=== PATIENT | female | born 1955 | race Caucasian/White ===

== ENCOUNTER 2018-04-10 06:48 | Emergency (ER) | payer BC ==
--- OUTSIDE RECORDS SUMMARY | 2018-04-10 06:52 | XMS REPORT | Summary of Care ---
:1955 Author Organization [facility] Address [address] [place] [id number]- Encounter HQ Encntr_alden(FIN) [id number] Date(s): 06/11/16 - 06/11/[address] [address]- Discharge Disposition: Home or Self Care Attending Physician: Tesha Casanova MD Vital Signs Most recent to oldest [Reference Range]: 1 Height 152.4 cm (06/11/16 2:40 PM) Weight 69 kg (06/11/16 2:40 PM) Body Mass Index 29.71 m2 (06/11/16 2:40 PM) Problem List Condition Effective Dates Status Health Status Informant Adrenal insufficiency(Confirmed) Resolved Back pain(Confirmed) Resolved CVA (cerebral vascular Resolved accident)(Confirmed) DM (diabetes mellitus)(Confirmed) Resolved HTN (hypertension)(Confirmed) Resolved Kidney stone(Confirmed) Resolved Cervical fusion syndrome(Confirmed) Resolved Pancreatic cyst(Confirmed) Resolved TIA (transient ischemic Resolved attack)(Confirmed) UTI (urinary tract Resolved infection)(Confirmed) Allergies, Adverse Reactions, Alerts Substance Reaction Severity Status NKDA Active sulfa drugs Active Medications No data available for this section Results No data available for this section Immunizations No data available for this section Procedures Procedure Date Related Diagnosis Body Site Cervical spinal fusion1 Gastric bypass 1C3-6 Social History Social History Type Response Smoking Status Never smoker; Ready to change: No; Concerns about tobacco use in household: No; Exposure to Tobacco Smoke None; Cigarette Smoking Last 365 Days No; Reg Smoking Cessation Counseling No Assessment and Plan No data available for this section
--- OUTSIDE RECORDS SUMMARY | 2018-04-10 06:52 | XMS REPORT | Summary of Care ---
:1955 Author Organization [facility] Address [address] [place] [address]- Encounter HQ Rosannar_alden(FIN) [id number] Date(s): 02/06/16 - 02/06/[address] Professional Services provided by [facility] [place] [address]- Discharge Diagnosis: Dysuria Discharge Disposition: Home or Self Care Attending Physician: Royal Dumont MD Vital Signs Most recent to oldest 1 2 3 [Reference Range]: Temperature Oral [96.4-99.1 98 DegF 97.6 DegF 98.9 DegF DegF] (02/06/16 8:49 PM) (02/06/16 5:30 PM) (02/06/16 2:46 PM) Blood Pressure [90-140/60-90 160/99 mmHg 140/76 mmHg 176/115 mmHg mmHg] *HI* (02/06/16 5:30 PM) *HI* (02/06/16 8:49 PM) (02/06/16 2:46 PM) Respiratory Rate [14-20 BRMIN] 18 BRMIN 18 BRMIN 18 BRMIN (02/06/16 8:49 PM) (02/06/16 5:30 PM) (02/06/16 2:46 PM) Peripheral Pulse Rate [60-100 67 bpm 77 bpm 67 bpm bpm] (02/06/16 8:49 PM) (02/06/16 5:30 PM) (02/06/16 2:46 PM) Problem List Condition Effective Dates Status Health Status Informant Adrenal insufficiency(Confirmed) Resolved Back pain(Confirmed) Resolved CVA (cerebral vascular Resolved accident)(Confirmed) DM (diabetes mellitus)(Confirmed) Resolved HTN (hypertension)(Confirmed) Resolved Kidney stone(Confirmed) Resolved Cervical fusion syndrome(Confirmed) Resolved Pancreatic cyst(Confirmed) Resolved TIA (transient ischemic Resolved attack)(Confirmed) UTI (urinary tract Resolved infection)(Confirmed) Allergies, Adverse Reactions, Alerts Substance Reaction Severity Status NKDA Active Medications Azo-Standard 95 mg oral tablet 95 mg=1 tab, PO, TID, X 7 day, # 21 tab, 1 Refill(s) Start Date: 02/06/16 Stop Date: 02/20/16 Status: Orderedcefdinir 300 mg oral capsule 300 mg=1 cap, PO, BID, X 10 day, # 20 cap, 0 Refill(s) Start Date: 02/06/16 Stop Date: 02/16/16 Status: Ordered Results ELECTROLYTES Most recent to oldest [Reference Range]: 1 Sodium Lvl [135-145 mEq/L] 141 mEq/L (02/06/16 5:55 PM) Potassium Lvl [3.5-5.1 mEq/L] 4.3 mEq/L (02/06/16 5:55 PM) Chloride Lvl [95-109 mEq/L] 101 mEq/L (02/06/16 5:55 PM) CO2 [24-32 mEq/L] 28 mEq/L (02/06/16 5:55 PM) AGAP [10.0-20.0 mEq/L] 16.3 mEq/L (02/06/16 5:55 PM) CHEM PANEL Most recent to oldest [Reference Range]: 1 Creatinine Lvl [0.50-1.40 mg/dL] 1.27 mg/dL (02/06/16 5:55 PM) eGFR 45 mL/min/1.73m2 1 *NA* (02/06/16 5:55 PM) BUN [7-22 mg/dL] 20 mg/dL (02/06/16 5:55 PM) Glucose Lvl [70-99 mg/dL] 101 mg/dL *HI* (02/06/16 5:55 PM) Calcium Lvl [8.5-10.5 mg/dL] 9.1 mg/dL (02/06/16 5:55 PM) 1Result Comment: The eGFR is calculated using the CKD-EPI formula. In most young , healthy individualsthe eGFR will be >90 mL/min/1.73m2. The eGFR declines with age. An eGFR of 60-89 may be normal in some populations, particularly the elderly, for whom the CKD-EPI formula has not been extensively validated. Use of the eGFR is not recommended in the following populations: Individuals with unstable creatinine concentrations, including patients and those with serious co-morbid conditions. Patients with extremes in muscle mass or diet. The data above are obtained from the National Kidney Disease Education Program ( NKDEP) which additionally recommends that when the eGFR is used in patients with extremes of body mass index for purposesof drug dosing, the eGFR should be multiplied by the estimated BMI.URINE AND STOOL Most recent to oldest [Reference Range]: 1 UA Turbidity [Clear] Slight Cloudy (02/06/16 3:40 PM) UA Color [Yellow] Yellow *NA* (02/06/16 3:40 PM) UA pH [5.0-8.0] 5.5 (02/06/16 3:40 PM) UA Spec Grav [<=1.030] 1.030 (02/06/16 3:40 PM) UA Glucose [Negative] Negative (02/06/16 3:40 PM) UA Blood [Negative] Small *ABN* (02/06/16 3:40 PM) UA Ketones [Negative] Trace *ABN* (02/06/16 3:40 PM) UA Protein [Negative] Trace *ABN* (02/06/16 3:40 PM) UA Urobilinogen [0.1-1.0 EU/dL] 0.2 EU/dL (02/06/16 3:40 PM) UA Bili [Negative] Negative *NA* (02/06/16 3:40 PM) UA Leuk Est [Negative] Trace *ABN* (02/06/16 3:40 PM) UA Nitrite [Negative] Negative (02/06/16 3:40 PM) UA WBC [None Seen /HPF] 6-10 /HPF *ABN* (02/06/16 3:40 PM) UA RBC [0-2 /HPF] 0-2 /HPF (02/06/16 3:40 PM) UA Bacteria [None Seen /HPF] Occasional /HPF (02/06/16 3:40 PM) UA Sq Epi [Few /LPF] Rare /LPF (02/06/16 3:40 PM) UA CaOx Malu [None Seen /HPF] Few /HPF (02/06/16 3:40 PM) Micro? Performed (02/06/16 3:40 PM) HEMATOLOGY Most recent to oldest [Reference Range]: 1 WBC [3.7-10.4 K/CMM] 7.3 K/CMM (02/06/16 5:55 PM) RBC [4.20-5.40 M/CMM] 4.65 M/CMM (02/06/16 5:55 PM) Hgb [12.0-16.0 g/dL] 13.6 g/dL (02/06/16 5:55 PM) Hct [36.0-48.0 %] 41.3 % (02/06/16 5:55 PM) MCV [80.0-98.0 fL] 88.9 fL (02/06/16 5:55 PM) MCH [27.0-31.0 pg] 29.3 pg (02/06/16 5:55 PM) MCHC [32.0-36.0 g/dL] 33.0 g/dL (02/06/16 5:55 PM) RDW [11.5-14.5 %] 14.8 % *HI* (02/06/16 5:55 PM) Platelet [133-450 K/CMM] 261 K/CMM (02/06/16 5:55 PM) MPV [7.4-10.4 fL] 7.5 fL (02/06/16 5:55 PM) Segs [45.0-75.0 %] 45.2 % (02/06/16 5:55 PM) Lymphocytes [20.0-40.0 %] 42.5 % *HI* (02/06/16 5:55 PM) Monocytes [2.0-12.0 %] 8.7 % (02/06/16 5:55 PM) Eosinophils [0.0-4.0 %] 3.0 % (02/06/16 5:55 PM) Basophils [0.0-1.0 %] 0.6 % (02/06/16 5:55 PM) Segs-Bands # [1.5-8.1 K/CMM] 3.3 K/CMM (02/06/16 5:55 PM) Lymphocytes # [1.0-5.5 K/CMM] 3.1 K/CMM (02/06/16 5:55 PM) Monocytes # [0.0-0.8 K/CMM] 0.6 K/CMM (02/06/16 5:55 PM) Eosinophils # [0.0-0.5 K/CMM] 0.2 K/CMM (02/06/16 5:55 PM) Immunizations No data available for this section [...]
--- OUTSIDE RECORDS SUMMARY | 2018-04-10 06:52 | XMS REPORT | Continuity of Care Document ---
:1955 Author Organization Interface Problems Problem Status Onset Classification Date Comments Source Date Reported B96.1, Z16.12, Active 06/11/19 N10 17 [facility] Discharge 02/06/20 02/09/2016 [facility] Diagnosis: [facility] UTI Active 02/06/[address] Adrenal Resolved Problem 06/14/2016 insufficiency [facility] Back pain Resolved Problem 06/14/2016 [facility] CVA (<span Resolved Problem 06/14/2016 MH ID="[id number] [facility], ">Confirmed</spa H [place] n>) [facility] DM (<span Resolved Problem 06/14/2016 MH ID="[id number] [facility] ">Confirmed</spa H [place] n>) [facility] HTN (<span Resolved Problem 06/14/2016 ID="[id number] [facility], ">Confirmed</spa H [place] n>) [facility] Kidney stone Resolved Problem 06/14/2016 [facility] 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 [facility] Pancreatic cyst Resolved Problem 06/14/2016 [facility] TIA (<span Resolved Problem 06/14/2016 MH ID="[id number] [facility], ">Confirmed</spa H [place] n>) [facility] UTI (<span Resolved Problem 06/14/2016 MH ID="[id number] [facility], ">Confirmed</spa H [place] n>) [facility] Medications Medication Details Route Status Patient Ordering Order Source Instructions Provider Date cefdinir 300 MG 300 mg=1 Active [facility] Oral Capsule cap, PO, 016 Medical BID, X 10 Center day, # 20 cap, 0 Refill(s) Phenazopyridine 95 mg=1 Active [facility] hydrochloride 95 tab, PO, 016 Medical MG Oral Tablet TID, X 7 Center [Azo-Standard] day, # 21 tab, 1 Refill(s) Allergies, Adverse Reactions, Alerts Substance Category Reaction Severity Reaction Status Date Comments Source type Reported sulfa drugs Assertion Drug Active allergy [facility] Immunizations Immunization Date Given Site Status Last Updated Comments Source Results Order Name Results Value Reference Date Interpretation Comments Source Range Chest 1 v Chest 1 v Patient Name: RADHA PALOMARES 06/11 - for - [facility] Placement Placement DX : 1955; Age: 60 years y/o Female DX MR: [id number] Read by: Jose Morales MD Dictated Date/time: 06/11/16 15:19 Electronically Signed by: Jose Morales MD 06/11/16 15:21 FINAL REPORT * CHEST, portable, 1 view HISTORY: Status post PICC placement COMPARISON: None TECHNIQUE: A portable frontal radiograph of the chest was obtained following PICC placement IMPRESSION: 1. The tip of the right upper extremity PICC is in the mid right atrium. It is suggested the catheter be retracted approximately 3 -- 4 cm for more optimal placement. 2. No evidence of an active or acute process. The lungs are clear. There are no pleural effusions. 3. Borderline cardiomegaly without overt failure. 4. Small metallic plates overlie the lower cervical region. They may be in the facial region such as in the mandible. Evaluation is limited on this study. The regional skeleton is unremarkable. SL: [id number] CHEM PANEL eGFR 45 02/05 Result Comment: The eGFR is calculated using the CKD-EPI formula. In most young, healthy individuals the eGFR will be >90 mL/ min/1.73m2. The eGFR declines with age. An eGFR of 60-89 may be normal in [place] mL/min/1.7 /2016 some populations, particularly the elderly, for whom the CKD-EPI formula has not been extensively validated. Use of the eGFR is not recommended in the following populations: Medical [facility] Center Individuals with unstable creatinine concentrations, including patients and those with serious co-morbid conditions. Patients with extremes in muscle mass or diet. The data above are obtained from the National Kidney Disease Education Program (NKDEP) which additionally recommends that when the eGFR is used in patients with extremes of body mass index for purposes of drug dosing, the eGFR should be multiplied by the estimated BMI. CHEM PANEL Potassium 4.3 meq/L 3.5 - 5.1 02/05 [facility] Lvl /2015 [facility] CHEM PANEL Chloride Lvl 101 meq/L 95 - 109 02/05 [facility] CHEM PANEL Glucose Lvl 101 mg/dL 70 - 99 02/05 [facility] CHEM PANEL CO2 28 meq/L 24 - 32 02/05 [facility] CHEM PANEL Calcium Lvl 9.1 mg/dL 8.5 - 10.5 02/05 [facility] CHEM PANEL Creatinine 1.27 mg/dL 0.50 - 02/05 [place] Lvl 1.40 /2015 [facility] CHEM PANEL Sodium Lvl 141 meq/L 135 - 145 02/05 [facility] CHEM PANEL BUN 20 mg/dL 7 - 22 02/05 [facility] CHEM PANEL AGAP 16.3 meq/L 10.0 - 02/05 20.0 [facility] HEMATOLOGY MCV 88.9 fL 80.0 - 02/05 98.0 [facility] HEMATOLOGY Hct 41.3 % 36.0 - 02/05 48.0 [facility] HEMATOLOGY MCHC 33.0 g/dL 32.0 - 02/05 36.0 [facility] HEMATOLOGY MCH 29.3 pg 27.0 - 02/05 [place] 31.0 [facility] HEMATOLOGY MPV 7.5 fL 7.4 - 10.4 02/05 [facility] HEMATOLOGY RDW 14.8 % 11.5 - 02/05 14.5 [facility] HEMATOLOGY Platelet 261 K/CMM 133 - 450 02/05 [facility] HEMATOLOGY WBC 7.3 K/CMM 3.7 - 10.4 02/05 [facility] HEMATOLOGY RBC 4.65 M/CMM 4.20 - 11 [place] 5.40 [facility] HEMATOLOGY Hgb 13.6 g/dL 12.0 - 02/05 [place] 16.0 [facility] HEMATOLOGY Monocytes # 0.6 K/CMM 0.0 - 0.8 02/05 [facility] HEMATOLOGY Lymphocytes 3.1 K/CMM 1.0 - 5.5 02/05 [place] # /2016 [facility] HEMATOLOGY Eosinophils 0.2 K/CMM 0.0 - 0.5 02/05 [facility] # /2015 [facility] HEMATOLOGY Segs-Bands # 3.3 K/CMM 1.5 - 8.1 02/05 [facility] HEMATOLOGY Monocytes 8.7 % 2.0 - 12.0 02/05 [facility] HEMATOLOGY Lymphocytes 42.5 % 20.0 - 02/05 [place] 40.0 [facility] HEMATOLOGY Segs 45.2 % 45.0 - 02/05 [place] 75.0 [facility] HEMATOLOGY Basophils 0.6 % 0.0 - 1.0 02/05 [facility] HEMATOLOGY Eosinophils 3.0 % 0.0 - 4.0 02/05 [facility] URINE AND UA Leuk Est Trace Negative 02/05 [facility] *ABN* [place] (02/06/16 3:40 PM) URINE AND UA Nitrite Negative Negative 02/05 [facility] (02/06/16 3:40 PM) [place] URINE AND UA Bili Negative Negative 02/05 [facility] *NA* Center (02/06/16 3:40 PM) URINE AND UA Blood Small Negative 02/05 [facility] *ABN* [place] (02/06/16 3:40 PM) URINE AND UA 0.2 EU/dL 0.1 - 1.0 02/05 [facility] Urobilinogen [facility] URINE AND UA Glucose Negative Negative 02/05 [facility] (02/06/16 3:40 PM) [place] URINE AND UA Ketones Trace Negative 02/05 [facility] *ABN* [place] (02/06/16 3:40 PM) URINE AND UA Protein Trace Negative 02/05 [facility] *ABN* [place] (02/06/16 3:40 PM) URINE AND UA pH 5.5 5.0 - 8.0 02/05 [facility] URINE AND UA Spec Grav 1.030 <=1.030 02/05 [facility] URINE AND UA Turbidity Slight Cloudy Clear 02/05 [facility] (02/06/16 3:40 PM) [place] URINE AND UA Color Yellow Yellow 02/05 [facility] Medical *NA* Center (02/06/16 3:40 PM) URINE AND UA Bacteria Occasional None Seen 02/05 [facility] [place] STOOL /HPF /HPF /2016 [facility] URINE AND UA CaOx Malu Few /HPF None Seen 02/05 [facility] STOOL /HPF /2016 [facility] URINE AND UA RBC 0-2 /HPF 0 - 2 02/05 [facility] /2016 [facility] URINE AND UA WBC 6-10 /HPF None Seen 02/05 [facility] STOOL /HPF /2016 [facility] URINE AND UA Sq Epi Rare /LPF Few /LPF 02/05 [facility] [address] [place] [address] URINE AND Micro? Performed 02/05 [facility] /[address] [place] [address] (02/06/16 3:40 PM) [place] Vital Signs Vital Sign Value Date Comments Source BMI Calculated 29.71 06/11/2016 [facility] Weight 69 06/11/2016 [facility] Height 152.4 cm 06/11/2016 [facility] Respitory Rate 18 02/07/2016 [facility] Temperature Oral (F) 98 F 02/07/2016 [facility] Systolic (mm Hg) 160 02/07/2016 [facility] Diastolic (mm Hg) 99 02/07/2016 [facility] Heart Rate 67 02/07/2016 [facility] Temperature Oral (F) 97.6 F 02/06/2016 [facility] Respitory Rate 18 02/06/2016 [facility] Heart Rate 77 02/06/2016 [facility] Systolic (mm Hg) 140 02/06/2016 [facility] Diastolic (mm Hg) 76 02/06/2016 [facility] Heart Rate 67 02/06/2016 [facility] Respitory Rate 18 02/06/2016 [facility] Systolic (mm Hg) 176 02/06/2016 [facility] Diastolic (mm Hg) 115 02/06/2016 [facility] Temperature Oral (F) 98.9 F 02/06/2016 [facility] Encounters Location Location Encounter Encounter Reason Attending ADM DC Status Source Details Type Number For Provider Date Date [facility] [id number] [place] [facility] [place] [facility] [id number] Tesha 06/11 06/12 [facility] Edilberto /2016 [facility] Procedures Procedure Code Date Perfomer Comments Source Cervical spinal [id number] C3-6 [facility] fusion<sup>1</rdz p> Gastric bypass [id number] [facility] Cervical spinal [id number] C3-6 [facility]<sup>1</[facility] p> Gastric bypass [id number] [facility]
--- OUTSIDE RECORDS SUMMARY | 2018-04-10 06:52 | XMS REPORT | Clinical Summary ---
:1955 Author Organization [facility] Address [address] [place] [address] Care Team Providers Name Role Phone Cayetano King MD Primary Care Provider Allergies Active Allergy Reactions Severity Noted Date Comments No Known Drug Allergies 04/02/2016 Medications Medication Sig Dispensed Refills Start Date End Date Status metoprolol TK 1 T PO QD 0 Active succinate XL (TOPROL-XL) 100 mg 24 hr tablet DULoxetine Take 1 capsule 0 Active (CYMBALTA) 60 MG every day by capsule oral route. HYDROcodone-acetam TK 1 T PO Q 6 H 0 Active inophen (NORCO) PRF PAIN 10-325 mg per tablet gabapentin TK 1 T PO TID. 5 03/14/2016 Active (NEURONTIN) 600 mg tablet pantoprazole TK 1 T PO QD. 5 03/21/2016 Active (PROTONIX) 40 MG EC tablet ELIQUIS 5 mg TK 1 T PO BID 5 03/16/2017 Active tabletIndications: Transient cerebral ischemia, unspecified type buPROPion SR Take 100 mg by 0 Active (WELLBUTRIN SR) mouth 2 (two) 100 MG 12 hr times a day. tablet amLODIPine DAILY 0 03/20/2017 Active (NORVASC) 5 mg tablet ALPRAZolam (XANAX) Take 0.5 mg by 0 Active 0.5 MG tablet mouth nightly as needed for anxiety. ALPRAZOLAM 0.5MG BID PRN metoprolol Take 1 tablet 0 Discontinued tartrate twice a day by 8 (LOPRESSOR) 100 mg oral route. tablet Active Problems Problem Noted Date Slurred speech 01/12/2018 Cardioembolic stroke 04/02/2016 TIA (transient ischemic attack) 05/29/2015 Memory loss Encounters Date Type Specialty Care Team Description 02/17/2018 Telephone Neurology VirginiaMarii welch Sin Emilia, DO 02/04/2018 Telephone Neurology Marii Coleman Sin Emilia, DO 01/12/2018 - Emergency General Internal Guharoy, Slurred speech (Primary Dx ); 01/14/2018 Medicine Reji Gasca MD Occasional tremors; George Woodall Hypertensive urgency; MD Derrek Confusion 01/12/2018 Office Visit Cardiology Ashley Strickland, SOB (shortness of MD breath) (Primary Dx) 01/11/2018 Office Visit Neurology Virginia Marii Transient cerebral ischemia , unspecified type (Primary Dx); Sin Emilia, DO Atrial fibrillation, unspecified type (HCC); Slurred speech; Gait instability; Essential hypertension; Loss of consciousness (HCC) 01/11/2018 Transcribe Orders Procedural Ashley Strickland, Hypertension, unspecified type (Primary Dx); Cardiology SOB (shortness of breath); Chest pain, unspecified type 09/01/2017 Documentation Neurology Virginia, Marii No Show Sin Emilia, DO 07/22/2017 Hospital Encounter Radiology Virginia, Marii Transient cerebral ischemia, unspecified type; Sin Emilia, DO Slurred speech 07/22/2017 Hospital Encounter Radiology [place], Marii Transient cerebral ischemia, unspecified type; Sin Emilia, DO Slurred speech 07/22/2017 Hospital Encounter Radiology Virginia, Marii Transient cerebral ischemia, unspecified type; Sin Emilia, DO Slurred speech 07/22/2017 Office Visit Neurology [place], Marii Transient cerebral ischemia , unspecified type (Primary Dx); Sin Emilia, DO Atrial fibrillation, unspecified type; Gait instability; Anemia, unspecified type; Asterixis; Slurred speech; Hallucinations 07/13/2017 Documentation Neurology Janes Aguilar MD 05/05/2017 Documentation Neurology Janes Aguilar MD 04/28/2017 Hospital Encounter Radiology [place], Marii Transient cerebral Sin Emilia, DO ischemia, unspecified type 04/28/2017 Hospital Encounter Neurology [place], Marii Transient cerebral Sin Emilia, DO ischemia, unspecified type 04/24/2017 Telephone Neurology Marii Coleman DO after 04/09/2017 Family History Medical History Relation Name Comments Diabetes Father Hypertension Father Stroke Father Diabetes Mother Migraines Mother Relation Name Status Comments Father Mother Social History Tobacco Use Types Packs/Day Years Used Date Current Every Day Smoker Cigarettes 1 Smokeless Tobacco: Never Used Tobacco Cessation: Ready to Quit: No Alcohol Use Drinks/Week oz/Week Comments No Sex Assigned at Date Recorded Not on file Job Start Date Occupation Industry Not on file Not on file Not on file Travel History Travel Start Travel End No recent travel history available. Last Filed Vital Signs Vital Sign Reading Time Taken Blood Pressure 144/77 01/14/2018 11:57 AM CDT Pulse 63 01/14/2018 11:57 AM CDT Temperature 36.3 C (97.4 F) 01/14/2018 11:57 AM CDT Respiratory Rate 18 01/14/2018 11:57 AM CDT Oxygen Saturation 100% 01/14/2018 11:57 AM CDT Inhaled Oxygen Concentration - - Weight 54 kg (119 lb) 01/12/2018 4:16 PM CDT Height 154.9 cm (5' 1") 01/12/2018 11:37 PM CDT Body Mass Index 23.24 01/12/2018 4:16 PM CDT Plan of Treatment Health Maintenance Due Date Last Done Comments CERVICAL CANCER SCREENING 1974 BREAST CANCER SCREENING 11/09/2003 COLON CANCER SCREENING 11/09/2003 SHINGLES VACCINES (1 of 2) 11/09/2003 INFLUENZA VACCINE 10/28/2017 01/28/2017, 12/27/2012 Procedures Procedure Name Priority Date/Time Associated Comments Diagnosis POC GLUCOSE Routine 01/14/2018 11:58 Results for this AM CDT procedure are in the results section. POC GLUCOSE Routine 01/14/2018 7:30 Results for this AM CDT procedure are in the results section. ESTIMATED GFR Routine 01/14/2018 5:05 Results for this AM CDT procedure are in the results section. BASIC METABOLIC PANEL Routine 01/14/2018 5:05 Results for this AM CDT procedure are in the results section. HC COMPLETE BLD COUNT Routine 01/14/2018 5:05 Results for this W/AUTO DIFF AM CDT procedure are in the results section. POC GLUCOSE Routine 01/13/2018 9:17 Results for this PM CDT procedure are in the results section. POC GLUCOSE Routine 01/13/2018 6:51 Results for this PM CDT procedure are in the results section. POC GLUCOSE Routine 01/13/2018 4:34 Results for this PM CDT procedure are in the results section. POC GLUCOSE Routine 01/13/2018 11:10 Results for this AM CDT procedure are in the results section. MRA NECK WO CONTRAST Routine 01/13/2018 10:49 Results for this AM CDT procedure are in the results section. MRA [place] Routine 01/13/2018 10:26 Results for this AM CDT procedure are in the results section. MRI STROKE BRAIN WO Routine 01/13/2018 10:26 Results for this CONTRAST AM CDT procedure are in the results section. LIPID PANEL Routine 01/13/2018 4:43 Results for this AM CDT procedure are in the results section. TROPONIN Timed 01/13/2018 4:43 Results for this AM CDT procedure are in the results section. TROPONIN Timed 01/12/2018 11:17 Results for this PM CDT procedure are in the results section. ESTIMATED GFR STAT 01/12/2018 7:17 Results for this PM CDT procedure are in the results section. TROPONIN STAT 01/12/2018 7:17 Results for this PM CDT procedure are in the results section. COMPREHENSIVE METABOLIC STAT 01/12/2018 7:17 Results for this PANEL PM CDT procedure are in the results section. CT STROKE BRAIN WO STAT 01/12/2018 6:58 Results for this CONTRAST PM CDT procedure are in the results section. URINALYSIS SCREEN AND STAT 01/12/2018 6:01 Results for this MICROSCOPY, WITH REFLEX PM CDT procedure are in TO CULTURE the results section. URINE CULTURE STAT 01/12/2018 6:00 Results for this PM CDT procedure are in the results section. ECG ED PRELIMINARY Routine 01/12/2018 5:55 Results for this INTERPRETATION PM CDT procedure are in the results section. ECG 12-LEAD STAT 01/12/2018 5:32 Results for this PM CDT procedure are in the results section. PROTHROMBIN TIME WITH STAT 01/12/2018 5:30 Results for this INR PM CDT procedure are in the results section. PARTIAL THROMBOPLASTIN STAT 01/12/2018 5:30 Results for this TIME (PTT) PM CDT procedure are in the results section. HC COMPLETE BLD COUNT STAT 01/12/2018 5:30 Results for this W/AUTO DIFF PM CDT procedure are in the results section. ECG 12-LEAD Routine 01/12/2018 4:29 SOB (shortness of Results for this PM CDT breath) procedure are in the results section. ECHOCARDIOGRAM 2D Routine 01/12/2018 4:11 Hypertension, Results for this COMPLETE W MMODE PM CDT unspecified type procedure are in SPECTRAL COLOR DOPPLER SOB (shortness of the results (68584) breath) section. Chest pain, unspecified type THYROID STIMULATING Routine 01/11/2018 9:23 Transient cerebral Results for this HORMONE AM CDT ischemia, procedure are in unspecified type the results Slurred speech section. Gait instability COMPREHENSIVE METABOLIC Routine 01/11/2018 9:23 Transient cerebral Results for this PANEL AM CDT ischemia, procedure are in unspecified type the results Slurred speech section. Gait instability CBC WITH PLATELET AND Routine 01/11/2018 9:23 Transient cerebral Results for this DIFFERENTIAL AM CDT ischemia, procedure are in unspecified type the results Slurred speech section. Gait instability MRA NECK WO CONTRAST STAT 07/22/2017 2:37 Transient cerebral Results for this PM CDT ischemia, procedure are in unspecified type the results Slurred speech section. MRA HEAD WO CONTRAST STAT 07/22/2017 2:30 Transient cerebral Results for this PM CDT ischemia, procedure are in unspecified type the results Slurred speech section. MRI BRAIN WO CONTRAST STAT 07/22/2017 2:03 Transient cerebral Results for this PM CDT ischemia, procedure are in unspecified type the results Slurred speech section. TRANSFERRIN LEVEL Routine 07/22/2017 10:45 Transient cerebral Results for this AM CDT ischemia, procedure are in unspecified type the results Anemia, unspecified section. type TOTAL IRON BINDING Routine 07/22/2017 10:45 Transient cerebral Results for this CAPACITY AM CDT ischemia, procedure are in unspecified type the results Anemia, unspecified section. type FERRITIN LEVEL Routine 07/22/2017 10:45 Transient cerebral Results for this AM CDT ischemia, procedure are in unspecified type the results Anemia, unspecified section. type AMMONIA LEVEL Routine 07/22/2017 10:45 Asterixis Results for this AM CDT procedure are in the results section. VITAMIN B12 LEVEL Routine 07/22/2017 10:45 Transient cerebral Results for this AM CDT ischemia, procedure are in unspecified type the results section. THYROID STIMULATING Routine 07/22/2017 10:45 Transient cerebral Results for this HORMONE AM CDT ischemia, procedure are in unspecified type the results section. COMPREHENSIVE METABOLIC Routine 07/22/2017 10:45 Transient cerebral Results for this PANEL AM CDT ischemia, procedure are in unspecified type the results section. CBC WITH PLATELET AND Routine 07/22/2017 10:45 Transient cerebral Results for this DIFFERENTIAL AM CDT ischemia, procedure are in unspecified type the results section. LIPID PANEL Routine 07/22/2017 10:45 Transient cerebral Results for this AM CDT ischemia, procedure are in unspecified type the results section. EEG AWAKE/ASLEEP LESS Routine 04/28/2017 1:31 Transient cerebral Results for this THAN 41 MIN PM ACCOUNTS RECEIVABLE ADMINISTRATOR ischemia, procedure are in unspecified type the results section. MRI BRAIN WO CONTRAST Routine 04/28/2017 12:41 Transient cerebral Results for this PM ACCOUNTS RECEIVABLE ADMINISTRATOR ischemia, procedure are in unspecified type the results section. after 04/09/2017 Results POC glucose (01/14/2018 11:58 AM CDT)Only the most recent of6 resultswithin the time period is included. POC glucose 88 65 - 99 mg/dL [facility] DEPARTMENT OF PATHOLOGY AND Comment: GENOMIC MEDICINE RN Notified Meter ID: [id number] Technical Operations Manager: Ahmet Medley Performing Organization Address City/[facility] Phone Number [facility] DEPARTMENT OF PATHOLOGY [address] [place] [address]. [place] [address] AND [employer] Estimated GFR (01/14/2018 5:05 AM CDT)Only the most recent of2 resultswithin the time period is included. Estimated GFR 27 (A) mL/min/1.73 m2 [facility] DEPARTMENT OF Comment: PATHOLOGY AND GENOMIC CatergoryUnitsInterpretation MEDICINE G1 >=90 Normal or high G2 60-89Mildly decreased Q7w28-15Mkpcul to moderately decreased A0c20-26Vxozykkxlr to severely decreased G4 15-29Severely decreased G5 <15Kidney failure The eGFR was calculated using the Chronic Kidney Disease Epidemiology Collaboration (CKD-EPI) equation. Interpretation is based on recommendations of the National Kidney Foundation-Kidney Disease Outcomes Quality Initiative (NKF-KDOQI) published in 2014. Specimen Plasma specimen Performing Organization Address City/[facility] Phone Number [facility] DEPARTMENT OF PATHOLOGY [id number] [place] [id number] AND [employer] CBC with platelet and differential (01/14/2018 5:05 AM CDT)Only the most recent of4 resultswithin the time period is included. WBC 6.9 4.5 - 11.0 k/uL [facility] DEPARTMENT OF PATHOLOGY AND GENOMIC MEDICINE RBC 4.06 (L) 4.20 - 5.50 m/uL [facility] DEPARTMENT OF PATHOLOGY AND GENOMIC MEDICINE HGB 11.9 (L) 12.0 - 16.0 g/dL [facility] DEPARTMENT OF PATHOLOGY AND GENOMIC MEDICINE HCT 37.6 37.0 - 47.0 % [facility] DEPARTMENT OF PATHOLOGY AND GENOMIC MEDICINE MCV 92.6 82.0 - 100.0 fL [facility] DEPARTMENT OF PATHOLOGY AND GENOMIC MEDICINE MCH 29.3 27.0 - 34.0 pg [facility] DEPARTMENT OF PATHOLOGY AND GENOMIC MEDICINE MCHC 31.6 31.0 - 37.0 g/dL [facility] DEPARTMENT OF PATHOLOGY AND GENOMIC MEDICINE RDW - SD 49.6 37.0 - 55.0 fL [facility] DEPARTMENT OF PATHOLOGY AND GENOMIC MEDICINE MPV 9.1 6.9 - 11.0 fL [facility] DEPARTMENT OF PATHOLOGY AND GENOMIC MEDICINE Platelet count 247 150 - 400 K/uL [facility] DEPARTMENT OF PATHOLOGY AND GENOMIC MEDICINE Nucleated RBC 0.00 /100 WBC [facility] DEPARTMENT OF PATHOLOGY AND GENOMIC MEDICINE Neutrophils 51.8 39.0 - 69.0 % [facility] DEPARTMENT OF PATHOLOGY AND GENOMIC MEDICINE Lymphocytes 35.0 25.0 - 45.0 % [facility] DEPARTMENT OF PATHOLOGY AND GENOMIC MEDICINE Monocytes 9.3 0.0 - 10.0 % [facility] DEPARTMENT OF PATHOLOGY AND GENOMIC MEDICINE Eosinophils 3.2 0.0 - 5.0 % [facility] DEPARTMENT OF PATHOLOGY AND GENOMIC MEDICINE Basophils 0.6 0.0 - 1.0 % [facility] DEPARTMENT OF PATHOLOGY AND GENOMIC MEDICINE Immature granulocytes 0.1 0.0 - 1.0 % [facility] DEPARTMENT OF PATHOLOGY AND GENOMIC MEDICINE Specimen Blood Performing Organization Address City/State/Zipcode Phone Number [facility] DEPARTMENT OF PATHOLOGY [address] [place] [address] AND [facility] [employer] metabolic panel (01/14/2018 5:05 AM CDT) Sodium 141 135 - 148 mEq/L [facility] DEPARTMENT OF PATHOLOGY AND GENOMIC MEDICINE Potassium 5.0 3.5 - 5.0 mEq/L [facility] DEPARTMENT OF PATHOLOGY AND GENOMIC MEDICINE Chloride 106 98 - 112 mEq/L [facility] DEPARTMENT OF PATHOLOGY AND GENOMIC MEDICINE CO2 24 24 - 31 mEq/L [facility] DEPARTMENT OF PATHOLOGY AND GENOMIC MEDICINE Anion gap 11@ANIO 7 - 15 mEq/L [facility] DEPARTMENT OF PATHOLOGY AND GENOMIC MEDICINE BUN 29 (H) 8 - 23 mg/dL [facility] DEPARTMENT OF PATHOLOGY AND GENOMIC MEDICINE Creatinine 1.94 (H) 0.50 - 0.90 mg/dL [facility] DEPARTMENT OF PATHOLOGY AND GENOMIC MEDICINE Glucose 95 65 - 99 mg/dL [facility] DEPARTMENT OF PATHOLOGY AND GENOMIC MEDICINE Calcium 9.6 8.8 - 10.2 mg/dL [facility] DEPARTMENT OF PATHOLOGY AND GENOMIC MEDICINE Specimen Plasma specimen Performing Organization Address City/State/Zipcode Phone Number [facility] DEPARTMENT OF PATHOLOGY [address] [place] [address] AND [employer] MRA Neck Wo Contrast (01/13/2018 10:49 AM CDT)Only the most recent of2 resultswithin the time period is included. Narrative Performed At EXAMINATION:MRA NECK WO CONTRAST [facility] CLINICAL HISTORY:CVA COMPARISON:MRI of the neck dated July 22, 2017 TECHNIQUE: Neck MRA using 2D and 3D [id number]-rb-uwzkvc technique with multi-planar MIP and 3D reconstruction. High-resolution sagittal T1 Cube with fat saturation sequence for dissection was performed. FINDINGS: There is normal flow-related signal with no occlusion along bilateral common, internal, and external carotid arteries. There is no significant stenosis according to the NASCET criteria (0%). There is normal flow-related signal with no significant stenosis or occlusion along bilateral vertebral arteries. The right vertebral artery is dominant. IMPRESSION: Unremarkable neck MRA with no significant carotid or vertebral artery stenosis. [facility]-[id number] Procedure Note Interface, Radiology Results Incoming - 01/13/2018 11:23 AM CDT EXAMINATION: MRA NECK WO CONTRAST CLINICAL HISTORY: CVA COMPARISON: MRI of the neck dated July 22, 2017 TECHNIQUE: Neck MRA using 2D and 3D [id number]-ly-madrrq technique with multi-planar MIP and 3D reconstruction. High-resolution sagittal T1 Cube with fat saturation sequence for dissection was performed. FINDINGS: There is normal flow-related signal with no occlusion along bilateral common, internal, and external carotid arteries. There is no significant stenosis according to the NASCET criteria (0%). There is normal flow-related signal with no significant stenosis or occlusion along bilateral vertebral arteries. The right vertebral artery is dominant. IMPRESSION: Unremarkable neck MRA with no significant carotid or vertebral artery stenosis. [facility]-[id number] Performing Organization Address City/[facility]/Zipcode Phone Number [facility] [address] [place] [address] MRA [place] (01/13/2018 10:26 AM CDT) Narrative Performed At EXAMINATION: MRA [place] [facility] CLINICAL HISTORY: CVA COMPARISON:None TECHNIQUE: [id number] MRA images of the [place] vessels were obtained with multiplanar and 3-D reconstructive algorithms. FINDINGS: Robust flow-related signal is noted within the cervical, petrous, cavernous, clinoid and supraclinoid segments of the internal carotid arteries bilaterally. No aneurysms or measurable stenosis identified. The major branches of the anterior circulation are patent without luminal irregularity.No variant anatomy identified. The major branches of the posterior circulation are patent without luminal irregularity. No basilar tip aneurysms identified. The V4 segments have normal flow-related signal bilaterally. Right V4 segment is dominant. IMPRESSION: Patent [place] vasculature, without evidence of aneurysm or significant stenosis. [facility]-[id number] Procedure Note [facility], Radiology Results [facility] - 01/13/2018 10:34 AM CDT EXAMINATION: MRA [place] CLINICAL HISTORY: CVA COMPARISON: None TECHNIQUE: [id number] MRA images of the [place] vessels were obtained with multiplanar and 3-D reconstructive algorithms. FINDINGS: Robust flow-related signal is noted within the cervical, petrous, cavernous, clinoid and supraclinoid segments of the internal carotid arteries bilaterally. No aneurysms or measurable stenosis identified. The major branches of the anterior circulation are patent without luminal irregularity. No variant anatomy identified. The major branches of the posterior circulation are patent without luminal irregularity. No basilar tip aneurysms identified. The V4 segments have normal flow-related signal bilaterally. Right V4 segment is dominant. IMPRESSION: Patent [place] vasculature, without evidence of aneurysm or significant stenosis. [facility]-[id number] Performing Organization Address City/[facility]/Zipcode Phone Number [facility] [address] [place] [address] MRI Stroke Brain Wo Contrast (01/13/2018 10:26 AM CDT) Narrative Performed At EXAMINATION:MRI STROKE BRAIN WO CONTRAST [facility]ISON:July 22, 2017. CLINICAL HISTORY:CVA COMMENTS:Multiplanar MR imaging of the brain was obtained without contrast material. FINDINGS:The chronic insult at the right occipital lobe is again noted. The brain shows no acute ischemic change, hemorrhage or mass effect. The moderate signal change in the periventricular and to lesser degree subcortical white matter is again noted. The moderate signal change in the madalyn is again greater on the left side. The expected flow voids are present in the internal carotid and basilar arteries. IMPRESSION:No definite acute change in the brain. [id number] Procedure Note Interface, Radiology Results Incoming - 01/13/2018 10:34 AM CDT EXAMINATION: MRI STROKE BRAIN WO CONTRAST COMPARISON: July 22, 2017. CLINICAL HISTORY: CVA COMMENTS: Multiplanar MR imaging of the brain was obtained without contrast material. FINDINGS: The chronic insult at the right occipital lobe is again noted. The brain shows no acute ischemic change, hemorrhage or mass effect. The moderate signal change in the periventricular and to lesser degree subcortical white matter is again noted. The moderate signal change in the madalyn is again greater on the left side. The expected flow voids are present in the internal carotid and basilar arteries. IMPRESSION: No definite acute change in the brain. [id number] Performing Organization Address City/State/Zipcode Phone Number [facility] [address] [place] [address] Troponin (01/13/2018 4:43 AM CDT)Only the most recent of3 resultswithin the time period is included. Troponin <0.30 0.00 - 0.30 ng/mL [facility] DEPARTMENT OF PATHOLOGY Comment: AND GENOMIC MEDICINE 0.11 - 1.49 ng/mlMay indicate increased risk of acute coronary syndrome. >=1.5 ng/mlConsistent with acute myocardial infarction. The diagnostic value of a single normal or non-diagnostic result is questionable.Serial samples at 2-6 hour intervals are required to rule out acute myocardial injury. Specimen Plasma specimen Performing Organization Address City/State/Zipcode Phone Number [facility] DEPARTMENT OF PATHOLOGY [address] [place] [address] AND [employer] Lipid panel (01/13/2018 4:43 AM CDT)Only the most recent of2 resultswithin the time period is included. Cholesterol 173 0 - 199 mg/dL [facility] DEPARTMENT OF PATHOLOGY AND GENOMIC MEDICINE Triglycerides 115 0 - 149 mg/dL [facility] DEPARTMENT OF PATHOLOGY AND GENOMIC MEDICINE HDL cholesterol 59 40 - 99,999 [facility] DEPARTMENT OF mg/dL PATHOLOGY AND GENOMIC MEDICINE LDL cholesterol 101 (H) 0 - 99 mg/dL [facility] DEPARTMENT OF PATHOLOGY AND GENOMIC MEDICINE Lipid panel See below [facility] DEPARTMENT OF interpretation Comment: PATHOLOGY AND Total Cholesterol (mg/dL) GENOMIC MEDICINE <200 Desirable [id number]-pnep >=240High Triglycerides (mg/dL) <150 Normal [id number]-zsiu 200-499High >=500Very high HDL Cholesterol (mg/dL) <40Low (male) <50Low (female) LDL Cholesterol (mg/dL) <100 Optimal 100-129Near or above optimal [id number]-qyvl 160-189High >=190Very high Risk Catergories that modify LDL goals. Risk CatergoriesLDL goal (mg/dL) CHD and CHD risk equivalent<100 (10-year risk >20%) Multiple (2+) risk factors <130 (10-year risk=<20%) 0-1 risk factors <160 (<10-year risk) Defining levels of lipids in metabolic syndrome Triglycerides>=150 mg/dL HDL Cholesterol Men<40 mg/dL Women<50 mg/dL Non-HDL cholesterol is a second target for therapy in persons with high triglycerides (>=200 mg/dL) Specimen Plasma specimen Performing Organization Address City/State/Zipcode Phone Number [facility] DEPARTMENT OF PATHOLOGY [address] [place] [address] AND [employer] MEDICINE Comprehensive metabolic panel (01/12/2018 7:17 PM CDT)Only the most recent of3 resultswithin the time period is included. Sodium 140 135 - 148 mEq/L [facility] DEPARTMENT OF PATHOLOGY AND GENOMIC MEDICINE Potassium 4.3 3.5 - 5.0 mEq/L [facility] DEPARTMENT OF PATHOLOGY AND GENOMIC MEDICINE Chloride 103 98 - 112 mEq/L [facility] DEPARTMENT OF PATHOLOGY AND GENOMIC MEDICINE CO2 28 24 - 31 mEq/L [facility] DEPARTMENT OF PATHOLOGY AND GENOMIC MEDICINE Anion gap 9@ANIO 7 - 15 mEq/L [facility] DEPARTMENT OF PATHOLOGY AND GENOMIC MEDICINE BUN 28 (H) 8 - 23 mg/dL [facility] DEPARTMENT OF PATHOLOGY AND GENOMIC MEDICINE Creatinine 1.95 (H) 0.50 - 0.90 mg/dL [facility] DEPARTMENT OF PATHOLOGY AND [facility] MEDICINE Glucose 80 65 - 99 mg/dL [facility] DEPARTMENT OF PATHOLOGY AND [facility] MEDICINE Calcium 9.7 8.8 - 10.2 mg/dL [facility] DEPARTMENT OF PATHOLOGY AND [facility] MEDICINE Protein 6.6 6.3 - 8.3 g/dL [facility] DEPARTMENT OF PATHOLOGY AND [facility]INE Albumin 3.9 3.5 - 5.0 g/dL [facility] DEPARTMENT OF PATHOLOGY AND [facility]INE A/G ratio 1.4 0.7 - 3.8 [facility] DEPARTMENT OF PATHOLOGY AND [facility]INE Alkaline phosphatase 93 35 - 104 U/L [facility] DEPARTMENT OF PATHOLOGY AND [facility]ICINE AST 18 10 - 35 U/L [facility] DEPARTMENT OF PATHOLOGY AND [facility]INE ALT 13 5 - 50 U/L [facility] DEPARTMENT OF PATHOLOGY AND [facility]ICINE Total bilirubin <0.2 0.2 - 1.2 mg/dL [facility] OF PATHOLOGY AND [facility] MEDICINE Specimen Plasma specimen Performing Organization Address City/State/Zipcode Phone Number [facility] DEPARTMENT OF PATHOLOGY [address] [place] [address] AND [facility] CT Stroke Brain Wo Contrast (01/12/2018 6:58 PM CDT) Narrative Performed At EXAM: CT STROKE BRAIN WO CONTRAST [facility] CLINICAL HISTORY: STROKE TECHNIQUE: Noncontrast enhanced images of the brain were obtained from the skull base to the vertex. Both soft tissue and bone reconstruction algorithms were performed. CT scans are performed using radiation dose reduction techniques (iterative reconstruction and/or automated exposure control). Technical factors are evaluated and adjusted to ensure appropriate moderation of exposure. Automated dose management technology is applied to adjust radiation exposure while achieving a diagnostic quality image. COMPARISON:None. FINDINGS: Redemonstration of a few scattered remote infarcts, particularly within the bilateral frontoparietal lobes and posterior right parietal lobe, some of which have evolved and become more encephalomalacic in the interval. The myers-white matter differentiation is otherwise preserved and without evidence of acute territorial infarction. There is no evidence for acute intracranial hemorrhage, mass, mass effect, hydrocephalus, or extra-axial fluid collection. Orbits are unremarkable.Paranasal sinuses are clear.Mastoid air cells are normally pneumatized.Osseous structures are intact. IMPRESSION: Redemonstration of a few scattered small remote infarcts. No CT evidence for acute intracranial abnormality. Findings discussed with REJI CHUNG at 01/12/2018 6:59 PM, with acknowledgement of understanding. [facility]-[id number] Procedure Note Interface, Radiology Results Incoming - 01/12/2018 7:07 PM CDT EXAM: CT STROKE BRAIN WO CONTRAST CLINICAL HISTORY: STROKE TECHNIQUE: Noncontrast enhanced images of the brain were obtained from the skull base to the vertex. Both soft tissue and bone reconstruction algorithms were performed. CT scans are performed using radiation dose reduction techniques (iterative reconstruction and/or automated exposure control). Technical factors are evaluated and adjusted to ensure appropriate moderation of exposure. Automated dose management technology is applied to adjust radiation exposure while achieving a diagnostic quality image. COMPARISON: None. FINDINGS: Redemonstration of a few scattered remote infarcts, particularly within the bilateral frontoparietal lobes and posterior right parietal lobe, some of which have evolved and become more encephalomalacic in the interval. The myers-white matter differentiation is otherwise preserved and without evidence of acute territorial infarction. There is no evidence for acute intracranial hemorrhage, mass, mass effect, hydrocephalus, or extra-axial fluid collection. Orbits are unremarkable. Paranasal sinuses are clear. Mastoid air cells are normally pneumatized. Osseous structures are intact. IMPRESSION: Redemonstration of a few scattered small remote infarcts. No CT evidence for acute intracranial abnormality. Findings discussed with REJI CHUNG at 01/12/2018 6:59 PM, with acknowledgement of understanding. [facility]-[id number] Performing Organization Address City/State/Zipcode Phone Number [facility] [address] [place] [address] Urinalysis screen and microscopy, with reflex to culture (01/12/2018 6:01 PM CDT) Specimen site Clean catch [facility] DEPARTMENT OF PATHOLOGY AND GENOMIC MEDICINE Color, UA Susu [facility] DEPARTMENT OF PATHOLOGY AND GENOMIC MEDICINE Appearance, UA Clear [facility] DEPARTMENT OF PATHOLOGY AND GENOMIC MEDICINE Specific gravity, UA 1.006 1.001 - 1.030 [facility] DEPARTMENT OF PATHOLOGY AND GENOMIC MEDICINE pH, UA 6.0 5.0 - 9.0 [facility] DEPARTMENT OF PATHOLOGY AND GENOMIC MEDICINE Protein, UA Negative Negative [facility] DEPARTMENT OF PATHOLOGY AND GENOMIC MEDICINE Glucose, UA Negative Negative [facility] DEPARTMENT OF PATHOLOGY AND GENOMIC MEDICINE Ketones, UA Negative Negative [facility] DEPARTMENT OF PATHOLOGY AND GENOMIC MEDICINE Bilirubin, UA Negative Negative [facility] DEPARTMENT OF PATHOLOGY AND GENOMIC MEDICINE Blood, UA Negative Negative [facility] DEPARTMENT OF PATHOLOGY AND GENOMIC MEDICINE Nitrite, UA Negative Negative [facility] DEPARTMENT OF PATHOLOGY AND GENOMIC MEDICINE Urobilinogen, UA <2.0 <2.0 E.U./dL [facility] DEPARTMENT OF PATHOLOGY AND GENOMIC MEDICINE Leukocyte esterase, UA Negative Negative [facility] DEPARTMENT OF PATHOLOGY AND GENOMIC MEDICINE Epithelial cells, UA <1 /HPF [facility] DEPARTMENT OF PATHOLOGY AND GENOMIC MEDICINE Round epithelial cells, UA <1 0 - 5 /HPF [facility] DEPARTMENT OF PATHOLOGY AND GENOMIC MEDICINE WBC, UA 1 0 - 4 /HPF [facility] DEPARTMENT OF PATHOLOGY AND GENOMIC MEDICINE RBC, UA 1 0 - 5 /HPF [facility] DEPARTMENT OF PATHOLOGY AND GENOMIC MEDICINE Bacteria, UA None seen None seen [facility] DEPARTMENT OF PATHOLOGY AND GENOMIC MEDICINE Yeast, UA None seen [facility] DEPARTMENT OF PATHOLOGY AND GENOMIC MEDICINE Yeast with pseudohyphae, UA None seen [facility] DEPARTMENT OF PATHOLOGY AND GENOMIC MEDICINE Specimen Urine Performing Organization Address City/[facility] Phone Number [facility] DEPARTMENT OF PATHOLOGY [id number] [place] [address] AND [employer] [facility] Urine culture (01/12/2018 6:00 PM CDT) Urine culture SEE COMMENTComment: Bacteriuria [facility] DEPARTMENT OF PATHOLOGY screen negative. AND GENOMIC MEDICINE Performing Organization Address City/[facility] Phone Number [facility] DEPARTMENT OF PATHOLOGY [id number] [place] [address], [place] [address] AND GENOMIC MEDICINE ECG ED Preliminary Interpretation - NOT AN ORDER (01/12/2018 5:55 PM CDT) Narrative Performed At Reji Chung MD 01/12/20185:55 PM ECG ED Preliminary Interpretation - Not an Order Performed by: REJI CHUNG Authorized by: REJI CHUNG ECG reviewed by ED Physician in the absence of a waitangi tribunal member: yes Interpretation: Interpretation: non-specific Rate: ECG rate:58 ECG rate assessment: bradycardic Rhythm: Rhythm: sinus bradycardia Ectopy: Ectopy: none QRS: QRS axis:Normal QRS intervals:Normal Conduction: Conduction: normal ST segments: ST segments:Normal T waves: T waves: normal ECG 12 lead (01/12/2018 5:32 PM CDT)Only the most recent of2 resultswithin the time period is included. Ventricular rate 58 [facility] Atrial rate 58 [facility] IN interval 80 [facility] QRSD interval 76 [facility] QT interval 414 [facility] QTC interval 406 [facility] P axis 1 101 [facility] QRS axis 1 34 [facility] T wave axis 51 [facility] EKG impression Sinus bradycardia with short IN-Septal [facility] infarct (cited on or before 21-JUN-2015)-Abnormal ECG-In automated comparison with ECG of 12-JAN-2018 16:29,-IN interval has decreased- Performing Organization Address City/[facility] Phone Number [facility] [address] [place] [address] Partial thromboplastin time, activated (01/12/2018 5:30 PM CDT) PTT 31.1 23.0 - 36.0 sec [facility] DEPARTMENT OF Comment: PATHOLOGY AND GENOMIC PTT therapeutic range for unfractionated heparin is MEDICINE 61.0-112.0 seconds which corresponds to Anti-Xa 0.3-0.7 U/ml. Specimen Blood Performing Organization Address [facility] Phone Number [facility] DEPARTMENT OF PATHOLOGY [id number] [place] [address] AND [employer] [facility] Prothrombin time with INR (01/12/2018 5:30 PM CDT) Prothrombin time 15.4 (H) 12.0 - 15.0 sec [facility] DEPARTMENT OF PATHOLOGY AND GENOMIC MEDICINE INR 1.2 [facility] DEPARTMENT OF Comment: PATHOLOGY AND GENOMIC The International Normalized Ratio (INR) is a therapeutic MEDICINE monitoring tool for patients who are stable on oral anticoagulant therapy. An INR of 2.0-3.0 is suggested for deep vein thrombosis/pulmonary embolism. Specimen Blood Performing Organization Address [facility] Phone Number [facility] DEPARTMENT OF PATHOLOGY [address] [place] [address] AND [facility] Echocardiogram complete w contrast and 3D if needed (01/12/2018 4:11 PM CDT) Ao Root Diameter 2.79 cm [facility] AoV Area, Vmax 2.48 cm2 [facility] AoV Area, VTI 2.41 cm2 [facility] AoV Mean PG 3.71 mmHg [facility] AoV Peak PG 6.73 mmHg [facility] AoV Vmax 1.30 m/s [facility] AoV VTI 0.30 m [facility] BSA Li 1.52 m2 [facility] BSA 1.49 m2 [facility] IVS,d 1.20 cm [facility] IVS/LVPW,2D 1.06 [facility] Left Atrium Dimension Anterior 3.75 cm [facility] LV,d 4.58 cm [facility] LV EF,2D 65.73 % [facility] LV,s 3.21 cm [facility] LVOT area 3.02 cm2 [facility] LVOT Diam,S 1.96 cm [facility] LVOT Vmax 1.07 m/s [facility] LVOT VTI 0.24 m [facility] LVPWD,d 1.12 cm [facility] PV Mean Grad 1.36 mmHg [facility] PV Pk Grad 2.27 mmHg [facility] PV VMAX 0.75 m/s [facility] PV VTI 0.20 m [facility] RVSP (TR) 44.79 mmHg [facility] TR Vpeak 3.18 mm/s [facility] MV E A ratio 1.99 [facility] RA pressure 10.00 mmHg [facility] TR pk grad 34.79 mmHg [facility] AoV area i VTI BSA Mart 1.61 cm2/m2 [facility] PV Vmn 0.56 [facility] BMI 21.73 kg/m2 [facility] E wave decelartion time 176.06 msec [facility] MV Peak A Waqar 0.54 m/s [facility] MV valve area p 1/2 method 4.31 cm2 [facility] MV Peak E Waqar 1.07 m/s [facility] MV stenosis pressure 1/2 time 51.06 ms [facility] AV LVOT peak gradient 4.56 mmHg [facility] RVSP 44.79 mmHg [facility] Ao Root Diameter 2.79 cm [facility] LV SYS VOL 41.15 ml [facility] LV JOHNSON VOL 96.44 ml [facility] LA area s A4C 14.84 cm2 [facility] LV SI Teich 2D 37.03 ml/m2 [facility] LV SV Teich 2D 55.28 ml [facility] LV Vol s Teich PSAX 41.15 ml [facility] LVOT SI 48.13 ml/m2 [facility] BSA Haycock 1.50 m2 [facility] AoV Vmn 0.90 [facility] LV FS Teich 2D 30.02 [facility] MV AE ratio 0.50 [facility] LV FS Cube 2D 30.02 [facility] LVOT Vmn 0.68 [facility] Pt Size 154.94 [facility] Pt Wt 52.16 [facility] Aov area Vmn 2.29 cm2 [facility] LA A_P score P 3.04 [facility] LVOT mean grad 2.17 mmHg [facility] AoV area I VMN bsa 1.53 cm2/m2 [facility] LV SI Cube 2D 42.35 ml/m2 [facility] LV SV Cube 2D 63.23 ml [facility] LV vol d cube 2D 96.19 ml [facility] LV vol s cube 2D 32.96 ml [facility] MV Decel slope 6.07 m/s2 [facility] LA Vol MOD A4C 35.09 ml [facility] Velocity Ratio (V1/V2) 0.82 m/s [facility] EF 57.33 % [facility] E/A ratio 1.98 [facility] LV Mass 194.00 (g) [facility] TDI 0.2 [facility] LA Area d A4C 39 cm2 [facility] Mitral Valve E/E' 0.8 [facility] LV PR Mmode BSA 130.00 [facility] E/E' ratio 5.35 [facility] Narrative Performed At The left ventricular chamber size is normal. Left ventricular systolic [facility] function is normal. Left Ventricular ejection fraction is 55 - 60%. Normal left ventricular wall thickness and regional wall motion Normal right ventricular size, wall thickness and global function. The tricuspid valve appears normal. Mild-moderate tricuspid valve regurgitation. No evidence of tricuspid valve stenosis. Mildly elevated pulmonary artery systolic pressure. RA pressure is normal. Mild pulmonary hypertension present. Aortic Valve: The aortic valve appears trileaflet and to open well. No evidence of significant aortic regurgitation. No evidence of aortic valve stenosis. Pulmonic Valve: The pulmonic valve appears normal. Trace pulmonary valve regurgitation. No evidence of pulmonary valve stenosis Aorta: Aortic root is normal. Pericardium: No pericardial effusion seen Performing Organization Address City/State/Zipcode Phone Number [facility] [address] [place] [address] Thyroid stimulating hormone (01/11/2018 9:23 AM CDT)Only the most recent of2 resultswithin the time period is included. TSH 0.51 0.40 - 4.50 mIU/L [facility] [place] Specimen Blood Resulting Agency Comment Performing Organization Information: Site ID: [id number] Name: [facility] Address: [address] [place] [address] Director: Evelyne Cowan Performing Organization Address [facility] Phone Number [facility] [place] [address] [place] [address] MRA Head Wo Contrast (07/22/2017 2:30 PM CDT) Narrative Performed At EXAMINATION:MRA HEAD WO CONTRAST [facility] COMPARISON:None CLINICAL HISTORY:G45.9 Transient cerebral ischemic attackunspecified, R47.81 Slurred speech, recurrent loss of consciousness TECHNIQUE: MIP and MPR images are submitted. FINDINGS: There are no stenoses and no aneurysms. There is no obvious vasospasm or dissection. There are no anatomic variants. IMPRESSION: Normal study. [id number] Procedure Note Hm Interface, Radiology Results Incoming - 07/22/2017 2:35 PM CDT EXAMINATION: MRA HEAD WO CONTRAST COMPARISON: None CLINICAL HISTORY: G45.9 Transient cerebral ischemic attack unspecified, R47.81 Slurred speech, recurrent loss of consciousness TECHNIQUE: MIP and MPR images are submitted. FINDINGS: There are no stenoses and no aneurysms. There is no obvious vasospasm or dissection. There are no anatomic variants. IMPRESSION: Normal study. [facility]-[id number] Performing Organization Address [facility] Phone Number [facility] [address] [place] [address] MRI Brain Wo Contrast (07/22/2017 2:03 PM CDT)Only the most recent of2 resultswithin the time period is included. Narrative Performed At EXAMINATION: MRI BRAIN WO CONTRAST [facility] CLINICAL HISTORY: G45.9 Transient cerebral ischemic attackunspecified, R47.81 Slurred speech, slurred speech & gait instability on 4 20history of multiple strokes COMPARISON:MRI brain from April 28, 2017. TECHNIQUE: Multiplanar and multisequence MRI imaging of the brain was obtained without contrast. FINDINGS: There is no evidence of acute infarct, intracranial hemorrhage or mass, hydrocephalus or midline shift. There are chronic changes in the bilateral frontal and parietal lobes, right occipital lobe and right upper cerebellum which could be from old infarcts among other etiologies. There are chronic changes in the madalyn. There is mild nonspecific enlargement of the ventricles and extra axial space and there are nonspecific white matter changes. The sella is slightly enlarged and partially empty. The orbits, sinuses and mastoid air cells do not show significant abnormality. IMPRESSION: Chronic changes in the brain which are relatively stable. No acute findings in the brain or extra axial region. [facility]-[id number] Procedure Note Hm Interface, Radiology Results Incoming - 07/22/2017 2:11 PM CDT EXAMINATION: MRI BRAIN WO CONTRAST CLINICAL HISTORY: G45.9 Transient cerebral ischemic attack unspecified, R47.81 Slurred speech, slurred speech & gait instability on 4 20 history of multiple strokes COMPARISON: MRI brain from April 28, 2017. TECHNIQUE: Multiplanar and multisequence MRI imaging of the brain was obtained without contrast. FINDINGS: There is no evidence of acute infarct, intracranial hemorrhage or mass, hydrocephalus or midline shift. There are chronic changes in the bilateral frontal and parietal lobes, right occipital lobe and right upper cerebellum which could be from old infarcts among other etiologies. There are chronic changes in the madalyn. There is mild nonspecific enlargement of the ventricles and extra axial space and there are nonspecific white matter changes. The sella is slightly enlarged and partially empty. The orbits, sinuses and mastoid air cells do not show significant abnormality. IMPRESSION: Chronic changes in the brain which are relatively stable. No acute findings in the brain or extra axial region. [facility]-[id number] Performing Organization Address City/[facility]/Zipcode Phone Number [facility] [address] [place] [address] Total iron binding capacity (07/22/2017 10:45 AM CDT) Iron level 20 (L) 45 - 160 mcg/dL [facility] [place] Iron binding capacity 406 250 - 450 mcg/dL (calc) [facility] [place] Iron saturation 5 (L) 11 - 50 % (calc) [facility] [place] Specimen Blood Narrative Performed At FASTING:YES QUEST FASTING: YES Resulting Agency Comment Performing Organization Information: Site ID: [id number] Name: [facility] Address: [address] [place] [id number] Director: Evelyne Cowan Performing Organization Address [facility] Phone Number [facility] [place] [address] [place] [address] Transferrin level (07/22/2017 10:45 AM CDT) Transferrin 312 188 - 341 mg/dL [facility] Specimen Blood Narrative Performed At FASTING:YES QUEST FASTING: YES Resulting Agency Comment Performing Organization Information: Site ID: [id number] Name: [facility] Address: [address] [place] [id number] Director: Dr. Valerio Delarosa Performing Organization Address City/[facility] Hospitalcode Phone Number [id number] [address] Ferritin level (07/22/2017 10:45 AM CDT) Ferritin level 26 20 - 288 ng/mL [email or web address] [place] Specimen Blood Narrative Performed At FASTING:YES QUEST FASTING: YES Resulting Agency Comment Performing Organization Information: Site ID: [id number] Name: [facility] Address: [address] [place], [place] [id number] Director: Evelyne Cowan Performing Organization Address [facility] [place] [address] Vitamin B12 level (07/22/2017 10:45 AM CDT) Vitamin B12 >2000 (H) 200 - 1100 pg/mL [facility] [place] Specimen Blood Narrative Performed At FASTING:YES QUEST FASTING: YES Resulting Agency Comment Performing Organization Information: Site ID: RGA Name: [facility] Address: [address] [place] [phone] Director: Evelyne Cowan Performing Organization Address [facility] [place] [address] Ammonia level (07/22/2017 10:45 AM CDT) Ammonia 47 < OR=47 umol/L [facility] [place] Specimen Blood Narrative Performed At FASTING:YES QUEST FASTING: YES Resulting Agency Comment Performing Organization Information: Site ID: RGA Name: [facility] Address: [address] [place] [phone] Director: Evelyne Cowan Performing Organization Address [facility] [place] [address] Outpatient lab EEG (04/28/2017 1:31 PM ACCOUNTS RECEIVABLE ADMINISTRATOR) Narrative Performed At Date of Service: April 28, 2017. [facility] DEPARTMENT OF PATHOLOGY AND Date of EEG interpretation: April 28, 2017. [facility] MEDICINE Routine Outpatient Electroencephalogram Report History: 61 y.o. female with a history of tremors evaluated for spell characterization and epileptic seizures. Technical Description: The record consists of a greater than 20 minute digitally recorded multi-montage EEG with 21 electrodes placed according to the International 10/20 system.An EKG strip was recorded continuously.True eye leads were not employed.True temporal leads were not employed. EEG Description: When maximally aroused, the awake background was characterized by a well-developed 9-10 Hz, 20 to 40 microvolts symmetric posterior rhythm that attenuated appropriately to eye opening.The patient becomes drowsy over the course of the recording as evidenced by the dropout of the posterior rhythm and the emergence of a diffuse 2 to 7 Hz, 40 to 60 microvolts irregular slow activity. Sleep Recording: Stage II sleep was sustained for at least 3 minutes and was characterized by symmetric sleep spindles, vertex waves, and K-complexes.Symmetric positive occipital sharp transients of sleep were also observed. Slow-wave sleep and REM were not documented. Activation Procedures: Hyperventilation was not performed. Photic stimulation utilizing flash frequencies ranging from 5 to 30 Hz did not elicit any paroxysmal discharges. EEG Interpretation:This was a normal awake and asleep EEG. 1. No paroxysmal discharges were observed. Clinical Correlation: Findings are consistent with: 1. The absence of interictal epileptiform discharges does not rule out an underlying tendency for unprovoked seizures (epilepsy).Note, however, that an EEG recording preceded by sleep deprivation or a prolonged recording during sleep would increase the statistical likelihood of detecting interictal discharges, and should be considered if pursuing a diagnosis of epilepsy. This note was completed using voice recognition software and aoc airspace control officer errors may occur. Performing Organization Address City/State/Zipcode Phone Number [facility] DEPARTMENT OF PATHOLOGY [address] [facility] [place] [address] AND [employer] [facility] after 04/09/2017 Insurance Payer Benefit Plan / Group Subscriber ID Type Phone Address NORMA SMITH xxxxxxxxxxxx PPO Advance Directives Patient has advance care planning documents on file. For more information, please contact:Adalid Albert[address] [place] [address]
[2018-04-10 07:09] LABS: Absolute Lymphocytes (CBC) 1.4 K/uL (0.7-4.9); Absolute Monocytes 0.7 K/uL (0.1-1.3); Absolute Neutrophil 4.6 K/uL (1.8-8.0); Eosinophils % 4.3 % (0-4.4); Lymphocytes % 19.2 % (15.3-44.8); MPV 7.1 fL (7.6-11.3); Monocytes % 9.7 % (3.3-12.3); RBC Red Blood Cell Count 3.77 M/uL (3.86-4.86)
[2018-04-10 07:14] LABS: Protime INR 1.4
--- NOTE | 2018-04-10 07:16 | RAD REPORT ---
EXAM DESCRIPTION: CT - Ct Stroke Brain Wo Cont - 04/10/2018 6:58 am CLINICAL HISTORY: CVA CLINICAL HISTORY: February 2017 TECHNIQUE: Axial 5 millimeter thick images of the head were obtained without IV contrast. All CT scans are performed using dose optimization technique as appropriate and may include automated exposure control or mA/KV adjustment according to patient size. FINDINGS: No intracranial hemorrhage, mass, or cerebral edema. No acute cortical based infarction id entified. A 2.5 centimeter area of encephalomalacia in the right parietal lobe is present from old CV A. This is similar to comparison. There are old periventricular lacunar infarctions and old ischemic changes in the right external capsule region. No atrophy changes are present. There is some underlyin g chronic ischemic change. Arterial tree calcifications are present. Ventricles are normal size. No e xtra-axial fluid collections. Ly matter-white matter differentiation is preserved. Visualized portions of the mastoid air cells, paranasal sinuses, and orbits are unremarkable. Findings telephoned to doctor Chamberlain 7:11 a.m.. IMPRESSION: No intracranial hemorrhage is identified. No acute cortical based infarction identifiabl e. Multiple old infarctions are present and patient has some underlying chronic ischemic change. Nonhemorrhagic acute CVA can easily be masked by the chronic findings. MR imaging could be utilized f or further evaluation as warranted.
[2018-04-10 07:25] LABS: ALT/SGPT 58 U/L (12-78); AST/SGOT 117 U/L (15-37); Albumin 3.1 g/dL (3.4-5.0); Alkaline Phosphatase 124 U/L (45-117); BUN Blood Urea Nitrogen 62 mg/dL (7-18); Bicarbonate 26 mmol/L (21-32); Bilirubin Direct < 0.1 mg/dL (0-0.2); Bilirubin Total 0.3 mg/dL (0.2-1.0); Glucose Level 97 mg/dL (74-106); Potassium 5.2 mmol/L (3.5-5.1); Protein, Total 6.9 g/dL (6.4-8.2); Sodium Level 138 mmol/L (136-145)
[2018-04-10 07:26] LABS: Magnesium 3.3 mg/dL (1.8-2.4); NT PRO-BNP 1159 pg/mL (<125); Troponin (Emerg Dept Use Only) < 0.02 ng/mL (0.0-0.045)
[2018-04-10] MEDS ORDERED: NA CHLORIDE 0.9% 1,000 ML ONE ×2 (07:26→09:27)
--- NOTE | 2018-04-10 07:32 | ER ---
Nurse's Notes [facility] Name: Shonda Greenwood Age: 62 yrs Sex: Female : 1955 Arrival Date: 04/10/2018 Time: 06:50 Bed 3 Private MD: Diagnosis: Altered mental status, unspecified;Weakness-overmedicated;Unspecified kidney failure;Hyperkalemia;Atrial fibrillation and flutter-history of;Type 2 diabetes mellitus Presentation: 04/10 06:46 Presenting complaint: EMS states: they were toned out for report of pt with altered bb mental status, unresponsive, pt was last seen normal at 0520 this morning. Transition of care: patient was not received from another setting of care. Onset of symptoms was April 10, 2018. Risk Assessment: Do you want to hurt yourself or someone else? Patient reports no desire to harm self or others. Initial Sepsis Screen: Does the patient meet any 2 criteria? No. Patient's initial sepsis screen is negative. Does the patient have a suspected source of infection? No. Patient's initial sepsis screen is negative. Care prior to arrival: IV initiated. 20 GA, in the right antecubital area, Glucose check: 157. 06:46 Method Of Arrival: EMS: [facility] bb 06:46 Acuity: RIANNA 2 bb Triage Assessment: 06:46 General: Dr Chamberlain met EMS in ambulance bay pt sent to CT at 0649. bb Historical: - Allergies: 07:13 Sulfa; bb - Home Meds: 07:13 Ambien 5 mg Oral tab 1 tab once daily [Active]; Uribel 118-10-40.8-36 mg Oral cap three bb times a day [Active]; Eliquis 5 mg Oral tab 1 tab 2 times per day [Active]; duloxetine 60 mg Oral cpDR 1 cap once daily [Active]; metoprolol succinate 100 mg oral Tb24 1 tab once daily [Active]; gabapentin 600 mg oral tab 1 tab 3 times per day [Active]; amlodipine besylate (bulk) 5/20 mg miscellaneous daily [Active]; cyanocobalamin (vitamin B-12) 1,000 mcg/mL injection soln [Active]; 07:21 grapefruit extract [Active]; oil of oregano [Active]; Chlorophyll oral oral [Active]; bb garlic oral oral [Active]; probiotic [Active]; colodial silver [Active]; - PMHx: 07:13 Anxiety; Atrial Fib; CVA; Diabetes - NIDDM; GERD; Hypertension; Hypothyroidism; short bb term memory loss; TIA; UTI; - PSHx: 07:13 Lithotripsy; Gastric Bypass; bb - Immunization history:: Adult Immunizations up to date. - Social history:: Smoking status: unknown. - Family history:: not pertinent. - Ebola Screening: : No symptoms or risks identified at this time. Screenin:19 The patient has not been NPO before screening. The patient is not alert, or is unable bb to follow commands. The patient failed the bedside swallow screening. The patient will be kept NPO until cleared by Speech Therapy or Physician. Provider notified of bedside swallow screening results: Dhruv Chamberlain MD. 07:29 Fall Risk Total Alford Fall Scale indicates High Risk Score (45 or more points). Fall lp1 prevention measures have been instituted. Side Rails Up X 2 Placed Close to Nursing Station Frequent Obs/Assessments Occuring. 08:23 Abuse screen: Denies threats or abuse. Denies injuries from another. Nutritional ph screening: No deficits noted. Tuberculosis screening: No symptoms or risk factors identified. Assessment: 07:15 General: Appears in no apparent distress. Behavior is drowsy. Neuro: Level of lp1 Consciousness is lethargic, Oriented to person. Respiratory: Respiratory effort is even, Respiratory pattern is regular. Derm: Skin is pink, warm \\T\\ dry. 07:30 General: Appears in no apparent distress. slender, Behavior is drowsy, listless, quiet. ph Pain: Unable to use pain scale. Does not appear to understand pain scale. Neuro: Level of Consciousness is lethargic, Oriented to person. Cardiovascular: Capillary refill is sluggish in bilateral fingers Rhythm is sinus bradycardia. Respiratory: Airway is patent Respiratory effort is even, unlabored, shallow, Respiratory pattern is regular, Breath sounds are clear bilaterally. Derm: Skin is intact, Skin is normal, Skin temperature is cold. 08:00 Reassessment: Rectal temp 96.2, ERP notified and Criticore Kelechi and Lulu marti ph blanket placed, family at bedside, awaiting transfer. 09:00 Reassessment: Patient appears in no apparent distress at this time. Patient and/or ph family updated on plan of care and expected duration. Pain level reassessed. Pt remains lethargic w/ eyes closed, opens eyes to tactile stimuli, remains oriented to person only, family at bedside. 10:09 Reassessment: Patient appears in no apparent distress at this time. Patient and/or ph family updated on plan of care and expected duration. Pain level reassessed. Pt remains drowsy but is more responsive, oriented to person, place, and situation, respirations even and unlabored, BP improved to 104/63 after NS bolus administered through fluid warmer, corer temp also improved to 97.0 per Lorenz catheter, pt reports pain in low back area, states, " I think it's from when I fell last night." Denies chest pain , SOB, or nausea at this time, awaiting US exam before transfer, family at bedside. 11:35 Reassessment: Patient appears in no apparent distress at this time. No changes from ph previously documented assessment. Patient and/or family updated on plan of care and expected duration. Pain level reassessed. Report called to [facility], awaiting EMS for transport. Reassessment: Patient appears in no apparent distress at this time. Patient and/or family updated on plan of care and expected duration. Pain level reassessed. Pt awake but drowsy, denies pain or nausea at this time, EMS at bedside, report given to JOSUE Dow-P, preparing pt for transport. Vital Signs: 06:46 BP 114 / 48; Pulse 54; Resp 14 S; Temp 97.6(O); Pulse Ox 98% ; Weight 57.15 kg (R); bb Height 5 ft. 1 in. (154.94 cm) (R); Pain 0/10; 07:15 BP 102 / 65; Pulse 52; Resp 12; Pulse Ox 98% on R/A; ph 07:50 Temp 96.2(R); ph 08:16 BP 97 / 57; Pulse 54; Resp 10; Temp 96.5(C); Pulse Ox 100% on R/A; ph 08:30 BP 85 / 53; Pulse 55; Resp 12; Temp 96.2(C); Pulse Ox 100% on R/A; ph 08:45 BP 98 / 55; Pulse 56; Resp 14; Temp 96.3(C); Pulse Ox 99% on R/A; ph 09:00 BP 89 / 53; Pulse 56; Resp 12; Temp 96.3; Pulse Ox 99% on R/A; ph 09:30 BP 88 / 52; Pulse 56; Resp 14; Temp 96.6(C); Pulse Ox 100% on R/A; ph 10:00 BP 89 / 50; Pulse 69; Resp 14; Temp 96.8(C); Pulse Ox 100% on R/A; ph 10:30 BP 90 / 52; Pulse 69; Resp 14; Temp 97.2(C); Pulse Ox 100% ; ph 11:00 BP 90 / 48; Pulse 71; Resp 16; Temp 97.6(C); Pulse Ox 100% ; ph 11:30 BP 91 / 50; Pulse 72; Resp 16; Temp 98.0; Pulse Ox 100% on R/A; ph 12:00 BP 97 / 55; Pulse 72; Resp 16; Temp 98.3(C); Pulse Ox 100% on R/A; ph 12:20 BP 96 / 50; Pulse 72; Resp 14; Temp 98.5(C); Pulse Ox 100% ; ph 06:46 Body Mass Index 23.81 (57.15 kg, 154.94 cm) bb NIH Stroke Scale Scores: 07:10 NIHSS Score: 14 lp1 ED Course: 06:46 Arm band placed on Patient placed on CT table at 0649. bb 06:50 Patient arrived in ED. al2 06:50 Dhruv Chamberlain MD is Attending Physician. singh 06:58 CT Stroke Brain w/o Contrast In Process Unspecified. EDMS 06:59 Labs ordered per protocol. Drawn by lab. bb 07:01 EKG completed in triage. Results shown to . bb 07:08 Triage completed. bb 07:10 X-ray completed. Portable x-ray completed in exam room. Patient tolerated procedure sg4 well. 07:13 XRAY Chest (1 view) In Process Unspecified. EDMS 07:15 Patient has correct armband on for positive identification. Placed in gown. Bed in low lp1 position. Side rails up X2. environmental monitoring technician on. Pulse ox on. NIBP on. 07:15 Maintain EMS IV. Dressing intact. Site clean \\T\\ dry. Gauge \\T\\ site: 20g to R AC. lp 1 07:22 Jessica Avalos, RN is Primary Nurse. ph 08:00 Lorenz cath inserted, using sterile technique, 16 Fr., by wv, balloon inflated, to ph gravity drainage, urine specimen collected. returned annie urine. Patient tolerated well. Thermoregulation: Lulu blanket applied. 10:00 Thermoregulation: warm intravenous fluids. ph 10:50 Ultrasound completed. Patient tolerated well. sg3 10:51 US Rp Exam Complete In Process Unspecified. EDMS 12:28 No provider procedures requiring assistance completed. Patient transferred, IV remains ph in place. Administered Medications: 07:30 Drug: NS 0.9% 1000 ml Route: IV; Rate: 1 bolus; Site: right antecubital; rb1 08:30 Follow up: Response: No adverse reaction; IV Status: Completed infusion ph 07:30 Drug: foLIC Acid 1 mg Route: IVPB; Site: right antecubital; rb1 12:34 Follow up: Response: No adverse reaction; IV Status: Completed infusion ph 08:30 Drug: Albuterol - atroVENT (3:1) (2.5 mg - 0.5 mg) 3 ml Route: Nebulizer; ph 12:33 Follow up: Response: No adverse reaction ph 09:30 Drug: Thiamine 100 mg Route: IV; Rate: bolus; Site: right forearm; ph 12:31 Follow up: Response: No adverse reaction; IV Status: Completed infusion ph 09:30 Drug: NS 0.9% 1000 ml Route: IV; Rate: 1 bolus; Site: right forearm; ph 10:35 Follow up: Response: No adverse reaction; IV Status: Completed infusion ph 10:10 Drug: Kayexalate 30 grams Route: PO; ph 12:32 Follow up: Response: No adverse reaction ph 11:17 Drug: Rocephin - (cefTRIAXone) 1 grams Route: IVPB; Infused Over: 30 mins; Site: right ph forearm; 12:30 Follow up: Response: No adverse reaction; IV Status: Completed infusion ph 11:18 Drug: NS 0.9% 1000 ml Route: IV; Rate: 1 bolus; Site: right forearm; ph 12:32 Follow up: Response: No adverse reaction; IV Status: Completed infusion ph Point of Care Testing: Blood Glucose: 07:00 Blood Glucose: 109 mg/dL; bb Ranges: Outcome: 07:30 ER care complete, transfer ordered by MD. winters 12:29 Transferred by ground EMS [facility] to [facility], [facility] [place], Transfer form ph completed. X-rays sent w/ patient. 12:29 Condition: stable 12:29 Instructed on the need for transfer. 12:41 Patient left the ED. ph NIH Stroke Scale - NIH Stroke Score Date: 04/10/2018 Time: 07:10 Total Score = 14 1a. Level of Consciousness (LOC) - 1(Not Alert) 1b. Level of Consciousness (LOC) (Year \\T\\ Age) - 1(One) 1c. LOC Commands (Open \\T\\ Closes Eyes/Lifter) - 1(One) 2. Best Gaze (Lateral Gaze Paresis) - 0(Normal) 3. Visual Field Loss - 0(No visual loss) 4. Facial Palsy - 0(Normal) 5a. Left Arm: Motor (10-second hold) - 2(Drift, some effort against gravity) 5b. Right Arm: Motor (10-second hold) - 2(Drift, some effort against gravity) 6a. Left Leg: Motor (5-second hold - always test supine) - 2(Drift, some effort against gravity) 6b. Right Leg: Motor (5-second hold - always test supine) - 2(Drift, some effort against gravity) 7. Limb Ataxia (finger/nose \\T\\ heel/padilla - test with eyes open) - 0(Absent) 8. Sensory Loss (pinprick arms/legs/face) - 0(Normal) 9. Best Language: Aphasia (description/naming/reading) - 2(Severe aphasia) 10. Dysarthria (speech clarity - read or repeat words) - 1(Mild to Moderate) 11. Extinction and Inattention (visual/tactile/auditory/spatial/personal) - 0(No abnormality) Initials: lp1 Signatures: Dispatcher [employer] EDDhruv Jain MD MD cha Ballard, Brenda, RN RN Kalee Oliver RN RN lp1 Jessica Avalos RN RN ph Barber, Rebecca, RN RN jose Farmer, Cherrie sg3 Asuncion, Debbi diallo2 Talia Hernandez sg4
--- NOTE | 2018-04-10 07:32 | EDPHYS ---
Physician Documentation [facility] Name: Shonda Greenwood Age: 62 yrs Sex: Female : 1955 Arrival Date: 04/10/2018 Time: 06:50 Bed 3 Private MD: ED Physician Dhruv Chamberlain HPI: 04/10 06:54 This 62 yrs old Female presents to ER via Unassigned with complaints of singh weakness and ams. 06:54 The patient presents with confusion, decreased mental status. Onset: The singh symptoms/episode began/occurred just prior to arrival, this morning. Possible causes: CVA or TIA, drug use, low blood sugar. Associated signs and symptoms: The patient has no apparent associated signs or symptoms. Current symptoms: In the emergency department the patient's symptoms are unchanged from the initial presentation. Patient's baseline: Neuro: alert and fully oriented. The patient has not experienced similar symptoms in the past. Historical: - Allergies: 07:13 Sulfa; bb - Home Meds: 07:13 Ambien 5 mg Oral tab 1 tab once daily [Active]; Uribel 118-10-40.8-36 mg Oral cap three bb times a day [Active]; Eliquis 5 mg Oral tab 1 tab 2 times per day [Active]; duloxetine 60 mg Oral cpDR 1 cap once daily [Active]; metoprolol succinate 100 mg oral Tb24 1 tab once daily [Active]; gabapentin 600 mg oral tab 1 tab 3 times per day [Active]; amlodipine besylate (bulk) 5/20 mg miscellaneous daily [Active]; cyanocobalamin (vitamin B-12) 1,000 mcg/mL injection soln [Active]; 07:21 grapefruit extract [Active]; oil of oregano [Active]; Chlorophyll oral oral [Active]; bb garlic oral oral [Active]; probiotic [Active]; colodial silver [Active]; - PMHx: 07:13 Anxiety; Atrial Fib; CVA; Diabetes - NIDDM; GERD; Hypertension; Hypothyroidism; short bb term memory loss; TIA; UTI; - PSHx: 07:13 Lithotripsy; Gastric Bypass; bb - Immunization history:: Adult Immunizations up to date. - Social history:: Smoking status: unknown. - Family history:: not pertinent. - Ebola Screening: : No symptoms or risks identified at this time. ROS: 06:58 Constitutional: Negative for fever, chills, and weight loss, Eyes: Negative for injury, singh pain, redness, and discharge, ENT: Negative for injury, pain, and discharge, Neck: Negative for injury, pain, and swelling, Cardiovascular: Negative for chest pain, palpitations, and edema, Respiratory: Negative for shortness of breath, cough, wheezing, and pleuritic chest pain, Abdomen/GI: Negative for abdominal pain, nausea, vomiting, diarrhea, and constipation, Back: Negative for injury and pain, : Negative for injury, bleeding, discharge, and swelling, MS/Extremity: Negative for injury and deformity, Skin: Negative for injury, rash, and discoloration, Psych: Negative for depression, anxiety, suicide ideation, homicidal ideation, and hallucinations, Allergy/Immunology: Negative for hives, rash, and allergies, Endocrine: Negative for neck swelling, polydipsia, polyuria, polyphagia, and marked weight changes, Hematologic/Lymphatic: Negative for swollen nodes, abnormal bleeding, and unusual bruising. 06:58 Neuro: Positive for altered mental status, weakness. 06:58 Psych: Negative for anxiety, depression. Exam: 06:58 Head/Face: Normocephalic, atraumatic. Eyes: Pupils equal round and reactive to light, singh extra-ocular motions intact. Lids and lashes normal. Conjunctiva and sclera are non-icteric and not injected. Cornea within normal limits. Periorbital areas with no swelling, redness, or edema. ENT: Nares patent. No nasal discharge, no septal abnormalities noted. Tympanic membranes are normal and external auditory canals are clear. Oropharynx with no redness, swelling, or masses, exudates, or evidence of obstruction, uvula midline. Mucous membranes moist. Neck: Trachea midline, no thyromegaly or masses palpated, and no cervical lymphadenopathy. Supple, full range of motion without nuchal rigidity, or vertebral point tenderness. No Meningismus. Chest/axilla: Normal chest wall appearance and motion. Nontender with no deformity. No lesions are appreciated. Cardiovascular: Regular rate and rhythm with a normal S1 and S2. No gallops, murmurs, or rubs. Normal PMI, no JVD. No pulse deficits. Respiratory: Lungs have equal breath sounds bilaterally, clear to auscultation and percussion. No rales, rhonchi or wheezes noted. No increased work of breathing, no retractions or nasal flaring. Abdomen/GI: Soft, non-tender, with normal bowel sounds. No distension or tympany. No guarding or rebound. No evidence of tenderness throughout. Back: No spinal tenderness. No costovertebral tenderness. Full range of motion. Skin: Warm, dry with normal turgor. Normal color with no rashes, no lesions, and no evidence of cellulitis. MS/ Extremity: Pulses equal, no cyanosis. Neurovascular intact. Full, normal range of motion. Psych: Awake, alert, with orientation to person, place and time. Behavior, mood, and affect are within normal limits. 06:58 Neuro: Orientation: to person, Not oriented to place, time, situation, Mentation: inappropriate for stated age, slow to respond, Memory: unable to test, Cranial nerves: Motor: moves all fours, weakness, non focal. Vital Signs: 06:46 BP 114 / 48; Pulse 54; Resp 14 S; Temp 97.6(O); Pulse Ox 98% ; Weight 57.15 kg (R); bb Height 5 ft. 1 in. (154.94 cm) (R); Pain 0/10; 07:15 BP 102 / 65; Pulse 52; Resp 12; Pulse Ox 98% on R/A; ph 07:50 Temp 96.2(R); ph 08:16 BP 97 / 57; Pulse 54; Resp 10; Temp 96.5(C); Pulse Ox 100% on R/A; ph 08:30 BP 85 / 53; Pulse 55; Resp 12; Temp 96.2(C); Pulse Ox 100% on R/A; ph 08:45 BP 98 / 55; Pulse 56; Resp 14; Temp 96.3(C); Pulse Ox 99% on R/A; ph 09:00 BP 89 / 53; Pulse 56; Resp 12; Temp 96.3; Pulse Ox 99% on R/A; ph 09:30 BP 88 / 52; Pulse 56; Resp 14; Temp 96.6(C); Pulse Ox 100% on R/A; ph 10:00 BP 89 / 50; Pulse 69; Resp 14; Temp 96.8(C); Pulse Ox 100% on R/A; ph 10:30 BP 90 / 52; Pulse 69; Resp 14; Temp 97.2(C); Pulse Ox 100% ; ph 11:00 BP 90 / 48; Pulse 71; Resp 16; Temp 97.6(C); Pulse Ox 100% ; ph 11:30 BP 91 / 50; Pulse 72; Resp 16; Temp 98.0; Pulse Ox 100% on R/A; ph 12:00 BP 97 / 55; Pulse 72; Resp 16; Temp 98.3(C); Pulse Ox 100% on R/A; ph 12:20 BP 96 / 50; Pulse 72; Resp 14; Temp 98.5(C); Pulse Ox 100% ; ph 06:46 Body Mass Index 23.81 (57.15 kg, 154.94 cm) bb NIH Stroke Scale Scores: 07:10 NIHSS Score: 14 lp1 MDM: 06:50 Patient medically screened. [facility] 06:58 Data reviewed: vital signs, nurses notes, EMS record, lab test result(s), EKG, singh radiologic studies, CT scan, plain films. 04/10 06:52 Order name: Basic Metabolic Panel; Complete Time: 07:45 [facility] 04/10 06:52 Order name: CBC with Diff; Complete Time: 07:49 [facility] 04/10 06:52 Order name: LFT's; Complete Time: 07:45 [facility] 04/10 06:52 Order name: Magnesium; Complete Time: 07:45 [facility] 04/10 06:52 Order name: NT PRO-BNP; Complete Time: 07:45 [facility] 04/10 06:52 Order name: PT-INR; Complete Time: 07:18 [facility] 04/10 06:52 Order name: Troponin (emerg Dept Use Only); Complete Time: 07:45 [facility] 04/10 06:52 Order name: Sed Rate; Complete Time: 07:49 [facility] 04/10 06:52 Order name: CRP; Complete Time: 07:45 [facility] 04/10 06:52 Order name: Acetaminophen; Complete Time: 07:45 [facility] 04/10 06:52 Order name: ETOH Level; Complete Time: 07:45 [facility] 04/10 06:52 Order name: Ptt, Activated; Complete Time: 07:18 [facility] 04/10 06:52 Order name: Salicylate; Complete Time: 07:45 [facility] 04/10 06:52 Order name: Urine Drug Screen; Complete Time: 08:51 [facility] 04/10 06:52 Order name: XRAY Chest (1 view) [facility] 04/10 06:52 Order name: EKG; Complete Time: 06:53 [facility] 04/10 06:52 Order name: CT Stroke Brain w/o Contrast; Complete Time: 07:18 [facility] 04/10 07:51 Order name: Blood Culture Adult (2) [facility] 04/10 08:53 Order name: US Rp Exam Complete [facility] 04/10 08:56 Order name: Urine Dipstick--Ancillary (enter results) 04/10 08:56 Order name: Urine --Ancillary (enter results) 04/10 09:13 Order name: Glucose, Ancillary Testing EDMS 04/10 06:52 Order name: Cardiac monitoring; Complete Time: 07:37 [facility] 04/10 06:52 Order name: EKG - Nurse/Tech; Complete Time: 08:15 [facility] 04/10 06:52 Order name: IV Saline Lock; Complete Time: 07:37 [facility] 04/10 06:52 Order name: Labs collected and sent; Complete Time: 07:37 [facility] 04/10 06:52 Order name: O2 Per Protocol; Complete Time: 07:37 [facility] 04/10 06:52 Order name: O2 Sat Monitoring; Complete Time: 07:38 [facility] 04/10 06:52 Order name: Urine Dipstick-Ancillary (obtain specimen); Complete Time: 08:14 [facility] 04/10 07:49 Order name: Lorenz; Complete Time: 08:11 [facility] Administered Medications: 07:30 Drug: NS 0.9% 1000 ml Route: IV; Rate: 1 bolus; Site: right antecubital; rb1 08:30 Follow up: Response: No adverse reaction; IV Status: Completed infusion ph 07:30 Drug: foLIC Acid 1 mg Route: IVPB; Site: right antecubital; rb1 12:34 Follow up: Response: No adverse reaction; IV Status: Completed infusion ph 08:30 Drug: Albuterol - atroVENT (3:1) (2.5 mg - 0.5 mg) 3 ml Route: Nebulizer; ph 12:33 Follow up: Response: No adverse reaction ph 09:30 Drug: Thiamine 100 mg Route: IV; Rate: bolus; Site: right forearm; ph 12:31 Follow up: Response: No adverse reaction; IV Status: Completed infusion ph 09:30 Drug: NS 0.9% 1000 ml Route: IV; Rate: 1 bolus; Site: right forearm; ph 10:35 Follow up: Response: No adverse reaction; IV Status: Completed infusion ph 10:10 Drug: Kayexalate 30 grams Route: PO; ph 12:32 Follow up: Response: No adverse reaction ph 11:17 Drug: Rocephin - (cefTRIAXone) 1 grams Route: IVPB; Infused Over: 30 mins; Site: right ph forearm; 12:30 Follow up: Response: No adverse reaction; IV Status: Completed infusion ph 11:18 Drug: NS 0.9% 1000 ml Route: IV; Rate: 1 bolus; Site: right forearm; ph 12:32 Follow up: Response: No adverse reaction; IV Status: Completed infusion ph Point of Care Testing: Blood Glucose: 07:00 Blood Glucose: 109 mg/dL; bb Ranges: Critical Glucose Levels:Adult <50 mg/dl or >400 mg/dl <40 mg/dl or >180 mg/dl Disposition: 04/10/18 07:30 Transfer ordered to [facility]. Diagnosis are Altered mental status, unspecified, Weakness - overmedicated, Unspecified kidney failure, Hyperkalemia, Atrial fibrillation and flutter - history of, Type 2 diabetes mellitus. - Reason for transfer: Higher level of care. - Accepting physician is to [facility] , neuro. - Condition is Fair. - Problem is new. - Symptoms have improved. NIH Stroke Scale - NIH Stroke Score Date: 04/10/2018 Time: 07:10 Total Score = 14 1a. Level of Consciousness (LOC) - 1(Not Alert) 1b. Level of Consciousness (LOC) (Year \T\ Age) - 1(One) 1c. LOC Commands (Open \T\ Closes Eyes/Intelligence Manager) - 1(One) 2. Best Gaze (Lateral Gaze Paresis) - 0(Normal) 3. Visual Field Loss - 0(No visual loss) 4. Facial Palsy - 0(Normal) 5a. Left Arm: Motor (10-second hold) - 2(Drift, some effort against gravity) 5b. Right Arm: Motor (10-second hold) - 2(Drift, some effort against gravity) 6a. Left Leg: Motor (5-second hold - always test supine) - 2(Drift, some effort against gravity) 6b. Right Leg: Motor (5-second hold - always test supine) - 2(Drift, some effort against gravity) 7. Limb Ataxia (finger/nose \T\ heel/padilla - test with eyes open) - 0(Absent) 8. Sensory Loss (pinprick arms/legs/face) - 0(Normal) 9. Best Language: Aphasia (description/naming/reading) - 2(Severe aphasia) 10. Dysarthria (speech clarity - read or repeat words) - 1(Mild to Moderate) 11. Extinction and Inattention (visual/tactile/auditory/spatial/personal) - 0(No abnormality) Initials: lp1 Signatures: Dispatcher [employer] EDMS Dhruv Chamberlain MD MD cha Ballard, Brenda, RN RN Jessica Sanders RN RN Nayeli Sheth RN RN rb1 Corrections: (The following items were deleted from the chart) 07:47 07:30 04/10/2018 07:30 Transfer ordered to [facility]. singh Diagnosis is Altered mental status, unspecified; Weakness. Reason for transfer: Higher level of care. Accepting physician is to [facility]. Condition is Fair. Problem is new. Symptoms have improved. [facility] 07:52 07:47 04/10/2018 07:30 Transfer ordered to [facility]. singh Diagnosis is Altered mental status, unspecified; Weakness; Unspecified kidney failure. Reason for transfer: Higher level of care. Accepting physician is to [facility]. Condition is Fair. Problem is new. Symptoms have improved. [facility] 08:16 07:52 04/10/2018 07:30 Transfer ordered to [facility]. singh Diagnosis is Altered mental status, unspecified; Weakness; Unspecified kidney failure; Hyperkalemia. Reason for transfer: Higher level of care. Accepting physician is to [facility]. Condition is Fair. Problem is new. Symptoms have improved. singh 08:19 08:16 04/10/2018 07:30 Transfer ordered to [facility]. singh Diagnosis is Altered mental status, unspecified; Weakness; Unspecified kidney failure; Hyperkalemia; Atrial fibrillation and flutter - history of. Reason for transfer: Higher level of care. Accepting physician is to [facility] , neuro. Condition is Fair. Problem is new. Symptoms have improved. singh 08:41 08:19 04/10/2018 07:30 Transfer ordered to [facility]. singh Diagnosis is Altered mental status, unspecified; Weakness; Unspecified kidney failure; Hyperkalemia; Atrial fibrillation and flutter - history of; Type 2 diabetes mellitus. Reason for transfer: Higher level of care. Accepting physician is to [facility]. Condition is Fair. Problem is new. Symptoms have improved. singh 12:41 08:41 04/10/2018 07:30 Transfer ordered to [facility]. Diagnosis is Altered mental status, unspecified; Weakness - overmedicated; Unspecified kidney failure; Hyperkalemia; Atrial fibrillation and flutter - history of; Type 2 diabetes mellitus. Reason for transfer: Higher level of care. Accepting physician is to [facility]. Condition is Fair. Problem is new. Symptoms have improved. singh
[2018-04-10] MEDS ORDERED: FOLIC ACID 5 MG/ML VIAL ONE (07:33)
[2018-04-10 08:41] LABS: Barbiturates NEGATIVE (NEGATIVE); Benzodiazepines POSITIVE (NEGATIVE); Cocaine NEGATIVE (NEGATIVE); METHAMPHETAM NEGATIVE (NEGATIVE); Methadone NEGATIVE (NEGATIVE); Opiates POSITIVE (NEGATIVE); Phencyclidine NEGATIVE (NEGATIVE); THC Cannibis NEGATIVE (NEGATIVE)
[2018-04-10] MEDS ORDERED: ALBUTEROL 2.5 MG/3 ML NEB SOL ONE (09:26)
[2018-04-10] MEDS ORDERED: CEFTRIAXONE/SWI 1gm 1 GM/10 ML SYR ONE (09:27)
[2018-04-10] MEDS ORDERED: THIAMINE 200 MG/2 ML INJ ONE (09:27)
[2018-04-10] MEDS ORDERED: IPRATROPIUM BROM 0.5MG/2.5ML ONE (09:27)
--- NOTE | 2018-04-10 09:41 | RAD REPORT ---
EXAM DESCRIPTION: RAD - Chest Single View - 04/10/2018 7:14 am CLINICAL HISTORY: Unresponsive, altered mental status COMPARISON: February 2017 TECHNIQUE: AP portable chest image was obtained 0712 hour . FINDINGS: Lung volumes are low. No peripheral consolidation or mass. Heart size is within normal batista its. Vasculature is not outside of normal range for shallow inspiration portable exam. Perihilar dontae ings are mildly prominent. Patient has baseline fibrosis. No measurable pleural effusion and no pneum othorax. No acute bony abnormality seen. No acute aortic findings suspected. IMPRESSION: Baseline fibrotic lung pattern accentuated by shallow inspiration. Mild interstitial edema or infiltrate could be masked in this setting.
--- NOTE | 2018-04-10 11:24 | RAD REPORT ---
EXAM DESCRIPTION: US - Renal Ultrasound-Complete - 04/10/2018 10:50 am CLINICAL HISTORY: Weakness, abnormal renal function COMPARISON: CT February 2017 FINDINGS: The right kidney measures 8.3 x 4.1 x 3.7 cm. The left kidney measures 8.6 x 3.5 x 3.6 cm . Slight cortical thinning is present. There is substantial increase in renal cortical echogenicity s upporting significant underlying medical renal disease. No hydronephrosis or suspicious renal mass. A small 10 mm cyst is present upper pole left kidney. Bladder was contracted and could not be further assessed. IMPRESSION: Significant medical renal disease is evident. No hydronephrosis or suspicious mass. No other significant findings.
[2018-04-10 13:04] VITALS: O2SAT 100
[2018-04-10 13:14] VITALS: BP 96/50; TEMP 98.5
--- NOTE | 2018-04-10 14:13 | EKG ---
Test Date: 2018-04-10 Test Time: 07:01:18 Inspector Poising: PAWEL MEASUREMENT RESULTS: Intervals: Rate: 54 NC: 174 QRSD: 82 QT: 440 QTc: 417 [place]: P: 49 NC: 174 QRS: 4 T: 22 INTERPRETIVE STATEMENTS: Sinus bradycardia with sinus arrhythmia Otherwise normal ECG Compared to ECG 03/19/2017 18:41:44 Sinus rhythm no longer present Electronically Signed On 04-10-18 14:12:44 TOBACCO DIPPER by Tom Keyes
[2018-04-10 14:48] LABS: Urine Blood TRACE (NEG); Urine Glucose NEGATIVE (NEG); Urine Protein 1+ (NEG); Urine pH 5.5 (5.0-7.0)
== END 2018-04-10 12:41 | disposition short-term general hospital (02) ==
LOC: ER 06:48
DX: N19 Unspecified kidney failure (principal); R53.1 Weakness; E87.5 Hyperkalemia; I48.91 Unspecified atrial fibrillation; I48.92 Unspecified atrial flutter; E11.9 Type 2 diabetes mellitus without complications; I10 Essential (primary) hypertension; E03.9 Hypothyroidism, unspecified; Z79.01 Long term (current) use of anticoagulants; Z86.73 Personal history of transient ischemic attack (TIA), and cerebral infarction without residual deficits; Z88.2 Allergy status to sulfonamides
CPT/HCPCS: 36415; 51702; 70450; 71045; 76770; 80048; 80076; 80307; 80320; 80329; 81003; 81025; 82962; 83735; 83880; 84484; 85025; 85610; 85652; 85730; 86140; 87040; 93005; 94640; 99285; J0696; J3411; J7030

== ENCOUNTER 2018-06-25 23:59 | Inpatient (IN) | payer BC ==
--- OUTSIDE RECORDS SUMMARY | 2018-06-26 00:05 | XMS REPORT | Clinical Summary ---
:1955 Author Organization [facility] Address [address] [place] [address] Care Team Providers Name Role Phone Cayetano [...] breath) (Primary Dx) 01/11/2018 Office Visit Neurology Marii Coleman Transient cerebral ischemia , unspecified type (Primary Dx); Sin Emilia, DO Atrial fibrillation, unspecified type (HCC); Slurred speech; Gait instability; Essential hypertension; Loss of consciousness (HCC) 01/11/2018 Transcribe Orders Procedural Ashley Strickland, Hypertension, unspecified type (Primary Dx); Cardiology SOB (shortness of breath); Chest pain, unspecified type 09/01/2017 Documentation Neurology VirginiaMarii No Show Sin Emilia, DO 07/22/2017 Hospital [...] Hallucinations 07/13/2017 Documentation Neurology Janes Aguilar MD after 06/25/2017 Family History Medical History Relation Name Comments [...] 11/09/2003 COLON CANCER SCREENING 11/09/2003 SHINGLES VACCINES (#1) 11/09/2003 INFLUENZA VACCINE 10/28/2017 01/28/2017, 12/27/2012 Procedures [...] procedure are in the results section. MRA [place] Routine 01/13/2018 10:26 Results for [...] COLOR DOPPLER SOB (shortness of the results (58536) breath) section. Chest pain, unspecified type THYROID [...] in unspecified type the results section. after 06/25/2017 Results POC glucose (01/14/2018 11:58 AM CDT)Only the most recent of6 resultswithin the time period is included. POC glucose 88 65 - 99 mg/dL [facility] DEPARTMENT OF PATHOLOGY AND Comment: GENOMIC MEDICINE RN Notified Meter ID: [id number] Mangle Feeder: Tommyailin Medley Performing Organization Address City/[facility] Phone Number [facility] DEPARTMENT OF PATHOLOGY [address] [place] [address]. [place] [address] AND [employer] [facility] Estimated GFR (01/14/2018 5:05 AM CDT)Only the most recent of2 resultswithin the time period is included. Estimated GFR 27 (A) mL/min/1.73 m2 [facility] DEPARTMENT OF Comment: PATHOLOGY AND GENOMIC CatergoryUnitsInterpretation MEDICINE G1 >=90 Normal or high G2 60-89Mildly decreased C8i51-26Uqvfey to moderately decreased Q8t56-75Nisnquymbf to severely decreased G4 15-29Severely decreased G5 <15Kidney failure The eGFR was calculated using the Chronic Kidney Disease Epidemiology Collaboration (CKD-EPI) equation. Interpretation is based on recommendations of the National Kidney Foundation-Kidney Disease Outcomes Quality Initiative (NKF-KDOQI) published in 2014. Specimen Plasma specimen Performing Organization Address [facility] Phone Number [facility] DEPARTMENT OF PATHOLOGY [address] [place] [address]. [place] [address] AND [employer] [facility] CBC with platelet and differential (01/14/2018 5:05 AM CDT)Only the most recent of4 resultswithin the time period is included. WBC 6.9 4.5 - 11.0 k/uL [facility] DEPARTMENT OF PATHOLOGY AND GENOMIC MEDICINE RBC 4.06 (L) 4.20 - 5.50 m/uL [facility] DEPARTMENT OF PATHOLOGY AND GENOMIC MEDICINE HGB 11.9 (L) 12.0 - 16.0 g/dL [facility] DEPARTMENT OF PATHOLOGY AND GENOMIC MEDICINE HCT 37.6 37.0 - 47.0 % [facility] DEPARTMENT OF PATHOLOGY AND GENOMIC MEDICINE MCV 92.6 82.0 - 100.0 fL [facility] DEPARTMENT OF PATHOLOGY AND GENOMIC MEDICINE MCH 29.3 27.0 - 34.0 pg [facility] DEPARTMENT OF PATHOLOGY AND GENOMIC MEDICINE MCHC 31.6 31.0 - 37.0 g/dL [facility] DEPARTMENT OF PATHOLOGY AND GENOMIC MEDICINE RDW - SD 49.6 37.0 - 55.0 fL [facility] DEPARTMENT OF PATHOLOGY AND GENOMIC MEDICINE MPV 9.1 6.9 - 11.0 fL [facility] DEPARTMENT OF PATHOLOGY AND GENOMIC MEDICINE Platelet count 247 150 - 400 K/uL [facility] DEPARTMENT OF PATHOLOGY AND GENOMIC MEDICINE Nucleated RBC 0.00 /100 WBC [facility] DEPARTMENT OF PATHOLOGY AND GENOMIC MEDICINE Neutrophils 51.8 39.0 - 69.0 % [facility] DEPARTMENT OF PATHOLOGY AND GENOMIC MEDICINE Lymphocytes 35.0 25.0 - 45.0 % [facility] DEPARTMENT OF PATHOLOGY AND GENOMIC MEDICINE Monocytes 9.3 0.0 - 10.0 % [facility] DEPARTMENT OF PATHOLOGY AND GENOMIC MEDICINE Eosinophils 3.2 0.0 - 5.0 % [facility] DEPARTMENT OF PATHOLOGY AND GENOMIC MEDICINE Basophils 0.6 0.0 - 1.0 % [facility] DEPARTMENT OF PATHOLOGY AND GENOMIC MEDICINE Immature granulocytes 0.1 0.0 - 1.0 % [facility] DEPARTMENT OF PATHOLOGY AND GENOMIC MEDICINE Specimen Blood Performing Organization Address City/[facility] Phone Number [facility] DEPARTMENT OF PATHOLOGY [address] [place] [address] AND [employer] [facility] Basic metabolic panel (01/14/2018 5:05 AM CDT) Sodium 141 135 - 148 mEq/L [facility] DEPARTMENT OF PATHOLOGY AND GENOMIC MEDICINE Potassium 5.0 3.5 - 5.0 mEq/L [facility] DEPARTMENT OF PATHOLOGY AND GENOMIC MEDICINE Chloride 106 98 - 112 mEq/L [facility] DEPARTMENT OF PATHOLOGY AND GENOMIC MEDICINE CO2 24 24 - 31 mEq/L [facility] DEPARTMENT OF PATHOLOGY AND GENOMIC MEDICINE Anion gap 11@ANIO 7 - 15 mEq/L [facility] DEPARTMENT OF PATHOLOGY AND GENOMIC MEDICINE BUN 29 (H) 8 - 23 mg/dL [facility] DEPARTMENT OF PATHOLOGY AND GENOMIC MEDICINE Creatinine 1.94 (H) 0.50 - 0.90 mg/dL [facility] DEPARTMENT OF PATHOLOGY AND GENOMIC MEDICINE Glucose 95 65 - 99 mg/dL [facility] DEPARTMENT OF PATHOLOGY AND GENOMIC MEDICINE Calcium 9.6 8.8 - 10.2 mg/dL [facility] DEPARTMENT OF PATHOLOGY AND GENOMIC MEDICINE Specimen Plasma specimen Performing Organization Address City/[facility] Phone Number [facility] DEPARTMENT OF PATHOLOGY [address] [place] [address] AND [employer] MEDICINE MRA Neck Wo Contrast (01/13/2018 10:49 AM CDT)Only the most recent of2 resultswithin the time period is included. Narrative Performed At EXAMINATION:MRA NECK WO CONTRAST RADIANT CLINICAL HISTORY:CVA COMPARISON:MRI of the neck dated July 22, 2017 TECHNIQUE: Neck MRA using 2D and 3D forw-vs-zcwagy technique with multi-planar MIP and 3D reconstruction. [...] no significant carotid or vertebral artery stenosis. [id number] Procedure Note [facility], Radiology Results Incoming - 01/13/2018 11:23 AM CDT EXAMINATION: MRA NECK WO CONTRAST CLINICAL HISTORY: CVA COMPARISON: MRI of the neck dated July 22, 2017 TECHNIQUE: Neck MRA using 2D and 3D fhvl-zr-sgcjxq technique with multi-planar MIP and 3D reconstruction. [...] no significant carotid or vertebral artery stenosis. [id number] Performing Organization Address City/State/Zipcode Phone Number [facility] [address] [place] [address] [place]RA [place] (01/13/2018 10:26 AM CDT) Narrative Performed At EXAMINATION: MRA [place] RADIANT CLINICAL HISTORY: CVA COMPARISON:None TECHNIQUE: Sfno-sj-[id number] MRA images of the [place] vessels were obtained with multiplanar [...] Right V4 segment is dominant. IMPRESSION: Patent [place] vasculature, without evidence of aneurysm or significant stenosis. [id number] Procedure Note Interface, Radiology Results Incoming - 01/13/2018 10:34 AM CDT EXAMINATION: MRA [place] CLINICAL HISTORY: CVA COMPARISON: None TECHNIQUE: Iqbe-[id number] MRA images of the [place] vessels were obtained with multiplanar [...] Right V4 segment is dominant. IMPRESSION: Patent [place] vasculature, without evidence of aneurysm or significant stenosis. [facility]-[id number] Performing Organization Address City/State/Zipcode Phone Number [facility] [address] [place] [address] MRI Stroke Brain Wo Contrast (01/13/2018 10:26 AM CDT) Narrative Performed At EXAMINATION:MRI STROKE BRAIN WO CONTRAST RADIANT COMPARISON:July 22, 2017. CLINICAL HISTORY:CVA COMMENTS:Multiplanar MR [...] IMPRESSION:No definite acute change in the brain. [id number] Procedure Note Interface, Radiology Results Incoming - [...] No definite acute change in the brain. [id number] Performing Organization Address City/State/Zipcode Phone Number [facility] [address] [place] [address] Troponin (01/13/2018 4:43 AM CDT)Only the most recent of3 resultswithin the time period is included. Troponin <0.30 0.00 - 0.30 ng/mL [facility] DEPARTMENT OF PATHOLOGY Comment: AND GENOMIC MEDICINE 0.11 - 1.49 ng/mlMay indicate increased risk of acute coronary syndrome. >=1.5 ng/mlConsistent with acute myocardial infarction. The diagnostic value of a single normal or non-diagnostic result is questionable.Serial samples at 2-6 hour intervals are required to rule out acute myocardial injury. Specimen Plasma specimen Performing Organization Address City/State/Zipcode Phone Number [facility] DEPARTMENT OF PATHOLOGY [address] [place] [address] AND [employer] Lipid panel (01/13/2018 4:43 AM CDT)Only the most recent of2 resultswithin the time period is included. Cholesterol 173 0 - 199 mg/dL [facility] DEPARTMENT OF PATHOLOGY AND GENOMIC MEDICINE Triglycerides 115 0 - 149 mg/dL [facility] DEPARTMENT OF PATHOLOGY AND GENOMIC MEDICINE HDL cholesterol 59 40 - 99,999 [facility] DEPARTMENT OF mg/dL PATHOLOGY AND GENOMIC MEDICINE LDL cholesterol 101 (H) 0 - 99 mg/dL [facility] DEPARTMENT OF PATHOLOGY AND GENOMIC MEDICINE Lipid panel See below [facility] DEPARTMENT OF interpretation Comment: PATHOLOGY AND Total Cholesterol (mg/dL) GENOMIC MEDICINE <200 Desirable 552-874Nscokunlnk-osse >=240High Triglycerides (mg/dL) <150 Normal 424-763Syuptdghly-kotk 200-499High >=500Very high HDL Cholesterol (mg/dL) <40Low (male) <50Low (female) LDL Cholesterol (mg/dL) <100 Optimal 100-129Near or above optimal 860-263Jgrplaaker-eazd 160-189High >=190Very high Risk Catergories that modify [...] specimen Performing Organization Address City/State/Zipcode Phone Number [facility] DEPARTMENT OF PATHOLOGY [address] [place] [address] AND [employer] Comprehensive metabolic panel (01/12/2018 7:17 PM CDT)Only the most recent of3 resultswithin the time period is included. Sodium 140 135 - 148 mEq/L [facility] DEPARTMENT OF PATHOLOGY AND GENOMIC MEDICINE Potassium 4.3 3.5 - 5.0 mEq/L [facility] DEPARTMENT OF PATHOLOGY AND GENOMIC MEDICINE Chloride 103 98 - 112 mEq/L [facility] DEPARTMENT OF PATHOLOGY AND GENOMIC MEDICINE CO2 28 24 - 31 mEq/L [facility] DEPARTMENT OF PATHOLOGY AND GENOMIC MEDICINE Anion gap 9@ANIO 7 - 15 mEq/L [facility] DEPARTMENT OF PATHOLOGY AND GENOMIC MEDICINE BUN 28 (H) 8 - 23 mg/dL [facility] DEPARTMENT OF PATHOLOGY AND GENOMIC MEDICINE Creatinine 1.95 (H) 0.50 - 0.90 mg/dL [facility] DEPARTMENT OF PATHOLOGY AND GENOMIC MEDICINE Glucose 80 65 - 99 mg/dL [facility] DEPARTMENT OF PATHOLOGY AND GENOMIC MEDICINE Calcium 9.7 8.8 - 10.2 mg/dL [facility] DEPARTMENT OF PATHOLOGY AND GENOMIC MEDICINE Protein 6.6 6.3 - 8.3 g/dL [facility] DEPARTMENT OF PATHOLOGY AND GENOMIC MEDICINE Albumin 3.9 3.5 - 5.0 g/dL [facility] DEPARTMENT OF PATHOLOGY AND GENOMIC MEDICINE A/G ratio 1.4 0.7 - 3.8 [facility] DEPARTMENT OF PATHOLOGY AND GENOMIC MEDICINE Alkaline phosphatase 93 35 - 104 U/L [facility] DEPARTMENT OF PATHOLOGY AND GENOMIC MEDICINE AST 18 10 - 35 U/L [facility] DEPARTMENT OF PATHOLOGY AND GENOMIC MEDICINE ALT 13 5 - 50 U/L [facility] DEPARTMENT OF PATHOLOGY AND GENOMIC MEDICINE Total bilirubin <0.2 0.2 - 1.2 mg/dL [facility] DEPARTMENT OF PATHOLOGY AND GENOMIC MEDICINE Specimen Plasma specimen Performing Organization Address City/State/Zipcode Phone Number [facility] DEPARTMENT OF PATHOLOGY [address] [facility] [place] [address] Stroke Brain Wo Contrast (01/12/2018 6:58 [...] 01/12/2018 6:59 PM, with acknowledgement of understanding. [id number] Procedure Note Interface, Radiology Results Incoming - [...] 01/12/2018 6:59 PM, with acknowledgement of understanding. [id number] Performing Organization Address City/State/Zipcode Phone Number [facility] [address] [place] [address] Urinalysis screen and microscopy, with reflex to culture (01/12/2018 6:01 PM CDT) Specimen site Clean catch [facility] DEPARTMENT OF PATHOLOGY AND GENOMIC MEDICINE Color, UA Susu [facility] DEPARTMENT OF PATHOLOGY AND GENOMIC MEDICINE Appearance, UA Clear [facility] DEPARTMENT OF PATHOLOGY AND GENOMIC MEDICINE Specific gravity, UA 1.006 1.001 - 1.030 [facility] DEPARTMENT OF PATHOLOGY AND GENOMIC MEDICINE pH, UA 6.0 5.0 - 9.0 [facility] DEPARTMENT OF PATHOLOGY AND GENOMIC MEDICINE Protein, UA Negative Negative [facility] DEPARTMENT OF PATHOLOGY AND GENOMIC MEDICINE Glucose, UA Negative Negative [facility] DEPARTMENT OF PATHOLOGY AND GENOMIC MEDICINE Ketones, UA Negative Negative [facility] DEPARTMENT OF PATHOLOGY AND GENOMIC MEDICINE Bilirubin, UA Negative Negative [facility] DEPARTMENT OF PATHOLOGY AND GENOMIC MEDICINE Blood, UA Negative Negative [facility] DEPARTMENT OF PATHOLOGY AND GENOMIC MEDICINE Nitrite, UA Negative Negative [facility] DEPARTMENT OF PATHOLOGY AND GENOMIC MEDICINE Urobilinogen, UA <2.0 <2.0 E.U./dL [facility] DEPARTMENT OF PATHOLOGY AND GENOMIC MEDICINE Leukocyte esterase, UA Negative Negative [facility] DEPARTMENT OF PATHOLOGY AND GENOMIC MEDICINE Epithelial cells, UA <1 /HPF [facility] DEPARTMENT OF PATHOLOGY AND GENOMIC MEDICINE Round epithelial cells, UA <1 0 - 5 /HPF [facility] DEPARTMENT OF PATHOLOGY AND GENOMIC MEDICINE WBC, UA 1 0 - 4 /HPF [facility] DEPARTMENT OF PATHOLOGY AND GENOMIC MEDICINE RBC, UA 1 0 - 5 /HPF [facility] DEPARTMENT OF PATHOLOGY AND GENOMIC MEDICINE Bacteria, UA None seen None seen [facility] DEPARTMENT OF PATHOLOGY AND GENOMIC MEDICINE Yeast, UA None seen [facility] DEPARTMENT OF PATHOLOGY AND GENOMIC MEDICINE Yeast with pseudohyphae, UA None seen [facility] DEPARTMENT OF PATHOLOGY AND GENOMIC MEDICINE Specimen Urine Performing Organization Address City/[facility] Phone Number [facility] DEPARTMENT OF PATHOLOGY [address] [place] [address] AND [facility] Urine culture (01/12/2018 6:00 PM CDT) Urine culture SEE COMMENTComment: Bacteriuria [facility] DEPARTMENT OF PATHOLOGY screen negative. AND GENOMIC MEDICINE Performing Organization Address [facility] Phone Number [facility] DEPARTMENT OF PATHOLOGY [address] [place] [address] AND GENOMIC MEDICINE ECG ED Preliminary Interpretation - NOT AN ORDER (01/12/2018 5:55 PM CDT) Narrative Performed At Reji Chung MD 01/12/20185:55 PM ECG ED Preliminary Interpretation - Not an Order Performed by: REJI CHUNG Authorized by: REJI CHUNG ECG reviewed by ED Physician in the absence of a manager business banking: yes Interpretation: Interpretation: non-specific Rate: ECG rate:58 ECG rate assessment: bradycardic Rhythm: Rhythm: sinus bradycardia Ectopy: Ectopy: none QRS: QRS axis:Normal QRS intervals:Normal Conduction: Conduction: normal ST segments: ST segments:Normal T waves: T waves: normal ECG 12 lead (01/12/2018 5:32 PM CDT)Only the most recent of2 resultswithin the time period is included. Ventricular rate 58 [facility] Atrial rate 58 [facility] OK interval 80 [facility] QRSD interval 76 [facility] QT interval 414 [facility] QTC interval 406 [facility] P axis 1 101 [facility] QRS axis 1 34 [facility] T wave axis 51 [facility] EKG impression Sinus bradycardia with short OK-Septal [facility]USE infarct (cited on or before 21-JUN-2015)-Abnormal ECG-In automated comparison with ECG of 12-JAN-2018 16:29,-OK interval has decreased- Performing Organization Address City/[facility] Phone Number [facility] MUSE [address] [place] [address] Partial thromboplastin time, activated (01/12/2018 5:30 PM CDT) PTT 31.1 23.0 - 36.0 sec [facility] DEPARTMENT OF Comment: PATHOLOGY AND GENOMIC PTT therapeutic range for unfractionated heparin is MEDICINE 61.0-112.0 seconds which corresponds to Anti-Xa 0.3-0.7 U/ml. Specimen Blood Performing Organization Address City/[facility]/Zipcode Phone Number [facility] DEPARTMENT OF PATHOLOGY [id number] [place] [address] AND [employer] [facility] Prothrombin time with INR (01/12/2018 5:30 PM CDT) Prothrombin time 15.4 (H) 12.0 - 15.0 sec [facility] DEPARTMENT OF PATHOLOGY AND GENOMIC MEDICINE INR 1.2 [facility] DEPARTMENT OF Comment: PATHOLOGY AND GENOMIC The International Normalized Ratio (INR) is a therapeutic MEDICINE monitoring tool for patients who are stable on oral anticoagulant therapy. An INR of 2.0-3.0 is suggested for deep vein thrombosis/pulmonary embolism. Specimen Blood Performing Organization Address [facility] Phone Number [facility] DEPARTMENT OF PATHOLOGY [id number] [place] [address]. [place] [address] AND [employer] Echocardiogram complete w contrast and 3D if [...] HM CUPID AoV area i VTI BSA [place] 1.61 cm2/m2 [facility] PV Vmn 0.56 [...] Mitral Valve E/E' 0.8 [facility] LV NM Mmode BSA 130.00 [facility] C[facility]ID E/E' ratio [...] No pericardial effusion seen Performing Organization Address [facility] Phone Number [facility] [address] [place] [address] Thyroid stimulating hormone (01/11/2018 9:23 AM CDT)Only the most recent of2 resultswithin the time period is included. TSH 0.51 0.40 - 4.50 mIU/L [facility] [place] Specimen Blood Resulting Agency Comment Performing Organization Information: Site ID: [id number] Name: [facility] Address: [address] [place] [phone] Director: Evelyne Cowan Performing Organization Address [facility] Phone Number [employer] [address] [address] MRA Head Wo Contrast (07/22/2017 2:30 PM CDT) Narrative Performed At EXAMINATION:MRA HEAD WO CONTRAST HM RADIANT COMPARISON:None CLINICAL HISTORY:G45.9 Transient cerebral ischemic attackunspecified, R47.81 Slurred speech, recurrent loss of consciousness TECHNIQUE: MIP and MPR images are submitted. FINDINGS: There are no stenoses and no aneurysms. There is no obvious vasospasm or dissection. There are no anatomic variants. IMPRESSION: Normal study. [id number] Procedure Note Interface, Radiology Results Incoming - 07/22/2017 2:35 PM CDT EXAMINATION: MRA HEAD WO CONTRAST COMPARISON: None CLINICAL HISTORY: G45.9 Transient cerebral ischemic attack unspecified, R47.81 Slurred speech, recurrent loss of consciousness TECHNIQUE: MIP and MPR images are submitted. FINDINGS: There are no stenoses and no aneurysms. There is no obvious vasospasm or dissection. There are no anatomic variants. IMPRESSION: Normal study. [id number] Performing Organization Address City/State/Zipcode Phone Number [facility] [address] [place] [address] MRI Brain Wo Contrast (07/22/2017 2:03 PM CDT) Narrative Performed At EXAMINATION: MRI BRAIN WO CONTR[facility] CLINICAL HISTORY: G45.9 Transient cerebral ischemic attackunspecified, [...] in the brain or extra axial region. [facility]-[id number] Procedure Note Interface, Radiology Results Incoming - 07/22/2017 2:11 [...] in the brain or extra axial region. [facility]-[id number] Performing Organization Address City/[facility]/Zipcode Phone Number [facility] [address] [place] [address] Total iron binding capacity (07/22/2017 10:45 AM CDT) Iron level 20 (L) 45 - 160 mcg/dL [facility] [place] Iron binding capacity 406 250 - 450 mcg/dL (calc) [facility] [place] Iron saturation 5 (L) 11 - 50 % (calc) [facility] [place] Specimen Blood Narrative Performed At FASTING:YES QUEST FASTING: YES Resulting Agency Comment Performing Organization Information: Site ID: [id number] Name: [facility] Address: [address] [place] [phone] Director: Eevlyne Cowan Performing Organization Address [facility] Phone Number [employer] [address] [address] Transferrin level (07/22/2017 10:45 AM CDT) Transferrin 312 188 - 341 mg/dL [facility] Specimen Blood Narrative Performed At FASTING:YES QUEST FASTING: YES Resulting Agency Comment Performing Organization Information: Site ID: [id number] Name: [facility] Address: [address] [place] [address] Director: Dr. Valerio Delarosa Performing Organization Address [facility] Phone Number [facility] [address] [place] [address] Ferritin level (07/22/2017 10:45 AM CDT) Ferritin level 26 20 - 288 ng/mL [facility] [place] Specimen Blood Narrative Performed At FASTING:YES QUEST FASTING: YES Resulting Agency Comment Performing Organization Information: Site ID: [id number] Name: [facility] Address: [address] [place] [phone] Director: Evelyne Cowan Performing Organization Address [facility] Phone Number [employer] [place] [address] [place], [place] [id number] Vitamin B12 level (07/22/2017 10:45 AM CDT) Vitamin B12 >2000 (H) 200 - 1100 pg/mL [facility] [place] Specimen Blood Narrative Performed At FASTING:YES QUEST FASTING: YES Resulting Agency Comment Performing Organization Information: Site ID: [id number] Name: [facility] Address: [address] [place] [phone] Director: Evelyne Cowan Performing Organization Address [facility] Phone Number [facility] [address] [place] [id number] Ammonia level (07/22/2017 10:45 AM CDT) Ammonia 47 < OR=47 umol/L [facility] Specimen Blood Narrative Performed At FASTING:YES [facility] FASTING: YES Resulting Agency Comment Performing Organization Information: Site ID: [id number] Name: [facility] Address: [address] [place] [id number] Director: Evelyne Cowan Performing Organization Address [facility] [place] Phone Number [facility] [address] [place] [phone] after 06/25/2017 Insurance Payer Benefit Plan / Group Subscriber ID Type Phone Address [facility] SERAFIN KAMARA CROSS xxxxxxxxxxxx PPO Advance Directives Patient has advance care planning documents on file. For more information, please contact:[place] [address]
--- OUTSIDE RECORDS SUMMARY | 2018-06-26 00:06 | XMS REPORT | Clinical Summary ---
:1955 Author Organization [facility] Address [address] [place] [address] Care Team Providers Name Role Phone Unavailable Primary Care Provider Unavailable Allergies Active Allergy Reactions Severity Noted Date Comments Sulfa (Sulfonamide Antibiotics) Sulfamethoxazole Vancomycin Analogues Shortness Of Breath High 04/14/2018 Pt pt report Medications Medication Sig Dispensed Refills Start Date End Date Status HYDROcodone-acetami Take 1 tablet by 0 Active nophen (NORCO mouth every 8 10-325) 10-325 mg (eight) hours as per tablet needed for Pain. metoprolol Take 100 mg by 0 Active (TOPROL-XL) 100 MG mouth daily. 24 hr tablet apixaban (ELIQUIS) Take 5 mg by mouth 0 Active 5 mg Tab tablet 2 (two) times daily. AMLODIPINE by Miscellaneous 0 Active BESYLATE, BULK, route. MISC diazePAM (VALIUM) 5 Take 5 mg by mouth 0 Active MG tablet every 6 (six) hours as needed for Anxiety. zolpidem (AMBIEN) 5 Take 5 mg by mouth 0 Active MG tablet every night as needed for Insomnia. gabapentin Take 600 mg by 0 Active (NEURONTIN) 600 MG mouth 3 (three) tablet times daily. DULoxetine Take 60 mg by mouth 0 Active (CYMBALTA) 60 MG daily. capsule methen-m.blue-s.shlomo Take by mouth. 0 Active s-phsal-hyo (URIBEL) 118-10-40.8-36 mg Cap amitriptyline Take 1 tablet (25 30 tablet 04/15/2018 Active (ELAVIL) 25 MG mg total) by mouth 0 tablet nightly. NIFEdipine (ADALAT Take 1 tablet (60 30 tablet 04/16/2018 Active CC) 60 MG 24 hr mg total) by mouth 0 tablet daily. atorvastatin Take 1 tablet (40 30 tablet 11 04/15/2018 Active (LIPITOR) 40 MG mg total) by mouth 0 tablet nightly. nicotine (NICODERM Place 1 patch onto 28 patch 0 04/16/2018 CQ) 21 mg/24 hr the skin daily for 9 patch 30 days. levoFLOXacin Take 1 tablet (500 7 tablet 0 04/15/2018 (LEVAQUIN) 500 MG mg total) by mouth 9 tablet every other day for 13 days. amoxicillin Take 2 capsules 52 capsule 0 04/15/2018 (AMOXIL) 500 MG (1,000 mg total) by 9 capsule mouth 2 (two) times daily for 13 days. Active Problems Problem Noted Date Right sided weakness 04/13/2018 AREN (acute kidney injury) 04/11/2018 Encounters Date Type Specialty Care Team Description 04/10/2018 - Hospital General Internal Jori, AREN (acute kidney injury) ([facility]); 04/15/2018 Encounter Medicine Ulises Mckay, Seizure-like activity ([facility]); Volume depletion; Loern Brown, Metabolic acidosis; Type 2 diabetes mellitus with other neurologic complication, unspecified whether prison insulin use ([facility]); Lucius Sparks, History of right MCA stroke; Abnormal brain MRI; CKD (chronic kidney disease), stage III ([facility]); Dysuria; Anxiety; Stress at home; Pyelonephritis; Complicated UTI (urinary tract infection); Polymicrobial bacterial infection; Altered mental status, unspecified altered mental status type; Dilated cbd, acquired; Gastric bypass status for obesity 04/10/2018 Orders Only Internal Medicine Ulises Hsieh MD after 06/25/2017 Immunizations Name Dates Previously Given Next Due Influenza Four-QIV Non-PF 5+ YR 04/13/2018 (Deferred: ) Social History Tobacco Use Types Packs/Day Years Used Date Current Every Day Smoker 1 Smokeless Tobacco: Never Used Sex Assigned at Date Recorded Not on file Job Start Date Occupation Industry Not on file Not on file Not on file Travel History Travel Start Travel End No recent travel history available. Last Filed Vital Signs Vital Sign Reading Time Taken Blood Pressure 145/80 04/15/2018 12:24 PM [employer] Pulse 83 04/15/2018 12:24 PM [employer] Temperature 36.7 C (98.1 F) 04/15/2018 12:24 PM [employer]PER[employer] Respiratory Rate 18 04/15/2018 12:24 PM [employer] Oxygen Saturation 100% 04/15/2018 12:24 PM [employer] OPER[employer] Inhaled Oxygen Concentration - - Weight 57.2 kg (126 lb) 04/10/2018 6:00 PM [employer] OPER[employer] Height 152.4 cm (5') 04/10/2018 6:00 PM [employer] OPER[employer] Body Mass Index 24.61 04/10/2018 6:00 PM [employer] OPERATOR Plan of Treatment Not on file Procedures Procedure Name Priority Date/Time Associated Comments Diagnosis REPORT OF PROCEDURE - 05/05/2018 2:41 ENDOSCOPY SCAN PM [employer] OPERATOR RHYTHM STRIP - SCAN 05/05/2018 2:40 PM [employer]UER OPERATOR POCT-GLUCOSE METER Routine 04/15/2018 12:16 Results for this PM [employer] OPERATOR procedure are in the results section. POCT-GLUCOSE METER Routine 04/15/2018 8:01 Results for this AM [employer] OPERATOR procedure are in the results section. CBC W/PLT COUNT & Routine 04/15/2018 5:28 Results for this AUTO DIFFERENTIAL AM [employer] OPERATOR procedure are in the results section. CBC W/PLT COUNT & Routine 04/15/2018 5:28 Results for this AUTO DIFFERENTIAL AM [employer] OPERATOR procedure are in the results section. VANCOMYCIN LEVEL, Timed 04/15/2018 5:28 Results for this TROUGH AM [employer] OPERATOR procedure are in the results section. BASIC METABOLIC PANEL Routine 04/15/2018 5:28 Results for this (7) AM [employer] OPERATOR procedure are in the results section. POCT-GLUCOSE METER Routine 04/14/2018 8:44 Results for this PM [employer] OPERATOR procedure are in the results section. POCT-GLUCOSE METER Routine 04/14/2018 4:11 Results for this PM [employer] OPERATOR procedure are in the results section. POCT-GLUCOSE METER Routine 04/14/2018 1:06 Results for this PM [employer] OPERATOR procedure are in the results section. POCT-GLUCOSE METER Routine 04/14/2018 7:56 Results for this AM [employer] OPERATOR procedure are in the results section. ECG 12-LEAD Routine 04/14/2018 5:57 AM LAP C[employer]TER TRUER OPERATOR Procedure Note - Interface, External Ris In - 04/14/2018 6:13 AM [employer] C[employer]TER TRUER OPERATOR Ventricular Rate 68 BPM Atrial Rate 68 BPM P-R Interval 152 ms QRS Duration 80 ms Q-T Interval 408 ms QTC Calculation(Bazett) 433 ms P [place] 81 degrees R [place] 61 degrees T [place] 57 degrees Normal sinus rhythm Normal ECG No previous ECGs available ECG 12-LEAD Routine 04/14/2018 5:57 AM LAP [employer] TRUER OPERATOR BASIC METABOLIC PANEL (7) Routine 04/14/2018 4:07 AM [employer] TRUER OPERATOR POCT-GLUCOSE METER Routine 04/13/2018 9:19 PM [employer] TRU[employer] OPERATOR MR ABDOMEN WITH/WITHOUT IV Routine 04/13/2018 8:02 PM [employer] OPERATOR Results for this CONTRAST procedure are in the results section. POCT-GLUCOSE METER Routine 04/13/2018 12:42 PM [employer] TRUER OPERATOR EEG AWAKE AND DROWSY Routine 04/13/2018 10:02 AM LAP C[employer] TRUER OPERATOR POCT-GLUCOSE METER Routine 04/13/2018 8:11 AM LAP [employer]TER TRUER OPERATOR HEPATIC FUNCTION PANEL STAT 04/13/2018 5:50 AM LAP CUTTER TRUER OPERATOR BASIC METABOLIC PANEL (7) Routine 04/13/2018 5:50 AM [employer] TRUER OPERATOR POCT-GLUCOSE METER Routine 04/12/2018 8:24 PM [employer] TRUER OPERATOR POCT-GLUCOSE METER Routine 04/12/2018 5:39 PM [employer] TRUER OPERATOR ECHOCARDIOGRAM REPORT - 04/12/2018 5:21 PM LAP C[employer]TER TRUER OPERATOR SCAN CT ABDOMEN/PELVIS WITHOUT STAT 04/12/2018 5:01 PM [employer] TRUER OPERATOR Results for this IV CONTRAST procedure are in the results section. 2D ECHO W/ DOPPLER Routine 04/12/2018 1:48 PM [employer] TRUER OPERATOR Results for this (CW/PW/COLOR) procedure are in the results section. POCT-GLUCOSE METER Routine 04/12/2018 12:23 PM LAP [employer]TER TRUER OPERATOR URINALYSIS W/ REFLEX URINE Routine 04/12/2018 12:20 PM [employer] TRUER OPERATOR Results for this CULTURE procedure are in the results section. URINE CULTURE Routine 04/12/2018 12:20 PM LAP [employer] TRUER OPERATOR POCT-GLUCOSE METER Routine 04/12/2018 7:54 AM LAP C[employer]TER TRUER OPERATOR VITAMIN B12 AND FOLATE Routine 04/12/2018 5:16 AM LAP C[employer]TER TRUER OPERATOR VITAMIN D, 25-HYDROXY Routine 04/12/2018 5:16 AM LAP C[employer]TER TRUER OPERATOR BASIC METABOLIC PANEL (7) Routine 04/12/2018 5:16 AM LAP CUTTER TRUER OPERATOR CBC (HEMOGRAM ONLY) Routine 04/12/2018 5:16 AM LAP C[employer]TER TRUER OPERATOR MR BRAIN WITHOUT IV Routine 04/11/2018 9:13 PM LAP C[employer]TER TRUER OPERATOR Results for this CONTRAST procedure are in the results section. POCT-GLUCOSE METER Routine 04/11/2018 8:00 AM LAP C[employer]TER TRUER OPERATOR CBC W/PLT COUNT & AUTO Routine 04/11/2018 5:06 AM [employer] TRUER OPERATOR Results for this DIFFERENTIAL procedure are in the results section. AMMONIA Routine 04/11/2018 5:06 AM [employer] TRUER OPERATOR HEMOGLOBIN A1C Routine 04/11/2018 5:06 AM [employer] TRUER OPERATOR CBC W/PLT COUNT & AUTO Routine 04/11/2018 5:06 AM [employer] TRUER OPERATOR Results for this DIFFERENTIAL procedure are in the results section. BASIC METABOLIC PANEL (7) Routine 04/11/2018 5:06 AM [employer] TRUER OPERATOR POCT-GLUCOSE METER Routine 04/10/2018 9:12 PM [employer]UER OPERATOR POCT-GLUCOSE METER Routine 04/10/2018 5:46 PM [employer] TRUER OPERATOR BLOOD CULTURE Routine 04/10/2018 5:29 PM [employer]UER OPERATOR RAPID DRUG SCREEN, URINE Routine 04/10/2018 4:29 PM [employer] TRUER OPERATOR POTASSIUM, RANDOM URINE Routine 04/10/2018 4:29 PM [employer] TRUER OPERATOR SODIUM, RANDOM URINE Routine 04/10/2018 4:29 PM [employer] TRUER OPERATOR CREATININE, RANDOM URINE Routine 04/10/2018 4:29 PM [employer] TRUER OPERATOR PROTEIN, RANDOM URINE Routine 04/10/2018 4:29 PM LAP C[employer]TER TRUER OPERATOR LIPID PANEL Routine 04/10/2018 4:28 PM [employer] TRUER OPERATOR LACTATE DEHYDROGENASE (LDH) Routine 04/10/2018 4:28 PM [employer] TRUER OPERATOR COMPLEMENT COMPONENT C4 Routine 04/10/2018 4:28 PM [employer] TRUER OPERATOR COMPLEMENT COMPONENT C3 Routine 04/10/2018 4:28 PM LAP [employer]TER TRUER OPERATOR PHOSPHORUS Routine 04/10/2018 4:28 PM LAP C[employer]TER TRUER OPERATOR VITAMIN D, 25-HYDROXY Routine 04/10/2018 4:28 PM LAP C[employer]TER TRUER OPERATOR PTH, INTACT Routine 04/10/2018 4:28 PM LAP C[employer]TER TRUER OPERATOR FERRITIN AP Routine 04/10/2018 4:28 PM LAP C[employer]TER TRUER OPERATOR IRON, TIBC, % SAT. (WITHOUT Routine 04/10/2018 4:28 PM LAP C[employer]TER TRUER OPERATOR Results for this FERRITIN) procedure are in the results section. TROPONIN I Routine 04/10/2018 4:28 PM LAP C[employer] TRUER OPERATOR URINALYSIS MICROSCOPIC Routine 04/10/2018 4:15 PM [employer] TRUER OPERATOR URINALYSIS WITH MICROSCOPIC Routine 04/10/2018 4:15 PM [employer] TRUER OPERATOR Results for this IF INDICATED procedure are in the results section. TROPONIN I Routine 04/10/2018 4:15 PM [employer] TRUER OPERATOR after 06/25/2017 Results EKG-SCANNED (05/05/2018 2:41 PM LAP C[employer]TER TRUER OPERATOR) Narrative Performed At RHYTHM STRIP - SCAN (05/05/2018 2:40 PM LAP C[employer]TER TRUER OPERATOR) Narrative Performed At POC-Glucose meter (04/15/2018 12:16 PM LAP C[employer]TER TRUER OPERATOR)Only the most recent of16 resultswithin the time period is included. POC-Glucose Meter 97Comment: TESTED AT 70 - 110 mg/dL [facility] [address] [facility] [id number] Specimen Blood Performing Organization Address City/State/Zipcode Phone Number [address] [phone] CENTER CBC with platelet count + automated diff (04/15/2018 5:28 AM LAP CUTTER TRUER OPERATOR)Only the most recent of2 resultswithin the time period is included. WBC 6.5 3.5 - 10.5 K/L [facility] RBC 3.70 (L) 3.93 - 5.22 M/L [facility] Hemoglobin 11.1 (L) 11.2 - 15.7 GM/DL [facility] Hematocrit 35.9 34.1 - 44.9 % [facility] MCV 97.0 (H) 79.4 - 94.8 fL [facility] MCH 30.0 25.6 - 32.2 pg [facility] MCHC 30.9 (L) 32.2 - 35.5 GM/DL [facility] RDW 14.0 11.7 - 14.4 % [facility] Platelets 222 150 - 450 K/CU MM [facility] MPV 9.1 (L) 9.4 - 12.3 fL [facility] nRBC 0 0 - 0 /100 WBC [facility] % Neutros 50 % [facility] % Lymphs 30 % [facility] % Monos 13 % [facility] % Eos 5 % [facility] % Baso 1 % [facility] # Neutros 3.24 1.56 - 6.13 K/L [facility] # Lymphs 1.94 1.18 - 3.74 K/L [facility] # Monos 0.85 (H) 0.24 - 0.36 K/L [facility] # Eos 0.35 0.04 - 0.36 K/L [facility] # Baso 0.08 0.01 - 0.08 K/L [facility] Immature Granulocytes-Relative 0 0 - 1 % [facility] Specimen Blood Performing Organization Address City/[facility]/Zipcode Phone Number [address] [address] [phone] [place] Vancomycin level, trough (04/15/2018 5:28 AM LAP CUTTER TRUER OPERATOR) Vancomycin Tr <1.1 (L) 10.0 - 20.0 ug/mL [facility] Specimen Blood Performing Organization Address [facility] Phone Number [address] [address] [place] Basic Metabolic Panel (04/15/2018 5:28 AM LAP CUTTER TRUER OPERATOR)Only the most recent of5 resultswithin the time period is included. Sodium 140 136 - 145 meq/L [facility] Potassium 4.3 3.5 - 5.1 meq/L [facility] Chloride 110 (H) 98 - 107 meq/L [facility] CO2 23 22 - 29 meq/L [facility] BUN 28 (H) 7 - 21 mg/dL [facility] Creatinine 1.62 (H) 0.57 - 1.25 mg/dL [facility] Glucose 69 (L) 70 - 105 mg/dL [facility] Calcium 8.9 8.4 - 10.2 mg/dL [facility] EGFR 32Comment: ESTIMATED GFR IS mL/min/1.73 sq m [facility] NOT ACCURATE CREATININE [facility] CLEARANCE IN PREDICTING GLOMERULAR FILTRATION RATE. ESTIMATED GFR IS NOT APPLICABLE FOR DIALYSIS PATIENTS. Specimen Blood Performing Organization Address [facility] Phone Number [address] [phone] [place] ECG 12 lead (04/14/2018 5:57 AM LAP CUTTER TRUER OPERATOR) Narrative Performed At Ventricular Rate 68 BPM GE MUSE Atrial Rate 68 BPM P-R Interval 152 ms QRS Duration 80 ms Q-T Interval 408 ms QTC Calculation(Bazett) 433 ms P [place] 81 degrees R [place] 61 degrees T [place] 57 degrees Normal sinus rhythm Normal ECG No previous ECGs available Confirmed by MD BEJARANO JORGE ([id number]) on 04/14/2018 1:23:10 PM Procedure Note Interface, External Ris In - 04/14/2018 1:23 PM LAP C[employer]TER TRUER OPERATOR Ventricular Rate 68 BPM Atrial Rate 68 BPM P-R Interval 152 ms QRS Duration 80 ms Q-T Interval 408 ms QTC Calculation(Bazett) 433 ms P [place] 81 degrees [place] 61 degrees [place] 57 degrees Normal sinus rhythm Normal ECG No previous ECGs available Confirmed by MD BEJARANO JORGE ([id number]) on 04/14/2018 1:23:10 PM Performing Organization Address City/State/Zipcode Phone Number [employer] MR abdomen without & with IV contrast (04/13/2018 8:02 PM LAP CUTTER TRUER OPERATOR) Narrative Performed At FINAL REPORT [employer] MRI of the abdomen. MRCP. CLINICAL HISTORY: eval pancreas, dilated CBD. COMPARISON STUDY: CT scan of the abdomen and pelvis dated April 12, 2018. Technique: Multiplanar, multisequence imaging of the abdomen was acquired both pre and post administration of intravenous gadolinium in a dynamic fashion. No oral contrast was administered. Three-dimensional reconstructions were acquired in a less by the dictating radiologist the time of interpretation. FINDINGS: Bilateral trace pleural effusions are seen. The liver demonstrates a noncirrhotic morphology. Post administration of intravenous gadolinium in a dynamic fashion, a 7 mm arterially enhancing focus is seen in the dome with no washout or T2 weighted signal abnormality. It is favored to represent a shunt. The main portal vein is widely patent measuring 1.1 cm. The spleen and adrenal glands are unremarkable. Atrophic changes are seen in the left kidney and there are bilateral tiny cysts. Moderate intra and extrahepatic biliary dilatation is seen with the CBD measuring 1.8 cm. Cholelithiasis is identified. The gallbladder is distended. No choledocholithiasis is seen. No obvious pancreatic abnormality is identified with no mass identified. There is no pancreatic ductal dilatation. A mildly prominent side branch is seen in the uncinate process. No dilated loops of bowel are seen to suggest obstruction. There is no ascites. No suspicious adenopathy is seen. The aorta is normal in caliber. The visualized osseous structures demonstrate degenerative changes. IMPRESSION: 1. Area of hypervascularity in the hepatic dome, most likely a shunt. 2. Intra and extra hepatic biliary dilatation. No choledocholithiasis is seen. There is no obvious pancreatic mass. A distal ductal stricture or ampullary mass cannot be excluded. Correlation with ERCP is recommended. 3. Cholelithiasis. 4. Other findings as described above. Signed: Royal Parrish MD Report Verified Date/Time:04/14/2018 16:58:47 Reading Location: [facility] Diagnostic Imaging Reading Room - [place] [id number] Procedure Note Interface, External Ris In - 04/14/2018 5:00 PM LAP CUTTER TRUER OPERATOR FINAL REPORT MRI of the abdomen. MRCP. CLINICAL HISTORY: eval pancreas, dilated CBD. COMPARISON STUDY: CT scan of the abdomen and pelvis dated April 12, 2018. Technique: Multiplanar, multisequence imaging of the abdomen was acquired both pre and post administration of intravenous gadolinium in a dynamic fashion. No oral contrast was administered. Three-dimensional reconstructions were acquired in a less by the dictating radiologist the time of interpretation. FINDINGS: Bilateral trace pleural effusions are seen. The liver demonstrates a noncirrhotic morphology. Post administration of intravenous gadolinium in a dynamic fashion, a 7 mm arterially enhancing focus is seen in the dome with no washout or T2 weighted signal abnormality. It is favored to represent a shunt. The main portal vein is widely patent measuring 1.1 cm. The spleen and adrenal glands are unremarkable. Atrophic changes are seen in the left kidney and there are bilateral tiny cysts. Moderate intra and extrahepatic biliary dilatation is seen with the CBD measuring 1.8 cm. Cholelithiasis is identified. The gallbladder is distended. No choledocholithiasis is seen. No obvious pancreatic abnormality is identified with no mass identified. There is no pancreatic ductal dilatation. A mildly prominent side branch is seen in the uncinate process. No dilated loops of bowel are seen to suggest obstruction. There is no ascites. No suspicious adenopathy is seen. The aorta is normal in caliber. The visualized osseous structures demonstrate degenerative changes. IMPRESSION: 1. Area of hypervascularity in the hepatic dome, most likely a shunt. 2. Intra and extra hepatic biliary dilatation. No choledocholithiasis is seen. There is no obvious pancreatic mass. A distal ductal stricture or ampullary mass cannot be excluded. Correlation with ERCP is recommended. 3. Cholelithiasis. 4. Other findings as described above. Signed: Royal Parrish MD Report Verified Date/Time: 04/14/2018 16:58:47 Reading Location: [facility] Diagnostic Imaging Reading Room - [place] [address] Performing Organization Address City/State/Zipcode Phone Number [employer] EEG AWAKE AND DROWSY (04/13/2018 10:02 AM LAP CUTTER TRUER OPERATOR) Narrative Performed At [employer] [facility] EEG REPORT DATE OF TEST: 04/13/18 START TIME: 09:40 END TIME: 10:02 DATE OF REPORT: 04/13/2018 [id number] ACC: [id number] ICD-10: R41.82 CPT Code: 41020 HISTORY:62 yo female with a PMHx of AFib, DM, HTN, hypothyroidism, multiple CVAs admitted with LOC and AMS MEDICATIONS THAT COULD AFFECT EEG: Gabapentin TECHNICAL SUMMARY: This is a digital video EEG recorded with 32 input channels reviewed with bipolar and referential montages using the modified combinatorial system nomenclature. DESCRIPTION OF RECORD:During the maximally awake state, a well-regulated, moderate amplitude posterior dominant rhythm of 7 Hz alpha is present bilaterally. The background is symmetric, composed primarily of 5-7 Hz activity.More anteriorly, similar as well as faster frequencies of lower amplitudes are present, including low voltage 13-18 Hz beta in the anterior leads.There is occasional, moderate voltage 2-3 Hz slow activity independently in the left and right temporal regions.With drowsiness there is a drop out of myogenic artifact and an increase in rhythmical slowing.Stage II sleep is not recorded. Of note, much of the recording was obsecured by myogenic artifact. HV: Hyperventilation was not performed. PHOTIC STIMULATION: There are no abnormal waveforms with various frequencies of flickering light. ELECTROCARDIOGRAM EVENTS: Irregularly irregular IMPRESSION: This is an abnormal awake & drowsy EEG due to: 1. Occasional focal slow activity occurring independently in the left and right temporal regions CLINICAL CORRELATION: Bitemporal slow activity of this type, while considered to be abnormal, is a finding of uncertain diagnostic significance when present in individuals of this patient's age range. The absence of epileptiform abnormality does not necessarily preclude the clinical diagnosis of epilepsy; clinical correlation is recommended. Selina Lora MD Neurophysiology Fellow I have reviewed the electroencephalogram and this report and agree with its interpretation. Nicole Wilson MD Neurophysiology Attending Procedure Note Interface, External Ris In - 04/13/2018 5:18 PM LAP CUTTER TRUER OPERATOR [facility] EEG REPORT DATE OF TEST: 04/13/18 START TIME: 09:40 END TIME: 10:02 DATE OF REPORT: 04/13/2018 EE0 ACC: [id number] ICD-10: R41.82 CPT Code: 93887 HISTORY: 62 yo female with a PMHx of AFib, DM, HTN, hypothyroidism, multiple CVAs admitted with LOC and AMS MEDICATIONS THAT COULD AFFECT EEG: Gabapentin TECHNICAL SUMMARY: This is a digital video EEG recorded with 32 input channels reviewed with bipolar and referential montages using the modified combinatorial system nomenclature. DESCRIPTION OF RECORD: During the maximally awake state, a well-regulated, moderate amplitude posterior dominant rhythm of 7 Hz alpha is present bilaterally. The background is symmetric, composed primarily of 5-7 Hz activity. More anteriorly, similar as well as faster frequencies of lower amplitudes are present, including low voltage 13-18 Hz beta in the anterior leads. There is occasional, moderate voltage 2-3 Hz slow activity independently in the left and right temporal regions. With drowsiness there is a drop out of myogenic artifact and an increase in rhythmical slowing. Stage II sleep is not recorded. Of note, much of the recording was obsecured by myogenic artifact. HV: Hyperventilation was not performed. PHOTIC STIMULATION: There are no abnormal waveforms with various frequencies of flickering light. ELECTROCARDIOGRAM EVENTS: Irregularly irregular IMPRESSION: This is an abnormal awake & drowsy EEG due to: 1. Occasional focal slow activity occurring independently in the left and right temporal regions CLINICAL CORRELATION: Bitemporal slow activity of this type, while considered to be abnormal, is a finding of uncertain diagnostic significance when present in individuals of this patient's age range. The absence of epileptiform abnormality does not necessarily preclude the clinical diagnosis of epilepsy; clinical correlation is recommended. Selina Lora MD Neurophysiology Fellow I have reviewed the electroencephalogram and this report and agree with its interpretation. Nicole Wilson MD Neurophysiology Attending Performing Organization Address City/[facility] Phone Number [employer] Hepatic function panel (04/13/2018 5:50 AM LAP CUTTER TRUER OPERATOR) Protein, Total 5.8 (L) 6.0 - 8.3 gm/dL [facility] Albumin 3.0 (L) 3.5 - 5.0 g/dL [facility] Total Bilirubin 0.3 0.2 - 1.2 mg/dL [facility] Bilirubin, Direct 0.2 0.1 - 0.5 mg/dL [facility] Alkaline Phosphatase 109 40 - 150 U/L [facility] AST 23 5 - 34 U/L [facility] ALT 24 6 - 55 U/L [facility] Specimen Blood - Arm, Right Performing Organization Address [facility] Phone Number [facility] [address] [place] [address] CENTER ECHOCARDIOGRAM REPORT - SCAN (04/12/2018 5:21 PM LAP CUTTER TRUER OPERATOR) Narrative Performed At CT abdomen/pelvis without iv contrast (04/12/2018 5:01 PM LAP CUTTER TRUER OPERATOR) Narrative Performed At FINAL REPORT [employer] TECHNIQUE: CT of the abdomen and pelvis WITHOUT intravenous contrast and WITHOUT oral contrast. Dose modulation, iterative reconstruction, and/or weight-based adjustment of the mA/kV was utilized to reduce the radiation dose to as low as reasonably achievable. INDICATION: Flank pain, recurrent stone disease suspected. COMPARISON: None. FINDINGS: ABSENCE OF INTRAVENOUS CONTRAST DECREASES SENSITIVITY FOR DETECTION OF FOCAL LESIONS AND VASCULAR PATHOLOGY. LOWER THORAX: Unremarkable. HEPATOBILIARY: No focal hepatic lesions. Several stones layer in a distended gallbladder. The common bile duct is distended up to 13 mm in diameter with mild intrahepatic ductal dilation. SPLEEN: No splenomegaly. PANCREAS: No focal masses or ductal dilatation. ADRENALS: No adrenal nodules. KIDNEYS/URETERS: Extensive fat stranding around the right kidney. The left kidney is relatively atrophic. Three nonobstructing left renal stones measuring up to 3 mm. A right lower pole nonobstructing renal stone is punctate. The right ureter is difficult to trace due to some fat stranding in the right renal pelvis and several adjacent veins. PELVIC ORGANS/BLADDER: Small amount of gas in the bladder. PERITONEUM/RETROPERITONEUM: Trace free fluid in the pelvis. LYMPH NODES: No lymphadenopathy. VESSELS: Moderate abdominal aortic atherosclerotic calcifications. GI TRACT: Prior Miracle-en-Y gastric bypass. No distention or wall thickening. The appendix is normal. BONES AND SOFT TISSUES: The bones are diffusely demineralized. 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 IMPRESSION: 1.The prominent fat stranding around the right kidney is concerning for pyelonephritis. 2.The right ureter is difficult to trace due to some surrounding fat stranding. However, given the lack of collecting system dilation, a ureteral stone is considered unlikely. 3.A small amount of gas in the bladder is concerning for a urinary tract infection. This could also be due to recent instrumentation. 4.Cholelithiasis. The gallbladder distention could be due to a fasting state. No significant pericholecystic inflammation or fluid. 5.The common bile duct is dilated up to 13 mm with mild intrahepatic ductal dilation. Correlation with liver function tests is recommended. Consider an MRCP with and without contrast. 6.Nonobstructing renal stones measure up to 3 mm. Signed: Vignesh Erickson MD Report Verified Date/Time:04/12/2018 17:47:54 Reading Location: [address] Body Reading Room Procedure Note Interface, External Ris In - 04/12/2018 5:50 PM LAP CUTTER TRUER OPERATOR FINAL REPORT TECHNIQUE: CT of the abdomen and pelvis WITHOUT intravenous contrast and WITHOUT oral contrast. Dose modulation, iterative reconstruction, and/or weight-based adjustment of the mA/kV was utilized to reduce the radiation dose to as low as reasonably achievable. INDICATION: Flank pain, recurrent stone disease suspected. COMPARISON: None. FINDINGS: ABSENCE OF INTRAVENOUS CONTRAST DECREASES SENSITIVITY FOR DETECTION OF FOCAL LESIONS AND VASCULAR PATHOLOGY. LOWER THORAX: Unremarkable. HEPATOBILIARY: No focal hepatic lesions. Several stones layer in a distended gallbladder. The common bile duct is distended up to 13 mm in diameter with mild intrahepatic ductal dilation. SPLEEN: No splenomegaly. PANCREAS: No focal masses or ductal dilatation. ADRENALS: No adrenal nodules. KIDNEYS/URETERS: Extensive fat stranding around the right kidney. The left kidney is relatively atrophic. Three nonobstructing left renal stones measuring up to 3 mm. A right lower pole nonobstructing renal stone is punctate. The right ureter is difficult to trace due to some fat stranding in the right renal pelvis and several adjacent veins. PELVIC ORGANS/BLADDER: Small amount of gas in the bladder. PERITONEUM/RETROPERITONEUM: Trace free fluid in the pelvis. LYMPH NODES: No lymphadenopathy. VESSELS: Moderate abdominal aortic atherosclerotic calcifications. GI TRACT: Prior Miracle-en-Y gastric bypass. No distention or wall thickening. The appendix is normal. BONES AND SOFT TISSUES: The bones are diffusely demineralized. 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 IMPRESSION: 1.The prominent fat stranding around the right kidney is concerning for pyelonephritis. 2.The right ureter is difficult to trace due to some surrounding fat stranding. However, given the lack of collecting system dilation, a ureteral stone is considered unlikely. 3.A small amount of gas in the bladder is concerning for a urinary tract infection. This could also be due to recent instrumentation. 4.Cholelithiasis. The gallbladder distention could be due to a fasting state. No significant pericholecystic inflammation or fluid. 5.The common bile duct is dilated up to 13 mm with mild intrahepatic ductal dilation. Correlation with liver function tests is recommended. Consider an MRCP with and without contrast. 6.Nonobstructing renal stones measure up to 3 mm. Signed: Vignesh Erickson MD Report Verified Date/Time: 04/12/2018 17:47:54 Reading Location: [facility] B1 C013Y CT Body Reading Room Performing Organization Address City/State/Zipcode Phone Number [employer] 2D Echo W/Doppler(CW/PW/Color) (04/12/2018 1:48 PM LAP CUTTER TRUER OPERATOR) Ejection Fraction [facility] Narrative Performed At Transthoracic Echocardiography Report (TTE) [facility] [employer] [facility] Demographics Patient NameBROOKS,Date of Study04/12/2018 SHONDA Gender Female Visit [id number] Race [id number] Number Date of 1955 Referring PhysicianSsung Brown MD Age 62 year(s) SonographMaryanacleo Oracio [facility] Interpreting Endy Dillon MD Physician Procedure Type of Study TTE procedure:2DECHO W DOPPLER(CW/PW/COLOR) (Routine) Indications:Suspected cardiac source of emboli. Clinical History HGB 9.4 HCT 30.8 % SMOKER, A-FIB, CVA (2016), DM, GASTRIC BYPASS, HYPOTHYROID, HTN Contrast Medium: Bubble Study. Height: 60 inches Weight: 57.15 kg (126 lbs) BSA: 1.53 m^2 BMI: 24.61 kg/m^2 HR: 69 bpm BP: 183/81 mmHg Summary The left ventricle is chamber size (by PSLAX dimension) is normal (male - LVIDd 4.2-5.8cm) . Borderline concentric LV hypertrophy. All of the LV segments contract normally . Estimated LVEF by qualitative assessment is normal (>60%) . Grade 2 diastolic dysfunction (moderately increased LA pressure). IV saline contrast injection was negative for a PFO (patent foramen ovale) at rest and post Valsalva . Estimated peak systolic PA pressure is 40-45 mmHg . Jguz-md-vahdwlnd mitral regurgitation. Signature Findings Left Ventricle The left ventricle is chamber size (by PSLAX di mension) is normal (male - LVIDd 4.2-5.8cm) . Kennedy rderline concentric LV hypertrophy. Al l of the LV segments contract normally . Es timated LVEF by qualitative assessment is normal (> 60%) . Gr freya 2 diastolic dysfunction (moderately increased LA pressure). Left AtriumLA size is mildly enlarged (35-41 ml/m2) . Right VentricleThe right ventricular chamber size and systolic fu nction are within normal limits. Right Atrium RA size is mildly dilated. Atrial SeptumIV saline contrast injection was negative for a PFO (p atent foramen ovale) at rest and post Valsalva . Aortic Valve Mild AoV cusp thickening. Mitral Valve Mild MV leaflet thickening. Mi bx-ee-kwipzpch mitral regurgitation. Tricuspid ValveTV structure is normal. A trace of tricuspid regurgitation. Es timated peak systolic PA pressure is 40-45 mmHg . Pulmonic Valve Normal PV structure and function by limited views an d Doppler. AortaAortic root size (SInus of Valsalva diameter) is no rmal . PericardiumNo pericardial effusion is visualized. IVC/SVC/PA/PV/PleuralThe estimated RA pressure by IVC dynamics 5-10mmHg . Chambers/Structures Left Atrium LA Dimension: 4.16 cmLA Area: 21.33 cm^2 LA Volume: 62.07 ml LA Vol. Index: 41 ml/m^2 Left Ventricle LVIDd: 4.25 cm LVIDs: 1.99 cm LV Septum Diastolic: 1.17 cm LV PW Diastolic: 1.21 cm LV FS: 53.2 % LVOT Diameter: 1.76 cm Aorta Ao Root S of Laura.: 2.92 cm Doppler/Quantitative Measurements LVOT Peak Velocity: 1.09 m/s Peak Gradient: 4.78 mmHg Mean Velocity: 0.72 m/s Mean Gradient: 2.4 mmHg LVOT Diameter: 1.76 cmLVOT VTI: 23.07 cm LVOT Area: 2.43 cm^2LVOT SV:56.1 ml LVOT CO: 3.87 l/min LVOT CI: 2.53 l/min/m^2 Procedure Note Interface, External Ris In - 04/12/2018 4:40 PM LAP CUTTER TRUER OPERATOR Transthoracic Echocardiography Report (TTE) Demographics Patient Name JELANI, Date of Study 04/12/2018 SHONDA Gender Female Visit Number [id number] Race Room Number 962 Number Date of 1955 Referring Physician Loren Brown MD Age 62 year(s) 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 Clinical History HGB 9.4 HCT 30.8 % SMOKER, A-FIB, CVA (2016), DM, GASTRIC BYPASS, HYPOTHYROID, HTN Contrast Medium: Bubble Study. Height: 60 inches Weight: 57.15 kg (126 lbs) BSA: 1.53 m^2 BMI: 24.61 kg/m^2 HR: 69 bpm BP: 183/81 mmHg Summary The left ventricle is chamber size (by PSLAX dimension) is normal (male - LVIDd 4.2-5.8cm) . Borderline concentric LV hypertrophy. All of the LV segments contract normally . Estimated LVEF by qualitative assessment is normal (>60%) . Grade 2 diastolic dysfunction (moderately increased LA pressure). IV saline contrast injection was negative for a PFO (patent foramen ovale) at rest and post Valsalva . Estimated peak systolic PA pressure is 40-45 mmHg . Viky-wq-dirdmtkq mitral regurgitation. Signature Findings Left Ventricle The left ventricle is chamber size (by PSLAX dimension) is normal (male - LVIDd 4.2-5.8cm) . Borderline concentric LV hypertrophy. All of the LV segments contract normally . Estimated LVEF by qualitative assessment is normal (>60%) . Grade 2 diastolic dysfunction (moderately increased LA pressure). Left Atrium LA size is mildly enlarged (35-41 ml/m2) . Right Ventricle The right ventricular chamber size and systolic function are within normal limits. Right Atrium RA size is mildly dilated. Atrial Septum IV saline contrast injection was negative for a PFO (patent foramen ovale) at rest and post Valsalva . Aortic Valve Mild AoV cusp thickening. Mitral Valve Mild MV leaflet thickening. Scaf-ta-hgohchrj mitral regurgitation. Tricuspid Valve TV structure is normal. A trace of tricuspid regurgitation. Estimated peak systolic PA pressure is 40-45 mmHg . Pulmonic Valve Normal PV structure and function by limited views and Doppler. Aorta Aortic root size (SInus of Valsalva diameter) is normal . Pericardium No pericardial effusion is visualized. IVC/SVC/PA/PV/Pleural The estimated RA pressure by IVC dynamics 5-10mmHg . Chambers/Structures Left Atrium LA Dimension: 4.16 cm LA Area: 21.33 cm^2 LA Volume: 62.07 ml LA Vol. Index: 41 ml/m^2 Left Ventricle LVIDd: 4.25 cm LVIDs: 1.99 cm LV Septum Diastolic: 1.17 cm LV PW Diastolic: 1.21 cm LV FS: 53.2 % LVOT Diameter: 1.76 cm Aorta Ao Root S of Laura.: 2.92 cm Doppler/Quantitative Measurements LVOT Peak Velocity: 1.09 m/s Peak Gradient: 4.78 mmHg Mean Velocity: 0.72 m/s Mean Gradient: 2.4 mmHg LVOT Diameter: 1.76 cm LVOT VTI: 23.07 cm LVOT Area: 2.43 cm^2 LVOT SV:56.1 ml LVOT CO: 3.87 l/min LVOT CI: 2.53 l/min/m^2 Performing Organization Address City/State/[facility] Phone Number [facility] Urinalysis w/Microscopic + Reflex to Culture (04/12/2018 12:20 PM LAP CUTTER TRUER OPERATOR) Color, UA Light Yellow [facility] Clarity, UA Clear [facility] Specific [place], UA 1.013 1.001 - 1.035 [facility] pH, UA 6.0 5.0 - 8.0 [facility] Protein, UA 20 mg/dL (A) Negative [facility] Glucose, UA Negative Negative [facility] Ketones, UA Negative Negative [facility] Bilirubin, UA Negative Negative [facility] Blood, UA Trace (A) Negative [facility] Nitrite, UA Negative Negative [facility] Leukocytes, UA Large (A) Negative [facility] Urobilinogen, UA 0.2 0.2 - 1.0 mg/dL [facility] RBC, UA 2 /HPF [facility] WBC, UA 91 /HPF [facility] Bacteria, UA Occasional [facility] Squam Epithel, UA <1 /HPF [facility] Specimen Source [facility] Specimen Urine - Urine, Voided Performing Organization Address City/State/[facility] Phone Number [address] [address] [phone] CENTER Vitamin B12 and Folate (04/12/2018 5:16 AM LAP CUTTER TRUER OPERATOR) Vitamin B12 1,234 (H) 213 - 816 pg/mL [facility] Folate 7.6 >=7.0 ng/mL [facility] Specimen Blood Performing Organization Address City/[facility]/Zipcode Phone Number [facility] [address] [place] [phone] [place] Vitamin D, 25-Hydroxy (04/12/2018 5:16 AM LAP CUTTER TRUER OPERATOR)Only the most recent of2 resultswithin the time period is included. Vitamin D 25-Hydroxy 43.1 6.6 - 49.9 ng/mL [facility] Specimen Blood Narrative Performed At Effective 01/07/2017: Reference Range Change [facility] New: 6.6-49.9 ng/mL Previous: 13.0-47.8 ng/mL Recommended Vitamin D Target Range: 30.0-40.0 ng/mL Performing Organization Address [facility] Phone Number [facility] [address] [place], [place] [phone] [place] CBC (Hemogram only) (04/12/2018 5:16 AM LAP CUTTER TRUER OPERATOR) WBC 7.2 3.5 - 10.5 K/L [facility] RBC 3.15 (L) 3.93 - 5.22 M/L [facility] Hemoglobin 9.4 (L) 11.2 - 15.7 GM/DL [facility] Hematocrit 30.8 (L) 34.1 - 44.9 % [facility] MCV 97.8 (H) 79.4 - 94.8 fL [facility] MCH 29.8 25.6 - 32.2 pg [facility] MCHC 30.5 (L) 32.2 - 35.5 GM/DL [facility] RDW 14.2 11.7 - 14.4 % [facility] Platelets 219 150 - 450 K/CU MM [facility] MPV 9.2 (L) 9.4 - 12.3 fL [facility] nRBC 0 0 - 0 /100 WBC [facility] Specimen Blood Performing Organization Address City/[facility] Phone Number [facility] [address] [place] [address] [place] MR brain without IV contrast (04/11/2018 9:13 PM LAP CUTTER TRUER OPERATOR) Narrative Performed At FINAL REPORT [employer] MR, BRAIN, WITHOUT CONTRAST INDICATION: Encephalopathy Stroke TECHNIQUE: Multiplanar, multisequence MR imaging of the brain was obtained. COMPARISON: None FINDINGS: Volume loss with associated gliotic changes noted within the right GRAPHITE DISK ASSEMBLER distribution, compatible with prior ischemic insult. Additional prior ischemic insults are noted along the right insula and the centrum semiovale bilaterally. T2/FLAIR hyperintense signal within the midbrain and madalyn statistically represents chronic microvascular ischemic changes in this age group. Additional chronic microvascular changes are noted within the supratentorial periventricular and subcortical white matter. No restricted diffusion to suggest recent ischemic insult. Brain parenchyma is otherwise normal in morphology. Midline structures are normally developed.No abnormal susceptibility. No hydrocephalus. Orbits are within normal limits. No obstructive paranasal sinus disease. Calvarium and skull base demonstrate marrow signal within normal limits for age without focal lesion. Additional findings: None. IMPRESSION: No restricted diffusion to suggest recent ischemic insult. 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 Chronic microvascular ischemic changes involving the supratentorial white matter and madalyn. Signed: Dick Grier MD Report Verified Date/Time:04/12/2018 00:43:56 Reading Location: [address] Neuro Reading Room Procedure Note Interface, External Ris In - 04/12/2018 12:46 AM LAP CUTTER TRUER OPERATOR FINAL REPORT MR, BRAIN, WITHOUT CONTRAST INDICATION: Encephalopathy Stroke TECHNIQUE: Multiplanar, multisequence MR imaging of the brain was obtained. COMPARISON: None FINDINGS: Volume loss with associated gliotic changes noted within the right GRAPHITE DISK ASSEMBLER distribution, compatible with prior ischemic insult. Additional prior ischemic insults are noted along the right insula and the centrum semiovale bilaterally. T2/FLAIR hyperintense signal within the midbrain and madalyn statistically represents chronic microvascular ischemic changes in this age group. Additional chronic microvascular changes are noted within the supratentorial periventricular and subcortical white matter. No restricted diffusion to suggest recent ischemic insult. Brain parenchyma is otherwise normal in morphology. Midline structures are normally developed. No abnormal susceptibility. No hydrocephalus. Orbits are within normal limits. No obstructive paranasal sinus disease. Calvarium and skull base demonstrate marrow signal within normal limits for age without focal lesion. Additional findings: None. IMPRESSION: No restricted diffusion to suggest recent ischemic insult. 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 Chronic microvascular ischemic changes involving the supratentorial white matter and madalyn. Signed: Dick Grier MD Report Verified Date/Time: 04/12/2018 00:43:56 Reading Location: [address] Neuro Reading Room Performing Organization Address City/State/Zipcode Phone Number GE RIS Hemoglobin A1c (04/11/2018 5:06 AM LAP CUTTER TRUER OPERATOR) Hemoglobin A1C 6.2 (H) 4.3 - 6.1 % [facility] Specimen Blood Performing Organization Address [facility] Centercode Phone Number [address] [address] [place] Ammonia (04/11/2018 5:06 AM LAP CUTTER TRUER OPERATOR) Ammonia 37Comment: Specimen slightly 18 - 72 mol/L [facility] hemolyzed [facility] Specimen Blood Performing Organization Address [facility] Phone Number [address] [phone] [place] Blood culture (04/10/2018 5:29 PM LAP CUTTER TRUER OPERATOR) Result No growth in 5 days [facility] Specimen Blood - Arm, Left Performing Organization Address [facility] Phone Number [address] [phone] [place] Rapid drug screen, urine (04/10/2018 4:29 PM LAP CUTTER TRUER OPERATOR) Barbiturate Screen Negative Negative [facility] Benzodiazepine Screen Positive (A) Negative [facility] Cocaine (Metab.) Screen Negative Negative [facility] Methadone Screen Negative Negative [facility] Opiate Screen Positive (A) Negative [facility] Cannabinoid Screen Negative Negative [facility] Amph/Methamph Screen Negative Negative [facility] Phencyclidine Screen Negative Negative [facility] Oxycodone Screen Negative Negative [facility] Specimen Urine Narrative Performed At DRUGCUTOFF [facility] CONC. Cocaine 300 ng/mL Jjceoerummd66 ng/mL Jamzxrgswbwwkl702 ng/mL Barbiturate 200 ng/mL Ausjurgguaxvn49 ng/mL Cchugz308 ng/mL Methadone 300 ng/mL Amphetamine/ 1000 ng/mL Methamphetamine Oxycodone 300 ng/mL This assay provides an unconfirmed qualitative test result for the clinical management of patients in emergency situations. Chain of custody not maintained. Some qsbn-ygi-dkujvlq medications, as well as adulterants, may cause inaccurate results. Clinical correlation should be applied. A more comprehensive drug screen or confirmation of a detected drug may be performed upon request. Performing Organization Address [facility] Phone Number [address] [address] [place] Sodium, random urine (04/10/2018 4:29 PM LAP CUTTER TRUER OPERATOR) Sodium Urine 72 meq/L [facility] Specimen Urine - Urine, Sterile Collection Narrative Performed At Reference Range: No Normals [facility] Performing Organization Address [facility] Phone Number [address] [address] [phone] [place] Protein, random urine (04/10/2018 4:29 PM LAP CUTTER TRUER OPERATOR) Protein, Urine 17 (H) 0 - 14 mg/dL [facility] Specimen Urine - Urine, Sterile Collection Performing Organization Address [facility] Number [address] [address] [phone] [place] Potassium, random urine (04/10/2018 4:29 PM LAP CUTTER TRUER OPERATOR) Potassium Urine 22.6 meq/L [facility] Specimen Urine - Urine, Sterile Collection Narrative Performed At Reference Range: No Normals [facility] Performing Organization Address [facility] Phone Number [address] [phone] [place] Creatinine, random urine (04/10/2018 4:29 PM LAP CUTTER TRUER OPERATOR) Creatinine, Ur 51.6 mg/dL [facility] Specimen Urine - Urine, Sterile Collection Narrative Performed At Reference Range: No Normals [facility] Performing Organization Address City/[facility]/Zipcode Phone Number [address] [address] [phone] CENTER Iron, TIBC, % sat. (without ferritin) (04/10/2018 4:28 PM LAP CUTTER TRUER OPERATOR) Iron 52.0 40.0 - 160.0 ug/dL [facility] TIBC 324 250 - 450 ug/dL [facility] Iron % Saturation 16 (L) 20 - 55 % [facility] [place] Specimen Blood - Line, Venous Performing Organization Address [facility] [place] Phone Number [address] [address] CENTER Troponin I (04/10/2018 4:28 PM LAP CUTTER TRUER OPERATOR)Only the most recent of2 resultswithin the time period is included. Troponin I <0.01 0.00 - 0.03 ng/mL [facility] [place] Specimen Blood - Line, Venous Narrative Performed At Troponin I (TnI) levels must be interpreted [facility] [place] in the context of the presenting symptoms and the clinical findings. Elevated TnI levels indicate myocardial damage, but are not specific for ischemic heart disease. Elevated TnI levels are seen in patients with other cardiac conditions (including myocarditis and congestive heart failure), and slight TnI elevations occur in patients with other conditions, including sepsis, renal failure, acidosis, acute neurological disease, and persistent tachyarrhythmia. Performing Organization Address City/[facility]/Zipcode Phone Number [address] [address] [place] Complement Component C3 (04/10/2018 4:28 PM LAP CUTTER TRUER OPERATOR) C3 Complement 91 82 - 193 mg/dL [facility] [place] Specimen Blood - Line, Venous Performing Organization Address [facility]/Zipcode Phone Number [address] [phone] [place] Complement Component C4 (04/10/2018 4:28 PM LAP CUTTER TRUER OPERATOR) C4 Complement 22 15 - 57 mg/dL [facility] [place] Specimen Blood - Line, Venous Performing Organization Address [facility] Phone Number [address] [address] [place] Phosphorus (04/10/2018 4:28 PM LAP CUTTER TRUER OPERATOR) Phosphorus 4.4 2.3 - 4.7 mg/dL [facility] [place] Specimen Blood - Line, Venous Performing Organization Address [facility] Phone Number [address] [address] [place] PTH, intact (04/10/2018 4:28 PM LAP CUTTER TRUER OPERATOR) PTH 181.6 (H) 8.5 - 72.5 pg/mL [facility] [place] Specimen Blood - Line, Venous Performing Organization Address [facility] [place] Phone Number [address] [address] [phone] [place] Lactate dehydrogenase (LDH) (04/10/2018 4:28 PM LAP CUTTER TRUER OPERATOR) LDH 309 (H) 125 - 220 U/L [facility] [place] Specimen Blood - Line, Venous Performing Organization Address [facility] [place] Phone Number [address] [address] [phone] CENTER Ferritin (04/10/2018 4:28 PM LAP CUTTER TRUER OPERATOR) Ferritin 14 5 - 275 ng/mL [facility] [place] Specimen Blood - Line, Venous Performing Organization Address [facility] [place] Phone Number [address] [address] [phone] [place] Lipid panel (04/10/2018 4:28 PM LAP CUTTER TRUER OPERATOR) Triglycerides 100Comment: Specimen slightly mg/dL [facility] hemolyzed [facility]ENTER Cholesterol 142Comment: Specimen slightly mg/dL [facility] hemolyzed [facility] HDL 40 mg/dL [facility] [place] LDL Calculated 82 mg/dL [facility] [place] Specimen Blood - Line, Venous Narrative Performed At Triglyceride Reference Range: [facility] [place] Low Risk <150 [id number] High Risk 200-499 Very High Risk>=500 Cholesterol Reference Range: Low Risk <200 [id number] High Risk>240 HDL Cholesterol Reference Range: Low Risk >=60 High Risk <40 LDL Cholesterol Reference Range: Optimal<100 Near [id number] [id number] Very High >=190 Performing Organization Address [facility] Phone Number [address] [address] CENTER Urinalysis Microscopic Only (04/10/2018 4:15 PM LAP CUTTER TRUER OPERATOR) RBC, UA <1 /HPF [facility] [place] WBC, UA 45 /HPF [facility] [place] Bacteria, UA Occasional [facility] [place] Mucus Rare [facility] [place] Squam Epithel, UA <1 /HPF [facility] [place] Specimen Urine - Urine, Sterile Collection Performing Organization Address City/[facility] Phone Number [address] [address] CENTER Urinalysis with Microscopic If Indicated (04/10/2018 4:15 PM LAP CUTTER TRUER OPERATOR) Color, UA Yellow [facility] [place] Clarity, UA Clear [facility] [place] Specific [place], UA 1.013 1.001 - 1.035 [facility] [place] pH, UA 5.5 5.0 - 8.0 [facility] [place] Protein, UA 20 mg/dL (A) Negative [facility] [place] Glucose, UA Negative Negative [facility] [place] Ketones, UA Negative Negative [facility] [place] Bilirubin, UA Negative Negative [facility] [place] Blood, UA Negative Negative [facility] [place] Nitrite, UA Negative Negative [facility] [place] Leukocytes, UA Large (A) Negative [facility] [place] Urobilinogen, UA 0.2 0.2 - 1.0 mg/dL [facility] [place] Specimen Source Urine, Sterile Collection [facility] [place] Specimen Urine - Urine, Sterile Collection Performing Organization Address City/State/Zipcode Phone Number [facility] [address] [place] [address] CENTER after 06/25/2017 Insurance Payer Benefit Plan / Subscriber ID Type Phone Address Group [employer]UE [employer]OSS/[employer]UE [employer]BS OS xxxxxxxxxxxx PPO [phone] [address] [employer] [place] [address] Advance Directives For more information, please contact:[facility] [place], [place] [phone] Code Status Date Activated Date Inactivated Comments Full Code 04/10/2018 2:44 PM This code status was determined by: Patient
--- OUTSIDE RECORDS SUMMARY | 2018-06-26 00:07 | XMS REPORT | Continuity of Care Document ---
:1955 Author Organization Interface Problems Problem Status Onset Classification Date Comments Source Date Reported B96.1, Z16.12, Active 06/11/19 N10 17 [facility] Discharge 02/06/20 02/09/2016 [facility] Diagnosis: [facility] UTI Active 02/06/[address] Adrenal Resolved Problem 06/14/2016 insufficiency [facility] Back pain Resolved Problem 06/14/2016 [facility] CVA (<span Resolved Problem 06/14/2016 MH ID="[id number] [facility], ">Confirmed</spa H [place] n>) [facility] DM (<span Resolved Problem 06/14/2016 MH ID="[id number] [facility] ">Confirmed</spa H [place] n>) [facility] HTN (<span Resolved Problem 06/14/2016 ID="[id number] [facility], ">Confirmed</spa H [place] n>) [facility] Kidney stone Resolved Problem 06/14/2016 [facility] 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 [facility] Pancreatic cyst Resolved Problem 06/14/2016 [facility] TIA (<span Resolved Problem 06/14/2016 MH ID="[id number] [facility], ">Confirmed</spa H [place] n>) [facility] UTI (<span Resolved Problem 06/14/2016 MH ID="[id number] [facility], ">Confirmed</spa H [place] n>) [facility] Medications Medication Details Route Status Patient Ordering Order Source Instructions Provider Date cefdinir 300 MG 300 mg=1 Active [facility] Oral Capsule cap, PO, 016 Medical BID, X 10 Center day, # 20 cap, 0 Refill(s) Phenazopyridine 95 mg=1 Active [facility] hydrochloride 95 tab, PO, 016 Medical MG Oral Tablet TID, X 7 Center [Azo-Standard] day, # 21 tab, 1 Refill(s) Allergies, Adverse Reactions, Alerts Substance Category Reaction Severity Reaction Status Date Comments Source type Reported sulfa drugs Assertion Drug Active allergy [facility] Immunizations Immunization Date Given Site Status Last Updated Comments Source Results Order Name Results Value Reference Date Interpretation Comments Source Range Chest 1 v Chest 1 v Patient Name: RADHA PALOMARES 06/11 - for - [facility] Placement Placement DX : 1955; Age: 60 years y/o Female DX MR: [id number] Read by: Jose Morales MD Dictated Date/time: [...] study. The regional skeleton is unremarkable. SL: [id number] CHEM PANEL eGFR 45 02/05 Result Comment: [...] Potassium 4.3 meq/L 3.5 - 5.1 02/05 [facility] Lvl /2015 [facility] CHEM PANEL Chloride Lvl 101 meq/L 95 - 109 02/05 [facility] CHEM PANEL Glucose Lvl 101 mg/dL 70 - 99 02/05 [facility] CHEM PANEL CO2 28 meq/L 24 - 32 02/05 [facility] CHEM PANEL Calcium Lvl 9.1 mg/dL 8.5 - 10.5 02/05 [facility] CHEM PANEL Creatinine 1.27 mg/dL 0.50 - 02/05 [place] Lvl 1.40 /2015 [facility] CHEM PANEL Sodium Lvl 141 meq/L 135 - 145 02/05 [facility] CHEM PANEL BUN 20 mg/dL 7 - 22 02/05 [facility] CHEM PANEL AGAP 16.3 meq/L 10.0 - 02/05 20.0 [facility] HEMATOLOGY MCV 88.9 fL 80.0 - 02/05 98.0 [facility] HEMATOLOGY Hct 41.3 % 36.0 - 02/05 48.0 [facility] HEMATOLOGY MCHC 33.0 g/dL 32.0 - 02/05 36.0 [facility] HEMATOLOGY MCH 29.3 pg 27.0 - 02/05 [place] 31.0 [facility] HEMATOLOGY MPV 7.5 fL 7.4 - 10.4 02/05 [facility] HEMATOLOGY RDW 14.8 % 11.5 - 02/05 14.5 [facility] HEMATOLOGY Platelet 261 K/CMM 133 - 450 02/05 [facility] HEMATOLOGY WBC 7.3 K/CMM 3.7 - 10.4 02/05 [facility] HEMATOLOGY RBC 4.65 M/CMM 4.20 - 11 [place] 5.40 [facility] HEMATOLOGY Hgb 13.6 g/dL 12.0 - 02/05 [place] 16.0 [facility] HEMATOLOGY Monocytes # 0.6 K/CMM 0.0 - 0.8 02/05 [facility] HEMATOLOGY Lymphocytes 3.1 K/CMM 1.0 - 5.5 02/05 [place] # /2016 [facility] HEMATOLOGY Eosinophils 0.2 K/CMM 0.0 - 0.5 02/05 [facility] # /2015 [facility] HEMATOLOGY Segs-Bands # 3.3 K/CMM 1.5 - 8.1 02/05 [facility] HEMATOLOGY Monocytes 8.7 % 2.0 - 12.0 02/05 [facility] HEMATOLOGY Lymphocytes 42.5 % 20.0 - 02/05 [place] 40.0 [facility] HEMATOLOGY Segs 45.2 % 45.0 - 02/05 [place] 75.0 [facility] HEMATOLOGY Basophils 0.6 % 0.0 - 1.0 02/05 [facility] HEMATOLOGY Eosinophils 3.0 % 0.0 - 4.0 02/05 [facility] URINE AND UA Leuk Est Trace Negative 02/05 [facility] *ABN* [place] (02/06/16 3:40 PM) URINE AND UA Nitrite Negative Negative 02/05 [facility] (02/06/16 3:40 PM) [place] URINE AND UA Bili Negative Negative 02/05 [facility] *NA* Center (02/06/16 3:40 PM) URINE AND UA Blood Small Negative 02/05 [facility] *ABN* [place] (02/06/16 3:40 PM) URINE AND UA 0.2 EU/dL 0.1 - 1.0 02/05 [facility] Urobilinogen [facility] URINE AND UA Glucose Negative Negative 02/05 [facility] (02/06/16 3:40 PM) [place] URINE AND UA Ketones Trace Negative 02/05 [facility] *ABN* [place] (02/06/16 3:40 PM) URINE AND UA Protein Trace Negative 02/05 [facility] *ABN* [place] (02/06/16 3:40 PM) URINE AND UA pH 5.5 5.0 - 8.0 02/05 [facility] URINE AND UA Spec Grav 1.030 <=1.030 02/05 [facility] URINE AND UA Turbidity Slight Cloudy Clear 02/05 [facility] (02/06/16 3:40 PM) [place] URINE AND UA Color Yellow Yellow 02/05 [facility] Medical *NA* Center (02/06/16 3:40 PM) URINE AND UA Bacteria Occasional None Seen 02/05 [facility] [place] STOOL /HPF /HPF /2016 [facility] URINE AND UA CaOx Malu Few /HPF None Seen 02/05 [facility] STOOL /HPF /2016 [facility] URINE AND UA RBC 0-2 /HPF 0 - 2 02/05 [facility] /2016 [facility] URINE AND UA WBC 6-10 /HPF None Seen 02/05 [facility] STOOL /HPF /2016 [facility] URINE AND UA Sq Epi Rare /LPF Few /LPF 02/05 [facility] [address] [place] [address] URINE AND Micro? Performed 02/05 [facility] /[address] [place] [address] (02/06/16 3:40 PM) [place] Vital Signs Vital Sign Value Date Comments Source BMI Calculated 29.71 06/11/2016 [facility] Weight 69 06/11/2016 [facility] Height 152.4 cm 06/11/2016 [facility] Respitory Rate 18 02/07/2016 [facility] Temperature Oral (F) 98 F 02/07/2016 [facility] Systolic (mm Hg) 160 02/07/2016 [facility] Diastolic (mm Hg) 99 02/07/2016 [facility] Heart Rate 67 02/07/2016 [facility] Temperature Oral (F) 97.6 F 02/06/2016 [facility] Respitory Rate 18 02/06/2016 [facility] Heart Rate 77 02/06/2016 [facility] Systolic (mm Hg) 140 02/06/2016 [facility] Diastolic (mm Hg) 76 02/06/2016 [facility] Heart Rate 67 02/06/2016 [facility] Respitory Rate 18 02/06/2016 [facility] Systolic (mm Hg) 176 02/06/2016 [facility] Diastolic (mm Hg) 115 02/06/2016 [facility] Temperature Oral (F) 98.9 F 02/06/2016 [facility] Encounters Location Location Encounter Encounter Reason Attending ADM DC Status Source Details Type Number For Provider Date Date [id number] [facility] [id number] Tesha 06/11 06/12 [facility] Edilberto /2016 [facility] Procedures Procedure Code Date Perfomer Comments Source Cervical spinal 49812683 C3-6 [facility] fusion<sup>1</rdz p> Gastric bypass [id number] [facility] Cervical spinal [id number] C3-6 [facility]<sup>1</[facility] p> Gastric bypass [id number] [facility]
--- OUTSIDE RECORDS SUMMARY | 2018-06-26 00:08 | XMS REPORT ---
:1955 [facility] [address] [place] [address] Care Team Providers Name Role Phone MISTY HIGH Unavailable Unavailable Problems This patient has no known problems. Allergies, Adverse Reactions, Alerts This patient has no known allergies or adverse reactions. Medications This patient has no known medications. Results Test Description Test Time Test Comments Text Results Atomic Results Result Comments BLOOD CULTURE 2018-04-16 01:00:00 Test Item Value Reference Range Comments CULTURE (BEAKER) (test wnpr=0326) No growth in 5 days POCT-GLUCOSE [id number] 12:43:00 Test Item Value Reference Range Comments POC-GLUCOSE METER (BEAKER) 97 mg/dL 70-110 TESTED AT [address] (test okwg=1347) [place] [id number] POCT-GLUCOSE [id number] 08:33:00 Test Item Value Reference Range Comments POC-GLUCOSE METER (BEAKER) 87 mg/dL 70-110 TESTED AT [place] [id number] (test mxni=4099) [place] [id number] BASIC METABOLIC [id number] 06:52:00 Test Item Value Reference Range Comments SODIUM (BEAKER) (test 140 meq/L 136-145 cvrs=314) POTASSIUM (BEAKER) (test 4.3 meq/L 3.5-5.1 urdo=534) CHLORIDE (BEAKER) (test 110 meq/L 98-107 nfqc=497) CO2 (BEAKER) (test 23 meq/L 22-29 dlua=076) BLOOD UREA NITROGEN 28 mg/dL 7-21 (BEAKER) (test qajy=026) CREATININE (BEAKER) (test 1.62 mg/dL 0.57-1.25 gymj=398) GLUCOSE RANDOM (BEAKER) 69 mg/dL 70-105 (test wnmp=708) CALCIUM (BEAKER) (test 8.9 mg/dL 8.4-10.2 umwq=891) EGFR (BEAKER) (test 32 mL/min/1.73 sq m ESTIMATED GFR IS NOT nfyk=9143) ACCURATE CREATININE CLEARANCE IN PREDICTING GLOMERULAR FILTRATION RATE. ESTIMATED GFR IS NOT APPLICABLE FOR DIALYSIS PATIENTS. VANCOMYCIN LEVEL, [id number] 06:48:00 Test Item Value Reference Range Comments VANCOMYCIN TROUGH (BEAKER) (test eist=307) < ug/mL 10.0-20.0 CBC W/PLT COUNT & AUTO [id number] 06:03:00 Test Item Value Reference Range Comments WHITE BLOOD CELL COUNT (BEAKER) (test dqxr=527) 6.5 K/ L 3.5-10.5 RED BLOOD CELL COUNT (BEAKER) (test xoer=267) 3.70 M/ L 3.93-5.22 HEMOGLOBIN (BEAKER) (test wkme=587) 11.1 GM/DL 11.2-15.7 HEMATOCRIT (BEAKER) (test erne=916) 35.9 % 34.1-44.9 MEAN CORPUSCULAR VOLUME (BEAKER) (test faqk=296) 97.0 fL 79.4-94.8 MEAN CORPUSCULAR HEMOGLOBIN (BEAKER) (test 30.0 pg 25.6-32.2 hrhh=490) MEAN CORPUSCULAR HEMOGLOBIN CONC (BEAKER) (test 30.9 GM/DL 32.2-35.5 sbvk=281) RED CELL DISTRIBUTION WIDTH (BEAKER) (test 14.0 % 11.7-14.4 omik=283) PLATELET COUNT (BEAKER) (test ptan=934) 222 K/CU MM 150-450 MEAN PLATELET VOLUME (BEAKER) (test wpkd=220) 9.1 fL 9.4-12.3 NUCLEATED RED BLOOD CELLS (BEAKER) (test 0 /100 WBC 0-0 qskc=464) NEUTROPHILS RELATIVE PERCENT (BEAKER) (test 50 % glba=675) LYMPHOCYTES RELATIVE PERCENT (BEAKER) (test 30 % itbj=322) MONOCYTES RELATIVE PERCENT (BEAKER) (test 13 % vzuu=813) EOSINOPHILS RELATIVE PERCENT (BEAKER) (test 5 % igje=190) BASOPHILS RELATIVE PERCENT (BEAKER) (test 1 % zouv=586) NEUTROPHILS ABSOLUTE COUNT (BEAKER) (test 3.24 K/ L 1.56-6.13 aqlw=172) LYMPHOCYTES ABSOLUTE COUNT (BEAKER) (test 1.94 K/ L 1.18-3.74 pkcj=370) MONOCYTES ABSOLUTE COUNT (BEAKER) (test 0.85 K/ L 0.24-0.36 pmgg=661) EOSINOPHILS ABSOLUTE COUNT (BEAKER) (test 0.35 K/ L 0.04-0.36 bxfh=950) BASOPHILS ABSOLUTE COUNT (BEAKER) (test 0.08 K/ L 0.01-0.08 dwsk=251) IMMATURE GRANULOCYTES-RELATIVE PERCENT (BEAKER) 0 % 0-1 (test asge=8185) POCT-GLUCOSE [id number] 20:49:00 Test Item Value Reference Range Comments POC-GLUCOSE METER (BEAKER) 108 mg/dL 70-110 TESTED AT [facility] [address] [facility] (test bsfk=4464) [facility] [address] MR, ABDOMEN, [id number] 16:58:00FINAL REPORT MRI of the abdomen. MRCP. CLINICAL [...] CBD measuring 1.8 cm. Cholelithiasis is identified. Thegallbladder is distended. No choledocholithiasis is seen. No [...] The visualized osseous structures demonstrate degenerative changes. IMPRESSION:1. Area of hypervascularity in the hepaticdome, most likely a shunt.2. Intra and extra hepatic biliary dilatation. No choledocholithiasis is seen. There is no obvious pancreatic mass. A distal ductal stricture or ampullary mass cannot be excluded. Correlation with ERCP is recommended.3. Cholelithiasis.4. Other findings as described above. Signed: Royal Parrish MDReport Verified Date/Time: 04/14/2018 16:58:47 Reading Location: [facility] Diagnostic Imaging Reading Room - [place] [address] POCT-GLUCOSE [id number] 16:38:00 Test Item Value Reference Range Comments POC-GLUCOSE METER (BEAKER) 160 mg/dL 70-110 TESTED AT [address] (test ucqd=8990) [place] [id number] POCT-GLUCOSE [id number] 13:10:00 Test Item Value Reference Range Comments POC-GLUCOSE METER (BEAKER) 103 mg/dL 70-110 TESTED AT [address] (test apix=8023) [place] [id number] POCT-GLUCOSE [id number] 08:26:00 Test Item Value Reference Range Comments POC-GLUCOSE METER (BEAKER) 85 mg/dL 70-110 TESTED AT [address] (test jfor=2128) [place] [id number] BASIC METABOLIC [id number] 05:02:00 Test Item Value Reference Range Comments SODIUM (BEAKER) (test 140 meq/L 136-145 ifzb=758) POTASSIUM (BEAKER) (test 5.3 meq/L 3.5-5.1 laij=756) CHLORIDE (BEAKER) (test 108 meq/L 98-107 hzty=214) CO2 (BEAKER) (test 26 meq/L 22-29 nnql=433) BLOOD UREA NITROGEN 29 mg/dL 7-21 (BEAKER) (test uwjc=815) CREATININE (BEAKER) (test 1.62 mg/dL 0.57-1.25 tjcx=767) GLUCOSE RANDOM (BEAKER) 72 mg/dL 70-105 (test wune=524) CALCIUM (BEAKER) (test 9.5 mg/dL 8.4-10.2 tskm=069) EGFR (BEAKER) (test 32 mL/min/1.73 sq m ESTIMATED GFR IS NOT lfwa=0763) ACCURATE CREATININE CLEARANCE IN PREDICTING GLOMERULAR FILTRATION RATE. ESTIMATED GFR IS NOT APPLICABLE FOR DIALYSIS PATIENTS. POCT-GLUCOSE [id number] 21:30:00 Test Item Value Reference Range Comments POC-GLUCOSE METER (BEAKER) 252 mg/dL 70-110 TESTED AT [facility] [address] [place] (test tquu=4049) [facility] [address] EEG AWAKE AND [id number] 17:18:00Reason for exam:->shaking episodes [facility] EEG REPORT DATE OF TEST: 04/13/18 START TIME: 09:40 END TIME: 10:02 DATE OF REPORT: 04/13/2018 EE0 ACC: [id number] ICD-10: R41.82 CPT Code: 25410 HISTORY: 62yo female with a PMHx of AFib, DM, [...] note, much of the recording was obsecured bymyogenic artifact. HV: Hyperventilation was not performed. PHOTIC [...] its interpretation. Nicole Wilson MD Neurophysiology Attending POCT-GLUCOSE [id number] 12:55:00 Test Item Value Reference Range Comments POC-GLUCOSE METER (BEAKER) 106 mg/dL 70-110 TESTED AT [address] (test ufhc=4458) [place] [address] HEPATIC FUNCTION [id number] 11:01:00 Test Item Value Reference Range Comments TOTAL PROTEIN (BEAKER) (test cuoh=733) 5.8 gm/dL 6.0-8.3 ALBUMIN (BEAKER) (test ustd=9163) 3.0 g/dL 3.5-5.0 BILIRUBIN TOTAL (BEAKER) (test kthv=227) 0.3 mg/dL 0.2-1.2 BILIRUBIN DIRECT (BEAKER) (test uigi=255) 0.2 mg/dL 0.1-0.5 ALKALINE PHOSPHATASE (BEAKER) (test efuf=233) 109 U/L 40-150 AST (SGOT) (BEAKER) (test ilsu=352) 23 U/L 5-34 ALT (SGPT) (BEAKER) (test ddtm=857) 24 U/L 6-55 POCT-GLUCOSE [id number] 08:20:00 Test Item Value Reference Range Comments POC-GLUCOSE METER (BEAKER) 87 mg/dL 70-110 TESTED AT [address] (test ticn=8537) [place] [address] BASIC METABOLIC [id number] 06:59:00 Test Item Value Reference Range Comments SODIUM (BEAKER) (test 138 meq/L 136-145 uuna=099) POTASSIUM (BEAKER) (test 4.6 meq/L 3.5-5.1 seih=321) CHLORIDE (BEAKER) (test 108 meq/L 98-107 pojr=050) CO2 (BEAKER) (test 23 meq/L 22-29 hzel=167) BLOOD UREA NITROGEN 28 mg/dL 7-21 (BEAKER) (test tqnu=338) CREATININE (BEAKER) (test 1.59 mg/dL 0.57-1.25 nads=722) GLUCOSE RANDOM (BEAKER) 89 mg/dL 70-105 (test hdwk=436) CALCIUM (BEAKER) (test 9.1 mg/dL 8.4-10.2 eqxz=771) EGFR (BEAKER) (test 33 mL/min/1.73 sq m ESTIMATED GFR IS NOT jxrl=8667) ACCURATE CREATININE CLEARANCE IN PREDICTING GLOMERULAR FILTRATION RATE. ESTIMATED GFR IS NOT APPLICABLE FOR DIALYSIS PATIENTS. POCT-GLUCOSE [id number] 20:27:00 Test Item Value Reference Range Comments POC-GLUCOSE METER (BEAKER) 130 mg/dL 70-110 TESTED AT [facility] [address] [facility] (test hivf=3975) [facility] [address] CT, [id number] 17:47:00FINAL REPORT TECHNIQUE: CT of the abdomen and [...] mm in diameter with mild intrahepatic ductal dilation.SPLEEN: No splenomegaly.PANCREAS: No focal masses or ductal dilatation. ADRENALS: No adrenal nodules.KIDNEYS/URETERS: Extensive fat stranding around the right kidney. [...] bladder. PERITONEUM/RETROPERITONEUM: Trace free fluid in the pelvis.LYMPH NODES: No lymphadenopathy.VESSELS: Moderate abdominal aortic atherosclerotic calcifications. GI TRACT: Prior Miracle-en-Y gastric bypass.No distention or wall thickening. The appendix is [...] small amount of gas in the bladder isconcerning for a urinary tract infection. This could [...] up to 3 mm. Signed: Vignesh Erickson MDReport Verified Date/Time: 04/12/2018 17:47:54 Reading Location: [address] Body Reading Room Electronically signedby: VIGNESH ERICKSON MD on 04/12/2018 05: 47 PMPOCT-GLUCOSE [id number] 17:41:00 Test Item Value Reference Range Comments POC-GLUCOSE METER (BEAKER) 129 mg/dL 70-110 TESTED AT [address] (test jnpe=9373) [facility] [address] URINALYSIS W/ REFLEX URINE [id number] 14:30:00 Test Item Value Reference Range Comments COLOR (BEAKER) (test dgnd=965) Light Yellow CLARITY (BEAKER) (test lfgb=069) Clear SPECIFIC GRAVITY UA (BEAKER) (test svhn=936) 1.013 1.001-1.035 PH UA (BEAKER) (test yoxz=966) 6.0 5.0-8.0 PROTEIN UA (BEAKER) (test pfkb=599) 20 mg/dL Negative GLUCOSE UA (BEAKER) (test dupe=624) Negative Negative KETONES UA (BEAKER) (test bxuy=729) Negative Negative BILIRUBIN UA (BEAKER) (test kixv=373) Negative Negative BLOOD UA (BEAKER) (test ygho=170) Trace Negative NITRITE UA (BEAKER) (test wwgl=090) Negative Negative LEUKOCYTE ESTERASE UA (BEAKER) (test mtzg=736) Large Negative UROBILINOGEN UA (BEAKER) (test rfji=427) 0.2 mg/dL 0.2-1.0 RBC UA (BEAKER) (test biwz=772) 2 /HPF WBC UA (BEAKER) (test pgre=383) 91 /HPF BACTERIA (BEAKER) (test gatl=022) Occasional SQUAMOUS EPITHELIAL (BEAKER) (test ierq=440) < /HPF SOURCE(BEAKER) (test fdbo=5606) POCT-GLUCOSE [id number] 12:27:00 Test Item Value Reference Range Comments POC-GLUCOSE METER (BEAKER) 90 mg/dL 70-110 TESTED AT [address] (test rjsz=5235) [place] [address] VITAMIN D, [id number] 08:31:00 Test Item Value Reference Range Comments VITAMIN D 25-OH (BEAKER) (test ugzv=8521) 43.1 ng/mL 6.6-49.9 Effective 01/07/2017: Reference Range ChangeNew: 6.6-49.9 ng/mL Previous: 13.0 -47.8 ng/mLRecommended Vitamin D Target Range: 30.0-40.0 ng/mLPOCT-GLUCOSE [id number] 08:15:00 Test Item Value Reference Range Comments POC-GLUCOSE METER (BEAKER) 94 mg/dL 70-110 TESTED AT [address] (test hirr=8427) [place] [address] VITAMIN B12 AND [id number] 06:29:00 Test Item Value Reference Range Comments VITAMIN B12 (BEAKER) (test sbfp=196) 1234 pg/mL 213-816 FOLATE (BEAKER) (test hlna=250) 7.6 ng/mL >=7.0 BASIC METABOLIC [id number] 06:08:00 Test Item Value Reference Range Comments SODIUM (BEAKER) (test 141 meq/L 136-145 hcva=875) POTASSIUM (BEAKER) (test 4.5 meq/L 3.5-5.1 tonb=914) CHLORIDE (BEAKER) (test 114 meq/L 98-107 dpjo=008) CO2 (BEAKER) (test 21 meq/L 22-29 vekc=966) BLOOD UREA NITROGEN 38 mg/dL 7-21 (BEAKER) (test iiiq=276) CREATININE (BEAKER) (test 1.99 mg/dL 0.57-1.25 bljv=911) GLUCOSE RANDOM (BEAKER) 96 mg/dL 70-105 (test aipp=812) CALCIUM (BEAKER) (test 8.7 mg/dL 8.4-10.2 dkfp=795) EGFR (BEAKER) (test 25 mL/min/1.73 sq m ESTIMATED GFR IS NOT frks=1606) ACCURATE CREATININE CLEARANCE IN PREDICTING GLOMERULAR FILTRATION RATE. ESTIMATED GFR IS NOT APPLICABLE FOR DIALYSIS PATIENTS. CBC (HEMOGRAM ONLY)2018-04-12 05:41:00 Test Item Value Reference Range Comments WHITE BLOOD CELL COUNT (BEAKER) (test iads=425) 7.2 K/ L 3.5-10.5 RED BLOOD CELL COUNT (BEAKER) (test fdcn=537) 3.15 M/ L 3.93-5.22 HEMOGLOBIN (BEAKER) (test umat=258) 9.4 GM/DL 11.2-15.7 HEMATOCRIT (BEAKER) (test dttu=849) 30.8 % 34.1-44.9 MEAN CORPUSCULAR VOLUME (BEAKER) (test xwio=661) 97.8 fL 79.4-94.8 MEAN CORPUSCULAR HEMOGLOBIN (BEAKER) (test 29.8 pg 25.6-32.2 fmli=420) MEAN CORPUSCULAR HEMOGLOBIN CONC (BEAKER) (test 30.5 GM/DL 32.2-35.5 vhup=443) RED CELL DISTRIBUTION WIDTH (BEAKER) (test 14.2 % 11.7-14.4 nfjv=184) PLATELET COUNT (BEAKER) (test bnui=649) 219 K/CU MM 150-450 MEAN PLATELET VOLUME (BEAKER) (test eipk=298) 9.2 fL 9.4-12.3 NUCLEATED RED BLOOD CELLS (BEAKER) (test 0 /100 WBC 0-0 vbzc=530) MR, BRAIN, WITHOUT [id number] 00:43:00FINAL REPORT MR, BRAIN, WITHOUT CONTRAST INDICATION: EncephalopathyStroke TECHNIQUE : Multiplanar, multisequence MR imaging of the brain was obtained. COMPARISON: None FINDINGS: Volume loss with associated gliotic changes noted within the right ACTION INSTALLER distribution, compatible with prior ischemic insult. Additional [...] the supratentorial white matter and madalyn. Signed: Cherrie Grier MDReport Verified Date/Time: 04/12/2018 00:43:56 Reading Location: [address] Neuro Reading Room 12: 43 [id number] 14:24:00 Test Item Value Reference Range Comments FERRITIN (BEAKER) (test ghxe=795) 14 ng/mL 5-275 HEMOGLOBIN [id number] 10:50:00 Test Item Value Reference Range Comments HEMOGLOBIN A1C (BEAKER) (test jqfs=133) 6.2 % 4.3-6.1 POCT-GLUCOSE [id number] 08:07:00 Test Item Value Reference Range Comments POC-GLUCOSE METER (BEAKER) 98 mg/dL 70-110 TESTED AT [address] (test ygtr=5498) [facility] [address] BASIC METABOLIC [id number] 05:47:00 Test Item Value Reference Range Comments SODIUM (BEAKER) (test 140 meq/L 136-145 ynmg=319) POTASSIUM (BEAKER) (test 4.6 meq/L 3.5-5.1 cumq=243) CHLORIDE (BEAKER) (test 115 meq/L 98-107 vnpz=486) CO2 (BEAKER) (test 18 meq/L 22-29 ovyk=505) BLOOD UREA NITROGEN 47 mg/dL 7-21 (BEAKER) (test auyp=159) CREATININE (BEAKER) (test 2.40 mg/dL 0.57-1.25 pulg=117) GLUCOSE RANDOM (BEAKER) 80 mg/dL 70-105 (test lusr=787) CALCIUM (BEAKER) (test 8.3 mg/dL 8.4-10.2 qcac=622) EGFR (BEAKER) (test 20 mL/min/1.73 sq m ESTIMATED GFR IS NOT gwcc=3691) ACCURATE CREATININE CLEARANCE IN PREDICTING GLOMERULAR FILTRATION RATE. ESTIMATED GFR IS NOT APPLICABLE FOR DIALYSIS PATIENTS. [id number] 05:37:00 Test Item Value Reference Range Comments AMMONIA (BEAKER) (test 37 mol/L 18-72 Specimen slightly hemolyzed tbms=842) CBC W/PLT COUNT & AUTO [id number] 05:21:00 Test Item Value Reference Range Comments WHITE BLOOD CELL COUNT (BEAKER) (test dkhd=623) 5.7 K/ L 3.5-10.5 RED BLOOD CELL COUNT (BEAKER) (test ffip=048) 2.97 M/ L 3.93-5.22 HEMOGLOBIN (BEAKER) (test lfjr=872) 8.9 GM/DL 11.2-15.7 HEMATOCRIT (BEAKER) (test kvyt=105) 29.4 % 34.1-44.9 MEAN CORPUSCULAR VOLUME (BEAKER) (test ttxg=451) 99.0 fL 79.4-94.8 MEAN CORPUSCULAR HEMOGLOBIN (BEAKER) (test 30.0 pg 25.6-32.2 izax=974) MEAN CORPUSCULAR HEMOGLOBIN CONC (BEAKER) (test 30.3 GM/DL 32.2-35.5 adlh=037) RED CELL DISTRIBUTION WIDTH (BEAKER) (test 14.0 % 11.7-14.4 rmpn=708) PLATELET COUNT (BEAKER) (test lcng=338) 197 K/CU MM 150-450 MEAN PLATELET VOLUME (BEAKER) (test lapj=325) 10.0 fL 9.4-12.3 NUCLEATED RED BLOOD CELLS (BEAKER) (test 0 /100 WBC 0-0 eghq=379) NEUTROPHILS RELATIVE PERCENT (BEAKER) (test 60 % pdns=762) LYMPHOCYTES RELATIVE PERCENT (BEAKER) (test 25 % oufa=170) MONOCYTES RELATIVE PERCENT (BEAKER) (test 10 % jhfm=487) EOSINOPHILS RELATIVE PERCENT (BEAKER) (test 4 % gpxx=298) BASOPHILS RELATIVE PERCENT (BEAKER) (test 1 % gbxl=562) NEUTROPHILS ABSOLUTE COUNT (BEAKER) (test 3.42 K/ L 1.56-6.13 iyix=886) LYMPHOCYTES ABSOLUTE COUNT (BEAKER) (test 1.44 K/ L 1.18-3.74 ctoe=399) MONOCYTES ABSOLUTE COUNT (BEAKER) (test 0.59 K/ L 0.24-0.36 dffa=614) EOSINOPHILS ABSOLUTE COUNT (BEAKER) (test 0.22 K/ L 0.04-0.36 cmoa=494) BASOPHILS ABSOLUTE COUNT (BEAKER) (test 0.04 K/ L 0.01-0.08 xduh=595) IMMATURE GRANULOCYTES-RELATIVE PERCENT (BEAKER) 0 % 0-1 (test asff=7185) POCT-GLUCOSE [id number] 21:16:00 Test Item Value Reference Range Comments POC-GLUCOSE METER (BEAKER) 151 mg/dL 70-110 TESTED AT [address] (test okam=2357) [facility] [address] CREATININE, RANDOM [id number] 18:20:00 Test Item Value Reference Range Comments CREATININE URINE (BEAKER) (test aaig=361) 51.6 mg/dL Reference Range: No NormalsPOTASSIUM, RANDOM [id number] 18:20:00 Test Item Value Reference Range Comments POTASSIUM URINE (BEAKER) (test aeep=740) 22.6 meq/L Reference Range: No NormalsPROTEIN, RANDOM [id number] 18:20:00 Test Item Value Reference Range Comments PROTEIN, URINE (BEAKER) (test bgpm=4156) 17 mg/dL 0-14 SODIUM, RANDOM [id number] 18:20:00 Test Item Value Reference Range Comments SODIUM URINE (BEAKER) (test ryat=762) 72 meq/L Reference Range: No NormalsLIPID [id number] 18:14:00 Test Item Value Reference Range Comments TRIGLYCERIDES (BEAKER) (test 100 mg/dL Specimen slightly hemolyzed ygwq=758) CHOLESTEROL (BEAKER) (test 142 mg/dL Specimen slightly hemolyzed qwyi=883) HDL CHOLESTEROL (BEAKER) (test 40 mg/dL hrvu=328) LDL CHOLESTEROL CALCULATED 82 mg/dL (BEAKER) (test ceov=827) Triglyceride Reference Range: Low Risk <150 Borderline 150- 199 High Risk 200-499 Very High Risk >=500Cholesterol Reference Range: Low Risk <200 Borderline 200-239 High Risk > 240HDL Cholesterol Reference Range: Low Risk >=60 High Risk <40LDL Cholesterol Reference Range: Optimal <100 Near Optimal 100-129 Borderline 130-159 High 160-189 Very High >=190POCT-GLUCOSE [id number] 17:50:00 Test Item Value Reference Range Comments POC-GLUCOSE METER (BEAKER) 95 mg/dL 70-110 TESTED AT [facility] [address] [facility] (test wmir=8373) [facility] [address] VITAMIN D, [id number] 17:48:00 Test Item Value Reference Range Comments VITAMIN D 25-OH (BEAKER) (test ujdg=4650) 41.7 ng/mL 6.6-49.9 Effective 01/07/2017: Reference Range ChangeNew: 6.6-49.9 ng/mL Previous: 13.0 -47.8 ng/mLRecommended Vitamin D Target Range: 30.0-40.0 ng/mLRAPID DRUG SCREEN , [id number] 17:34:00 Test Item Value Reference Range Comments BARBITURATE URINE (BEAKER) (test doyr=139) Negative Negative BENZODIAZEPINE SCREEN URINE (BEAKER) (test Positive Negative kdoi=475) COCAINE (METAB.) SCREEN (BEAKER) (test nhvu=6834) Negative Negative METHADONE SCREEN (BEAKER) (test nbxp=5818) Negative Negative OPIATE SCREEN URINE (BEAKER) (test pyga=345) Positive Negative CANNABINOID SCREEN URINE (BEAKER) (test sdgg=796) Negative Negative AMPH/METHAMPH SCREEN (BEAKER) (test fmcw=3559) Negative Negative PHENCYCLIDINE SCREEN URINE (BEAKER) (test twjr=059) Negative Negative OXYCODONE SCREEN URINE (BEAKER) (test daci=4608) Negative Negative DRUG CUTOFF CONC.Cocaine 300 ng/mL Cannabinoid 50 ng/mL Benzodiazepine 200 ng/mLBarbiturate 200 ng/ mLPhencyclidine 25 ng/mLOpiate 300 ng/mLMethadone 300 ng/mLAmphetamine/ 1000 ng/mL MethamphetamineOxycodone 300 ng/mLThis assay provides an unconfirmed qualitative test result for the clinical management of patients in emergency situations. Chain of custody not maintained. Some rqdj-atn-vwhttbi medications, as well as adulterants, may cause inaccurate results. Clinical correlation should be applied. A more comprehensive drug screen or confirmation of a detected drug may be performed upon request.COMPLEMENT COMPONENT [id number] 17:22:00 Test Item Value Reference Range Comments C4 COMPLEMENT (BEAKER) (test akdh=599) 22 mg/dL 15-57 COMPLEMENT COMPONENT [id number] 17:22:00 Test Item Value Reference Range Comments C3 COMPLEMENT (BEAKER) (test ngvr=570) 91 mg/dL 82-193 TROPONIN [id number] 16:59:00 Test Item Value Reference Range Comments TROPONIN I (BEAKER) (test bzak=953) < ng/mL 0.00-0.03 Troponin I (TnI) levels must be interpreted in the context of the presenting symptoms and the clinical findings. Elevated TnI levels indicate myocardial damage, but are not specific for ischemic heart disease. Elevated TnI levels are seen in patients with other cardiac conditions (including myocarditis and congestive heart failure), and slight TnI elevations occur in patients with other conditions, including sepsis, renal failure, acidosis, acute neurological disease, and persistent tachyarrhythmia.TROPONIN [id number] 16:59:00 Test Item Value Reference Range Comments TROPONIN I (BEAKER) (test slto=835) < ng/mL 0.00-0.03 Troponin I (TnI) levels must be interpreted in the context of the presenting symptoms and the clinical findings. Elevated TnI levels indicate myocardial damage, but are not specific for ischemic heart disease. Elevated TnI levels are seen in patients with other cardiac conditions (including myocarditis and congestive heart failure), and slight TnI elevations occur in patients with other conditions, including sepsis, renal failure, acidosis, acute neurological disease, and persistent tachyarrhythmia.PTH, [id number] 16:58:00 Test Item Value Reference Range Comments PARATHYROID HORMONE INTACT (BEAKER) (test 181.6 pg/mL 8.5-72.5 rzhb=111) URINALYSIS [id number] 16:55:00 Test Item Value Reference Range Comments RBC UA (BEAKER) (test mkmi=952) < /HPF WBC UA (BEAKER) (test qysj=784) 45 /HPF BACTERIA (BEAKER) (test glmq=190) Occasional MUCUS (BEAKER) (test jvnb=6690) Rare SQUAMOUS EPITHELIAL (BEAKER) (test zjwu=674) < /HPF IRON, TIBC, % SAT. (WITHOUT FERRITIN)2018-04-10 16:53:00 Test Item Value Reference Range Comments IRON (BEAKER) (test bjap=000) 52.0 ug/dL 40.0-160.0 TOTAL IRON BINDING CAPACITY (BEAKER) (test 324 ug/dL 250-450 qlac=240) IRON % SATURATION (2) (BEAKER) (test jgzo=4548) 16 % 20-55 [id number] 16:51:00 Test Item Value Reference Range Comments PHOSPHORUS (BEAKER) (test chwc=911) 4.4 mg/dL 2.3-4.7 LACTATE DEHYDROGENASE (LDH)2018-04-10 16:51:00 Test Item Value Reference Range Comments LACTATE DEHYDROGENASE (BEAKER) (test pjii=369) 309 U/L 125-220 URINALYSIS WITH MICROSCOPIC IF [id number] 16:43:00 Test Item Value Reference Range Comments COLOR (BEAKER) (test akod=158) Yellow CLARITY (BEAKER) (test cirv=453) Clear SPECIFIC GRAVITY UA (BEAKER) (test 1.013 1.001-1.035 viyd=907) PH UA (BEAKER) (test tang=941) 5.5 5.0-8.0 PROTEIN UA (BEAKER) (test 20 mg/dL Negative ixpy=143) GLUCOSE UA (BEAKER) (test Negative Negative rhuy=657) KETONES UA (BEAKER) (test Negative Negative rqli=336) BILIRUBIN UA (BEAKER) (test Negative Negative gnmk=707) BLOOD UA (BEAKER) (test lbat=316) Negative Negative NITRITE UA (BEAKER) (test Negative Negative wxxx=044) LEUKOCYTE ESTERASE UA (BEAKER) Large Negative (test ikxh=320) UROBILINOGEN UA (BEAKER) (test 0.2 mg/dL 0.2-1.0 cxzi=207) SOURCE(BEAKER) (test ptlm=1585) Urine, Sterile Collection
[2018-06-26] MEDS ORDERED: MIDAZOLAM HCL 2 MG/2 ML INJ ONE ×2 (00:17)
--- NOTE | 2018-06-26 00:18 | EDPHYS ---
Physician Documentation [facility] Name: Shonda Greenwood Age: 62 yrs Sex: Female : 1955 Arrival Date: 06/26/2018 Time: 00:06 Bed 3 Private MD: ED Physician Dhruv Chamberlain HPI: 06/26 00:11 This 62 yrs old Female presents to ER via Unassigned with complaints of singh respiratory failure. 00:11 The patient has shortness of breath at rest. Onset: The symptoms/episode began/occurred singh 5 hour(s) ago. Duration: The symptoms are continuous, and are steadily getting worse. The patient's shortness of breath has no apparent modifying factors. Modifying factors: The symptoms are alleviated by nothing, the symptoms are aggravated by nothing. Historical: - Allergies: 00:22 Sulfa; rr5 01:22 antibiotic cannot recall the name by the burlap roll coverer; rr5 - Home Meds: 00:22 amlodipine besylate (bulk) 5/20 mg miscellaneous daily [Active]; Eliquis 5 mg Oral tab rr5 1 tab 2 times per day [Active]; metoprolol succinate 100 mg Oral Tb24 1 tab once daily [Active]; cyanocobalamin (vitamin B-12) 1,000 mcg/mL injection soln [Active]; nifedipine 60 mg Oral TbER [Active]; alprazolam 0.5 mg Oral tab [Active]; gabapentin 600 mg Oral tab 1 tab 3 times per day [Active]; bupropion HCl 300 mg Oral Tb24 [Active]; - PMHx: 00:22 Anxiety; Atrial Fib; CVA; Diabetes - NIDDM; GERD; Hypertension; Hypothyroidism; short rr5 term memory loss; TIA; UTI; - PSHx: 00:22 bariatric surgery; rr5 - Immunization history:: Adult Immunizations not up to date. - Social history:: Smoking status: Patient uses tobacco products, smokes one-half pack cigarettes per day, Patient/guardian denies using alcohol, street drugs. - Family history:: not pertinent. - Ebola Screening: : Patient negative for fever greater than or equal to 101.5 degrees Fahrenheit, and additional compatible Ebola Virus Disease symptoms Patient denies exposure to infectious person Patient denies travel to an Ebola-affected area in the 21 days before illness onset. ROS: 00:11 Eyes: Negative for injury, pain, redness, and discharge, ENT: Negative for injury, singh pain, and discharge, Neck: Negative for injury, pain, and swelling, Cardiovascular: Negative for chest pain, palpitations, and edema, Abdomen/GI: Negative for abdominal pain, nausea, vomiting, diarrhea, and constipation, Back: Negative for injury and pain, : Negative for injury, bleeding, discharge, and swelling, MS/Extremity: Negative for injury and deformity, Skin: Negative for injury, rash, and discoloration, Neuro: Negative for headache, weakness, numbness, tingling, and seizure, Psych: Negative for depression, anxiety, suicide ideation, homicidal ideation, and hallucinations, Allergy/Immunology: Negative for hives, rash, and allergies, Endocrine: Negative for neck swelling, polydipsia, polyuria, polyphagia, and marked weight changes, Hematologic/Lymphatic: Negative for swollen nodes, abnormal bleeding, and unusual bruising. 00:11 Respiratory: Positive for shortness of breath, at rest. x 4 hours. Exam: 00:11 Constitutional: This is a well developed, well nourished patient who is awake, alert, singh and in no acute distress. Head/Face: Normocephalic, atraumatic. Eyes: Pupils equal round and reactive to light, extra-ocular motions intact. Lids and lashes normal. Conjunctiva and sclera are non-icteric and not injected. Cornea within normal limits. Periorbital areas with no swelling, redness, or edema. ENT: Nares patent. No nasal discharge, no septal abnormalities noted. Tympanic membranes are normal and external auditory canals are clear. Oropharynx with no redness, swelling, or masses, exudates, or evidence of obstruction, uvula midline. Mucous membranes moist. Neck: Trachea midline, no thyromegaly or masses palpated, and no cervical lymphadenopathy. Supple, full range of motion without nuchal rigidity, or vertebral point tenderness. No Meningismus. Chest/axilla: Normal chest wall appearance and motion. Nontender with no deformity. No lesions are appreciated. Cardiovascular: Regular rate and rhythm with a normal S1 and S2. No gallops, murmurs, or rubs. Normal PMI, no JVD. No pulse deficits. Abdomen/GI: Soft, non-tender, with normal bowel sounds. No distension or tympany. No guarding or rebound. No evidence of tenderness throughout. Back: No spinal tenderness. No costovertebral tenderness. Full range of motion. Female : Normal external genitalia. Skin: Warm, dry with normal turgor. Normal color with no rashes, no lesions, and no evidence of cellulitis. MS/ Extremity: Pulses equal, no cyanosis. Neurovascular intact. Full, normal range of motion. Neuro: Awake and alert, GCS 15, oriented to person, place, time, and situation. Cranial nerves II-XII grossly intact. Motor strength 5/5 in all extremities. Sensory grossly intact. Cerebellar exam normal. Normal gait. Psych: Awake, alert, with orientation to person, place and time. Behavior, mood, and affect are within normal limits. 00:11 Respiratory: mild respiratory distress is noted, Respirations: intubated, Breath sounds: bronchial sounds, rhonchi, Respiratory rate: 18 Vital Signs: 00:00 BP 204 / 103; Pulse 93; Resp 20; Temp 98.3(C); Pulse Ox 99% on ETT vent; Weight 54.43 mw2 kg; Height 5 ft. 1 in. (154.94 cm); 00:15 BP 131 / 79; Pulse 68; Resp 14; Pulse Ox 100% on 50% FiO2 ETT vent; rr5 00:30 BP 155 / 105; Pulse 74; Resp 14; Pulse Ox 100% on 50% FiO2 ETT vent; rr5 00:40 BP 130 / 84; Pulse 67; Resp 14; Pulse Ox 99% on 50% FiO2 ETT vent; rr5 01:15 BP 131 / 87; Pulse 67; Resp 14; Pulse Ox 100% on 50% FiO2 ETT vent; rr5 02:00 BP 149 / 75; Pulse 66; Resp 14; Temp 97.9; Pulse Ox 100% on 50% FiO2 ETT vent; rr5 02:30 BP 161 / 93; Pulse 64; Resp 14; Temp 97.7; Pulse Ox 100% on 50% FiO2 ETT vent; rr5 00:00 Body Mass Index 22.67 (54.43 kg, 154.94 cm) mw2 Ventilator: 00:10 Fi02: 50%; Rate: 14min; T.V.: 500ml; Peep: 5cm; ET tube: 24 mm (Oral); rr5 MDM: 00:07 Patient medically screened. [facility] 00:14 Data reviewed: vital signs, nurses notes, lab test result(s), EKG, radiologic studies, [facility] CT scan, plain films. 06/26 00:10 Order name: Basic Metabolic Panel; Complete Time: 01:11 [facility] 06/26 00:10 Order name: CBC with Diff; Complete Time: 01: [facility] 06/26 00:10 Order name: LFT's; Complete Time: : [facility] 06/26 00:10 Order name: Magnesium; Complete Time: : [facility] 06/26 00:10 Order name: NT PRO-BNP; Complete Time: : [facility] 06/26 00:10 Order name: PT-INR; Complete Time: : [facility] 06/26 00:10 Order name: Troponin (emerg Dept Use Only); Complete Time: : [facility] 06/26 00:10 Order name: Lipase; Complete Time: : [facility] 06/26 00:10 Order name: Blood Culture Adult (2) [facility] 06/26 00:10 Order name: Urine Culture [facility] 06/26 00:10 Order name: Procalcitonin; Complete Time: : [facility] 06/26 00:10 Order name: Lactate; Complete Time: : [facility] 06/26 00:10 Order name: ABG [facility] 06/26 00:37 Order name: Urine Dipstick--Ancillary (enter results); Complete Time: 01:11 il5 06/26 00:10 Order name: XRAY Chest (1 view) [facility] 06/26 00:10 Order name: EKG; Complete Time: 00:13 [facility] 06/26 00:10 Order name: Cardiac monitoring; Complete Time: 00:32 [facility] 06/26 00:10 Order name: EKG - Nurse/Tech; Complete Time: 00:32 [facility] 06/26 00:10 Order name: IV Saline Lock; Complete Time: 00:32 [facility] 06/26 00:10 Order name: Labs collected and sent; Complete Time: 00:32 [facility] 06/26 00:10 Order name: O2 Per Protocol; Complete Time: 00:32 [facility] 06/26 00:10 Order name: CT Traumagram (Head C Spine CAP wo con) [facility] 06/26 01:22 Order name: CONS Physician Consult [facility] 06/26 01:22 Order name: NPO EDNE 06/26 00:10 Order name: O2 Sat Monitoring; Complete Time: 00:32 singh 06/26 00:10 Order name: Urine Dipstick-Ancillary (obtain specimen); Complete Time: 00:34 singh 06/26 00:17 Order name: Lorenz; Complete Time: 00:31 [facility] 06/26 00:17 Order name: IV Saline Lock - Large Bore; Complete Time: 00:31 [facility] Administered Medications: 00:05 Drug: Versed 4 mg Route: IVP; Site: left antecubital; ea 02:50 Follow up: Response: No adverse reaction rr5 00:25 Drug: Propofol 5 mcg/kg/min Route: IV; Rate: calculated rate; Site: left forearm; aa1 02:03 Follow up: IV Status: Infusion continued upon admission; IV Intake: 20ml rr5 01:10 Drug: Cefepime 1 grams Route: IVPB; Rate: 200 ml/hr; Infused Over: 30 mins; Site: left ea forearm; 01:40 Follow up: Response: No adverse reaction; IV Status: Completed infusion; IV Intake: rr5 100ml 01:15 Drug: NS 0.9% 1000 ml Route: IV; Rate: 125 ml/hr; Site: left forearm; ea 02:06 Follow up: Response: No adverse reaction; IV Status: Infusion continued upon admission; rr5 IV Intake: 200ml 01:50 Dru mg of (levofloxacin 500 mg, D5W 100 ml) Volume: 100 ml; Route: IVPB; Infused rr5 Over: 60 mins; Site: left antecubital; 02:50 Follow up: Response: No adverse reaction; IV Status: Completed infusion; IV Intake: rr5 100ml 02:50 Dru grams of (vancoMYCIN 1 grams, NS 0.9% 250 ml) Route: IVPB; Infused Over: 2 hrs; rr5 Site: left antecubital; 02:51 Follow up: IV Status: Infusion continued upon admission rr5 Disposition: 06/26/18 00:16 Hospitalization ordered by Nina Benjamin for Inpatient Admission. Preliminary diagnosis are Respiratory arrest, Pneumonia due to other specified bacteria, Type 2 diabetes mellitus, Unspecified kidney failure. - Bed requested for Intensive Care Unit. - Status is Inpatient Admission. ea - Condition is Serious. - Problem is new. - Symptoms have improved. UTI on Admission? No Signatures: Dispatcher [employer] EDMS Alina Avalos RN RN Padmini Davey RN RN aa1 Dhruv Chamberlain MD MD cha Antunez, Elena RN Jd Sanchez ea RN RN rr5 Corrections: (The following items were deleted from the chart) 00:53 00:16 Hospitalization Ordered by Nina Benjamin MD for Inpatient Admission. Preliminary singh diagnosis is Respiratory arrest. Bed requested for Intensive Care Unit. Status is Inpatient Admission. Condition is Serious. Problem is new. Symptoms have improved. UTI on Admission? No. singh 01:12 00:53 06/26/2018 00:16 Hospitalization Ordered by Nina Benjamin MD for Inpatient singh Admission. Preliminary diagnosis is Respiratory arrest; Pneumonia due to other specified bacteria; Type 2 diabetes mellitus. Bed requested for Intensive Care Unit. Status is Inpatient Admission. Condition is Serious. Problem is new. Symptoms have improved. UTI on Admission? No. singh :26 01:12 06/26/2018 00:16 Hospitalization Ordered by Nina Benjamin MD for Inpatient mw Admission. Preliminary diagnosis is Respiratory arrest; Pneumonia due to other specified bacteria; Type 2 diabetes mellitus; Unspecified kidney failure. Bed requested for Intensive Care Unit. Status is Inpatient Admission. Condition is Serious. Problem is new. Symptoms have improved. UTI on Admission? No. singh 03:17 01:26 06/26/2018 00:16 Hospitalization Ordered by Nina Benjamin MD for Inpatient ea Admission. Preliminary diagnosis is Respiratory arrest; Pneumonia due to other specified bacteria; Type 2 diabetes mellitus; Unspecified kidney failure. Bed requested for Intensive Care Unit. Status is Inpatient Admission. Condition is Serious. Problem is new. Symptoms have improved. UTI on Admission? No. mw
[2018-06-26 00:30] LABS: Arterial Blood Carboxyhemoglob 1.6 % (0-1.5); Blood Gas Oxyhemoglobin 92.1 % (94-97); Blood O2 Saturation 94.8 % (92-98.5)
[2018-06-26 00:32] LABS: Absolute Lymphocytes (CBC) 4.3 K/uL (0.7-4.9); Absolute Monocytes 0.8 K/uL (0.1-1.3); Basophils % 0.7 % (0-1.3); Eosinophils % 3.3 % (0-4.4); Hematocrit 35.4 % (36.0-45.0); Lymphocytes % 36.7 % (15.3-44.8); MPV 7.7 fL (7.6-11.3); Monocytes % 7.3 % (3.3-12.3); RBC Red Blood Cell Count 4.12 M/uL (3.86-4.86)
[2018-06-26] MEDS ORDERED: PROPOFOL 1,000 MG/100 ML VIAL IV ONE (00:34)
[2018-06-26 00:51] LABS: ALT/SGPT 27 U/L (12-78); AST/SGOT 41 U/L (15-37); Alkaline Phosphatase 153 U/L (45-117); BUN Blood Urea Nitrogen 28 mg/dL (7-18); Bicarbonate 23 mmol/L (21-32); Bilirubin Direct 0.1 mg/dL (0-0.2); Bilirubin Total 0.3 mg/dL (0.2-1.0); Glucose Level 210 mg/dL (74-106); Lipase 182 U/L (73-393); Magnesium 2.5 mg/dL (1.8-2.4); NT PRO-BNP 5064 pg/mL (<125); Potassium 4.2 mmol/L (3.5-5.1); Protein, Total 7.6 g/dL (6.4-8.2); Sodium Level 141 mmol/L (136-145); Troponin (Emerg Dept Use Only) < 0.02 ng/mL (0.0-0.045)
[2018-06-26 00:52] LABS: Protime INR 1.42
[2018-06-26 00:53] LABS: Urine Blood TRACE (NEG); Urine Glucose NEGATIVE (NEG); Urine Protein 3+ (NEG); Urine pH 7.5 (5.0-7.0)
[2018-06-26] MEDS ORDERED: NA CHLORIDE 0.9% 1,000 ML ONE (00:55)
[2018-06-26] MEDS ORDERED: VANCOMYCIN 1 GM/VIAL ONE (00:55)
[2018-06-26] MEDS ORDERED: CEFEPIME 1 GM/100 ML BAG IV ONE (00:55)
[2018-06-26] MEDS ORDERED: NA CHLORIDE 0.9% 250 ML ONE (00:57)
[2018-06-26] MEDS ORDERED: ONDANSETRON 4 MG/2 ML VIAL IV PRN (01:17)
[2018-06-26] MEDS ORDERED: PROPOFOL 1,000 MG/100 ML VIAL IV STA (01:17)
[2018-06-26] MEDS ORDERED: ACETAMINOPHEN 650MG/RECT SUPP RECT PRN (01:17)
[2018-06-26] MEDS ORDERED: Levofloxacin500mg IV 500 MG/100 ML BAG IV ONE (01:59)
[2018-06-26] MEDS ORDERED: NA CHLORIDE 0.9% 1,000 ML IV SCH (02:00)
--- NOTE | 2018-06-26 03:18 | ER ---
Nurse's Notes [facility] Name: Shonda Greenwood Age: 62 yrs Sex: Female : 1955 Arrival Date: 06/26/2018 Time: 00:06 Bed 3 Private MD: Diagnosis: Respiratory arrest;Pneumonia due to other specified bacteria;Type 2 diabetes mellitus;Unspecified kidney failure Presentation: 06/26 00:00 Presenting complaint: EMS states: [id number] arrived in the seen pale diaphoretic,patient rr5 started to have difficulty of breathing 4 hours ago. while we were in the truck patient became apneic with pulse went to respiratory arrest, we intubated her and suctioning with pink frothy sputum. 00:00 Transition of care: patient was not received from another setting of care. Onset of rr5 symptoms was June 25, 2018 at 23:15. Risk Assessment: Do you want to hurt yourself or someone else? Patient reports no desire to harm self or others. Initial Sepsis Screen: Does the patient meet any 2 criteria? No. Patient's initial sepsis screen is negative. Does the patient have a suspected source of infection? No. Patient's initial sepsis screen is negative. Care prior to arrival: Assisted ventilation, Oral intubation, Medication(s) given: ketamine IM given by EMS. 00:00 Method Of Arrival: EMS: [facility] rr5 00:00 Acuity: RIANNA 1 rr5 Historical: - Allergies: 00:22 Sulfa; rr5 01:22 antibiotic cannot recall the name by the pantograph i engraver; rr5 - Home Meds: 00:22 amlodipine besylate (bulk) 5/20 mg miscellaneous daily [Active]; Eliquis 5 mg Oral tab rr5 1 tab 2 times per day [Active]; metoprolol succinate 100 mg Oral Tb24 1 tab once daily [Active]; cyanocobalamin (vitamin B-12) 1,000 mcg/mL injection soln [Active]; nifedipine 60 mg Oral TbER [Active]; alprazolam 0.5 mg Oral tab [Active]; gabapentin 600 mg Oral tab 1 tab 3 times per day [Active]; bupropion HCl 300 mg Oral Tb24 [Active]; - PMHx: 00:22 Anxiety; Atrial Fib; CVA; Diabetes - NIDDM; GERD; Hypertension; Hypothyroidism; short rr5 term memory loss; TIA; UTI; - PSHx: 00:22 bariatric surgery; rr5 - Immunization history:: Adult Immunizations not up to date. - Social history:: Smoking status: Patient uses tobacco products, smokes one-half pack cigarettes per day, Patient/guardian denies using alcohol, street drugs. - Family history:: not pertinent. - Ebola Screening: : Patient negative for fever greater than or equal to 101.5 degrees Fahrenheit, and additional compatible Ebola Virus Disease symptoms Patient denies exposure to infectious person Patient denies travel to an Ebola-affected area in the 21 days before illness onset. Screenin:15 Abuse screen: Denies threats or abuse. Denies injuries from another. Nutritional rr5 screening: No deficits noted. Tuberculosis screening: No symptoms or risk factors identified. Fall Risk Secondary diagnosis (15 points) impaired mobility, IV access (20 points). Mental Status- Overestimates/Forgets Limitations (15 pts.). Total Alford Fall Scale indicates High Risk Score (45 or more points). Fall prevention measures have been instituted. Side Rails Up X 2 Placed Close to Nursing Station Frequent Obs/Assessments Occuring Family Present and informed to notify staff if the need to leave the bedside As available patient and family educated on Fall Prevention Program and Strategies. Assessment: 00:00 General: Appears in no apparent distress. Behavior is intubated respond to pain. Pain: rr5 Unable to use pain scale. Patient is intubated. 00:00 Neuro: Level of Consciousness is awake, intubated. Oriented to cannot assess. rr5 intubated. Cardiovascular: Capillary refill < 3 seconds Patient's skin is warm and dry. Respiratory: Airway via oral intubation Respiratory effort is even, unlabored, Respiratory pattern is symmetrical, Parent/caregiver reports the patient having shortness of breath having difficulty of breathing started 4 hours ago. GI: No signs and/or symptoms were reported involving the gastrointestinal system. : No signs and/or symptoms were reported regarding the genitourinary system. EENT: No signs and/or symptoms were reported regarding the EENT system. Derm: Skin is intact, Skin temperature is warm. Musculoskeletal: No signs and/or symptoms reported regarding the musculoskeletal system. 00:31 Reassessment: Pt's glasses given to her . aa1 00:50 Reassessment: Patient appears in no apparent distress at this time. went to CT scan. rr5 01:15 Reassessment: Patient appears in no apparent distress at this time. back from CT scan rr5 patient maintaining O2 saturation 100% continually hooked to mechanical ventilator. 02:00 Reassessment: Patient appears in no apparent distress at this time. No changes from rr5 previously documented assessment. explained to pantograph i engraver the need for admission and agreed with the plan. dr. taylor spoke to him and discussed the plan of care. 02:40 Reassessment: Patient appears in no apparent distress at this time. No changes from rr5 previously documented assessment. vitally stable for shifting to ICU 7. Vital Signs: 00:00 BP 204 / 103; Pulse 93; Resp 20; Temp 98.3(C); Pulse Ox 99% on ETT vent; Weight 54.43 mw2 kg; Height 5 ft. 1 in. (154.94 cm); 00:15 BP 131 / 79; Pulse 68; Resp 14; Pulse Ox 100% on 50% FiO2 ETT vent; rr5 00:30 BP 155 / 105; Pulse 74; Resp 14; Pulse Ox 100% on 50% FiO2 ETT vent; rr5 00:40 BP 130 / 84; Pulse 67; Resp 14; Pulse Ox 99% on 50% FiO2 ETT vent; rr5 01:15 BP 131 / 87; Pulse 67; Resp 14; Pulse Ox 100% on 50% FiO2 ETT vent; rr5 02:00 BP 149 / 75; Pulse 66; Resp 14; Temp 97.9; Pulse Ox 100% on 50% FiO2 ETT vent; rr5 02:30 BP 161 / 93; Pulse 64; Resp 14; Temp 97.7; Pulse Ox 100% on 50% FiO2 ETT vent; rr5 00:00 Body Mass Index 22.67 (54.43 kg, 154.94 cm) mw2 ED Course: 00:00 Arm band placed on. rr5 00:00 crime scene specialist on. Pulse ox on. NIBP on. rr5 00:00 Patient has correct armband on for positive identification. Placed in gown. Bed in low rr5 position. Call light in reach. Side rails up X2. 00:00 Maintain EMS IV. Dressing intact. Site clean \T\ dry. Gauge \T\ site: intra osseous left rr 5 lower leg. 00:00 Placed received with ET 7.0 level 24 lip level from [facility]. Assist ventilation with rr5 ventilator. 00:05 Inserted saline lock: 20 gauge in left forearm, using aseptic technique. ,using aseptic rr5 technique. inserted by debbi JIN Blood collected. 00:06 Patient arrived in ED. singh 00:07 Dhruv Chamberlain MD is Attending Physician. singh 00:11 Jd Ann RN is Primary Nurse. rr5 00:14 Nina Taylor MD is Hospitalizing Provider. singh 00:15 Inserted saline lock: 20 gauge in left antecubital area, using aseptic technique. aa1 00:17 Triage completed. rr5 00:20 Lorenz cath inserted, using sterile technique, 16 Fr., by ED staff, balloon inflated, to rr5 gravity drainage, urine specimen collected. other by BRONWYN JIN. 00:30 Response to oxygen therapy: symptoms improved. rr5 00:50 XRAY Chest (1 view) In Process Unspecified. EDMS 01:25 CT Traumagram (Head C Spine CAP wo con) In Process Unspecified. EDMS 02:00 IV discontinued, Intraosseous line removed.ED provider aware. rr5 02:00 No provider procedures requiring assistance completed. rr5 Administered Medications: 00:05 Drug: Versed 4 mg Route: IVP; Site: left antecubital; ea 02:50 Follow up: Response: No adverse reaction rr5 00:25 Drug: Propofol 5 mcg/kg/min Route: IV; Rate: calculated rate; Site: left forearm; aa1 02:03 Follow up: IV Status: Infusion continued upon admission; IV Intake: 20ml rr5 01:10 Drug: Cefepime 1 grams Route: IVPB; Rate: 200 ml/hr; Infused Over: 30 mins; Site: left ea forearm; 01:40 Follow up: Response: No adverse reaction; IV Status: Completed infusion; IV Intake: rr5 100ml 01:15 Drug: NS 0.9% 1000 ml Route: IV; Rate: 125 ml/hr; Site: left forearm; ea 02:06 Follow up: Response: No adverse reaction; IV Status: Infusion continued upon admission; rr5 IV Intake: 200ml 01:50 Dru mg of (levofloxacin 500 mg, D5W 100 ml) Volume: 100 ml; Route: IVPB; Infused rr5 Over: 60 mins; Site: left antecubital; 02:50 Follow up: Response: No adverse reaction; IV Status: Completed infusion; IV Intake: rr5 100ml 02:50 Dru grams of (vancoMYCIN 1 grams, NS 0.9% 250 ml) Route: IVPB; Infused Over: 2 hrs; rr5 Site: left antecubital; 02:51 Follow up: IV Status: Infusion continued upon admission rr5 Intake: 01:40 IV: 100ml; Total: 100ml. rr5 02:03 IV: 20ml; Total: 120ml. rr5 02:06 IV: 200ml; Total: 320ml. rr5 02:50 IV: 100ml; Total: 420ml. rr5 Output: 03:00 Urine: 400ml (Lorenz); Total: 400ml. rr5 Ventilator: 00:10 Fi02: 50%; Rate: 14min; T.V.: 500ml; Peep: 5cm; ET tube: 24 mm (Oral); rr5 Outcome: 00:16 Decision to Hospitalize by Provider. singh 02:39 Admitted to ICU accompanied by nurse, via stretcher, room ICU 7, with oxygen, on rr5 monitor, with chart, Other accompanied by RT Report called to Alana 02:39 Condition: stable 02:39 Instructed on the need for admit. 03:17 Patient left the ED. ea Signatures: Dispatcher [employer] EDMS Debbi Davey, RN RN aa1 Dhruv Chamberlain MD MD cha Antunez, Elena, RN RN ea [place], MyKena mw2 Jd Ann, RN RN rr5 Corrections: (The following items were deleted from the chart) 00:36 00:00 BP 204 / 103; Pulse 93bpm; Resp 20bpm; Pulse Ox 99% ET / Ventilator; 54.43 kg; mw2 Height 5 ft. 1 in.; BMI: 22.6; rr5 00:42 00:05 Inserted saline lock: 20 gauge in left forearm, using aseptic technique. ,using rr5 aseptic technique. by debbi JIN Blood collected. rr5 01:18 00:00 Acuity: RIANNA 2 rr5 rr5
[2018-06-26] MEDS: FENTANYL CITR 100 MCG/2 ML IV PRN ×2 (03:45→20:15)
[2018-06-26] MEDS: IPRATROPIUM BROM 0.5MG/2.5ML NEB SCH ×4 (03:50→20:00)
[2018-06-26] MEDS: ALBUTEROL 2.5 MG/3 ML NEB SOL NEB SCH ×4 (03:50→20:00)
[2018-06-26] MEDS ORDERED: PROPOFOL 1,000 MG/100 ML VIAL IV PRN (04:14)
[2018-06-26] MEDS ORDERED: METHYLPREDNISOLONE 125 MG INJ IV SCH (05:00)
[2018-06-26 05:11] LABS: Magnesium 2.4 mg/dL (1.8-2.4); Phosphorus 2.4 mg/dL (2.5-4.9); Potassium 4.7 mmol/L (3.5-5.1)
[2018-06-26] MEDS: OSELTAMIVIR PHOSPHATE 30 MG/5 ML SUSPENSION UD FT SCH (06:13)
[2018-06-26] MEDS: PIPER/TAZO/NS 3.375gm 3.375 GM/100 ML BAG IVPB SCH ×3 (06:13→16:02)
[2018-06-26] MEDS ORDERED: PIPERACIL/TAZO 3.375 GM VIAL IV ONE (06:20)
--- NOTE | 2018-06-26 06:20 | P.HP ---
Certification for Inpatient Patient admitted to: Inpatient With expected LOS: >2 Midnights Patient will require the following post-hospital care: None Practitioner: I am a practitioner with admitting privileges, knowledge of patient current condition, hospital course, and medical plan of care. Services: Services provided to patient in accordance with Admission requirements found in Title 42 Section 412.3 of the Code of Federal Regulations Patient History Date of Service: 06/25/18 Reason for admission: Respiratory arrest History of Present Illness: Patient is a 62 year-old female who came to the hospital with respiratory distress. She has been short of breath for the last 2-3 days. Her symptoms have gotten progressively worse. Her states that since she was having a hard time with a breathing he brought her into the emergency room. In the emergency room she was really tachypneic and chest x-ray showed diffuse infiltrates. Patient was intubated. CT scan revealed significant bilateral infiltrates. Patient appears to have a severe pneumonic process. Will continue with IV antibiotics at this time. Will also start antivirals. Patient procalcitonin level is negative. Unlikely to be a bacterial infection. Consult Pulmonary to get their input as well. Continue with current plan of care and will monitor in the intensive care unit. Allergies Sulfa Allergy (Intermediate, Uncoded 03/19/17 23:35) Hives/Rash Home Medications: Apixaban [Eliquis *] 5 mg PO BID #60 tablet 04/11/16 Duloxetine HCl 60 mg PO DAILY 04/11/16 Gabapentin [Neurontin] 600 mg PO TID 04/11/16 Hydrocodone/Acetaminophen [Hydrocodone-Acetamin 10-325 mg] 1 tab PO TID Metoprolol Succinate [Toprol Xl*] 100 mg PO DAILY 04/11/16 Omeprazole [Prilosec] 40 mg PO DAILY 12/14/16 ALPRAZolam [Alprazolam] 0.5 mg PO BID 03/20/17 Amlodipine [Norvasc*] 5 mg PO DAILY PRN 03/20/17 Bupropion HCl [Bupropion Xl] 300 mg PO DAILY 03/20/17 Buspirone HCl [Buspar] 7.5 mg PO BID 03/20/17 Fluconazole [Diflucan] 100 mg PO DAILY 03/20/17 Fabrizio/Polym/Hc Otic Izabella [Cortisporin 1% Otic Solution*] 4 drops EACH EAR TID 03/20 Uribel 1 cap PO Q6H PRN 03/20/17 - Past Medical/Surgical History Has patient received pneumonia vaccine in the past: No Diabetic: No -: [place]'s disease -: Recurrent UTIs -: Nephrolithiasis -: Diabetes mellitus type 2 -: Hypertension -: Atrial fibrillation -: Chronic back pain -: Tobacco abuse -: History of CVA and TIA -: GERD -: Poor dentition -: Lithotripsy -: Gastric bypass -: Bilateral rotator cuff repair -: Neck surgery to the C3 through C6 Psychosocial/ Personal History: The patient is . - Family History Father Family History: Reviewed- Non-Contributory - Social History Alcohol use: No CD- Drugs: No Caffeine use: Yes Review of Systems is unable to be obtained Physical Examination - Vital Signs Temperature: 97.9 F Blood Pressure: 171/91 Pulse: 62 Respirations: 15 Pulse Ox (%): 100 - Physical Exam General: Alert, In no apparent distress, Other (Intubated and sedated) HEENT: Atraumatic, PERRLA, Mucous membr. moist/pink, EOMI, Sclerae nonicteric Neck: Supple, 2+ carotid pulse no bruit, No LAD, Without JVD or thyroid abnormality Respiratory: Other (Coarse breath sounds bilaterally) Cardiovascular: Regular rate/rhythm, Normal S1 S2, No murmurs Gastrointestinal: Normal bowel sounds, Soft and benign, Non-distended, No tenderness Musculoskeletal: No clubbing, No swelling, No tenderness Integumentary: No rashes Neurological: Other (Intubated and sedated. Moves all extremities however. Response to pain in all 4 extremities. Cranial nerves 2 through 12 are intact) , Abnormal gait Lymphatics: No axilla or inguinal lymphadenopathy - Studies Laboratory Data (last 24 hrs) 06/26/18 00:01: PT 16.5 H, INR 1.42 06/26/18 00:01: WBC 11.6 H, Hgb 10.8 L, Hct 35.4 L, Plt Count 447 H 06/26/18 00:01: Sodium 141, Potassium 4.2, BUN 28 H, Creatinine 2.31 H, Glucose 210 H, Magnesium 2.5 H D, Total Bilirubin 0.3, AST 41 H, ALT 27, Alkaline Phosphatase 153 H, Lipase 182 Assessment & Plan - Problems (Diagnosis) (1) Respiratory arrest Current Visit: Yes Status: Acute (2) Bilateral pneumonia Current Visit: Yes Status: Acute (3) [place]'s disease Onset Date: 04/11/16 Current Visit: No Status: Chronic (4) Atrial fibrillation Onset Date: 04/11/16 Current Visit: No Status: Chronic Qualifiers: Atrial fibrillation type: chronic Qualified Code(s): I48.2 - Chronic atrial fibrillation (5) Diabetes mellitus Onset Date: 04/11/16 Current Visit: No Status: Chronic Qualifiers: Diabetes mellitus type: type 2 Diabetes mellitus fdc insulin use: without joint terminal attack controller use Diabetes mellitus complication status: without complication Qualified Code(s): E11.9 - Type 2 diabetes mellitus without complications (6) History of CVA (cerebrovascular accident) Current Visit: No Status: Chronic (7) Hypertension Onset Date: 04/11/16 Current Visit: No Status: Chronic Qualifiers: Hypertension type: essential hypertension Qualified Code(s): I10 - Essential (primary) hypertension - Plan 1. Continue with IV antibiotics and also check IV antivirals 2. Awaiting sputum and blood culture; check influenza 3. Repeat chest x-ray 4. CT of the chest reviewed. 5. Pulmonary consultation 6. Continue with nebs as needed 7. O2 per protocol 8. Continue with gentle hydration 9. Repeat labs including CBC and renal function in a.m. 10. GI and DVT prophylaxis Discharge Plan: Home Plan to discharge in: Greater than 2 days - Advance Directives Does patient have a Living Will: No Does patient have a Durable POA for Healthcare: No - Code Status/Comfort Care Code Status Assessed: Yes Code Status: Full Code Critical Care: Yes Time Spent Managing PTS Care (In Minutes): 60
[2018-06-26] MEDS ORDERED: NA CHLORIDE 0.9% 100 ML ONE (06:22)
[2018-06-26 08:52] LABS: Arterial Blood Carboxyhemoglob 1.7 % (0-1.5); Blood O2 Saturation 99.5 % (92-98.5)
[2018-06-26] MEDS ORDERED: ENOXAPARIN 30 MG/0.3 ML SQ SCH (09:00)
[2018-06-26] MEDS ORDERED: OSELTAMIVIR PHOSPHATE 30 MG/5 ML SUSPENSION UD FT SCH (09:00)
[2018-06-26] MEDS ORDERED: MIDAZOLAM HCL 2 MG/2 ML INJ IV PRN (09:06)
--- NOTE | 2018-06-26 09:10 | P.CNS ---
Date of Consult: 06/26/18 Chief Complaint: Respiratory failure History of Present Illness: Patient is 62 years of age admitted with respiratory distress for the past 2-3 days patient is currently on a ventilator propofol drip history obtained from review of the records she was intubated chest x-ray shows bilateral infiltrate lower extremity edema patient is on anti hypertensive drugs from the review her chart it appears to me that this is acute in onset Patient is anti coagulated Allergies Sulfa Allergy (Intermediate, Uncoded 03/19/17 23:35) Hives/Rash Home Medications: ALPRAZolam [Alprazolam] 1 pill PO TID PRN 06/26/18 Amlodipine Besylate/Benazepril [Amlodipine-Benazepril 5-20 mg] 1 cap PO DAILY Apixaban [Eliquis] 5 mg PO BID 06/26/18 Bupropion HCl [Bupropion Xl] 300 mg PO DAILY 06/26/18 Cyanocobalamin (Vitamin B-12) [Cyanocobalamin Injection] 1 ml IM SEECOM Gabapentin 1 tab PO TID 06/26/18 Metoprolol Succinate [Toprol Xl] 25 mg PO DAILY 06/26/18 Nifedipine [Nifedipine ER] 60 mg PO DAILY 06/26/18 - Past Medical/Surgical History Diabetic: No -: [place]'s disease -: Recurrent UTIs -: Nephrolithiasis -: Diabetes mellitus type 2 -: Hypertension -: Atrial fibrillation -: Chronic back pain -: Tobacco abuse -: History of CVA and TIA -: GERD -: Poor dentition -: drug abuse -: Lithotripsy -: Gastric bypass -: Bilateral rotator cuff repair -: Neck surgery to the C3 through C6 Psychosocial/ Personal History: The patient is . - Family History Father Family History: Reviewed- Non-Contributory - Social History Smoking Status: Current every day smoker Alcohol use: No CD- Drugs: No Caffeine use: Yes Place of Residence: Home Review of Systems is unable to be obtained Physical Examination Temp Pulse Resp BP Pulse Ox 97.4 F 62 14 174/89 H 100 06/26/18 08:00 06/26/18 08:00 06/26/18 08:00 06/26/18 08:00 06/26/18 08:00 General: Comatose (On propofol) Neck: Supple Respiratory: Crackles/rales Cardiovascular: Normal S1 S2, Edema (3+ edema) Gastrointestinal: Normal bowel sounds, Soft and benign, W/out hepatosplenomegaly Laboratory Data (last 24 hrs) 06/26/18 00:01: PT 16.5 H, INR 1.42 06/26/18 00:01: WBC 11.6 H, Hgb 10.8 L, Hct 35.4 L, Plt Count 447 H 06/26/18 00:01: Sodium 141, Potassium 4.2, BUN 28 H, Creatinine 2.31 H, Glucose 210 H, Magnesium 2.5 H D, Total Bilirubin 0.3, AST 41 H, ALT 27, Alkaline Phosphatase 153 H, Lipase 182 - Problems (1) Respiratory failure Current Visit: Yes Status: Acute Plan: Patient is 62 years of age admitted with acute respiratory distress I suspect this pulmonary edema congestive heart failure patient is anti coagulated due to a failed normal pro calcitonin renal failure patient has chronic renal failure is an anti hypertensive medication patient is a smoker patient's BNP elevated I have added steroids Dc IV fluids doubt sepsis echo await cultures Qualifiers: Chronicity: acute
[2018-06-26] MEDS: POTASS/SODIUM PHOSPHATE 1 PKT POWD.PACK PO SCH ×3 (09:26→11:58)
[2018-06-26] MEDS: FAMOTIDINE 20 MG/2 ML VIAL IV SCH (10:42)
[2018-06-26 11:51] LABS: Absolute Lymphocytes (CBC) 0.5 K/uL (0.7-4.9); Absolute Monocytes 0.1 K/uL (0.1-1.3); Absolute Neutrophil 6.7 K/uL (1.8-8.0); Basophils % 0.2 % (0-1.3); Eosinophils % 0.1 % (0-4.4); Hematocrit 29.2 % (36.0-45.0); Lymphocytes % 6.6 % (15.3-44.8); MPV 7.5 fL (7.6-11.3); RBC Red Blood Cell Count 3.54 M/uL (3.86-4.86)
[2018-06-26 11:56] LABS: Magnesium 2.2 mg/dL (1.8-2.4); Phosphorus 3.2 mg/dL (2.5-4.9); Potassium 4.7 mmol/L (3.5-5.1)
[2018-06-26 12:40] LABS: Blood Morphology Comment NOT SEEN (NOT SEEN); Platelet Estimate ADEQ; Urine White Blood Cell Casts OK
--- NOTE | 2018-06-26 13:08 | P.PN ---
Subjective Date of Service: 06/26/18 Chief Complaint: Respiratory failure Pt seen and examined at bedside. Chart reviewed. Case DW with Pulmonology. Pt continues to be on [facility] ventilator. BP is still elevated, currently sedated. Review of Systems 10-point ROS is otherwise unremarkable Physical Examination - Vital Signs Temperature: 97.4 F Blood Pressure: 161/84 Pulse: 65 Respirations: 13 Pulse Ox (%): 98 - Physical Exam General: In no apparent distress, Other (Intubated and sedated ) HEENT: Atraumatic Neck: Supple, JVD distended Respiratory: Normal air movement, Rhonchi/gurgles (On the right lung base ) Cardiovascular: Regular rate/rhythm, Normal S1 S2 Gastrointestinal: Normal bowel sounds, Soft and benign, Non-distended, No tenderness Musculoskeletal: No tenderness Integumentary: No rashes Neurological: Normal strength at 5/5 x4 extr, Normal tone Lymphatics: No axilla or inguinal lymphadenopathy - Studies Laboratory Data (last 24 hrs) 06/26/18 00:01: PT 16.5 H, INR 1.42 06/26/18 00:01: WBC 11.6 H, Hgb 10.8 L, Hct 35.4 L, Plt Count 447 H 06/26/18 00:01: Sodium 141, Potassium 4.2, BUN 28 H, Creatinine 2.31 H, Glucose 210 H, Magnesium 2.5 H D, Total Bilirubin 0.3, AST 41 H, ALT 27, Alkaline Phosphatase 153 H, Lipase 182 Medications List Reviewed: Yes Assessment And Plan - Current Problems (Diagnosis) (1) Respiratory failure Current Visit: Yes Status: Acute Plan: Acute Respiratory failure most likely 2.2 to Volume overaload vs PNA vs Viral illness -Currently Intubated and sedated -Xray consisted with Volume overload vs PNA -Pulmonology consulted. Appreciated Reccs -Currently on IV abx will continue -Started on Lasix will continue. -Will monitor closely Qualifiers: Chronicity: acute Respiratory failure complication: hypoxia Qualified Code(s): J96.01 - Acute respiratory failure with hypoxia (2) [place]'s disease Onset Date: 04/11/16 Current Visit: No Status: Chronic (3) Atrial fibrillation Onset Date: 04/11/16 Current Visit: No Status: Chronic Qualifiers: Atrial fibrillation type: chronic Qualified Code(s): I48.2 - Chronic atrial fibrillation (4) Diabetes mellitus Onset Date: 04/11/16 Current Visit: No Status: Chronic Qualifiers: Diabetes mellitus type: type 2 Diabetes mellitus half-way insulin use: without dowel pointer use Diabetes mellitus complication status: without complication Qualified Code(s): E11.9 - Type 2 diabetes mellitus without complications (5) GERD (gastroesophageal reflux disease) Onset Date: 04/11/16 Current Visit: No Status: Chronic Qualifiers: Esophagitis presence: esophagitis presence not specified Qualified Code(s) : K21.9 - Gastro-esophageal reflux disease without esophagitis (6) HTN (hypertension) Onset Date: 03/20/17 Current Visit: No Status: Chronic Qualifiers: Hypertension type: essential hypertension Qualified Code(s): I10 - Essential (primary) hypertension (7) History of CVA (cerebrovascular accident) Current Visit: No Status: Chronic Discharge Plan: Other Plan to discharge in: Greater than 2 days - Code Status/Comfort Care Code Status Assessed: Yes Critical Care: Yes Time Spent Managing PTS Care (In Minutes): 45
[2018-06-26] MEDS: PROPOFOL 1,000 MG/100 ML VIAL IV PRN ×2 (13:52→20:15)
[2018-06-26] MEDS: GABAPENTIN 300 MG CAP PO SCH ×2 (14:31→20:16)
[2018-06-26] MEDS: HYDRALAZINE HCL 20 MG/ML VIAL IV PRN (14:33)
[2018-06-26] MEDS: FUROSEMIDE 40 MG/4 ML VIAL IV SCH (16:43)
[2018-06-26] MEDS: METHYLPREDNISOLONE 40 MG INJ IV SCH (16:43)
[2018-06-26] MEDS: APIXABAN 5 MG TABLET PO SCH (20:16)
[2018-06-27] MEDS: PIPER/TAZO/NS 3.375gm 3.375 GM/100 ML BAG IVPB SCH ×2 (00:12→08:00)
[2018-06-27] MEDS: METHYLPREDNISOLONE 40 MG INJ IV SCH ×3 (00:12→16:44)
[2018-06-27] MEDS: LORazepam 2 MG/ML VIAL IV PRN ×3 (00:12→06:10)
[2018-06-27] MEDS: PROPOFOL 1,000 MG/100 ML VIAL IV PRN (01:10)
[2018-06-27] MEDS: ALBUTEROL 2.5 MG/3 ML NEB SOL NEB SCH ×2 (02:00→08:30)
[2018-06-27] MEDS: IPRATROPIUM BROM 0.5MG/2.5ML NEB SCH ×4 (02:00→20:00)
[2018-06-27] MEDS: FENTANYL CITR 100 MCG/2 ML IV PRN (05:42)
[2018-06-27 05:57] LABS: Arterial Blood Carboxyhemoglob 1.6 % (0-1.5); Blood O2 Saturation 95.4 % (92-98.5)
[2018-06-27 05:58] LABS: Magnesium 2.3 mg/dL (1.8-2.4); Phosphorus 5.2 mg/dL (2.5-4.9); Potassium 4.1 mmol/L (3.5-5.1)
[2018-06-27] MEDS: HYDRALAZINE HCL 20 MG/ML VIAL IV PRN ×2 (06:24→12:38)
--- NOTE | 2018-06-27 08:07 | RAD REPORT ---
EXAM DESCRIPTION: RAD - Chest Single View - 06/27/2018 6:03 am CLINICAL HISTORY: Intubation, respiratory distress COMPARISON: June 26 TECHNIQUE: AP portable chest image was obtained 0557 hours . FINDINGS: Lungs are slightly underinflated. Interstitial and alveolar opacities in the mid and upper lung barrett have substantially improved since prior day imaging. There remains focal airspace diseas e in the lower right lung field. Heart size and vasculature have diminished slightly. No progressive cardiopulmonary process. ETT and NG tube remain in place. Patchy left base opacification clearly different. No enlarging pleur al effusion. Pneumothorax. IMPRESSION: Significant clearing of the interstitial and alveolar opacification throughout the mid a nd upper lung barrett. Right base opacification remains but has shown some improvement. Heart size and vasculature have diminished prominence.
[2018-06-27] MEDS ORDERED: [UNRECOGNIZED DRUG - OTHER] PO SCH (09:00)
[2018-06-27] MEDS ORDERED: CYANOCOBALAMIN 1000MCG/ML INJ IM SCH (09:00)
[2018-06-27] MEDS: NIFEDIPINE XL 60 MG TABLET PO SCH (09:00)
[2018-06-27] MEDS ORDERED: BUPROPION HCL XL 150 MG TAB PO SCH (09:00)
[2018-06-27] MEDS ORDERED: AMLODIPINE BESYLATE PO SCH (09:00)
[2018-06-27] MEDS ORDERED: BENAZEPRIL PO SCH (09:00)
[2018-06-27] MEDS ORDERED: PIPER/TAZO/NS 3.375gm 3.375 GM/100 ML BAG IVPB SCH (09:00)
[2018-06-27] MEDS: METOPROLOL XL 50 MG TAB PO SCH (09:00)
[2018-06-27] MEDS: OSELTAMIVIR PHOSPHATE 30 MG/5 ML SUSPENSION UD FT SCH (09:18)
[2018-06-27] MEDS: GABAPENTIN 300 MG CAP PO SCH ×4 (09:19→20:46)
[2018-06-27] MEDS: APIXABAN 5 MG TABLET PO SCH ×2 (09:19→20:46)
[2018-06-27] MEDS: FUROSEMIDE 40 MG/4 ML VIAL IV SCH (09:19)
[2018-06-27] MEDS: FAMOTIDINE 20 MG/2 ML VIAL IV SCH (09:19)
[2018-06-27] MEDS ORDERED: ALBUTEROL 2.5 MG/3 ML NEB SOL NEB PRN (11:03)
--- NOTE | 2018-06-27 11:04 | P.PN ---
Subjective Date of Service: 06/27/18 Chief Complaint: Respiratory failure Subjective: Improving (Patient is doing much better alert responsive cooperative chest x-ray has improved) Review of Systems is unable to be obtained Physical Examination - Vital Signs Temperature: 97.2 F Blood Pressure: 152/69 Pulse: 87 Respirations: 17 Pulse Ox (%): 100 - Physical Exam General: Alert, Cooperative Respiratory: Expiratory wheezes Cardiovascular: No edema, Regular rate/rhythm, Normal S1 S2 - Studies Medications List Reviewed: Yes Assessment & Plan - Problems (Diagnosis) (1) Respiratory failure Current Visit: Yes Status: Acute Plan: Patient admitted with respiratory failure I suspect is from congestive heart failure. He probably has underlying COPD patient is an active smoker is wheezing chest x-ray has improved renal function is slightly worse I strongly suspect that her blood culture is a contaminant only 1/4 bottles are positive doubt sepsis Dc vancomycin and Zosyn at [facility]/albuterol p.r.n. Lasix once a day echocardiogram pending Qualifiers: Chronicity: acute Respiratory failure complication: hypoxia Qualified Code(s): J96.01 - Acute respiratory failure with hypoxia
--- NOTE | 2018-06-27 11:36 | P.PN ---
Subjective Date of Service: 06/27/18 Chief Complaint: Respiratory failure Pt seen and examined at bedside. Chart reviewed. Case DW with Pulmonology. Pt continues to be intubated. Currently on CPAP trial for possible extubation today. Review of Systems 10-point ROS is otherwise unremarkable Physical Examination - Vital Signs Temperature: 97.2 F Blood Pressure: 152/69 Pulse: 87 Respirations: 17 Pulse Ox (%): 100 - Physical Exam General: In no apparent distress, Other (Intubated) Respiratory: Normal air movement, Rhonchi/gurgles Cardiovascular: Regular rate/rhythm, Normal S1 S2 Gastrointestinal: Normal bowel sounds, No tenderness Musculoskeletal: No tenderness Integumentary: No rashes Neurological: Normal speech, Normal tone, Normal affect Lymphatics: No axilla or inguinal lymphadenopathy - Studies Medications List Reviewed: Yes Assessment And Plan - Current Problems (Diagnosis) (1) Respiratory failure Current Visit: Yes Status: Acute Plan: Acute Respiratory failure most likely 2.2 to Volume overaload vs viral PNA -Currently Intubated. On CPAP trial. Will attempt to extubate patient today if tolerating well. -Xray consisted with Volume overload vs PNA -Pulmonology consulted. Appreciated Reccs -IV antibiotics discontinued per pulmonology recommendation -currently on IV Lasix along with Tamiflu. 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 termite insulin use: without exterminator helper termite use Diabetes mellitus complication status: without complication Qualified Code(s): E11.9 - Type 2 diabetes mellitus without complications (5) GERD (gastroesophageal reflux disease) Onset Date: 04/11/16 Current Visit: No Status: Chronic Qualifiers: Esophagitis presence: esophagitis presence not specified Qualified Code(s) : K21.9 - Gastro-esophageal reflux disease without esophagitis (6) HTN (hypertension) Onset Date: 03/20/17 Current Visit: No Status: Chronic Qualifiers: Hypertension type: essential hypertension Qualified Code(s): I10 - Essential (primary) hypertension (7) History of CVA (cerebrovascular accident) Current Visit: No Status: Chronic Discharge Plan: Home Plan to discharge in: Greater than 2 days - Code Status/Comfort Care Code Status Assessed: Yes Critical Care: Yes Time Spent Managing PTS Care (In Minutes): 35
[2018-06-27] MEDS ORDERED: VANCOMYCIN 1.25 GM in NA CHLORIDE 0.9% 250 ML IVPB SCH (15:00)
[2018-06-27] MEDS: ACETAMINOPHEN 500 MG TAB PO PRN (18:03)
[2018-06-27] MEDS: ARFORMOTEROL TARTRATE 15 MCG/2 ML VIAL.NEB NEB SCH (20:00)
[2018-06-27] MEDS: ALPRAZOLAM 0.5 MG TABLET PO PRN (20:48)
[2018-06-28] MEDS: METHYLPREDNISOLONE 40 MG INJ IV SCH (00:12)
[2018-06-28] MEDS: ACETAMINOPHEN 500 MG TAB PO PRN ×2 (00:53→22:17)
[2018-06-28] MEDS: HYDRALAZINE HCL 20 MG/ML VIAL IV PRN (01:18)
[2018-06-28] MEDS: IPRATROPIUM BROM 0.5MG/2.5ML NEB SCH ×4 (02:00→19:35)
[2018-06-28] MEDS: HYDROCODONE/APAP 10/325 TAB PO PRN ×2 (05:25→15:57)
[2018-06-28 05:37] LABS: Magnesium 2.4 mg/dL (1.8-2.4); Potassium 3.6 mmol/L (3.5-5.1)
[2018-06-28] MEDS: ARFORMOTEROL TARTRATE 15 MCG/2 ML VIAL.NEB NEB SCH ×2 (07:57→19:35)
--- NOTE | 2018-06-28 08:40 | P.PN ---
Subjective Date of Service: 06/28/18 Chief Complaint: Congestive heart failure and COPD Subjective: Improving (Patient is doing much better was extubated yesterday no new complaints active smoker) Review of Systems General: Weakness Respiratory: Shortness of Breath Physical Examination - Vital Signs Temperature: 97.6 F Blood Pressure: 164/76 Pulse: 87 Respirations: 16 Pulse Ox (%): 100 - Physical Exam General: Alert, Oriented x3 Respiratory: Expiratory wheezes Cardiovascular: No edema, Regular rate/rhythm - Studies Microbiology Data (last 24 hrs): 06/26/18 00:27 Catheterized Urine Vail Count - Final <10,000 CFU/ML. 06/26/18 00:27 Catheterized Urine - Final Medications List Reviewed: Yes Assessment & Plan - Problems (Diagnosis) (1) Congestive heart failure Current Visit: Yes Status: Acute Plan: Patient is 62 years of age admitted with pulmonary edema she is doing much better was extubated yesterday I suspect that she also has underlying COPD patient has renal insufficiency active smoker blood pressure is mildly elevated as oxygenation satisfactory continue with bronchodilators of reduce the dose of prednisone change to p.o. Azalia Lorenz cardiology consult transfer to the floor echocardiogram pending
[2018-06-28] MEDS: METOPROLOL XL 50 MG TAB PO SCH (09:00)
[2018-06-28] MEDS ORDERED: FUROSEMIDE 40 MG/4 ML VIAL IV SCH (09:00)
[2018-06-28] MEDS: APIXABAN 5 MG TABLET PO SCH ×2 (10:20→22:17)
[2018-06-28] MEDS: ALPRAZOLAM 0.5 MG TABLET PO PRN (10:20)
[2018-06-28] MEDS: GABAPENTIN 300 MG CAP PO SCH ×3 (10:21→22:18)
[2018-06-28] MEDS: predniSONE 10 MG TAB PO SCH ×2 (10:21→22:17)
[2018-06-28] MEDS: FUROSEMIDE 40 MG TABLET PO SCH (10:22)
[2018-06-28] MEDS: NIFEDIPINE XL 60 MG TABLET PO SCH (10:23)
[2018-06-28] MEDS: METOPROLOL XL 25 MG TAB PO SCH (10:26)
--- NOTE | 2018-06-28 10:52 | ECHO ---
HEIGHT: 5 ft 0 in WEIGHT: 128 lb 4.8 oz DATE OF STUDY: 06/28/[address]: Aubrey Gonzalez MD 2-DIMENSIONAL: YES M.MODE: YES DOPPLER: YES COLOR FLOW: YES TDS: PORTABLE: DEFINITY: BUBBLE STUDY: DIAGNOSIS: RESPIRATORY FAILURE/ POSSIBLE CONGESTIVE HEART FAILURE CARDIAC HISTORY: CATHERIZATION: SURGERY: PROSTHETIC VALVE: PACEMAKER: MEASUREMENTS (cm) DIASTOLIC (NORMALS) SYSTOLIC (NORMALS) IVSd 1.1 (0.6-1.2) LA Diam 3.9 (1.9-4.0) LVEF 79% LVIDd 4.5 (3.5-5.7) LVIDs 2.4 (2.0-3.5) %FS 47% LVPWd 1.2 (0.6-1.2) Ao Diam 3.0 (2.0-3.7) 2 DIMENSIONAL ASSESSMENT: RIGHT ATRIUM: NORMAL LEFT ATRIUM: NORMAL RIGHT VENTRICLE: NORMAL LEFT VENTRICLE: NORMAL TRICUSPID VALVE: NORMAL MITRAL VALVE: NORMAL PULMONIC VALVE: NORMAL AORTIC VALVE: NORMAL PERICARDIAL EFFUSION: NONE AORTIC ROOT: NORMAL LEFT VENTRICULAR WALL MOTION: NORMAL DOPPLER/COLOR FLOW: MILD MITRAL AND TRICUSPID REGURGITATION. MODERATE PULMONARY HYPERTENSION. ESTIMATED RIGHT VENTRICULAR SYSTOLIC PRESSURE 50 mmHg. COMMENTS: NORMAL 2-DIMENSIONAL ECHOCARDIOGRAM. MILD MITRAL AND TRICUSPID REGURGITATION. MODERATE PULMONARY HYPERTENSION. TECHNOLOGIST: GENNY WEAVER
--- NOTE | 2018-06-28 11:43 | RAD REPORT ---
EXAM DESCRIPTION: CT Head Without Intravenous Contrast CT Cervical Spine Without Intravenous Contrast CLINICAL HISTORY: The patient is 62 years old and is Female; PAIN TECHNIQUE: Axial computed tomography images of the head/brain and cervical spine without intravenous contrast. Sagittal and coronal reformatted images were created and reviewed. This CT exam was pe rformed using one or more of the following dose reduction techniques: automated exposure control, a djustment of the mA and/or kV according to patient size, and/or use of iterative reconstruction techn ique. COMPARISON: No relevant prior studies available. FINDINGS: BRAIN: Focal area of encephalomalacia within the right posterior occipital lobe is prese nt. There is patchy hypoattenuation of the deep white matter which is non-specific, but most likely o wing to chronic small vessel ischemic change in a patient of this age group. No intracranial hemorr jessica, mass effect, or midline shift is seen. There are no extra-axial fluid collections. VENTRICLES: Unremarkable. No ventriculomegaly. SKULL: No acute fracture. SINUSES: Unremarkable as visualized. No acute sinusitis. MASTOID AIR CELLS: Unremarkable as visualized. No mastoid effusion. VERTEBRAE: Mild anterolisthesis of C5 on C6 is present likely secondary to facet arthropathy. Th e vertebral body heights are maintained. DISCS/SPINAL CANAL/NEURAL FORAMINA: Extensive multilevel degenerative change of the cervical spi ne is present with osteophyte formation, facet arthropathy, and intravertebral disc space narrowing. Postsurgical change of the lamina and facet on the right from C3 through C6 is present. SOFT TISSUES: The soft tissues are normal. IMPRESSION: 1. No acute intracranial findings. 2. Moderate spondylosis and postsurgical change of the cervical spine without acute findings. EXAM DESCRIPTION: CT Chest Without Intravenous Contrast CT Abdomen and Pelvis Without Intravenous Contrast CLINICAL HISTORY: The patient is 62 years old and is Female; PAIN TECHNIQUE: Axial computed tomography images of the chest, abdomen and pelvis without intravenous con trast. Sagittal and coronal reformatted images were created and reviewed. This CT exam was perfor med using one or more of the following dose reduction techniques: automated exposure control, adjus tment of the mA and/or kV according to patient size, and/or use of iterative reconstruction technique . COMPARISON: No relevant prior studies available. FINDINGS: CHEST: LUNGS: Extensive septal thickening with scattered groundglass opacities throughout the lungs is noted. PLEURAL SPACE: Bilateral pleural effusions are noted, right greater than left. No pneumothorax . HEART: The heart is enlarged. ABDOMEN: LIVER: Homogeneous without focal mass. GALLBLADDER AND BILE DUCTS: Few calcified gallstones are present within the gallbladder. There i s no ductal dilatation. PANCREAS: Fatty replacement of the pancreas is noted. No ductal dilation. SPLEEN: Unremarkable. ADRENALS: Unremarkable. No mass. KIDNEYS AND URETERS: The left kidney is atrophic. The right kidney is hypertrophied. No obstruct ing renal or ureteral calculus is seen. STOMACH AND BOWEL: Postsurgical change consistent with a gastric bypass is noted. The small mindy l is relatively normal in caliber. A large amount of stool is present throughout the colon. There is no mucosal thickening or evidence of bowel obstruction. PELVIS: APPENDIX: No findings to suggest acute appendicitis. BLADDER: The bladder is decompressed with a Lorenz catheter in place. No stones. REPRODUCTIVE: Unremarkable as visualized. CHEST, ABDOMEN and PELVIS: INTRAPERITONEAL SPACE: Unremarkable. No significant fluid collection. No free air. BONES/JOINTS: Multilevel degenerative change of the spine is present. There is no acute fracture of the visualized axial and appendicular skeleton. SOFT TISSUES: The soft tissues are normal. VASCULATURE: Atherosclerosis of the vasculature is present. The vessels are normal in caliber. No aortic aneurysm. LYMPH NODES: Shotty mediastinal adenopathy is noted. TUBES, LINES AND DEVICES: Endotracheal tube is present with the tip superior to the yoan. IMPRESSION: 1. Septal thickening with extensive groundglass opacities throughout the lungs and ass ociated pleural effusions. Groundglass opacification is a nonspecific finding and not necessarily ind icative of significant pathology. However, in the appropriate clinical setting, pulmonary edema, pneu monia, or various causes of alveolitis should be considered. 2. Moderate to large stool burden without obstruction. 3. Cholelithiasis. 4. Chronic findings as detailed above. Electronically signed by: Dianna Milan MD 06/26/2018 1:50 AM CDT Due to temporary technical issues with the PACS/Fluency reporting system, reports are being signed by the in house radiologist as a courtesy to ensure prompt reporting. The interpreting radiologist is f ully responsible for the content of the report.
--- NOTE | 2018-06-28 12:10 | RAD REPORT ---
EXAM DESCRIPTION: XR Chest, 1 View CLINICAL HISTORY: The patient is 62 years old and is Female; S/P NGT Placement TECHNIQUE: Frontal view of the chest. COMPARISON: Chest radiograph performed the same day at 0040 hours. FINDINGS: LUNGS: Extensive opacities throughout the lungs are noted in grossly similar to prior ex am. PLEURAL SPACE: Unremarkable. No pneumothorax. HEART: The cardiac silhouette is stable. MEDIASTINUM: Unremarkable. BONES/JOINTS: The bones and soft tissues are unchanged. TUBES, LINES AND DEVICES: An enteric tube is present with the tip in the gastric body. The end otracheal tube remains between the thoracic inlet and yoan. IMPRESSION: 1. An enteric tube is present with the tip in the gastric body. 2. Otherwise, stable chest. Electronically signed by: Dianna Milan MD 06/26/2018 5:00 AM CDT Due to temporary technical issues with the PACS/Fluency reporting system, reports are being signed by the in house radiologist as a courtesy to ensure prompt reporting. The interpreting radiologist is f ully responsible for the content of the report.
--- NOTE | 2018-06-28 12:11 | RAD REPORT ---
EXAM DESCRIPTION: XR Chest, 1 View CLINICAL HISTORY: The patient is 62 years old and is Female; Dyspnea;Post ETT TECHNIQUE: Frontal view of the chest. COMPARISON: No relevant prior studies available. FINDINGS: LUNGS: Patchy airspace and alveolar opacities are present throughout the lungs. Suggesti on of multiple tiny pulmonary nodules are also noted. PLEURAL SPACE: Unremarkable. No pneumothorax. HEART: Unremarkable. No cardiomegaly. MEDIASTINUM: Unremarkable. BONES/JOINTS: There are degenerative changes of the bones. TUBES, LINES AND DEVICES: An endotracheal tube is present with the tip between the thoracic inle t and yoan. IMPRESSION: Patchy opacities throughout the lungs may be combination of edematous and infectious pro cess. Suggestion of multiple tiny nodules within the left upper lobe which may be secondary to granul omatous disease. However, comparison with prior imaging and follow-up and/or contrasted CT of the [facility] [address] and clinical feasible is recommended. Electronically signed by: Dianna Milan MD 06/26/2018 1:07 AM CDT Due to temporary technical issues with the PACS/Fluency reporting system, reports are being signed by the in house radiologist as a courtesy to ensure prompt reporting. The interpreting radiologist is f ully responsible for the content of the report.
--- NOTE | 2018-06-28 15:37 | RAD REPORT ---
EXAM DESCRIPTION: NM - Vent Perfusion VQ Scan - 06/28/2018 3:21 pm CLINICAL HISTORY: r/o PE Chest pain, shortness of breath COMPARISON: Chest Single View dated 06/27/2018 TECHNIQUE: 20.4mCi Xe-133 gas inhaled and 7.5mCi Tc-MAA IV. Planar ventilation scan was performed in posterior projection after Xe-133 gas inhalation (wash-in, e quilibrium, and wash-out phases) followed by perfusion scan with Tc-MAA IV in multiple projections. Examination is correlated with recent chest radiograph. FINDINGS: Normal ventilation with appropriate wash-out and mild air-trapping. No mismatched segmental perfusion defect. IMPRESSION: Low probability of acute pulmonary embolism. Mild COPD physiology.
--- NOTE | 2018-06-28 16:10 | CON ---
History Of Present Illness: Ms. Greenwood is 62. She came to the hospital with dyspnea. She had diffu se pulmonary infiltrates. They are slowly getting better. I am asked to see if we think she has con gestive heart failure. The patient has not had congestive heart failure in the past. She seemed to get her problem with her respiratory difficulty all at once and her N-terminal BNP is markedly elevat ed. An echocardiogram today shows her ejection fraction is normal. She has very mild regurgitant le sions in tricuspid aortic valve. She has a little bit of pulmonary hypertension. The estimated PA s ystolic pressure is 50 mmHg, so on the borderline between mild and moderate. She has no previous his tory of heart trouble. No history of myocardial infarction or stroke. Her EKG looks normal. Echoca rdiogram looks normal. Her chest x-ray shows diffuse infiltrates and those are slowly getting better . Laboratory Exam: Revealed a low procalcitonin level or normal. Lactic acid level was a little bit h igh. I believe it has probably come down to normal. She never had much of a respiratory acidosis. I wonder if all of this is due to a viral infection or an unusual form of ARDS, basically the same th ing would possibly be attributed to a virus. Microbiology shows normal blood cultures, normal urine, no culture was done. An influenza screening serology is normal so it is a bit of a mystery. It is conceivable. She had a pulmonary embolus, but that usually does not result in diffuse pulmonary infi ltrates. As an outpatient, she takes Eliquis making the likelihood of a pulmonary embolus even less, so we have an unknown cause of pulmonary edema with an elevated N-terminal proBNP, but with a normal ejection fraction and no significant valvular heart disease. Thank you very much for your kind referral of Ms. Greenwood. I will follow her with you. KAREL Voice ID: [id number] Report ID: [id number]
--- NOTE | 2018-06-28 18:04 | P.PN ---
Subjective Date of Service: 06/28/18 Chief Complaint: Congestive heart failure and COPD Patient extubated Denies shortness of breath , saturating well on room air Patient had just been done in the morning EKG was done and no changes,cp resolved Review of Systems 10-point ROS is otherwise unremarkable Physical Examination - Vital Signs Temperature: 98.2 F Blood Pressure: 124/71 Pulse: 85 Respirations: 19 Pulse Ox (%): 100 - Physical Exam General: Alert, Oriented x3 HEENT: Atraumatic, Normocephalic, PERRLA Neck: Supple, JVD not distended Respiratory: Clear to auscultation bilaterally, Normal air movement Cardiovascular: Normal pulses, Regular rate/rhythm, Normal S1 S2 Gastrointestinal: Normal bowel sounds, Soft and benign, Non-distended Musculoskeletal: No clubbing, No erythema, No tenderness Integumentary: No rashes - Studies Microbiology Data (last 24 hrs): 06/26/18 00:27 Catheterized Urine [place] Count - Final <10,000 CFU/ML. 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 (4) Atrial fibrillation Onset Date: 04/11/16 Current Visit: No Status: Chronic Qualifiers: Atrial fibrillation type: chronic Qualified Code(s): I48.2 - Chronic atrial fibrillation (5) Diabetes mellitus Onset Date: 04/11/16 Current Visit: No Status: Chronic Qualifiers: Diabetes mellitus type: type 2 Diabetes mellitus prison insulin use: without prison use Diabetes mellitus complication status: without complication Qualified Code(s): E11.9 - Type 2 diabetes mellitus without complications (6) HTN (hypertension) Onset Date: 03/20/17 Current Visit: No Status: Chronic Qualifiers: Hypertension type: essential hypertension Qualified Code(s): I10 - Essential (primary) hypertension (7) Hypertension Onset Date: 04/11/16 Current Visit: No Status: Chronic Qualifiers: Hypertension type: essential hypertension Qualified Code(s): I10 - Essential (primary) hypertension - Plan Acute respiratory failure most likely due to interstitial pneumonia versus volume overload Echo showed normal ejection fraction IV antibiotics discontinued Lasix 40 q.day V/Q scan low probability for PE Patient was successfully extubated Continue nebulizers and steroid tapering PT OT DVT prophylaxis Discharge Plan: Home Plan to discharge in: 48 Hours
[2018-06-29] MEDS: IPRATROPIUM BROM 0.5MG/2.5ML NEB SCH ×4 (02:18→20:29)
[2018-06-29] MEDS: HYDROCODONE/APAP 10/325 TAB PO PRN ×2 (05:43→17:37)
[2018-06-29 06:32] LABS: Absolute Lymphocytes (CBC) 1.1 K/uL (0.7-4.9); Absolute Monocytes 0.6 K/uL (0.1-1.3); Absolute Neutrophil 9.2 K/uL (1.8-8.0); Basophils % 0.1 % (0-1.3); Eosinophils % 0.1 % (0-4.4); Hematocrit 31.7 % (36.0-45.0); Lymphocytes % 9.7 % (15.3-44.8); MPV 7.1 fL (7.6-11.3); Monocytes % 5.3 % (3.3-12.3); RBC Red Blood Cell Count 3.91 M/uL (3.86-4.86)
[2018-06-29 06:47] LABS: Albumin 2.7 g/dL (3.4-5.0); Bilirubin Total 0.3 mg/dL (0.2-1.0); Potassium 3.9 mmol/L (3.5-5.1); Protein, Total 6.6 g/dL (6.4-8.2)
[2018-06-29] MEDS: ARFORMOTEROL TARTRATE 15 MCG/2 ML VIAL.NEB NEB SCH ×2 (07:45→20:29)
--- NOTE | 2018-06-29 09:18 | RAD REPORT ---
EXAM DESCRIPTION: US - Renal Ultrasound-Complete - 06/29/2018 8:41 am CLINICAL HISTORY: Acute renal insufficiency COMPARISON: March 2018 FINDINGS: The right kidney measures 8 cm with an increased echotexture. The left kidney measures 8 cm with an increased echotexture. A 1 centimeter left renal cyst Areas of renal cortical thinning Hydronephrosis is not seen. No gross abnormality of bladder is seen IMPRESSION: Increased renal echotexture consistent with parenchymal disease
[2018-06-29] MEDS ORDERED: ONDANSETRON 4 MG/2 ML VIAL IV ONE (09:36)
[2018-06-29] MEDS: HYDRALAZINE HCL 20 MG/ML VIAL IV PRN ×2 (09:49→17:59)
[2018-06-29] MEDS: NIFEDIPINE XL 60 MG TABLET PO SCH (09:50)
[2018-06-29] MEDS: FUROSEMIDE 40 MG TABLET PO SCH (09:50)
[2018-06-29] MEDS: GABAPENTIN 300 MG CAP PO SCH ×3 (09:50→21:20)
[2018-06-29] MEDS: METOPROLOL XL 25 MG TAB PO SCH (09:50)
[2018-06-29] MEDS: APIXABAN 5 MG TABLET PO SCH ×2 (09:50→21:20)
[2018-06-29] MEDS: predniSONE 10 MG TAB PO SCH ×2 (09:51→21:27)
[2018-06-29] MEDS ORDERED: NA CHLORIDE 0.9% 1,000 ML IV SCH (12:00)
[2018-06-29] MEDS ORDERED: CARVEDILOL 12.5 MG TAB PO ONE (12:55)
--- NOTE | 2018-06-29 13:43 | P.PN ---
Subjective Date of Service: 06/29/18 Chief Complaint: Congestive heart failure and COPD Subjective: No new changes, Doing well pt seen and examined ,no overnight events denied SOB or CP discussed with nephrology management plan Review of Systems 10-point ROS is otherwise unremarkable Physical Examination - Vital Signs Temperature: 97.4 F Blood Pressure: 187/91 Pulse: 87 Respirations: 16 Pulse Ox (%): 99 - Physical Exam General: Alert, Oriented x3 HEENT: Normocephalic, PERRLA Neck: JVD not distended Respiratory: Clear to auscultation bilaterally, Normal air movement Cardiovascular: No edema, Regular rate/rhythm, Normal S1 S2 Gastrointestinal: Soft and benign, Non-distended, No tenderness Integumentary: No rashes Neurological: Normal speech, Normal strength at 5/5 x4 extr - Studies Medications List Reviewed: Yes Assessment And Plan - Current Problems (Diagnosis) (1) Bilateral pneumonia Current Visit: Yes Status: Acute (2) Respiratory failure Current Visit: Yes Status: Resolved Qualifiers: Chronicity: acute Respiratory failure complication: hypoxia Qualified Code(s): J96.01 - Acute respiratory failure with hypoxia (3) Atrial fibrillation Onset Date: 04/11/16 Current Visit: No Status: Chronic Qualifiers: Atrial fibrillation type: chronic Qualified Code(s): I48.2 - Chronic atrial fibrillation (4) Diabetes mellitus Onset Date: 04/11/16 Current Visit: No Status: Chronic Qualifiers: Diabetes mellitus type: type 2 Diabetes mellitus residential insulin use: without residential use Diabetes mellitus complication status: without complication Qualified Code(s): E11.9 - Type 2 diabetes mellitus without complications (5) HTN (hypertension) Onset Date: 03/20/17 Current Visit: No Status: Chronic Qualifiers: Hypertension type: essential hypertension Qualified Code(s): I10 - Essential (primary) hypertension (6) Hypertension Onset Date: 04/11/16 Current Visit: No Status: Chronic Qualifiers: Hypertension type: essential hypertension Qualified Code(s): I10 - Essential (primary) hypertension - Plan Acute respiratory failure most likely due to pulmonary HTN versus volume overload Echo showed normal ejection fraction with pulmopnary htn IV antibiotics discontinued Lasix 40 q.day dced V/Q scan low probability for PE Patient was successfully extubated Continue nebulizers and steroid tapering ariella on CKD could be due to over diuresis VS ATN careful IVF hydration nephrology consult appreciated renal US no hydronephrosis avoid nephrotoxic meds afib continue eliquis uncontrolled htn started on procardia by nephrology hydralazine prn will consider adding BB if not well controlled PT OT DVT prophylaxis with eliquis
[2018-06-29 14:28] LABS: Urine Appearance CLEAR; Urine Bilirubin NEGATIVE (NEG); Urine Blood NEGATIVE (NEG); Urine Color YELLOW; Urine Glucose NEGATIVE (NEG); Urine Protein NEGATIVE (NEG); Urine Specific Gravity <=1.005 (1.005-1.030); Urine Urobilinogen 0.2 mg/dL (0.2-1.0)
[2018-06-29 14:29] LABS: Urine Microscopic Reflex NO UMIC
--- NOTE | 2018-06-29 17:48 | CON ---
Date of Consultation: 06/29/2018 Consulting Physician: Dr. Keane. Reason For Consultation: Elevated BUN and creatinine, fluid management. History Of Present Illness: This is a 62-year-old female with significant past medical history of re current UTI; nephrolithiasis, status post lithotripsy back in 2009; hypertension; AFib; GERD; gastric bypass; chronic kidney disease, status post acute kidney injury back in March 2018. At that time, creatinine jumped to 3.5 with GFR down to 13, complicated with hyperkalemia. According to the patie nt, [facility]. At that time, the patient was treated conservativ tila and discharged, follow up with her primary care, kidney function according to her improved. GFR up to 30. Then 2 weeks ago, her kidney function has declined to 19. The patient started having shor tness of breath gradually. For that reason, the patient came to the hospital, found to have severe a nasarca, fluid overload. The patient was started on diuresis. CT showed interstitial pneumonia. e patient was started on antibiotic. Kidney function upon admission, creatinine was 2.3, improved do wn to 1.8, then gradually started picking up again, currently 2.1. GFR on admission was 21, improved to 28, right now down to 23. Reviewing the record, there is no IV contrast. The only started medic ation was Lasix. Edema has completely resolved. The patient had history unclear of [place]'s accord ing to the patient also when she was evaluated on the [place], explained to her that her ferritin wa s elevated and she needs to follow up with Hematology. The patient denied taking any nonsteroidal. No IV contrast. Past Medical History: Includes: 1.Questionable Rosalio's. 2.AFib with pulmonary hypertension, moderate. 3.TIA. 4.Bariatric surgery. 5.Nephrolithiasis, last treatment back in 2009. 6.Chronic kidney disease with acute kidney injury back in March 2018. At that time, creatinine up to 3.5 with GFR down to 13. Currently, baseline creatinine on 2s, GFR around 30. 7.Edema. Home Medications: Include Eliquis, gabapentin, omeprazole, metoprolol, bupropion, amlodipine, flucon azole. Family History: Positive for hypertension. Social History: Denies smoking. Denies drinking. Denies drug abuse. Past Surgical History: Includes: 1.Lithotripsy. 2.Bariatric surgery. 3.Gastric bypass. Review of Systems: Head and Neck: No red eye. No ear pain. GI: No nausea. No vomiting. : No polyuria. No dysuria. No hematuria. [employer] PROF[employer]: No vaginal discharge. Respiratory: Has shortness breath. Cardiovascular: Has leg swelling. Endocrine: No polydipsia. Skin: No rash. Neuro: No neuropathy. Musculoskeletal: Has low back pain. Physical Examination: Vital Signs: When I saw the patient, blood pressure of 204/88, pulse of 83. Afebrile. Chest: Clear to auscultation. Heart: S1, S2. Regular. Abdomen: Soft, nontender. Extremities: No edema. Laboratory Data: Sodium 143, potassium 3.9, bicarb 26, BUN 46, creatinine 2.1, GFR of 23, calcium 8. 3, magnesium 2.4, albumin 3.4. H and H 10.3/31.7, platelets 410. Current Medications: The patient on include hydralazine, metoprolol 25 b.i.d., nifedipine, alprazola m, gabapentin, Lasix, prednisone. Assessment And Plan: 1.Acute kidney injury on chronic kidney disease stage 3-B/4 with secondary small size kidney seconda ry to hypertension nephrosclerosis. Given the presence of anemia and the history of increasing on e ferritin, we are going to need to rule out any interstitial kidney disease. Looked to me the patie nt on the dry side. I am going to discontinue the Lasix for the time being, start the patient on gen tle hydration. We will send for SPEP and anemia workup, and we will follow up. 2.Hypertension, uncontrolled. Given the pulmonary hypertension, I am going to increase her calcium channel beatris, and we will start the patient on hydralazine, and we will follow up. 3.Anemia with the presence of renal failure. We will send for serology. 4.Interstitial lung disease/pneumonia. Follow up with Pulmonary. JANNETH/ASHLEY Voice ID: [id number] Report ID: [id number]
[2018-06-29] MEDS ORDERED: NIFEdipine 10 MG CAP PO ONE (18:47)
[2018-06-29] MEDS ORDERED: ALBUTEROL 2.5 MG/3 ML NEB SOL NEB PRN (19:00)
[2018-06-29] MEDS ORDERED: NACHLORIDE 0.45% 1,000 ML IV SCH (19:00)
[2018-06-29] MEDS: ALPRAZOLAM 0.5 MG TABLET PO PRN (21:20)
[2018-06-29] MEDS: ACETAMINOPHEN 500 MG TAB PO PRN (21:20)
[2018-06-30] MEDS: IPRATROPIUM BROM 0.5MG/2.5ML NEB SCH ×4 (00:35→20:00)
[2018-06-30 06:27] LABS: Absolute Lymphocytes (CBC) 1.6 K/uL (0.7-4.9); Absolute Monocytes 0.9 K/uL (0.1-1.3); Absolute Neutrophil 5.6 K/uL (1.8-8.0); Basophils % 0.2 % (0-1.3); Eosinophils % 0.3 % (0-4.4); Hematocrit 35.4 % (36.0-45.0); Lymphocytes % 19.4 % (15.3-44.8); MPV 7.1 fL (7.6-11.3); RBC Red Blood Cell Count 4.28 M/uL (3.86-4.86)
[2018-06-30 07:34] LABS: ALT/SGPT 15 U/L (12-78); AST/SGOT 9 U/L (15-37); Albumin 3.1 g/dL (3.4-5.0); Alkaline Phosphatase 105 U/L (45-117); BUN Blood Urea Nitrogen 40 mg/dL (7-18); Bicarbonate 29 mmol/L (21-32); Bilirubin Total 0.3 mg/dL (0.2-1.0); Ferritin 16.9 ng/mL (8-388); Folic Acid, (Folate) 10.1 ng/mL (3.1-17.5); Glucose Level 86 mg/dL (74-106); Phosphorus 2.9 mg/dL (2.5-4.9); Potassium 4.8 mmol/L (3.5-5.1); Protein, Total 7.2 g/dL (6.4-8.2); Sodium Level 139 mmol/L (136-145); Transferrin 342 mg/dL (200-360)
[2018-06-30] MEDS: ARFORMOTEROL TARTRATE 15 MCG/2 ML VIAL.NEB NEB SCH ×2 (08:18→20:00)
[2018-06-30] MEDS: GABAPENTIN 300 MG CAP PO SCH ×3 (08:40→21:57)
[2018-06-30] MEDS: APIXABAN 5 MG TABLET PO SCH ×2 (08:40→21:57)
[2018-06-30] MEDS: predniSONE 10 MG TAB PO SCH ×2 (08:41→21:56)
[2018-06-30] MEDS: NIFEDIPINE XL 90 MG TABLET PO SCH (08:41)
[2018-06-30] MEDS ORDERED: CARVEDILOL 6.25 MG TAB PO SCH (09:00)
[2018-06-30] MEDS ORDERED: CALCITROL 0.25 MCG CAP PO SCH (13:00)
[2018-06-30] MEDS: HYDRALAZINE HCL 25 MG TABLET PO SCH ×2 (13:20→21:57)
[2018-06-30] MEDS ORDERED: NIFEDIPINE XL 90 MG TABLET PO ONE (14:00)
--- NOTE | 2018-06-30 16:38 | P.PN ---
Subjective Date of Service: 06/30/18 Primary Care Provider: Dr. King([place]) Chief Complaint: Congestive heart failure and COPD Subjective: Improving Physical Examination - Vital Signs Temperature: 97.6 F Blood Pressure: 159/81 Pulse: 91 Respirations: 18 Pulse Ox (%): 100 - Physical Exam General: Alert, In no apparent distress, Oriented x3, Cooperative HEENT: Atraumatic Neck: Supple Respiratory: Clear to auscultation bilaterally, Normal air movement Cardiovascular: Normal pulses, Regular rate/rhythm Gastrointestinal: Normal bowel sounds, Soft and benign, Non-distended Musculoskeletal: No erythema, No tenderness, No warmth Integumentary: No tenderness/swelling, No erythema, No warmth, No cyanosis Neurological: Normal speech, Normal strength at 5/5 x4 extr, Normal tone, Normal affect - Studies Medications List Reviewed: Yes Assessment & Plan Discharge Plan: Home Plan to discharge in: 24 Hours Physician Review Additional Text: Impression: Acute on chronic respiratory failure secondary to COPD exacerbation Hypertension Acute on chronic renal disease, stage IV Chronic atrial fibrillation on chronic anti coagulation therapy Depression Neuropathy Plan: Acute on chronic respiratory failure secondary to COPD exacerbation: Patient has done well. Anticipate discharge tomorrow if renal function improved. At discharge patient will continue with Advair 250 mcg 1 puff twice daily and Pro air 2 puffs 3 times a day as needed for shortness of breath. Patient will continue with prednisone 10 mg 1 pill twice daily for 5 days then 1 pill once daily for 5 days. Recommend to follow up with pulmonology in 1-2 weeks to follow up this hospitalization. Pulmonology to further address her COPD and pulmonary hypertension. Hypertension: Medications adjusted during her stay. At discharge Lotrel, metoprolol will be discontinued. New medications include carvedilol and Procardia. At discharge she will continue with carvedilol 12.5 mg 1 pill twice daily and Procardia 90 mg daily. Recommend a maintain blood pressures less 150/ 80. Further adjustment can be done by her PCP. Acute on chronic renal disease, stage IV: Recheck lab tomorrow. If improved patient can be discharged home. Case discussed with nephrology. Recommend no further use of nonsteroidal anti-inflammatories. Future medications will need to be renally dose. Recommend to recheck lab-BMP in 1-2 weeks to monitor progress. Recommend a follow up with nephrology in 1-2 weeks to further address her condition. Chronic atrial fibrillation on chronic anti coagulation therapy: Continue with medication carvedilol 12.5 mg daily and Eliquis 5 mg 1 pill twice daily. Patient to follow up with cardiology as directed. Depression: Continue with her medication Bupropion daily and alprazolam as needed for anxiety. Neuropathy: Continue with Neurontin 600 mg 1 pill 3 times a day. Patient will require home health physical therapy at discharge Time Spent Managing Pts Care (In Minutes): 55
[2018-06-30] MEDS: HYDRALAZINE HCL 20 MG/ML VIAL IV PRN (17:32)
[2018-06-30] MEDS: CARVEDILOL 12.5 MG TAB PO SCH (21:57)
[2018-07-01] MEDS: HYDROCODONE/APAP 10/325 TAB PO PRN (01:36)
[2018-07-01] MEDS: IPRATROPIUM BROM 0.5MG/2.5ML NEB SCH ×2 (02:00→08:23)
[2018-07-01] MEDS: ALPRAZOLAM 0.5 MG TABLET PO PRN (03:12)
[2018-07-01 05:40] VITALS: BMI 24.6
[2018-07-01] MEDS: HYDRALAZINE HCL 20 MG/ML VIAL IV PRN (05:45)
[2018-07-01 06:47] LABS: Albumin 2.9 g/dL (3.4-5.0); Phosphorus 3.1 mg/dL (2.5-4.9); Potassium 3.9 mmol/L (3.5-5.1)
[2018-07-01] MEDS: ARFORMOTEROL TARTRATE 15 MCG/2 ML VIAL.NEB NEB SCH (08:23)
[2018-07-01] MEDS ORDERED: POTASSIUM CL SA 10 MEQ TAB PO ONE (09:00)
[2018-07-01] MEDS: CARVEDILOL 12.5 MG TAB PO SCH (09:49)
[2018-07-01] MEDS: predniSONE 10 MG TAB PO SCH (09:49)
[2018-07-01] MEDS: NIFEDIPINE XL 90 MG TABLET PO SCH (09:50)
[2018-07-01] MEDS: HYDRALAZINE HCL 25 MG TABLET PO SCH (09:51)
[2018-07-01] MEDS: GABAPENTIN 300 MG CAP PO SCH (09:51)
[2018-07-01] MEDS: APIXABAN 5 MG TABLET PO SCH (09:52)
--- NOTE | 2018-07-01 10:05 | P.DS ---
Admission Date: 06/26/18 Discharge Date: 07/01/18 Primary Care Provider: Dr. King([place]) Disposition: DC HOME/HOME HEALTH CARE Discharge Condition: GOOD Reason for Admission: Congestive heart failure and COPD Consultations: Pulmonary-Dr. Gonzalez Nephrology-Dr. Lora Procedures: CT scan: IMPRESSION: 1. Septal thickening with extensive groundglass opacities throughout the lungs and associated pleural effusions. Groundglass opacification is a nonspecific finding and not necessarily indicative of significant pathology. However, in the appropriate clinical setting, pulmonary edema, pneumonia, or various causes of alveolitis should be considered. 2. Moderate to large stool burden without obstruction. 3. Cholelithiasis. 4. Chronic findings as detailed above V/Q scan: FINDINGS: Normal ventilation with appropriate wash-out and mild air-trapping. No mismatched segmental perfusion defect. IMPRESSION: Low probability of acute pulmonary embolism. Mild COPD physiology. ECHO: EF 79% LEFT VENTRICULAR WALL MOTION: NORMAL DOPPLER/COLOR FLOW: MILD MITRAL AND TRICUSPID REGURGITATION. MODERATE PULMONARY HYPERTENSION. ESTIMATED RIGHT VENTRICULAR SYSTOLIC PRESSURE 50 mmHg. COMMENTS: NORMAL 2-DIMENSIONAL ECHOCARDIOGRAM. MILD MITRAL AND TRICUSPID REGURGITATION. MODERATE PULMONARY HYPERTENSION. Renal US: FINDINGS: The right kidney measures 8 cm with an increased echotexture. The left kidney measures 8 cm with an increased echotexture. A 1 centimeter left renal cyst Areas of renal cortical thinning Hydronephrosis is not seen. 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 Patient found to have COPD exacerbation. Patient was admitted for treatment. Patient with underlying acute on chronic renal disease. This was also addressed during her hospital stay. Hospital Course: Patient presented with acute on chronic respiratory failure secondary to COPD exacerbation. During the course of her stay her condition improved. Patient was weaned off oxygen. Patient seen and evaluated by pulmonology. PEG care infection was suspected. This was ruled out. Patient was started on COPD medication. At discharge patient will continue with Advair 250 mcg 1 puff twice daily and Pro air 2 puffs 3 times a day as needed for shortness of breath. Patient will continue with prednisone 10 mg 1 pill twice daily for 5 days then 1 pill once daily for 5 days. Recommend to follow up with pulmonology in 1-2 weeks to follow up this hospitalization. Pulmonology to further address her COPD and pulmonary hypertension. Patient with moderate pulmonary hypertension. Echocardiogram performed. Medications were adjusted in her stay. At discharge Lotrel, metoprolol has been discontinued. New medications include carvedilol and Procardia. At discharge she will continue with carvedilol 12.5 mg 1 pill twice daily and Procardia 90 mg daily. Recommend a maintain blood pressures less 150/80. Further adjustment can be done by her PCP. Patient with acute on chronic renal disease, stage 3B/4 with small size kidney. Patient was evaluated for a interstitial kidney disease. Lab pending at discharge. Nephrology was consulted. Patient appeared dehydrated. Patient receive IV fluids with improvement of renal function. Nephrology will follow up on lab. Recommend no further use of nonsteroidal anti-inflammatories. Future medications will need to be renally dosed. Recommend to recheck lab-BMP in 1-2 weeks. Recommend to follow up with nephrology in 1-2 weeks to follow up on lab and her chronic renal disease. Patient with chronic atrial fibrillation on chronic anti coagulation therapy. At discharge she will continue with carvedilol 12.5 mg 1 pill twice daily and Eliquis 5 mg 1 pill twice daily. Patient to follow up with cardiology as directed. Patient with depression. She will continue with her medication of Bupropion daily and alprazolam as needed for anxiety. Patient with underlying neuropathy. She will continue with Neurontin 600 mg 1 pill 3 times a day. Vital Signs/Physical Exam: Temp Pulse Resp BP Pulse Ox 97.3 F 88 16 178/86 H 98 07/01/18 08:00 07/01/18 09:50 07/01/18 08:00 07/01/18 09:50 07/01/18 08:00 General: Alert, In no apparent distress, Oriented x3, Cooperative HEENT: Atraumatic Neck: Supple Respiratory: Clear to auscultation bilaterally, Normal air movement Cardiovascular: Normal pulses, Regular rate/rhythm Gastrointestinal: Normal bowel sounds, Soft and benign, Non-distended, No tenderness, No masses, No rebound, No guarding Musculoskeletal: No erythema, No tenderness, No warmth Integumentary: No tenderness/swelling, No erythema, No warmth, No cyanosis Neurological: Normal speech, Normal strength at 5/5 x4 extr, Normal tone, Normal affect Laboratory Data at Discharge: WBC 8.2 K/uL (4.3-10.9) D 06/30/18 05:52 Hgb 11.1 g/dL (12.0-15.0) L 06/30/18 05:52 Hct 35.4 % (36.0-45.0) L 06/30/18 05:52 Plt Count 419 K/uL (152-406) H 06/30/18 05:52 PT 16.5 SECONDS (9.5-12.5) H 06/26/18 00:01 INR 1.42 06/26/18 00:01 Sodium 139 mmol/L (136-145) 07/01/18 05:48 Potassium 3.9 mmol/L (3.5-5.1) 07/01/18 05:48 BUN 38 mg/dL (7-18) H 07/01/18 05:48 Creatinine 1.53 mg/dL (0.55-1.3) H 07/01/18 05:48 Glucose 114 mg/dL (74-106) H 07/01/18 05:48 Phosphorus 3.1 mg/dL (2.5-4.9) 07/01/18 05:48 Magnesium 2.4 mg/dL (1.8-2.4) 06/28/18 04:30 Total Bilirubin 0.3 mg/dL (0.2-1.0) 06/30/18 05:52 AST 9 U/L (15-37) L 06/30/18 05:52 ALT 15 U/L (12-78) 06/30/18 05:52 Alkaline Phosphatase 105 U/L (45-117) 06/30/18 05:52 Lipase 182 U/L (73-393) 06/26/18 00:01 Home Medications: ALPRAZolam [Alprazolam] 1 pill PO TID PRN 06/26/18 Apixaban [Eliquis] 5 mg PO BID 06/26/18 Bupropion HCl [Bupropion Xl] 300 mg PO DAILY 06/26/18 Cyanocobalamin (Vitamin B-12) [Cyanocobalamin Injection] 1 ml IM SEECOM Gabapentin 1 tab PO TID 06/26/18 Albuterol Sulfate [Proair Hfa] 2 puff IH TID PRN #1 hfa.aer.ad 06/30/18 Carvedilol [Coreg] 12.5 mg PO BID #60 tab 06/30/18 Fluticasone/Salmeterol [Advair 250-50 Diskus] 1 each IH BID #1 blst.w.dev Nifedipine [Procardia Xl] 90 mg PO DAILY #30 tab.er.24 06/30/18 predniSONE [Deltasone*] 10 mg PO SEECOM #15 tab 06/30/18 New Medications: Albuterol Sulfate [Proair Hfa] 2 puff IH TID PRN #1 hfa.aer.ad PRN Reason: Shortness Of Breath Carvedilol [Coreg] 12.5 mg PO BID #60 tab Fluticasone/Salmeterol [Advair 250-50 Diskus] 1 each IH BID #1 blst.w.dev Nifedipine [Procardia Xl] 90 mg PO DAILY #30 tab.er.24 predniSONE [Deltasone*] 10 mg PO SEECOM #15 tab Patient Discharge Instructions: 1. Patient will follow up with a PCP-Dr. King ([place]) in 1 week to follow up this hospitalization. 2. Patient presented with acute on chronic respiratory failure secondary to COPD exacerbation. During the course of her stay her condition improved. Patient was weaned off oxygen. Patient seen and evaluated by pulmonology. PEG care infection was suspected. This was ruled out. Patient was started on COPD medication. At discharge patient will continue with Advair 250 mcg 1 puff twice daily and Pro air 2 puffs 3 times a day as needed for shortness of breath. Patient will continue with prednisone 10 mg 1 pill twice daily for 5 days then 1 pill once daily for 5 days. Recommend to follow up with pulmonology in 1-2 weeks to follow up this hospitalization. Pulmonology to further address her COPD and pulmonary hypertension. 3. Patient with moderate pulmonary hypertension. Echocardiogram performed. Medications were adjusted in her stay. At discharge Lotrel, metoprolol has been discontinued. New medications include carvedilol and Procardia. At discharge she will continue with carvedilol 12.5 mg 1 pill twice daily and Procardia 90 mg daily. Recommend a maintain blood pressures less 150/80. Further adjustment can be done by her PCP. 4. Patient with acute on chronic renal disease, stage 3B/4 with small size kidney. Patient was evaluated for a interstitial kidney disease. Lab pending at discharge. Nephrology was consulted. Patient appeared dehydrated. Patient receive IV fluids with improvement of renal function. Nephrology will follow up on lab. Recommend no further use of nonsteroidal anti-inflammatories. Future medications will need to be renally dosed. Recommend to recheck lab-BMP in 1-2 weeks. Recommend to follow up with nephrology in 1-2 weeks to follow up on lab and her chronic renal disease. 5. Patient with chronic atrial fibrillation on chronic anti coagulation therapy. At discharge she will continue with carvedilol 12.5 mg 1 pill twice daily and Eliquis 5 mg 1 pill twice daily. Patient to follow up with cardiology as directed. 6. Patient with depression. She will continue with her medication of Bupropion daily and alprazolam as needed for anxiety. 7. Patient with underlying neuropathy. She will continue with Neurontin 600 mg 1 pill 3 times a day. 8. Patient will continue with home health and physical therapy at discharge. Diet: AHA Activity: Fall precautions Time spent managing pt's care (in minutes): 55
[2018-07-01 10:46] VITALS: O2SAT 98
[2018-07-01 13:19] VITALS: BP 158/75; TEMP 97
--- NOTE | 2018-07-02 08:15 | PN ---
Date of Progress Note: 06/30/2018 Subjective: The patient is doing better. No nausea. No vomiting. Physical Examination: Vital Signs: When I saw the patient, blood pressure 186/87, pulse of 88. The patient had good urine output of 1350. Chest: Clear to auscultation. Heart: S1, S2. Regular. Abdomen: Soft, nontender. Extremities: No edema. Laboratory Data: H and H 11.1/35.4, platelets 419. Sodium 139, , bicarb 29, BUN _55, GFR of 28, calcium 8.6. SPEP still pending. B12 and folate within normal limits. PTH 306, cortisol of 19, protein-creatinine ratio is +3 protein. Current Medications: The patient on include carvedilol 12.5 b.i.d., nifedipine 90, gabapentin, prednisone. Assessment And Plan: 1. Acute kidney injury secondary to prerenal on chronic kidney disease, on the recovery I cannot continue current hydration. We will decrease IV fluids to discontinue. 2. Severe disproportion in the protein-creatinine ratio from the quantification of protein-creatinine ratio. For that reason, I am going to follow up SPEP. We will add UPEP and we will monitor the patient. 3. Iron deficiency anemia. H and H being stable. I do not see the need for IV iron for the time being. 4. Gastroenteritis. Continue symptomatic treatment. 5. Pulmonary hypertension. Continue calcium channel beatris. 6. Edema, resolved. ROEL Voice ID: [id number] Report ID: [id number] MTDD
[2018-07-03 21:17] LABS: Albumin, (SPE) 3.3 g/dL (3.8-4.8); Alpha-1-Globulins 0.4 g/dL (0.2-0.3); Alpha-2-Globulins 0.9 g/dL (0.5-0.9); Gamma Globulins 0.8 g/dL (0.8-1.7); INTERPRETATION REPORT
--- NOTE | 2018-07-06 10:53 | EKG ---
Test Date: 2018-06-26 Test Time: 00:29:21 Chair Lift Operator: ROLA MEASUREMENT RESULTS: Intervals: Rate: 69 [place]: 164 QRSD: 94 QT: 406 QTc: 435 [place]: P: -22 [place]: 164 QRS: 47 T: 54 INTERPRETIVE STATEMENTS: Normal sinus rhythm Normal ECG Compared to ECG 04/10/2018 07:01:18 Sinus bradycardia no longer present Sinus arrhythmia no longer present Electronically Signed On 06-26-18 08:17:03 CDT by Tom Keyes
--- NOTE | 2018-07-06 11:03 | EKG ---
Test Date: 2018-06-28 Test Time: 09:41:33 Jewelry Sales Representative: ARMANDO MEASUREMENT RESULTS: Intervals: Rate: 89 [place]: 154 QRSD: 82 QT: 390 QTc: 474 [place]: P: 68 [place]: 154 QRS: 42 T: 61 INTERPRETIVE STATEMENTS: Normal sinus rhythm Normal ECG Compared to ECG 06/26/2018 00:29:21 No significant changes Electronically Signed On 06-28-18 13:48:52 CDT by Tom Keyes
== END 2018-07-01 12:45 | disposition home health service (06) | DRG 208 ==
LOC: ER 23:59 → ERHOLD 06-26 01:17 → 3RD-ICU 06-26 03:05 → 2ND 06-28 18:20
PROVIDERS: ADMIT Hospitalist; ATTEND Family Medicine
PROC: 5A1945Z Respiratory Ventilation, 24-96 Consecutive Hours (ICD-10-PCS; principal; 2018-06-26)
PROC: 0BH17EZ Insertion of Endotracheal Airway into Trachea, Via Natural or Artificial Opening (ICD-10-PCS; 2018-06-26)
PROC: 0DH67UZ Insertion of Feeding Device into Stomach, Via Natural or Artificial Opening (ICD-10-PCS; 2018-06-26)
PROC: 3E0G76Z Introduction of Nutritional Substance into Upper GI, Via Natural or Artificial Opening (ICD-10-PCS; 2018-06-27)
DX: J44.1 Chronic obstructive pulmonary disease with (acute) exacerbation (principal); J96.22 Acute and chronic respiratory failure with hypercapnia; J96.21 Acute and chronic respiratory failure with hypoxia; J18.9 Pneumonia, unspecified organism; E27.1 Primary adrenocortical insufficiency; N17.9 Acute kidney failure, unspecified; N18.4 Chronic kidney disease, stage 4 (severe); I27.20 Pulmonary hypertension, unspecified; I48.2 Chronic atrial fibrillation; Z79.01 Long term (current) use of anticoagulants; F32.9 Major depressive disorder, single episode, unspecified; F41.9 Anxiety disorder, unspecified; G62.9 Polyneuropathy, unspecified; Z88.1 Allergy status to other antibiotic agents; Z88.2 Allergy status to sulfonamides; Z86.73 Personal history of transient ischemic attack (TIA), and cerebral infarction without residual deficits; E11.40 Type 2 diabetes mellitus with diabetic neuropathy, unspecified; Z79.84 Long term (current) use of oral hypoglycemic drugs; K21.9 Gastro-esophageal reflux disease without esophagitis; E03.9 Hypothyroidism, unspecified; Z98.84 Bariatric surgery status; J44.0 Chronic obstructive pulmonary disease with (acute) lower respiratory infection; F17.210 Nicotine dependence, cigarettes, uncomplicated; I12.9 Hypertensive chronic kidney disease with stage 1 through stage 4 chronic kidney disease, or unspecified chronic kidney disease; E11.22 Type 2 diabetes mellitus with diabetic chronic kidney disease; D63.8 Anemia in other chronic diseases classified elsewhere; D50.9 Iron deficiency anemia, unspecified; I07.1 Rheumatic tricuspid insufficiency
CPT/HCPCS: 36415; 51702; 70450; 71045; 71250; 72125; 76770; 78582; 80048; 80053; 80069; 80076; 81003; 82533; 82570; 82607; 82728; 82746; 82805; 83540; 83605; 83690; 83735; 83880; 83970; 84100; 84145; 84156; 84165; 84466; 84484; 85025; 85610; 87040; 87070; 87086; 87088; 87205; 87804; 93005; 93306; 94002; 94003; 94640; 99285; A9540; A9558; G9035; J0360; J0692; J1650; J1940; J2250; J2405; J2543; J2704; J2920; J2930; J3010; J3420; J7030; J7512; J7605

== ENCOUNTER 2019-06-07 18:16 | Inpatient (IN) | payer BC, SELFPAY ==
--- OUTSIDE RECORDS SUMMARY | 2019-06-07 18:21 | XMS REPORT ---
:1955 [facility] Address [address] [place] [address] Care Team Providers Name Role Phone MISTY HIGH Unavailable Unavailable Problems This patient has no known problems. Allergies, Adverse Reactions, Alerts This patient has no known allergies or adverse reactions. Medications This patient has no known medications. Results Test Description Test Time Test Comments Text Results Atomic Results Result Comments BLOOD CULTURE 2018-04-16 01:00:00 Test Item Value Reference Range Comments CULTURE (BEAKER) (test tfdv=7149) No growth in 5 days POCT-GLUCOSE [id number] 12:43:00 Test Item Value Reference Range Comments POC-GLUCOSE METER (BEAKER) 97 mg/dL 70-110 TESTED AT [place] [id number] [facility] (test ykhc=3177) [place] [address] POCT-GLUCOSE [id number] 08:33:00 Test Item Value Reference Range Comments POC-GLUCOSE METER (BEAKER) 87 mg/dL 70-110 TESTED AT [place] [id number] [facility] (test pekm=0371) [place] [id number] BASIC METABOLIC [id number] 06:52:00 Test Item Value Reference Range Comments SODIUM (BEAKER) (test 140 meq/L 136-145 hzps=861) POTASSIUM (BEAKER) (test 4.3 meq/L 3.5-5.1 mblb=441) CHLORIDE (BEAKER) (test 110 meq/L 98-107 yxbn=624) CO2 (BEAKER) (test 23 meq/L 22-29 cxlr=715) BLOOD UREA NITROGEN 28 mg/dL 7-21 (BEAKER) (test pnvu=544) CREATININE (BEAKER) (test 1.62 mg/dL 0.57-1.25 gvzr=404) GLUCOSE RANDOM (BEAKER) 69 mg/dL 70-105 (test picm=748) CALCIUM (BEAKER) (test 8.9 mg/dL 8.4-10.2 tyaj=224) EGFR (BEAKER) (test 32 mL/min/1.73 sq m ESTIMATED GFR IS NOT oxqm=1038) ACCURATE CREATININE CLEARANCE IN PREDICTING GLOMERULAR FILTRATION RATE. ESTIMATED GFR IS NOT APPLICABLE FOR DIALYSIS PATIENTS. VANCOMYCIN LEVEL, [id number] 06:48:00 Test Item Value Reference Range Comments VANCOMYCIN TROUGH (BEAKER) (test goyk=813) < ug/mL 10.0-20.0 CBC W/PLT COUNT & AUTO [id number] 06:03:00 Test Item Value Reference Range Comments WHITE BLOOD CELL COUNT (BEAKER) (test sgtx=949) 6.5 K/ L 3.5-10.5 RED BLOOD CELL COUNT (BEAKER) (test ruxy=059) 3.70 M/ L 3.93-5.22 HEMOGLOBIN (BEAKER) (test idsf=880) 11.1 GM/DL 11.2-15.7 HEMATOCRIT (BEAKER) (test txhj=694) 35.9 % 34.1-44.9 MEAN CORPUSCULAR VOLUME (BEAKER) (test hgsl=943) 97.0 fL 79.4-94.8 MEAN CORPUSCULAR HEMOGLOBIN (BEAKER) (test 30.0 pg 25.6-32.2 qhau=643) MEAN CORPUSCULAR HEMOGLOBIN CONC (BEAKER) (test 30.9 GM/DL 32.2-35.5 aytk=140) RED CELL DISTRIBUTION WIDTH (BEAKER) (test 14.0 % 11.7-14.4 hsco=325) PLATELET COUNT (BEAKER) (test aoyr=854) 222 K/CU MM 150-450 MEAN PLATELET VOLUME (BEAKER) (test qdju=853) 9.1 fL 9.4-12.3 NUCLEATED RED BLOOD CELLS (BEAKER) (test 0 /100 WBC 0-0 esiz=127) NEUTROPHILS RELATIVE PERCENT (BEAKER) (test 50 % dbac=413) LYMPHOCYTES RELATIVE PERCENT (BEAKER) (test 30 % zcmp=691) MONOCYTES RELATIVE PERCENT (BEAKER) (test 13 % dxef=424) EOSINOPHILS RELATIVE PERCENT (BEAKER) (test 5 % hyod=417) BASOPHILS RELATIVE PERCENT (BEAKER) (test 1 % jzds=678) NEUTROPHILS ABSOLUTE COUNT (BEAKER) (test 3.24 K/ L 1.56-6.13 dlvk=718) LYMPHOCYTES ABSOLUTE COUNT (BEAKER) (test 1.94 K/ L 1.18-3.74 wcyg=263) MONOCYTES ABSOLUTE COUNT (BEAKER) (test 0.85 K/ L 0.24-0.36 bvjn=805) EOSINOPHILS ABSOLUTE COUNT (BEAKER) (test 0.35 K/ L 0.04-0.36 ydpg=586) BASOPHILS ABSOLUTE COUNT (BEAKER) (test 0.08 K/ L 0.01-0.08 kpbv=231) IMMATURE GRANULOCYTES-RELATIVE PERCENT (BEAKER) 0 % 0-1 (test nrnf=6237) POCT-GLUCOSE [id number] 20:49:00 Test Item Value Reference Range Comments POC-GLUCOSE METER (BEAKER) 108 mg/dL 70-110 TESTED AT [facility] [address] [facility] (test bxrw=0952) [facility] [address] MR, ABDOMEN, [id number] 16:58:00FINAL REPORT MRI of the abdomen. MRCP. [...] MDReport Verified Date/Time: 04/14/2018 16:58:47 Reading Location: [facility] Diagnostic Imaging Reading Room - [place] [address] POCT-GLUCOSE [id number] 16:38:00 Test Item Value Reference Range Comments POC-GLUCOSE METER (BEAKER) 160 mg/dL 70-110 TESTED AT [address] (test paue=2800) [place] [id number] POCT-GLUCOSE [id number] 13:10:00 Test Item Value Reference Range Comments POC-GLUCOSE METER (BEAKER) 103 mg/dL 70-110 TESTED AT [address] (test cupq=8767) [place] [address] POCT-GLUCOSE [id number] 08:26:00 Test Item Value Reference Range Comments POC-GLUCOSE METER (BEAKER) 85 mg/dL 70-110 TESTED AT [address] (test lbdz=7626) [place] [address] BASIC METABOLIC [id number] 05:02:00 Test Item Value Reference Range Comments SODIUM (BEAKER) (test 140 meq/L 136-145 awek=152) POTASSIUM (BEAKER) (test 5.3 meq/L 3.5-5.1 lwbd=174) CHLORIDE (BEAKER) (test 108 meq/L 98-107 tulv=446) CO2 (BEAKER) (test 26 meq/L 22-29 ucse=151) BLOOD UREA NITROGEN 29 mg/dL 7-21 (BEAKER) (test ghfs=388) CREATININE (BEAKER) (test 1.62 mg/dL 0.57-1.25 qyms=095) GLUCOSE RANDOM (BEAKER) 72 mg/dL 70-105 (test qawi=428) CALCIUM (BEAKER) (test 9.5 mg/dL 8.4-10.2 hotq=600) EGFR (BEAKER) (test 32 mL/min/1.73 sq m ESTIMATED GFR IS NOT ewcp=4998) ACCURATE CREATININE CLEARANCE IN PREDICTING GLOMERULAR FILTRATION RATE. ESTIMATED GFR IS NOT APPLICABLE FOR DIALYSIS PATIENTS. POCT-GLUCOSE [id number] 21:30:00 Test Item Value Reference Range Comments POC-GLUCOSE METER (BEAKER) 252 mg/dL 70-110 TESTED AT [facility] [address] (test yvmq=2469) [facility] [address] EEG AWAKE AND [id number] 17:18:00Reason for exam:->shaking episodes [facility] EEG REPORT DATE OF TEST: 04/13/18 START TIME: 09:40 END TIME: 10:02 DATE OF REPORT: 04/13/2018 [id number] ACC: [id number] ICD-10: R41.82 CPT Code: 01416 HISTORY: 62yo female with a PMHx of [...] interpretation. Nicole Wilson MD Neurophysiology Attending POCT-GLUCOSE [id number] 12:55:00 Test Item Value Reference Range Comments POC-GLUCOSE METER (BEAKER) 106 mg/dL 70-110 TESTED AT [address] (test psho=6116) [place] [address] HEPATIC FUNCTION [id number] 11:01:00 Test Item Value Reference Range Comments TOTAL PROTEIN (BEAKER) (test rohv=393) 5.8 gm/dL 6.0-8.3 ALBUMIN (BEAKER) (test algk=4933) 3.0 g/dL 3.5-5.0 BILIRUBIN TOTAL (BEAKER) (test mlkq=141) 0.3 mg/dL 0.2-1.2 BILIRUBIN DIRECT (BEAKER) (test ksga=149) 0.2 mg/dL 0.1-0.5 ALKALINE PHOSPHATASE (BEAKER) (test idks=771) 109 U/L 40-150 AST (SGOT) (BEAKER) (test ovoz=968) 23 U/L 5-34 ALT (SGPT) (BEAKER) (test uupy=691) 24 U/L 6-55 POCT-GLUCOSE [id number] 08:20:00 Test Item Value Reference Range Comments POC-GLUCOSE METER (BEAKER) 87 mg/dL 70-110 TESTED AT [address] (test baea=8066) [place] [address] BASIC METABOLIC [id number] 06:59:00 Test Item Value Reference Range Comments SODIUM (BEAKER) (test 138 meq/L 136-145 pbrf=163) POTASSIUM (BEAKER) (test 4.6 meq/L 3.5-5.1 jseq=605) CHLORIDE (BEAKER) (test 108 meq/L 98-107 jbgj=890) CO2 (BEAKER) (test 23 meq/L 22-29 wmgi=650) BLOOD UREA NITROGEN 28 mg/dL 7-21 (BEAKER) (test mbny=564) CREATININE (BEAKER) (test 1.59 mg/dL 0.57-1.25 dkpr=262) GLUCOSE RANDOM (BEAKER) 89 mg/dL 70-105 (test lbkp=324) CALCIUM (BEAKER) (test 9.1 mg/dL 8.4-10.2 zezn=626) EGFR (BEAKER) (test 33 mL/min/1.73 sq m ESTIMATED GFR IS NOT frey=1417) ACCURATE CREATININE CLEARANCE IN PREDICTING GLOMERULAR FILTRATION RATE. ESTIMATED GFR IS NOT APPLICABLE FOR DIALYSIS PATIENTS. POCT-GLUCOSE [id number] 20:27:00 Test Item Value Reference Range Comments POC-GLUCOSE METER (BEAKER) 130 mg/dL 70-110 TESTED AT [facility] [address] [facility] (test wvae=5164) [facility] [address] [address], [id number] 17:47:00FINAL REPORT TECHNIQUE: CT of the abdomen [...] MDReport Verified Date/Time: 04/12/2018 17:47:54 Reading Location: [address] Body Reading Room Electronically signedby: VIGNESH ERICKSON MD on 04/12/2018 05: 47 PMPOCT-GLUCOSE [id number] 17:41:00 Test Item Value Reference Range Comments POC-GLUCOSE METER (BEAKER) 129 mg/dL 70-110 TESTED AT [facility] [address] [place] [address] (test ujik=3488) [facility] [address] URINALYSIS W/ REFLEX URINE [id number] 14:30:00 Test Item Value Reference Range Comments COLOR (BEAKER) (test nxdi=551) Light Yellow CLARITY (BEAKER) (test mhxj=291) Clear SPECIFIC GRAVITY UA (BEAKER) (test pmry=501) 1.013 1.001-1.035 PH UA (BEAKER) (test cwya=023) 6.0 5.0-8.0 PROTEIN UA (BEAKER) (test ojge=395) 20 mg/dL Negative GLUCOSE UA (BEAKER) (test qirr=711) Negative Negative KETONES UA (BEAKER) (test sjtv=495) Negative Negative BILIRUBIN UA (BEAKER) (test nack=549) Negative Negative BLOOD UA (BEAKER) (test ahuj=103) Trace Negative NITRITE UA (BEAKER) (test ntqq=480) Negative Negative LEUKOCYTE ESTERASE UA (BEAKER) (test ddpn=839) Large Negative UROBILINOGEN UA (BEAKER) (test rvuk=845) 0.2 mg/dL 0.2-1.0 RBC UA (BEAKER) (test pgsx=077) 2 /HPF WBC UA (BEAKER) (test fhkd=847) 91 /HPF BACTERIA (BEAKER) (test fgpo=618) Occasional SQUAMOUS EPITHELIAL (BEAKER) (test kcea=403) < /HPF SOURCE(BEAKER) (test rtmk=9639) POCT-GLUCOSE [id number] 12:27:00 Test Item Value Reference Range Comments POC-GLUCOSE METER (BEAKER) 90 mg/dL 70-110 TESTED AT [address] (test mkei=2214) [place] [address] VITAMIN D, [id number] 08:31:00 Test Item Value Reference Range Comments VITAMIN D 25-OH (BEAKER) (test hpzj=6197) 43.1 ng/mL 6.6-49.9 Effective 01/07/2017: Reference Range ChangeNew: 6.6-49.9 ng/mL Previous: 13.0 -47.8 ng/mLRecommended Vitamin D Target Range: 30.0-40.0 ng/mLPOCT-GLUCOSE [id number] 08:15:00 Test Item Value Reference Range Comments POC-GLUCOSE METER (BEAKER) 94 mg/dL 70-110 TESTED AT [address] (test luzy=5785) [place] [address] VITAMIN B12 AND [id number] 06:29:00 Test Item Value Reference Range Comments VITAMIN B12 (BEAKER) (test ccff=111) 1234 pg/mL 213-816 FOLATE (BEAKER) (test gxtm=440) 7.6 ng/mL >=7.0 BASIC METABOLIC [id number] 06:08:00 Test Item Value Reference Range Comments SODIUM (BEAKER) (test 141 meq/L 136-145 xuav=273) POTASSIUM (BEAKER) (test 4.5 meq/L 3.5-5.1 phzy=827) CHLORIDE (BEAKER) (test 114 meq/L 98-107 ijtw=720) CO2 (BEAKER) (test 21 meq/L 22-29 pphd=288) BLOOD UREA NITROGEN 38 mg/dL 7-21 (BEAKER) (test aqcy=487) CREATININE (BEAKER) (test 1.99 mg/dL 0.57-1.25 pdzn=209) GLUCOSE RANDOM (BEAKER) 96 mg/dL 70-105 (test uiln=213) CALCIUM (BEAKER) (test 8.7 mg/dL 8.4-10.2 nynx=374) EGFR (BEAKER) (test 25 mL/min/1.73 sq m ESTIMATED GFR IS NOT dlay=9832) ACCURATE CREATININE CLEARANCE IN PREDICTING GLOMERULAR FILTRATION RATE. ESTIMATED GFR IS NOT APPLICABLE FOR DIALYSIS PATIENTS. CBC (HEMOGRAM ONLY)2018-04-12 05:41:00 Test Item Value Reference Range Comments WHITE BLOOD CELL COUNT (BEAKER) (test asdp=291) 7.2 K/ L 3.5-10.5 RED BLOOD CELL COUNT (BEAKER) (test zpyk=715) 3.15 M/ L 3.93-5.22 HEMOGLOBIN (BEAKER) (test otzn=426) 9.4 GM/DL 11.2-15.7 HEMATOCRIT (BEAKER) (test fjdm=136) 30.8 % 34.1-44.9 MEAN CORPUSCULAR VOLUME (BEAKER) (test ugad=934) 97.8 fL 79.4-94.8 MEAN CORPUSCULAR HEMOGLOBIN (BEAKER) (test 29.8 pg 25.6-32.2 kqgr=605) MEAN CORPUSCULAR HEMOGLOBIN CONC (BEAKER) (test 30.5 GM/DL 32.2-35.5 tkts=285) RED CELL DISTRIBUTION WIDTH (BEAKER) (test 14.2 % 11.7-14.4 qahu=611) PLATELET COUNT (BEAKER) (test ryin=986) 219 K/CU MM 150-450 MEAN PLATELET VOLUME (BEAKER) (test pxru=319) 9.2 fL 9.4-12.3 NUCLEATED RED BLOOD CELLS (BEAKER) (test 0 /100 WBC 0-0 tkab=064) MR, BRAIN, WITHOUT [id number] 00:43:00FINAL REPORT MR, BRAIN, WITHOUT CONTRAST INDICATION: EncephalopathyStroke TECHNIQUE : Multiplanar, multisequence MR imaging of the brain was obtained. COMPARISON: None FINDINGS: Volume loss with associated gliotic changes noted within the right TRIMMER HEL[employer] distribution, compatible with prior ischemic insult. Additional [...] supratentorial white matter and madalyn. Signed: Cherrie Griereport Verified Date/Time: 04/12/2018 00:43:56 Reading Location: [address] Neuro Reading Room 12: 43 [id number] 14:24:00 Test Item Value Reference Range Comments FERRITIN (BEAKER) (test gpjf=954) 14 ng/mL 5-275 HEMOGLOBIN [id number] 10:50:00 Test Item Value Reference Range Comments HEMOGLOBIN A1C (BEAKER) (test mgkb=688) 6.2 % 4.3-6.1 POCT-GLUCOSE [id number] 08:07:00 Test Item Value Reference Range Comments POC-GLUCOSE METER (BEAKER) 98 mg/dL 70-110 TESTED AT [address] (test imlp=7484) [facility] [address] BASIC METABOLIC [id number] 05:47:00 Test Item Value Reference Range Comments SODIUM (BEAKER) (test 140 meq/L 136-145 efjd=697) POTASSIUM (BEAKER) (test 4.6 meq/L 3.5-5.1 pidv=194) CHLORIDE (BEAKER) (test 115 meq/L 98-107 ddlo=083) CO2 (BEAKER) (test 18 meq/L 22-29 bqqk=540) BLOOD UREA NITROGEN 47 mg/dL 7-21 (BEAKER) (test vakg=447) CREATININE (BEAKER) (test 2.40 mg/dL 0.57-1.25 erqi=056) GLUCOSE RANDOM (BEAKER) 80 mg/dL 70-105 (test nzwt=817) CALCIUM (BEAKER) (test 8.3 mg/dL 8.4-10.2 ylmt=082) EGFR (BEAKER) (test 20 mL/min/1.73 sq m ESTIMATED GFR IS NOT dimt=8619) ACCURATE CREATININE CLEARANCE IN PREDICTING GLOMERULAR FILTRATION RATE. ESTIMATED GFR IS NOT APPLICABLE FOR DIALYSIS PATIENTS. [id number] 05:37:00 Test Item Value Reference Range Comments AMMONIA (BEAKER) (test 37 mol/L 18-72 Specimen slightly hemolyzed zytj=459) CBC W/PLT COUNT & AUTO [id number] 05:21:00 Test Item Value Reference Range Comments WHITE BLOOD CELL COUNT (BEAKER) (test ldll=071) 5.7 K/ L 3.5-10.5 RED BLOOD CELL COUNT (BEAKER) (test bzfu=359) 2.97 M/ L 3.93-5.22 HEMOGLOBIN (BEAKER) (test spao=551) 8.9 GM/DL 11.2-15.7 HEMATOCRIT (BEAKER) (test njbv=580) 29.4 % 34.1-44.9 MEAN CORPUSCULAR VOLUME (BEAKER) (test sman=611) 99.0 fL 79.4-94.8 MEAN CORPUSCULAR HEMOGLOBIN (BEAKER) (test 30.0 pg 25.6-32.2 wmdl=177) MEAN CORPUSCULAR HEMOGLOBIN CONC (BEAKER) (test 30.3 GM/DL 32.2-35.5 tovq=201) RED CELL DISTRIBUTION WIDTH (BEAKER) (test 14.0 % 11.7-14.4 wwol=290) PLATELET COUNT (BEAKER) (test boew=718) 197 K/CU MM 150-450 MEAN PLATELET VOLUME (BEAKER) (test egll=083) 10.0 fL 9.4-12.3 NUCLEATED RED BLOOD CELLS (BEAKER) (test 0 /100 WBC 0-0 druh=930) NEUTROPHILS RELATIVE PERCENT (BEAKER) (test 60 % nuch=756) LYMPHOCYTES RELATIVE PERCENT (BEAKER) (test 25 % eeyw=462) MONOCYTES RELATIVE PERCENT (BEAKER) (test 10 % aslp=905) EOSINOPHILS RELATIVE PERCENT (BEAKER) (test 4 % bivg=336) BASOPHILS RELATIVE PERCENT (BEAKER) (test 1 % ikcf=430) NEUTROPHILS ABSOLUTE COUNT (BEAKER) (test 3.42 K/ L 1.56-6.13 fqlj=491) LYMPHOCYTES ABSOLUTE COUNT (BEAKER) (test 1.44 K/ L 1.18-3.74 whaw=323) MONOCYTES ABSOLUTE COUNT (BEAKER) (test 0.59 K/ L 0.24-0.36 dznp=899) EOSINOPHILS ABSOLUTE COUNT (BEAKER) (test 0.22 K/ L 0.04-0.36 qesi=281) BASOPHILS ABSOLUTE COUNT (BEAKER) (test 0.04 K/ L 0.01-0.08 whax=545) IMMATURE GRANULOCYTES-RELATIVE PERCENT (BEAKER) 0 % 0-1 (test lnfg=0219) POCT-GLUCOSE [id number] 21:16:00 Test Item Value Reference Range Comments POC-GLUCOSE METER (BEAKER) 151 mg/dL 70-110 TESTED AT [address] (test baxq=3405) [facility] [address] CREATININE, RANDOM [id number] 18:20:00 Test Item Value Reference Range Comments CREATININE URINE (BEAKER) (test fguj=168) 51.6 mg/dL Reference Range: No NormalsPOTASSIUM, RANDOM [id number] 18:20:00 Test Item Value Reference Range Comments POTASSIUM URINE (BEAKER) (test vpcg=429) 22.6 meq/L Reference Range: No NormalsPROTEIN, RANDOM [id number] 18:20:00 Test Item Value Reference Range Comments PROTEIN, URINE (BEAKER) (test mdsk=4978) 17 mg/dL 0-14 SODIUM, RANDOM [id number] 18:20:00 Test Item Value Reference Range Comments SODIUM URINE (BEAKER) (test sukm=893) 72 meq/L Reference Range: No NormalsLIPID [id number] 18:14:00 Test Item Value Reference Range Comments TRIGLYCERIDES (BEAKER) (test 100 mg/dL Specimen slightly hemolyzed oyjd=856) CHOLESTEROL (BEAKER) (test 142 mg/dL Specimen slightly hemolyzed wzof=281) HDL CHOLESTEROL (BEAKER) (test 40 mg/dL eglw=549) LDL CHOLESTEROL CALCULATED 82 mg/dL (BEAKER) (test cmyu=308) Triglyceride Reference Range: Low Risk <150 Borderline 150- 199 High Risk 200-499 Very High Risk >=500Cholesterol Reference Range: Low Risk <200 Borderline 200-239 High Risk > 240HDL Cholesterol Reference Range: Low Risk >=60 High Risk <40LDL Cholesterol Reference Range: Optimal <100 Near Optimal 100-129 Borderline 130-159 High 160-189 Very High >=190POCT-GLUCOSE [id number] 17:50:00 Test Item Value Reference Range Comments POC-GLUCOSE METER (BEAKER) 95 mg/dL 70-110 TESTED AT [facility] [address] [facility] (test nopo=9471) [facility] [address] VITAMIN D, [id number] 17:48:00 Test Item Value Reference Range Comments VITAMIN D 25-OH (BEAKER) (test ttrr=4896) 41.7 ng/mL 6.6-49.9 Effective 01/07/2017: Reference Range ChangeNew: 6.6-49.9 ng/mL Previous: 13.0 -47.8 ng/mLRecommended Vitamin D Target Range: 30.0-40.0 ng/mLRAPID DRUG SCREEN , [id number] 17:34:00 Test Item Value Reference Range Comments BARBITURATE URINE (BEAKER) (test kavj=932) Negative Negative BENZODIAZEPINE SCREEN URINE (BEAKER) (test Positive Negative nvjq=150) COCAINE (METAB.) SCREEN (BEAKER) (test nymw=7749) Negative Negative METHADONE SCREEN (BEAKER) (test eway=3175) Negative Negative OPIATE SCREEN URINE (BEAKER) (test ynxr=171) Positive Negative CANNABINOID SCREEN URINE (BEAKER) (test zqgw=563) Negative Negative AMPH/METHAMPH SCREEN (BEAKER) (test umkx=0283) Negative Negative PHENCYCLIDINE SCREEN URINE (BEAKER) (test xbfj=697) Negative Negative OXYCODONE SCREEN URINE (BEAKER) (test wfxz=0211) Negative Negative DRUG CUTOFF CONC.Cocaine 300 ng/mL Cannabinoid 50 ng/mL Benzodiazepine 200 ng/mLBarbiturate 200 ng/ mLPhencyclidine 25 ng/mLOpiate 300 ng/mLMethadone 300 ng/mLAmphetamine/ 1000 ng/mL MethamphetamineOxycodone 300 ng/mLThis assay provides an unconfirmed qualitative test result for the clinical management of patients in emergency situations. Chain of custody not maintained. Some yzks-qic-hkwmlow medications, as well as adulterants, may cause inaccurate results. Clinical correlation should be applied. A more comprehensive drug screen or confirmation of a detected drug may be performed upon request.COMPLEMENT COMPONENT [id number] 17:22:00 Test Item Value Reference Range Comments C4 COMPLEMENT (BEAKER) (test dhsb=349) 22 mg/dL 15-57 COMPLEMENT COMPONENT [id number] 17:22:00 Test Item Value Reference Range Comments C3 COMPLEMENT (BEAKER) (test gtlp=405) 91 mg/dL 82-193 TROPONIN [id number] 16:59:00 Test Item Value Reference Range Comments TROPONIN I (BEAKER) (test ilqj=614) < ng/mL 0.00-0.03 Troponin I (TnI) levels [...] acidosis, acute neurological disease, and persistent tachyarrhythmia.TROPONIN [id number] 16:59:00 Test Item Value Reference Range Comments TROPONIN I (BEAKER) (test wexq=983) < ng/mL 0.00-0.03 Troponin I (TnI) levels [...] acidosis, acute neurological disease, and persistent tachyarrhythmia.PTH, [id number] 16:58:00 Test Item Value Reference Range Comments PARATHYROID HORMONE INTACT (BEAKER) (test 181.6 pg/mL 8.5-72.5 vqlv=576) URINALYSIS [id number] 16:55:00 Test Item Value Reference Range Comments RBC UA (BEAKER) (test fxac=272) < /HPF WBC UA (BEAKER) (test pfqi=213) 45 /HPF BACTERIA (BEAKER) (test gxbg=365) Occasional MUCUS (BEAKER) (test alws=9802) Rare SQUAMOUS EPITHELIAL (BEAKER) (test kloh=232) < /HPF IRON, TIBC, % SAT. (WITHOUT FERRITIN)2018-04-10 16:53:00 Test Item Value Reference Range Comments IRON (BEAKER) (test ipoc=432) 52.0 ug/dL 40.0-160.0 TOTAL IRON BINDING CAPACITY (BEAKER) (test 324 ug/dL 250-450 rydw=226) IRON % SATURATION (2) (BEAKER) (test ueuy=0320) 16 % 20-55 [id number] 16:51:00 Test Item Value Reference Range Comments PHOSPHORUS (BEAKER) (test vdlv=917) 4.4 mg/dL 2.3-4.7 LACTATE DEHYDROGENASE (LDH)2018-04-10 16:51:00 Test Item Value Reference Range Comments LACTATE DEHYDROGENASE (BEAKER) (test amzy=438) 309 U/L 125-220 URINALYSIS WITH MICROSCOPIC IF [id number] 16:43:00 Test Item Value Reference Range Comments COLOR (BEAKER) (test rgeu=513) Yellow CLARITY (BEAKER) (test mxiv=265) Clear SPECIFIC GRAVITY UA (BEAKER) (test 1.013 1.001-1.035 xsrk=521) PH UA (BEAKER) (test kirf=728) 5.5 5.0-8.0 PROTEIN UA (BEAKER) (test 20 mg/dL Negative inbe=813) GLUCOSE UA (BEAKER) (test Negative Negative wkyn=788) KETONES UA (BEAKER) (test Negative Negative vjha=507) BILIRUBIN UA (BEAKER) (test Negative Negative xnzw=747) BLOOD UA (BEAKER) (test airs=395) Negative Negative NITRITE UA (BEAKER) (test Negative Negative pipa=688) LEUKOCYTE ESTERASE UA (BEAKER) Large Negative (test rpzf=743) UROBILINOGEN UA (BEAKER) (test 0.2 mg/dL 0.2-1.0 sxvo=070) SOURCE(BEAKER) (test iuqa=8639) Urine, Sterile Collection
--- NOTE | 2019-06-07 19:45 | RAD REPORT ---
EXAM DESCRIPTION: CT - [id number] - 06/07/2019 7:35 pm CLINICAL HISTORY: Trauma, head and neck injury. fall COMPARISON: Head C Spine Cap Wo Con dated 06/26/2018 TECHNIQUE: Axial 5 mm thick images of the head were obtained. Axial 2 mm thick images of the cervical spine were obtained with sagittal and coronal reconstruction images generated and reviewed. All CT scans are performed using dose optimization technique as appropriate and may include automated exposure control or mA/KV adjustment according to patient size. FINDINGS: CT HEAD WITHOUT CONTRAST: No acute hemorrhage, hydrocephalus or extra-axial collection is identified.Areas of gliosis are seen along both both posterior parietal regions, unchanged.No areas of brain edema or midline shift. The paranasal sinuses and mastoids are clear.The calvarium is intact. CT CERVICAL SPINE WITHOUT CONTRAST: No fracture or subluxation.Postsurgical changes are present spanning C3-5 is 3 mm anterolisthesis of C5 on 6 is present.No prevertebral soft tissues swelling is identified. The odontoid is normal and la teral masses are symmetric. IMPRESSION: No acute intracranial or cervical spine findings. Postsurgical changes are present involving the mid cervical spine.
--- NOTE | 2019-06-07 20:02 | RAD REPORT ---
EXAM DESCRIPTION: RAD - Shoulder Right 2 View - 06/07/2019 7:48 pm CLINICAL HISTORY: fall;Pain COMPARISON: No comparisons FINDINGS: Prominent degenerative changes are present with high-riding humeral head. No acute fractur e or dislocation seen.
[2019-06-07 20:12] LABS: Protime INR 1.19
[2019-06-07 20:14] LABS: Absolute Lymphocytes (CBC) 1.3 K/uL (0.7-4.9); Basophils % 0.6 % (0-1.3); Hematocrit 35.9 % (36.0-45.0); Lymphocytes % 14.9 % (15.3-44.8); MPV 6.9 fL (7.6-11.3)
[2019-06-07 20:28] LABS: Urine Bacteria <20 /HPF (<20); Urine Culture Reflex Order REFLEXED; Urine RBC <5 /HPF (NONE SEEN)
[2019-06-07 20:42] LABS: Urine Blood TRACE (NEG); Urine Glucose NEGATIVE (NEG); Urine Protein 3+ (NEG); Urine pH 5.5 (5.0-7.0)
[2019-06-07 20:47] LABS: ALT/SGPT 17 U/L (12-78); AST/SGOT 18 U/L (15-37); Albumin 3.3 g/dL (3.4-5.0); Alkaline Phosphatase 152 U/L (45-117); BUN Blood Urea Nitrogen 52 mg/dL (7-18); Bicarbonate 22 mmol/L (21-32); Bilirubin Direct 0.1 mg/dL (0-0.2); Bilirubin Total 0.2 mg/dL (0.2-1.0); Glucose Level 138 mg/dL (74-106); Magnesium 2.9 mg/dL (1.8-2.4); NT PRO-BNP 5475 pg/mL (<125); Potassium 3.6 mmol/L (3.5-5.1); Protein, Total 7.8 g/dL (6.4-8.2); Sodium Level 137 mmol/L (136-145); Troponin (Emerg Dept Use Only) < 0.02 ng/mL (0.0-0.045)
[2019-06-07] MEDS ORDERED: CEFTRIAXONE/SWI 1gm 1 GM/10 ML SYR ONE (21:37)
--- NOTE | 2019-06-07 22:27 | RAD REPORT ---
EXAM DESCRIPTION: US - Extrem Venous W Compress Morris - 06/07/2019 10:07 pm CLINICAL HISTORY: Pain;Swelling Bilateral leg edema and swelling. COMPARISON: EXT VENOUS BILATERAL dated 02/14/2010No comparisons TECHNIQUE: Real-time sonographic interrogation of the left and right lower extremity deep venous sys tems was performed. FINDINGS: Normal compressibility, flow augmentation, phasic flow and spontaneous flow is identified in both the left and right lower extremity deep venous systems. IMPRESSION: No sonographic evidence of left or right lower extremity deep venous thrombosis.
[2019-06-07] MEDS ORDERED: NA CHLORIDE 0.9% 500 ML ONE (22:31)
--- NOTE | 2019-06-07 22:38 | RAD REPORT ---
EXAM DESCRIPTION: RAD - Chest Single View - 06/07/2019 9:58 pm CLINICAL HISTORY: swelling of lower legs Chest pain. COMPARISON: Chest Single View dated 06/27/2018; Chest Single View dated 06/26/2018; Chest Single View dated 06/26/2018; Chest Single View dated 04/10/2018 FINDINGS: Portable technique limits examination quality. Mild bilateral pulmonary opacities probably represents pulmonary edema. The heart is moderately enlar ged in size. No displaced fractures. IMPRESSION: Mild CHF.
[2019-06-07] MEDS ORDERED: ASPIRIN 81 MG CHEWABLE TABLET ONE (23:27)
[2019-06-07] MEDS ORDERED: MECLIZINE HCL 12.5 MG TAB ONE (23:27)
--- NOTE | 2019-06-07 23:50 | EDPHYS ---
Physician Documentation [facility] Name: Shonda Greenwood Age: 63 yrs Sex: Female : 1955 Arrival Date: 06/07/2019 Time: 18:18 Bed 4 Private MD: ED Physician Dhruv Chamberlain HPI: 06/06 19:25 This 63 yrs old Female presents to ER via Ambulatory with complaints of Leg cp Pain, Blood Pressure Problem. 19:25 The patient presents with pain, that is acute, swelling, tenderness. cp 19:25 The complaints affect the left lower leg and right lower leg. Onset: The cp symptoms/episode began/occurred 3 day(s) ago. Associated signs and symptoms: Pertinent positives: swelling, dizziness, unsteady gait, falls. Severity of symptoms: in the emergency department the symptoms are unchanged, despite home interventions. Historical: - Allergies: 18:34 Sulfa; ss - PMHx: 18:34 Anxiety; GERD; Hypothyroidism; Hypertension; Diabetes - NIDDM; CVA; short term memory ss loss; Atrial Fib; TIA; UTI; Kidney disease; - PSHx: 18:34 bariatric surgery; ss - Immunization history:: Adult Immunizations up to date. - Social history:: Smoking status: Patient denies any tobacco usage or history of. ROS: 19:30 Constitutional: Negative for body aches, chills, fever, poor PO intake. cp 19:30 Eyes: Negative for injury, pain, redness, and discharge. cp 19:30 ENT: Negative for drainage from ear(s), ear pain, sore throat, difficulty swallowing, difficulty handling secretions. 19:30 Cardiovascular: Positive for edema, Negative for chest pain, palpitations. 19:30 Respiratory: Negative for cough, dyspnea on exertion, shortness of breath, wheezing. 19:30 Abdomen/GI: Negative for abdominal pain, nausea, vomiting, and diarrhea, constipation. 19:30 Back: Negative for pain at rest, pain with movement. 19:30 MS/extremity: Positive for pain, swelling, of the right lower leg and left lower leg, Negative for decreased range of motion, deformity, paresthesias. 19:30 Skin: Negative for cellulitis, rash. 19:30 Neuro: Positive for dizziness, gait disturbance, Negative for altered mental status, headache, numbness, syncope, weakness. 19:30 All other systems are negative. Exam: 16:45 ECG was reviewed by the Attending Physician. cp 19:35 Constitutional: The patient appears in no acute distress, alert, awake, cp non-diaphoretic, non-toxic, well developed, well nourished. 19:35 Head/Face: Normocephalic, atraumatic. Eyes: Pupils equal round and reactive to light, cp extra-ocular motions intact. Lids and lashes normal. Conjunctiva and sclera are non-icteric and not injected. Cornea within normal limits. Periorbital areas with no swelling, redness, or edema. ENT: Nares patent. No nasal discharge, no septal abnormalities noted. Tympanic membranes are normal and external auditory canals are clear. Oropharynx with no redness, swelling, or masses, exudates, or evidence of obstruction, uvula midline. Mucous membranes moist. 19:35 Neck: ROM/movement: pain, that is mild, limited range of motion, that is mild, nuchal rigidity, is not appreciated. 19:35 Chest/axilla: Inspection: normal, Palpation: is normal, no crepitus, no tenderness. 19:35 Cardiovascular: Rate: normal, Rhythm: regular, Edema: ankle edema, that is mild, JVD: is not appreciated. 19:35 Respiratory: the patient does not display signs of respiratory distress, Respirations: normal, no use of accessory muscles, labored breathing, is not present, Breath sounds: are clear throughout, no decreased breath sounds, no wheezing. 19:35 Abdomen/GI: Inspection: abdomen appears normal, Bowel sounds: active, all quadrants, Palpation: abdomen is soft and non-tender, in all quadrants. 19:35 Back: vertebral tenderness, is not appreciated. 19:35 Skin: cellulitis, is not appreciated, no rash present. 19:35 Neuro: Orientation: to person, place \T\ time. Mentation: slow to respond, Cerebellar function: Romberg testing is negative, normal finger to nose testing, heel to padilla testing is normal, Motor: moves all fours, strength is normal, Sensation: no obvious gross deficits. Vital Signs: 18:29 BP 189 / 85; Pulse 99; Resp 17; Temp 98.1(TE); Pulse Ox 98% on R/A; Weight 61.69 kg; ss Height 5 ft. 1 in. (154.94 cm); 20:22 BP 172 / 69; Pulse 97; Resp 19; Pulse Ox 100% ; ea 21:00 BP 170 / 83; Pulse 96; Resp 18; Pulse Ox 98% on R/A; ea 22:00 BP 179 / 74; Pulse 96; Resp 19; Pulse Ox 100% ; ea 23:32 BP 179 / 74; Pulse 92; Resp 18; Pulse Ox 97% on R/A; ea 06/07 00:30 Temp 98.2; ea 01:54 BP 170 / 68; Pulse 85; Resp 18; Pulse Ox 95% ; ea 06/06 18:29 Body Mass Index 25.70 (61.69 kg, 154.94 cm) ss MDM: 06/06 19:14 Patient medically screened. [facility] 23:15 Data reviewed: vital signs, nurses notes, lab test result(s), EKG, radiologic studies, cp CT scan, ultrasound. 23:15 Counseling: I had a detailed discussion with the patient and/or guardian regarding: the cp historical points, exam findings, and any diagnostic results supporting the discharge/admit diagnosis, lab results, radiology results. 23:54 Physician consultation: Nina Benjamin MD was called at 23:52, no answer, unable to cp leave message. 23:55 Response to treatment: the patient's symptoms have mildly improved after treatment, cp patient observed to have unsteady gait by nurse when ambulating unassisted, and as a result, I will admit patient. 06/06 19:22 Order name: Basic Metabolic Panel; Complete Time: 20:57 06/06 20:57 Interpretation: Normal except: GLUC 138; BUN 52; CRE 2.97; GFR 16. 06/06 19:22 Order name: CBC with Diff; Complete Time: 20:25 06/06 20:25 Interpretation: Normal except: HGB 11.7; HCT 35.9; RDW 18.1; MPV 6.9; LYM% 14.9. 06/06 19:22 Order name: LFT's; Complete Time: 20:57 06/06 21:43 Interpretation: Normal except: ALK 152; ALB 3.3; GLOB 4.5; A/G 0.7. 06/06 19:22 Order name: Magnesium; Complete Time: 20:57 06/06 19:22 Order name: NT PRO-BNP; Complete Time: 20:57 cp 06/06 23:07 Interpretation: Abnormal: NT PRO-BNP 5475. cp 06/06 19:22 Order name: PT-INR; Complete Time: 20:25 cp 06/06 19:22 Order name: Troponin (emerg Dept Use Only); Complete Time: 20:57 cp 06/06 19:22 Order name: Urine Microscopic Only; Complete Time: 20:57 cp 06/06 20:58 Interpretation: Normal except: UWBC 5-10. cp 06/06 20:21 Order name: Urine Dipstick--Ancillary (enter results); Complete Time: 20:57 ar5 06/06 20:30 Order name: Urine Culture EDMS 06/07 00:31 Order name: CBC with Automated Diff EDMS 06/07 00:31 Order name: CBC with Automated Diff EDMS 06/07 00:31 Order name: CBC with Automated Diff EDMS 06/07 00:31 Order name: Comprehensive Metabolic Panel EDMS 06/06 19:22 Order name: XRAY Shoulder RIGHT 2 view; Complete Time: 20:25 cp 06/06 19:22 Order name: CT Head C Spine; Complete Time: 20:25 cp 06/06 20:26 Interpretation: Reviewed report. cp 06/06 20:28 Order name: US Extremity Venous W Compression Morris; Complete Time: 22:55 cp 06/06 22:55 Interpretation: Report reviewed. cp 06/07 00:31 Order name: Comprehensive Metabolic Panel EDMS 06/07 00:31 Order name: Lipid Profile EDMS 06/07 00:31 Order name: Lipid Profile EDMS 06/07 00:31 Order name: Magnesium EDMS 06/07 00:31 Order name: Magnesium EDMS 06/07 00:31 Order name: Magnesium EDMS 06/07 00:31 Order name: T4,Total EDMS 06/07 00:31 Order name: T4,Total EDMS 06/07 00:31 Order name: Troponin I EDMS 06/07 00:31 Order name: Troponin I EDMS 06/07 00:31 Order name: Thyroid Stimulating Hormone EDMS 06/07 00:31 Order name: Thyroid Stimulating Hormone EDMS 06/06 19:22 Order name: EKG; Complete Time: 19:23 cp 06/06 19:22 Order name: Cardiac monitoring; Complete Time: 20:16 cp 06/06 19:22 Order name: EKG - Nurse/Tech; Complete Time: 20:06 cp 06/06 19:22 Order name: IV Saline Lock; Complete Time: 20:16 cp 06/06 19:22 Order name: Labs collected and sent; Complete Time: 20:16 cp 06/06 19:22 Order name: O2 Per Protocol; Complete Time: 20:16 cp 06/06 19:22 Order name: O2 Sat Monitoring; Complete Time: 20:16 cp 06/06 19:22 Order name: Urine Dipstick-Ancillary (obtain specimen); Complete Time: 20:16 cp 06/06 21:02 Order name: CXR XRAY; Complete Time: 22:55 cp 06/06 22:20 Order name: Misc. Order: ambulate patient; Complete Time: 22:35 cp 06/07 00:30 Order name: Physical Therapy Consult [facility] 06/07 00:30 Order name: NPO [facility] 06/07 00:31 Order name: NPO [facility] 06/07 00:31 Order name: NPO [facility] 06/07 00:31 Order name: Echo with Doppler [facility] 06/07 00:31 Order name: EKG Electrocardiogram [facility] 06/07 00:33 Order name: Speech Therapy Consult [facility] 06/07 00:34 Order name: Stroke Protocol [facility] 06/07 00:34 Order name: Chest Pa And Lat (2 Views) [facility] 06/07 00:34 Order name: Carotid Artery Bilateral [facility] EC:45 Rate is 100 beats/min. Rhythm is regular. IN interval is prolonged at 222 msec. QRS cp interval is normal. QT interval is normal. T waves are Inverted in lead aVL. Interpreted by me. Reviewed by me. Administered Medications: Discontinued: NS 0.9% 500 ml IV at bolus once 22:03 Drug: Rocephin 1 grams Route: IV; Rate: calculated rate; Site: right antecubital; ea 06/07 00:08 Follow up: Response: No adverse reaction; IV Status: Completed infusion ea 06/06 22:35 Drug: NS 0.9% 500 ml Route: IV; Rate: bolus; Site: left antecubital; ea 23:30 Drug: Aspirin Chewable Tablet 81 mg Route: PO; ea 06/07 00:08 Follow up: Response: No adverse reaction ea 06/06 23:30 Drug: Meclizine 25 mg Route: PO; ea 06/07 00:08 Follow up: Response: No adverse reaction ea 00:15 Drug: Tylenol 1000 mg Route: PO; ea 00:30 Follow up: Response: No adverse reaction ea Disposition: 12:42 Co-signature as Attending Physician, Dhruv Chamberlain MD I agree with the assessment and singh plan of care. Disposition: 06/07/19 23:50 Hospitalization ordered by Nina Bnejamin for Observation. Preliminary diagnosis are Unsteadiness on feet, Dizziness and giddiness. - Bed requested for Telemetry/MedSurg (observation). - Status is Observation. ea - Condition is Stable. - Problem is new. - Symptoms are unchanged. Signatures: Dispatcher [employer] EDMichelle Escoto RN Dhruv Main MD MD cha Smirch, Shelby, RN RN ss Page, Corey, PA PA cp Antunez, Elena, RN RN ea Corrections: (The following items were deleted from the chart) 06/06 21:08 21:00 Stone Protocol+CT.RAD.BRZ ordered. EDSC EDMS 22:04 19:22 Cervical Collar ordered. cp ea 06/07 01:29 06/06 23:50 Hospitalization Ordered by Nina Benjamin MD for Observation. Preliminary dw diagnosis is Unsteadiness on feet; Dizziness and giddiness. Bed requested for Telemetry/MedSurg (observation). Status is Observation. Condition is Stable. Problem is new. Symptoms are unchanged. cp 06/07 02:11 01:29 06/07/2019 23:50 Hospitalization Ordered by Nina Benjamin MD for Observation. ea Preliminary diagnosis is Unsteadiness on feet; Dizziness and giddiness. Bed requested for Telemetry/MedSurg (observation). Status is Observation. Condition is Stable. Problem is new. Symptoms are unchanged. dw 06/08 01:58 06/06 19:25 The patient presents with pain, that is acute, cp cp
--- NOTE | 2019-06-07 23:50 | ER ---
Nurse's Notes [facility] Name: Shonda Greenwood Age: 63 yrs Sex: Female : 1955 Arrival Date: 06/07/2019 Time: 18:18 Bed 4 Private MD: Diagnosis: Unsteadiness on feet;Dizziness and giddiness Presentation: 06/06 18:29 Chief complaint: Patient states: Bilateral lower extremity swelling that has become ss worse over the past 4-5 days. Pt also reports she has been having high blood pressure for some time, and recently had her medications increased, but it is not helping. Coronavirus screen: The patient has NOT traveled to a country currently being monitored by the [facility] within the last 14 days. Proceed with normal triage procedures. Ebola Screen: Patient denies exposure to infectious person. Patient denies travel to an Ebola-affected area in the 21 days before illness onset. Initial Sepsis Screen: Does the patient meet any 2 criteria? No. Patient's initial sepsis screen is negative. Does the patient have a suspected source of infection? No. Patient's initial sepsis screen is negative. Risk Assessment: Do you want to hurt yourself or someone else? Patient reports no desire to harm self or others. 18:29 Method Of Arrival: Ambulatory ss 18:29 Acuity: RIANNA 3 ss Historical: - Allergies: 18:34 Sulfa; ss - PMHx: 18:34 Anxiety; GERD; Hypothyroidism; Hypertension; Diabetes - NIDDM; CVA; short term memory ss loss; Atrial Fib; TIA; UTI; Kidney disease; - PSHx: 18:34 bariatric surgery; ss - Immunization history:: Adult Immunizations up to date. - Social history:: Smoking status: Patient denies any tobacco usage or history of. Screenin:22 Abuse screen: Denies threats or abuse. Nutritional screening: No deficits noted. ea Tuberculosis screening: No symptoms or risk factors identified. Fall Risk IV access (20 points). Assessment: 20:15 General: Appears uncomfortable, Behavior is appropriate for age. Pain: Complains of ea pain in right leg and left leg. Neuro: Level of Consciousness is awake, alert, obeys commands, Oriented to person, place, time, situation. Cardiovascular: Patient's skin is warm and dry. Respiratory: Airway is patent Respiratory effort is even, unlabored, Respiratory pattern is regular, symmetrical. Derm: Skin is pink, warm \T\ dry. Musculoskeletal: Circulation, motion, and sensation intact. 20:16 Reassessment: Pt refused C-collar. ea 21:08 Reassessment: Patient appears in no apparent distress at this time. ultrasound at sg bedside at this time. 22:08 Reassessment: Patient and/or family updated on plan of care and expected duration. Pain ea level reassessed. Patient is alert, oriented x 3, equal unlabored respirations, skin warm/dry/pink. 23:31 Reassessment: Patient and/or family updated on plan of care and expected duration. Pain ea level reassessed. Patient is alert, oriented x 3, equal unlabored respirations, skin warm/dry/pink. 06/07 00:30 Reassessment: Patient and/or family updated on plan of care and expected duration. Pain ea level reassessed. Pt resting with eyes closed, respirations even and unlabored. Chest expansions even and symmetrical. 01:53 Reassessment: Report given to Valeri JIN. ea Vital Signs: 06/06 18:29 BP 189 / 85; Pulse 99; Resp 17; Temp 98.1(TE); Pulse Ox 98% on R/A; Weight 61.69 kg; Height 5 ft. 1 in. (154.94 cm); 20:22 BP 172 / 69; Pulse 97; Resp 19; Pulse Ox 100% ; ea 21:00 BP 170 / 83; Pulse 96; Resp 18; Pulse Ox 98% on R/A; ea 22:00 BP 179 / 74; Pulse 96; Resp 19; Pulse Ox 100% ; ea 23:32 BP 179 / 74; Pulse 92; Resp 18; Pulse Ox 97% on R/A; ea 06/07 00:30 Temp 98.2; ea 01:54 BP 170 / 68; Pulse 85; Resp 18; Pulse Ox 95% ; ea 06/06 18:29 Body Mass Index 25.70 (61.69 kg, 154.94 cm) ED Course: 06/06 18:18 Patient arrived in ED. ag5 18:33 Triage completed. ss 18:34 Arm band placed on left wrist. ss 19:10 Dhruv Valdez PA is PHCP. cp 19:10 Dhruv Chamberlain MD is Attending Physician. cp 19:19 Felicia Bingham, RN is Primary Nurse. ea 19:36 CT Head C Spine In Process Unspecified. EDMS 19:43 XRAY Shoulder RIGHT 2 view In Process Unspecified. EDMS 19:50 Initial lab(s) drawn, by me, sent to lab. Inserted saline lock: 22 gauge in left sg antecubital area, using aseptic technique. Blood collected. 20:00 Urine collected: clean catch specimen, clear. sg 20:22 Patient has correct armband on for positive identification. Bed in low position. Call ea light in reach. Side rails up X2. 21:18 Radiology exam delayed due to PT WITH ULTRASOUND. 21:57 CXR XRAY In Process Unspecified. EDMS 22:09 US Extremity Venous W Compression Morris In Process Unspecified. EDMS 23:48 Nina Benjamin MD is Hospitalizing Provider. 06/07 01:50 No provider procedures requiring assistance completed. Patient admitted, IV remains in ea place. Administered Medications: Discontinued: NS 0.9% 500 ml IV at bolus once 06/06 22:03 Drug: Rocephin 1 grams Route: IV; Rate: calculated rate; Site: right antecubital; ea 06/07 00:08 Follow up: Response: No adverse reaction; IV Status: Completed infusion 06/06 22:35 Drug: NS 0.9% 500 ml Route: IV; Rate: bolus; Site: left antecubital; ea 23:30 Drug: Aspirin Chewable Tablet 81 mg Route: PO; ea 06/07 00:08 Follow up: Response: No adverse reaction 06/06 23:30 Drug: Meclizine 25 mg Route: PO; ea 06/07 00:08 Follow up: Response: No adverse reaction ea 00:15 Drug: Tylenol 1000 mg Route: PO; ea 00:30 Follow up: Response: No adverse reaction ea Outcome: 06/06 23:50 Decision to Hospitalize by Provider. 06/07 00:00 Instructed on the need for admit. ea 01:51 Admitted to Med/surg accompanied by nurse, room 422, with chart, Report called to nj Trammell RN 01:51 Condition: stable 02:11 Patient left the ED. ea Signatures: Dispatcher [employer] Joseph Amaya RN RN sg Smirch, Shelby, RN RN ss Page, Corey, PA PA michaela Sandovalz, Felicia, RN RN Fang Cortes ag5 [place] Corrections: (The following items were deleted from the chart) 06/06 22:10 22:08 BP 170 / 83; Pulse 96bpm; Resp 18bpm; Pulse Ox 98% RA; jn mauro
[2019-06-08] MEDS ORDERED: ACETAMINOPHEN 500 MG TAB ONE (00:15)
[2019-06-08] MEDS ORDERED: ONDANSETRON 4 MG/2 ML VIAL IV PRN (00:23)
[2019-06-08] MEDS: NA CHLORIDE 0.9% 1,000 ML IV SCH ×2 (02:46→17:19)
[2019-06-08] MEDS ORDERED: ACETAMINOPHEN 325 MG TABLET PO ONE (03:16)
[2019-06-08] MEDS: NICOTINE 21 MG/PAT TD SCH (03:49)
[2019-06-08 04:09] LABS: Absolute Lymphocytes (CBC) 1.2 K/uL (0.7-4.9); Basophils % 0.7 % (0-1.3); Hematocrit 31.8 % (36.0-45.0); Lymphocytes % 17.2 % (15.3-44.8); MPV 6.9 fL (7.6-11.3); RBC Red Blood Cell Count 3.82 M/uL (3.86-4.86)
[2019-06-08 04:36] LABS: ALT/SGPT 14 U/L (12-78); AST/SGOT 15 U/L (15-37); Albumin 2.8 g/dL (3.4-5.0); Alkaline Phosphatase 133 U/L (45-117); BUN Blood Urea Nitrogen 48 mg/dL (7-18); Bicarbonate 24 mmol/L (21-32); Bilirubin Total 0.3 mg/dL (0.2-1.0); Glucose Level 94 mg/dL (74-106); HDL Cholesterol 67 mg/dL (40-60); LDL Cholesterol, Calculated 86 (<130); Magnesium 2.7 mg/dL (1.8-2.4); Potassium 3.2 mmol/L (3.5-5.1); Protein, Total 6.7 g/dL (6.4-8.2); Sodium Level 140 mmol/L (136-145); T4,Total 6.8 ug/dL (4.8-13.9); Thyroid Stimulating Hormone 0.411 uIU/mL (0.360-3.740); Troponin I < 0.02 ng/mL (0.0-0.045)
[2019-06-08 05:45] VITALS: BMI 27.8
[2019-06-08] MEDS: KCL 20 MEQ/100 mL IVPB 20 MEQ/100 ML BAG IV SCH ×2 (06:32→09:16)
[2019-06-08 07:15] LABS: Phosphorus 3.9 mg/dL (2.5-4.9)
[2019-06-08] MEDS: ENOXAPARIN 30 MG/0.3 ML SQ SCH (07:21)
--- NOTE | 2019-06-08 07:39 | P.HP ---
Certification for Inpatient Patient admitted to: Inpatient With expected LOS: >2 Midnights Patient will require the following post-hospital care: None Practitioner: I am a practitioner with admitting privileges, knowledge of patient current condition, hospital course, and medical plan of care. Services: Services provided to patient in accordance with Admission requirements found in Title 42 Section 412.3 of the Code of Federal Regulations Patient History Date of Service: 06/08/19 Reason for admission: Ataxic gait; lightheadedness; aphasia History of Present Illness: Patient is a 63-year-old female who came into the hospital with generalized weakness. Her gait was ataxic and she had some lightheadedness. She did mention some dizziness and she felt like the room was spinning initially. However, after being in the ER her symptoms have gradually improved. She is still feeling weak but overall she feels like her symptoms are much better. In the ER she was found have acute kidney injury with pre renal azotemia. She also had elevated blood pressure. She will also need to be worked up for a possible CVA. Patient will be admitted to the hospital for inpatient visit. Allergies amikacin Adverse Reaction (Verified 06/08/19 02:29) Hives/Rash Sulfa Allergy (Intermediate, Uncoded 06/08/19 02:29) Hives/Rash Home Medications: ALPRAZolam [Alprazolam] 1 pill PO TID PRN 06/26/18 Apixaban [Eliquis] 5 mg PO BID 06/26/18 Gabapentin 1 tab PO TID 06/26/18 Albuterol Sulfate [Proair Hfa] 2 puff IH TID PRN #1 [email or web address] 06/30/18 Fluticasone/Salmeterol [Advair 250-50 Diskus] 1 each IH BID #1 blst.w.dev Aspirin 1 tab PO DAILY 06/08/19 Carvedilol [Coreg] 1 tab PO BID 06/08/19 Clonidine HCl [Catapres] 1 tab PO TID 06/08/19 Cyanocobalamin [Vitamin B-12*] 1 ml IM SEECOM 06/08/19 Dextrose/Fructose/Sodium Cit [Nauzene Tablet Chew] 1 tab PO DAILY PRN 06/08/19 Ferrous Sulfate 1 tab PO DAILY 06/08/19 Fluoxetine HCl 1 cap PO DAILY 06/08/19 Nifedipine [Adalat cc] 1 tab PO DAILY 06/08/19 Uribel 118 mg PO QID PRN 06/08/19 - Past Medical/Surgical History Has patient received pneumonia vaccine in the past: No Diabetic: No -: [place]'s disease -: Recurrent UTIs -: Nephrolithiasis -: Diabetes mellitus type 2 -: Hypertension -: Atrial fibrillation -: Chronic back pain -: Tobacco abuse -: History of CVA and TIA x 2 -: GERD -: Poor dentition -: drug abuse -: Lithotripsy -: Gastric bypass -: Bilateral rotator cuff repair -: Neck surgery to the C3 through C6 Psychosocial/ Personal History: The patient is . - Family History Mother Medical History: Hypertension Father Medical History: Hypertension - Social History Smoking Status: Current every day smoker CD- Drugs: No Caffeine use: No Place of Residence: Home Physical Examination - Vital Signs Temperature: 97.5 F Blood Pressure: 176/87 Pulse: 90 Respirations: 16 Pulse Ox (%): 92 - Studies Laboratory Data (last 24 hrs) 06/07/19 19:50: PT 14.0 H, INR 1.19 06/07/19 19:50: WBC 8.6, Hgb 11.7 L, Hct 35.9 L, Plt Count 316 06/07/19 19:50: Sodium 137, Potassium 3.6, BUN 52 H, Creatinine 2.97 H, Glucose 138 H, Magnesium 2.9 H D, Total Bilirubin 0.2, AST 18, ALT 17, Alkaline Phosphatase 152 H Assessment & Plan - Problems (Diagnosis) (1) Acute CVA (cerebrovascular accident) Current Visit: Yes Status: Acute (2) Ataxic gait Current Visit: Yes Status: Acute (3) Lightheadedness Current Visit: Yes Status: Acute (4) Vertigo Current Visit: Yes Status: Acute (5) Hypertension Current Visit: Yes Status: Acute (6) Acute renal insufficiency Current Visit: Yes Status: Acute (7) Prerenal azotemia Current Visit: Yes Status: Acute - Plan Plan: 1. Gentle IV hydration 2. MRI of the brain 3. Neurology consultation 4. Physical therapy and speech therapy evaluation 5. DVT prophylaxis 6. Anti-platelet therapy and statin therapy along with a lipid profile 7. Monitor renal function and may need to get a renal ultrasound and Nephrology consultation; will see how our renal function improves with IV fluids 8. Strict blood pressure and blood sugar control. Gently lower the blood pressure the 1st 24 hr. Will allow for permissive hypertension until we get MRI results 9. GI and DVT prophylaxis - Advance Directives Does patient have a Living Will: No Does patient have a Durable POA for Healthcare: No
--- NOTE | 2019-06-08 08:30 | RAD REPORT ---
EXAM DESCRIPTION: RAD - Chest Pa And Lat (2 Views) - 06/08/2019 7:02 am CLINICAL HISTORY: Stroke Chest pain. COMPARISON: Chest Single View dated 06/07/2019; Chest Single View dated 06/27/2018; Chest Single View dated 06/26/2018; Chest Single View dated 06/26/2018 FINDINGS: The lungs are mildly emphysematous but clear. The heart is upper limit of normal in size. No displaced fractures.
[2019-06-08] MEDS: AMLODIPINE 10 MG TAB PO SCH ×2 (08:37→08:42)
[2019-06-08] MEDS: ASPIRIN EC 81 MG TAB PO SCH (08:37)
[2019-06-08] MEDS: ACETAMINOPHEN 500 MG TAB PO PRN (08:40)
--- NOTE | 2019-06-08 08:43 | RAD REPORT ---
EXAM DESCRIPTION: MRI - Brain Wo Cont - 06/08/2019 8:02 am CLINICAL HISTORY: ATAXIA Headache, drowsiness COMPARISON: MRA Head Wo Cont dated 06/08/2019; Head C Spine Mpr Wo Con dated 06/07/2019 TECHNIQUE: Multi-sequence, multiplanar MR imaging of the brain was performed without contrast. FINDINGS: No intracranial hemorrhage, hydrocephalus or extra-axial fluid collections.Moderate perive ntricular and deep white matter chronic microvascular ischemic changes are seen with areas of gliosis in the distribution of the right middle cerebral artery and posterior cerebral artery seen. No edema or shift of midline structures. No findings to suspect brain mass. DWI is negative for acute CVA. Midline structures are normally formed. Mastoid air cells and paranasal sinuses are clear. IMPRESSION: Negative for acute CVA or other acute intracranial process.
--- NOTE | 2019-06-08 08:47 | RAD REPORT ---
EXAM DESCRIPTION: MRI - MRA Head Wo Cont - 06/08/2019 8:02 am CLINICAL HISTORY: Ataxia;Vertigo CVA COMPARISON: Ct Stroke Brain Wo Cont dated 04/10/2018; Brain Wo Cont dated 06/08/2019 FINDINGS: 3D noncontrast [id number] MR angiography of the [place] was performed. No aneurysm, flow-limiting stenosis or vascular malformation is seen. Forward flow seen in codominant vertebral arteries. The visualized dural venous sinuses appear patent. IMPRESSION: No significant flow abnormality of the [place] is identified.
--- NOTE | 2019-06-08 08:50 | RAD REPORT ---
EXAM DESCRIPTION: - CP - 06/08/2019 8:32 am CLINICAL HISTORY: Syncope Headache, drowsiness COMPARISON: Head C Spine Mpr Wo Con dated 06/07/2019 TECHNIQUE: Real-time sonographic evaluation of both carotid systems was performed. Doppler interroga tion was performed with waveform tracing bilaterally. FINDINGS: Normal high resistance waveforms are noted in both external carotid arteries. The common c arotid arteries and internal carotid arteries show normal low resistance waveforms. Mild mixed plaque is seen with tortuosity of the proximal left ICA. Stenosis is estimated at less lena n 50% based on NASCET criteria. No significant right-sided plaquing or stenosis. Antegrade flow seen in both vertebral arteries. IMPRESSION: Mild mixed plaque proximal left ICA. No evidence of a hemodynamically significant stenosis utilizing NASCET criteria.
[2019-06-08] MEDS ORDERED: PNEUMOCOCCAL VACCINE 0.5 ML IMVAC ONE (09:00)
--- NOTE | 2019-06-08 09:26 | EKG ---
Test Date: 2019-06-07 Test Time: 19:29:13 Drafter Heating And Ventilating: SWG MEASUREMENT RESULTS: Intervals: Rate: 100 MN: 222 QRSD: 88 QT: 364 QTc: 469 [place]: P: 70 MN: 222 QRS: 14 T: 71 INTERPRETIVE STATEMENTS: Sinus rhythm with 1st degree AV block Cannot rule our Septal infarct, age undetermined Abnormal ECG Compared to ECG 06/28/2018 09:41:33 First degree AV block now present Questionable Myocardial infarct finding now present Electronically Signed On 06-08-19 09:26:31 CDT by Tom Keyes
[2019-06-08] MEDS ORDERED: HYDRALAZINE HCL 20 MG/ML VIAL IV ONE (09:39)
--- NOTE | 2019-06-08 11:31 | ECHO ---
HEIGHT: 5 ft 0 in WEIGHT: 142 lb 12.8 oz DATE OF STUDY: 06/08/[address]: Nina Benjamin MD 2-DIMENSIONAL: YES M.MODE: YES DOPPLER: YES COLOR FLOW: YES TDS: PORTABLE: DEFINITY: BUBBLE STUDY: DIAGNOSIS: STROKE CARDIAC HISTORY: CATHERIZATION: NO SURGERY: NO PROSTHETIC VALVE: NO PACEMAKER: NO MEASUREMENTS (cm) DIASTOLIC (NORMALS) SYSTOLIC (NORMALS) IVSd 1.0 (0.6-1.2) LA Diam 3.8 (1.9-4.0) LVEF 72% LVIDd 4.9 (3.5-5.7) LVIDs 2.9 (2.0-3.5) %FS 41% LVPWd 1.2 (0.6-1.2) Ao Diam 2.6 (2.0-3.7) 2 DIMENSIONAL ASSESSMENT: RIGHT ATRIUM: NORMAL LEFT ATRIUM: NORMAL RIGHT VENTRICLE: NORMAL LEFT VENTRICLE: NORMAL TRICUSPID VALVE: NORMAL MITRAL VALVE: NORMAL PULMONIC VALVE: NORMAL AORTIC VALVE: NORMAL PERICARDIAL EFFUSION: NONE AORTIC ROOT: NORMAL LEFT VENTRICULAR WALL MOTION: NORMAL DOPPLER/COLOR FLOW: MILD MITRAL REGURGITATION. MILD TRICUSPID REGURGITATION. NORMAL RIGHT VENTRICULAR SYSTOLIC PRESSURE. COMMENTS: NORMAL 2-DIMENSIONAL ECHOCARDIOGRAM. MILD MITRAL AND TRICUSPID REGURGITATION. TECHNOLOGIST: DICK BRYANT
--- NOTE | 2019-06-08 15:00 | RAD REPORT ---
EXAM DESCRIPTION: RAD - Barium Swallow Modified - 06/08/2019 2:55 pm CLINICAL HISTORY: dysphagia COMPARISON: Renal Ultrasound-Complete dated 06/29/2018 TECHNIQUE: The patient was given liquid, semi-solid and solid forms of barium. Lateral view fluorosc opic imaging was performed in conjunction with speech pathology service. FINDINGS: Minimal stasis in UES with dry solid, coated with barium pudding, cleared with liquid wash . Barium tablet got held up briefly in upper esophagus required liquid was to empty into LES. No penetration or aspiration was noted with any consistancies tested. No residue noted with any consi stancies tested. Total fluoroscopy time: 1 minutes and 38 seconds
[2019-06-08] MEDS ORDERED: ATORVASTATIN 20 MG TAB PO SCH (21:00)
[2019-06-08] MEDS ORDERED: POTASSIUM CL SA 10 MEQ TAB PO ONE (21:16)
[2019-06-08] MEDS: HYDRALAZINE HCL 20 MG/ML VIAL IV PRN (22:48)
[2019-06-09] MEDS: HYDRALAZINE HCL 20 MG/ML VIAL IV PRN (03:23)
[2019-06-09] MEDS: ACETAMINOPHEN 500 MG TAB PO PRN ×2 (03:23→07:55)
[2019-06-09] MEDS ORDERED: cloNIDine HCL 0.1 MG TAB PO ONE (05:08)
[2019-06-09] MEDS: NA CHLORIDE 0.9% 1,000 ML IV SCH (05:27)
[2019-06-09 06:29] LABS: Absolute Lymphocytes (CBC) 1.6 K/uL (0.7-4.9); Basophils % 0.6 % (0-1.3); Hematocrit 37.2 % (36.0-45.0); Lymphocytes % 20.6 % (15.3-44.8); MPV 7.1 fL (7.6-11.3); RBC Red Blood Cell Count 4.42 M/uL (3.86-4.86)
[2019-06-09 06:49] LABS: Potassium 3.9 mmol/L (3.5-5.1)
[2019-06-09] MEDS ORDERED: POTASSIUM CL SA 10 MEQ TAB PO ONE (06:52)
[2019-06-09] MEDS: ASPIRIN EC 81 MG TAB PO SCH (07:45)
[2019-06-09] MEDS: AMLODIPINE 10 MG TAB PO SCH (07:46)
[2019-06-09] MEDS: NICOTINE 21 MG/PAT TD SCH (07:46)
[2019-06-09] MEDS: ENOXAPARIN 30 MG/0.3 ML SQ SCH (07:46)
[2019-06-09 07:52] VITALS: O2SAT 97
[2019-06-09] MEDS ORDERED: HYDRALAZINE HCL 20 MG/ML VIAL IV ONE (10:00)
[2019-06-09] MEDS ORDERED: MORPHINE 2 MG/ML SYR IV ONE (11:00)
[2019-06-09 11:44] VITALS: BP 160/80
[2019-06-09] MEDS ORDERED: HYDRALAZINE HCL 20 MG/ML VIAL IV PRN (11:44)
--- NOTE | 2019-06-09 12:00 | CON ---
Date of Consultation: 06/09/2019 Reason For Consultation: Elevated BUN and creatinine, fluid management. History Of Present Illness: This is a pleasant 63-year-old female, well-known to me from previous ad mission with significant past medical history of : 1.Questionable Rosalio disease: 2.Atrial fibrillation with pulmonary hypertension. 3.TIA. 4.Nephrolithiasis, status post lithotripsy. 5.Chronic kidney disease, baseline creatinine back year after the acute kidney injury of 1.5 with GF R around 35. 6.Edema. Patient came to the hospital complaining from weakness and wobbly gait. Difficulty ambulating. Alla ent was admitted with questionable stroke. Upon admission, primary workup showed elevation in BUN an d creatinine. For that reason, we have been consulted. Patient denied taking any nonsteroidal, no I V contrast. No recent change in her medication. Reviewing the home medication, the patient not on a ny nonsteroidal, no RHIANNON inhibitor. Patient apparently supposed to be on nifedipine 60, but her blood pressure still not controlled. Past Medical History: 1.[place]. 2.Atrial fibrillation with pulmonary hypertension. 3.TIA. 4.Nephrolithiasis, status post lithotripsy back in 2019. 5.Chronic kidney disease, baseline creatinine in June 2018 of 1.5, GFR of 34. 6.Edema. Home Medications: 1.Alprazolam. 2.Eliquis. 3.Gabapentin. 4.Aspirin. 5.Carvedilol. 6.Clonidine. 7.Ferrous sulfate. 8.Nifedipine. Allergies: AMIKACIN AND SULFA. Past Surgical History: 1.Bariatric surgery. 2.Lithotripsy. 3.Gastric bypass. 4.Bilateral rotator cuff repair. 5.Neck surgery. Family History: Positive for hypertension. Social History: Active smoker. Denied alcohol. Denied drug abuse. Review of Systems: Head and Neck: Has headache. GI: Has nausea and vomiting. : No polyuria. No dysuria. No hematuria. Sybase Developer: No vaginal discharge. Respiratory: No shortness of breath. Cardiovascular: No leg swelling. Endocrine: No polydipsia. Skin: No rash. Neuro: Has wobbly gait, has dizziness, has headache. Musculoskeletal: Generalized fatigue. Physical Examination: Vital Signs: When I saw the patient, patient lying in bed, slightly tired. Blood pressure 162/86, p ulse of 81, afebrile. Patient being on IV fluids. Had good urine output of 1800. Chest: Clear to auscultation. Heart: S1, S2 regular. Abdomen: Soft. Nontender. Extremity: No edema. Neuro: No focal. Laboratory Data: Back in June 2018 creatinine 1.5, GFR of 34. Upon admission, sodium 137, potassiu m 3.6, bicarb 22, BUN 52, creatinine 2.9, calcium 8.6, magnesium 2.9. Today's lab: Sodium 144, potassium 3.9, bicarb 20, BUN 31, creatinine 2, calcium 8.9. WBC 7.6, H an d H 12/37.2. Urinalysis negative for infection, +3 protein. The patient before has serum protein el ectrophoresis, was negative. Renal ultrasound at that time, small kidney bilateral 8 x 8. Assessment And Plan: 1.Acute kidney injury secondary to prerenal, on the recovery, getting closer to her baseline. I am going to continue on the hydration. 2.We will monitor the patient. 3.Hypertension, not controlled. I am going to add to the patient beta beatris and we will follow up . We will keep avoiding RHIANNON inhibitor or ARB for the time being given the new acute kidney injury. 4.Proteinuria. We will follow up with sending quantification for the proteinuria. 5.Wobbly gait. Follow up with the primary. 6.[place] disease. Currently electrolyte within normal limits. I am not going to interfere for the time being. Patient cleared from the renal standpoint for discharge planning, to follow up in the o ice in 2 to 3 weeks. ROEL Voice ID: [id number] Report ID: [id number]
[2019-06-09 12:10] VITALS: TEMP 97.7
--- NOTE | 2019-06-09 12:50 | P.DS ---
Admission Date: 06/08/19 Discharge Date: 06/09/19 Disposition: ROUTINE DISCHARGE Discharge Condition: FAIR Reason for Admission: Ataxic gait; lightheadedness; aphasia Vital Signs/Physical Exam: Temp Pulse Resp BP Pulse Ox 97.7 F 88 17 160/80 H 98 06/09/19 12:00 06/09/19 12:00 06/09/19 12:00 06/09/19 12:00 06/09/19 12:00 Laboratory Data at Discharge: WBC 7.6 K/uL (4.3-10.9) 06/09/19 05:50 Hgb 12.0 g/dL (12.0-15.0) 06/09/19 05:50 Hct 37.2 % (36.0-45.0) D 06/09/19 05:50 Plt Count 319 K/uL (152-406) D 06/09/19 05:50 PT 14.0 SECONDS (9.5-12.5) H 06/07/19 19:50 INR 1.19 06/07/19 19:50 Sodium 144 mmol/L (136-145) 06/09/19 05:50 Potassium 3.9 mmol/L (3.5-5.1) 06/09/19 05:50 BUN 31 mg/dL (7-18) H 06/09/19 05:50 Creatinine 2.04 mg/dL (0.55-1.3) H 06/09/19 05:50 Glucose 93 mg/dL (74-106) 06/09/19 05:50 Phosphorus 3.9 mg/dL (2.5-4.9) 06/08/19 03:33 Magnesium 2.3 mg/dL (1.8-2.4) 06/09/19 05:50 Total Bilirubin 0.3 mg/dL (0.2-1.0) 06/08/19 03:33 AST 15 U/L (15-37) 06/08/19 03:33 ALT 14 U/L (12-78) 06/08/19 03:33 Alkaline Phosphatase 133 U/L (45-117) H 06/08/19 03:33 Troponin I < 0.02 ng/mL (0.0-0.045) 06/08/19 03:33 Triglycerides 76 mg/dL (<150) 06/08/19 03:33 Cholesterol 168 mg/dL (<200) 06/08/19 03:33 HDL Cholesterol 67 mg/dL (40-60) H 06/08/19 03:33 Cholesterol/HDL Ratio 2.51 06/08/19 03:33 Home Medications: ALPRAZolam [Alprazolam] 1 pill PO TID PRN 06/26/18 Apixaban [Eliquis] 5 mg PO BID 06/26/18 Gabapentin 1 tab PO TID 06/26/18 Albuterol Sulfate [Proair Hfa] 2 puff IH TID PRN #1 hfa.aer.ad 06/30/18 Fluticasone/Salmeterol [Advair 250-50 Diskus] 1 each IH BID #1 blst.w.dev Aspirin 1 tab PO DAILY 06/08/19 Carvedilol [Coreg] 1 tab PO BID 06/08/19 Clonidine HCl [Catapres] 1 tab PO TID 06/08/19 Cyanocobalamin [Vitamin B-12*] 1 ml IM SEECOM 06/08/19 Dextrose/Fructose/Sodium Cit [Nauzene Tablet Chew] 1 tab PO DAILY PRN 06/08/19 Ferrous Sulfate 1 tab PO DAILY 06/08/19 Fluoxetine HCl 1 cap PO DAILY 06/08/19 Nifedipine [Adalat cc] 1 tab PO DAILY 06/08/19 Uribel 118 mg PO QID PRN 06/08/19 Diet: Low sodium Activity: Ad freddy Followup: Randell Messer MD [ASSOCIATE-ACTIVE - CAN ADMIT] - Mo Lora MD [ACTIVE - CAN ADMIT] -
--- NOTE | 2019-06-09 12:56 | P.DS ---
Admission Date: 06/08/19 Discharge Date: 06/09/19 Disposition: ROUTINE DISCHARGE Discharge Condition: FAIR Reason for Admission: Ataxic gait; lightheadedness; aphasia Brief History of Present Illness: History of Present Illness: Patient is a 63-year-old female who came into the hospital with generalized weakness. Her gait was ataxic and she had some lightheadedness. She did mention some dizziness and she felt like the room was spinning initially. However, after being in the ER her symptoms have gradually improved. She is still feeling weak but overall she feels like her symptoms are much better. In the ER she was found have acute kidney injury with pre renal azotemia. She also had elevated blood pressure. She will also need to be worked up for a possible CVA. Patient will be admitted to the hospital for inpatient visit. Allergies Hospital Course: Patient with history of uncontrolled hypertension, admitted for slurred speech on weakness, history of debility and unable to ambulate at baseline. , was ruled out for acute CVA with negative CT head. She had a brain MRI that was also negative for any acute findings. She had an unremarkable chest x-ray SN[facility] for emphysema. Her swallow evaluation with barium swallow for complain of dysphagia was unremarkable as well . She had an echocardiogram done with Temitope ejection fraction, mild aortic regurgitation. She was evaluated by neurology-Dr. Messer and CVA was ruled out. Her blood pressure was kept elevated within the 1st 24 hr on admission restarted on medication to achieve improved control . On presentation she was noted with elevated creatinine to 2.9, she was started on IV fluid and creatinine has improved to 2.06 now. Nephrology evaluation was obtained. Patient is tolerating p.o. well now. She will be discharged home to continue increase fluid intake. Home medication regimen for blood pressure was restarted. Vital Signs/Physical Exam: Temp Pulse Resp BP Pulse Ox 97.7 F 88 17 160/80 H 98 06/09/19 12:00 06/09/19 12:00 06/09/19 12:00 06/09/19 12:00 06/09/19 12:00 General: In no apparent distress, Oriented x3 HEENT: Atraumatic, Normocephalic, PERRLA Neck: 2+ carotid pulse no bruit, JVD not distended Respiratory: Clear to auscultation bilaterally, Normal air movement Cardiovascular: Normal pulses, Regular rate/rhythm, Normal S1 S2 Gastrointestinal: Normal bowel sounds, Soft and benign, Non-distended Musculoskeletal: No erythema, No tenderness Neurological: Normal speech, Normal strength at 5/5 x4 extr Laboratory Data at Discharge: WBC 7.6 K/uL (4.3-10.9) 06/09/19 05:50 Hgb 12.0 g/dL (12.0-15.0) 06/09/19 05:50 Hct 37.2 % (36.0-45.0) D 06/09/19 05:50 Plt Count 319 K/uL (152-406) D 06/09/19 05:50 PT 14.0 SECONDS (9.5-12.5) H 06/07/19 19:50 INR 1.19 06/07/19 19:50 Sodium 144 mmol/L (136-145) 06/09/19 05:50 Potassium 3.9 mmol/L (3.5-5.1) 06/09/19 05:50 BUN 31 mg/dL (7-18) H 06/09/19 05:50 Creatinine 2.04 mg/dL (0.55-1.3) H 06/09/19 05:50 Glucose 93 mg/dL (74-106) 06/09/19 05:50 Phosphorus 3.9 mg/dL (2.5-4.9) 06/08/19 03:33 Magnesium 2.3 mg/dL (1.8-2.4) 06/09/19 05:50 Total Bilirubin 0.3 mg/dL (0.2-1.0) 06/08/19 03:33 AST 15 U/L (15-37) 06/08/19 03:33 ALT 14 U/L (12-78) 06/08/19 03:33 Alkaline Phosphatase 133 U/L (45-117) H 06/08/19 03:33 Troponin I < 0.02 ng/mL (0.0-0.045) 06/08/19 03:33 Triglycerides 76 mg/dL (<150) 06/08/19 03:33 Cholesterol 168 mg/dL (<200) 06/08/19 03:33 HDL Cholesterol 67 mg/dL (40-60) H 06/08/19 03:33 Cholesterol/HDL Ratio 2.51 06/08/19 03:33 Home Medications: ALPRAZolam [Alprazolam] 1 pill PO TID PRN 06/26/18 Apixaban [Eliquis] 5 mg PO BID 06/26/18 Gabapentin 1 tab PO TID 06/26/18 Albuterol Sulfate [Proair Hfa] 2 puff IH TID PRN #1 hfa.aer.ad 06/30/18 Fluticasone/Salmeterol [Advair 250-50 Diskus] 1 each IH BID #1 blst.w.dev Aspirin 1 tab PO DAILY 06/08/19 Carvedilol [Coreg] 1 tab PO BID 06/08/19 Clonidine HCl [Catapres] 1 tab PO TID 06/08/19 Cyanocobalamin [Vitamin B-12*] 1 ml IM SEECOM 06/08/19 Dextrose/Fructose/Sodium Cit [Nauzene Tablet Chew] 1 tab PO DAILY PRN 06/08/19 Ferrous Sulfate 1 tab PO DAILY 06/08/19 Fluoxetine HCl 1 cap PO DAILY 06/08/19 Nifedipine [Adalat cc] 1 tab PO DAILY 06/08/19 Uribel 118 mg PO QID PRN 06/08/19 Diet: Low sodium Activity: Ad freddy Followup: Mo Lora MD [ACTIVE - CAN ADMIT] - Randell Messer MD [ASSOCIATE-ACTIVE - CAN ADMIT] - Time spent managing pt's care (in minutes): 35
[2019-06-09] MEDS ORDERED: cloNIDine HCL 0.1 MG TAB PO SCH (14:00)
[2019-06-09] MEDS ORDERED: carvediloL 6.25 MG TAB PO SCH (21:00)
== END 2019-06-09 15:01 | disposition home or self-care (01) | DRG 683 ==
LOC: ER 18:16 → ERHOLD 06-08 00:32 → 4TH 06-08 01:53
PROVIDERS: ADMIT Hospitalist; ATTEND Internal Medicine
DX: N17.9 Acute kidney failure, unspecified (principal); E27.1 Primary adrenocortical insufficiency; R79.89 Other specified abnormal findings of blood chemistry; I48.91 Unspecified atrial fibrillation; I10 Essential (primary) hypertension; I27.20 Pulmonary hypertension, unspecified; R80.9 Proteinuria, unspecified; R26.0 Ataxic gait
CPT/HCPCS: 36415; 70450; 70544; 70551; 71045; 71046; 72125; 74230; 80048; 80053; 80061; 80076; 81003; 81015; 83735; 83880; 84100; 84132; 84436; 84443; 84484; 85025; 85610; 87086; 87088; 92610; 92611; 93005; 93306; 93880; 93970; 96365; 96366; 97161; 99285; J0360; J0696; J1650; J2270; J7030; J7040; J8597

== ENCOUNTER 2023-09-22 20:59 | Emergency (ER) | payer BC ==
--- NOTE | 2023-09-22 21:19 | ER ---
Nurse's Notes [facility] Name: Shonda Greenwood Age: 67 yrs Sex: Female : 1955 Arrival Date: 09/22/2023 Time: 20:59 Bed Waiting Private MD: Diagnosis: Assessment: 09/21 21:16 General: registration reports pt left after 6 minutes of being here stating we "weren't as6 moving fast enough" . ED Course: 21:00 Patient arrived in ED. ra3 21:02 Barak Alejandro MD is Attending Physician. sp3 21:18 Patient's name was called from ER [facility]. No response. Unable to locate patient. Will as6 disposition as left without being seen by a provider. Administered Medications: No medications were administered Outcome: 21:18 Eloped from waiting room, before seeing physician as6 21:19 Patient left the ED. as6 Signatures: Barak Alejandro MD MD sp3 Db Castro RN RN as6 Gabriela Wolf ra3
== END 2023-09-22 21:19 | disposition left against medical advice (07) ==
LOC: ER 20:59
DX: Z02.9 Encounter for administrative examinations, unspecified (principal)

== ENCOUNTER 2024-06-16 22:52 | Inpatient (IN) | payer OTHER ==
[2024-06-17 00:55] LABS: Absolute Eosinophils 0.1 K/uL (0-0.5); Absolute Lymphocytes (CBC) 0.8 K/uL (0.7-4.9); Absolute Monocytes 0.8 K/uL (0.1-1.3); Absolute Neutrophil 12.1 K/uL (1.8-8.0); Basophils % 0.3 % (0-1.3); Eosinophils % 0.7 % (0-4.4); Hematocrit 31.4 % (36.0-45.0); MCH 28.8 pg (27.0-35.0); MCHC 31.7 g/dL (32.0-36.0); MCV 90.7 fL (80-100); Monocytes % 5.7 % (3.3-12.3); Neutrophils % 87.3 % (41.7-73.7); Nucleated RBC Absolute Count 0.1 (0-0); Nucleated Red Blood Cells % 0.7 % (0-0); Platelets 100 thou/uL (152-406); RBC Red Blood Cell Count 3.46 M/uL (3.86-4.86); Red Cell Distribution Width 21.3 % (12.1-15.2)
[2024-06-17 01:01] LABS: PT Prothrombin Time 23.4 SECONDS (10-13.0); PTT, Activated Partial Thromb 45.6 SECONDS (27.2-37.4); Protime INR 2.13
[2024-06-17 01:08] LABS: AST/SGOT 12 U/L (15-37); Albumin 1.2 g/dL (3.4-5.0); Albumin/Globulin Ratio 0.4 (1.1-1.8); Alkaline Phosphatase 549 U/L (45-117); Anion Gap 11.7 mEq/L (5.0-15.0); BUN Blood Urea Nitrogen 47 mg/dL (7-18); Bicarbonate 22 mEq/L (21-32); Bilirubin Direct 0.4 mg/dL (0-0.2); Bilirubin Indirect, Calculated 0.2 mg/dL (0.2-0.8); Bilirubin Total 0.6 mg/dL (0.2-1.0); Globulin 3.3 g/dL (2.3-3.5); Glomerular Filtration Rate 12 ml/min (=/>90); Glucose Level 77 mg/dL (74-106); Magnesium 1.9 mg/dL (1.6-2.4); Potassium 3.7 mEq/L (3.5-5.1); Protein, Total 4.5 g/dL (6.4-8.2); Sodium Level 132 mEq/L (136-145)
[2024-06-17 01:12] LABS: ALT/SGPT < 14 U/L (13-56)
[2024-06-17] MEDS ORDERED: CEFEPIME 1 GM/VIAL ONE (02:33)
[2024-06-17] MEDS ORDERED: NA CHLORIDE 0.9% 100 ML ONE ×2 (02:33→10:35)
[2024-06-17 02:38] LABS: Specific Gravity 1.018 (1.005-1.030); Urine Bacteria >50 /HPF (<20); Urine Bilirubin NEGATIVE (Negative); Urine Blood 3+ (Negative); Urine Clarity Extremely Turbid (Clear); Urine Color Dark-Brown (Yellow); Urine Crystals Unidentified Many /HPF (None Seen); Urine Culture Reflex Order REFLEXED; Urine Glucose NEGATIVE (Negative); Urine Ketones NEGATIVE (Negative); Urine Microscopic Reflex YN ORDER UMIC; Urine Mucus 3+ /HPF (None Seen); Urine Nitrite NEGATIVE (Negative); Urine Protein 2+ (Negative); Urine RBC >50 /HPF (None Seen); Urine Urobilinogen Normal (Normal); Urine WBC >50 /HPF (<5); Urine WBC Clump Many /HPF (None Seen); Urine Yeast (Budding) Many /HPF (None Seen)
[2024-06-17 04:00] LABS: Anisocytosis 1+; Blood Morphology Comment NOTED (NOT SEEN); Platelet Estimate DECR; White Blood Cell Scan OK (OK)
--- NOTE | 2024-06-17 04:22 | ER ---
Nurse's Notes [facility] Name: Shonda Greenwood Age: 68 yrs Sex: Female : 1955 Arrival Date: 06/16/2024 Time: 22:52 Bed 16 Private MD: Diagnosis: Pyelonephritis acute;Stage IV decubitus ulcers with infection, End-stage renal disease on hemodialysis, acute volume overload Presentation: 06/16 22:56 Chief complaint: EMS states: family calls because the patient has worsening pain from rg5 her pressure ulcer wound, missed 2 X HD treatment. 22:56 Coronavirus screen: Vaccine status:. Ebola Screen: Patient negative for fever greater rg5 than or equal to 101.5 degrees Fahrenheit, and additional compatible Ebola Virus Disease symptoms. Initial Sepsis Screen: Does the patient meet any 2 criteria? No. Patient's initial sepsis screen is negative. Does the patient have a suspected source of infection? No. Patient's initial sepsis screen is negative. Risk Assessment: Do you want to hurt yourself or someone else? Patient reports no desire to harm self or others. Onset of symptoms was June 16, 2024. Care prior to arrival: Medication(s) given: Normal saline infusion, 1000 mL, fentanyl 100mcg IV IV initiated. 22 GA, in the left forearm. 22:56 Method Of Arrival: EMS: [facility] rg5 22:56 Acuity: RIANNA 3 rg5 Triage Assessment: 22:56 General: Appears uncomfortable, Behavior is calm, cooperative, appropriate for age. rg5 Pain: Complains of pain in coccyx Pain currently is 10 out of 10 on a pain scale. Pain began gradually. Neuro: Level of Consciousness is awake, alert, Oriented to person, place. Cardiovascular: Patient's skin is warm and dry. Respiratory: Airway is patent Trachea midline Respiratory effort is even, unlabored, Respiratory pattern is regular, symmetrical. Historical: - Allergies: 22:56 Sulfa; rg5 22:56 Vancomycin; rg5 - PMHx: 22:56 Anxiety; Atrial Fib; CVA; Diabetes - NIDDM; GERD; Hypertension; Hypothyroidism; kidney rg5 disease; short term memory loss; TIA; UTI; - Immunization history:: Adult Immunizations up to date. - Infectious Disease History:: Denies. - Social history:: Smoking status: Patient/guardian denies using tobacco, Stopped _ months ago 6. Screenin/21 00:05 Abuse screen: Denies threats or abuse. Tuberculosis screening: No symptoms or risk j7 factors identified. 12:00 [facility] ED Fall Risk Assessment (Adult) History of falling in the last 3 months, me1 including since admission No falls in past 3 months (0 pts) Confusion or Disorientation Yes (5 pts) Intoxicated or Sedated No (0 pts) Impaired Gait Yes (1 pt) Mobility Assist Device Used Yes (1 pt) Altered Elimination Score/Fall Risk Level 0 - 2 = Low Risk Maintained a safe environment, Provided non-skid footwear, Hourly rounding (assess needs \T\ fall precautionary measures) done. Nutritional screening: On renal diet. Assessment: 06/16 23:37 Reassessment: see triage assessment. rg5 06/17 00:05 Reassessment: ASSUMED CARE OF PT. PT RESTING COMFORTABLY IN BED WITH EYES CLOSED. jj7 FAMILY AT BEDSIDE. VS STABLE. ATTEMPT TO DRAW LABS. PT EASILY AROUSED TO VERBAL STIMULI. General: Appears comfortable, ill, slender, Behavior is calm, cooperative. Derm: Parent/caregiver reports the patient having DECUBITUS ULCER TO BUTTOCKS. WOUND DRESSED AT DRIED UPON INSPECTION. 01:00 Reassessment: sleeping. family at bedside. jj7 02:00 Reassessment: No changes from previously documented assessment. jj7 03:00 Reassessment: No changes from previously documented assessment. jj7 12:23 Reassessment: To dialysis. me1 Vital Signs: 06/16 22:56 BP 107 / 69; Pulse 65; Resp 18; Temp 98.5; Pulse Ox 99% ; Weight 46.72 kg; Height 4 ft. rg5 11 in. ; Pain 10/10; 06/17 00:05 BP 94 / 48; Pulse 59; Resp 10; Pulse Ox 100% on R/A; jj7 01:25 BP 99 / 68; Pulse 73; Resp 17; Pulse Ox 95% ; jj7 02:30 BP 99 / 52; Pulse 56; Resp 9; Pulse Ox 96% ; jj7 03:30 BP 86 / 63; Pulse 60; Resp 13; Pulse Ox 99% ; jj7 04:30 BP 86 / 44; Pulse 56; Resp 10; Pulse Ox 99% ; jj7 05:30 BP 85 / 44; Pulse 57; Resp 11; Pulse Ox 99% ; jj7 06:30 BP 114 / 60; Pulse 58; Resp 9; Pulse Ox 100% ; jj7 06:45 BP 101 / 54; Pulse 60; Resp 20; Pulse Ox 100% ; jj7 07:27 BP 108 / 57; Pulse 58; Resp 20; Pulse Ox 100% ; jj7 06/16 22:56 Body Mass Index 20.80 (46.72 kg, 149.86 cm) rg5 06/16 22:56 Pain Scale: Adult rg5 ED Course: 06/16 22:56 Patient arrived in ED. rv1 22:56 Dhruv Valdez PA is PHCP. cp 22:56 Anirudh Blair MD is Attending Physician. cp 22:56 Arm band placed on. rg5 23:07 Danny Al RN is Primary Nurse. rg5 23:32 Triage completed. rg5 23:52 EKG done, by video game repair technician. af3 06/17 00:05 Patient has correct armband on for positive identification. Bed in low position. Call jj7 light in reach. Side rails up X2. Adult w/ patient. Provided Education on: USE OF CALL LAIRD. Warm blanket given. 00:05 Maintain EMS IV. Dressing intact. Good blood return noted. Gauge \T\ site: 22 G LEFT FA. jj7 Flushed with 10 mL NS SLIGHT BLEEDING AROUND CATHETER. PT IS ON BLOOD THINNERS. 00:37 Basic Metabolic Panel Sent. af3 00:37 CBC with Diff Sent. af3 00:37 LFT's Sent. af3 00:37 Magnesium Sent. af3 00:37 PT-INR Sent. af3 00:45 Ptt, Activated Sent. jj7 01:45 Chest Single View XRAY In Process Unspecified. EDMS 02:53 CT Abd/Pelvis - Without Contrast In Process Unspecified. EDMS 04:21 Jere Wallace MD is Hospitalizing Provider. sp4 06:05 Inserted saline lock: 20 gauge in left EJ, using aseptic technique. ,using aseptic jj7 technique. INSERTED BY DR HERRING Flushed with 10 mL NS. 07:36 Report given to sander cueva. jj7 12:00 No provider procedures requiring assistance completed. me1 17:45 Patient admitted, IV remains in place. me1 Administered Medications: 01:30 Drug: NS 0.9% IV 1000 ml IV at 1 bolus Per protocol; given by ems Route: IV; Rate: 1 jj7 bolus; Site: left forearm; 13:45 Follow up: IV Status: Completed infusion me1 02:50 Drug: Cefepime IVPB 1 grams IVPB at 200 ml/hr once over 30 mins; (mix in NS 100 mL) jj7 Route: IVPB; Rate: 200 ml/hr; Infused Over: 30 mins; Site: left forearm; 03:20 Follow up: IV Status: Completed infusion jj7 05:48 Drug: Clindamycin IVPB 900 mg IVPB once over 30 mins; (mix in 50 mL) Route: IVPB; jj7 Infused Over: 30 mins; Site: left forearm; 13:45 Follow up: Response: No adverse reaction; IV Status: Completed infusion me1 06:17 Drug: Albumin IVPB 25 grams 100 ml IVPB once; (Note: Albumin 25% concentration) Volume: jj7 100 ml; Route: IVPB; Site: left jugular; 06:47 Follow up: IV Status: Completed infusion jj7 06:17 Drug: midodrine 10 mg PO once Route: PO; jj7 06:48 Follow up: Response: Blood pressure is elevated jj7 06:21 Drug: Atropine IVP 1 mg IVP once Route: IVP; Site: left jugular; jj7 06:48 Follow up: Response: Blood pressure is elevated jj7 06:22 Drug: Digoxin IVP 0.25 mg IVP once Route: IVP; Site: left jugular; jj7 06:47 Follow up: Response: No adverse reaction jj7 06:25 Drug: Albumin IVPB 25 grams 100 ml IVPB once; (Note: Albumin 25% concentration) Volume: jj7 100 ml; Route: IVPB; Site: left forearm; 06:30 Follow up: IV Status: Completed infusion jj7 06:59 Drug: Calcium Gluconate IVPB 2 grams IVPB once over 60 mins; (mix in NS 100 mL) Route: jj7 IVPB; Infused Over: 60 mins; Site: left forearm; 07:29 Follow up: IV Status: Completed infusion jj7 07:49 CANCELLED (WRONG PT): midazolamor iv 5 mg IVP once jj7 Medication: 00:05 VIS not applicable for this client. jj7 Outcome: 04:22 Decision to Hospitalize by Provider. spAlejandro 17:45 Admitted to Med/surg accompanied by tech, via stretcher, room 203, with chart, Report me1 called to faxed, receipt confirmed with Vira 17:45 Condition: stable 17:45 Instructed on the need for admit, 17:48 Patient left the ED. me1 Signatures: Dispatcher [employer] EDMS Dhruv Valdez PA PA Dane Antunez RN RN jj7 Nayeli Forte rv1 Anirudh Blair MD MD sp4 Elise Benítez RN RN me1 Danny Al RN RN 5 Nuha Florentino3 Corrections: (The following items were deleted from the chart) 07:48 07:26 Midazolam IVP or IV 5 mg IVP in right antecubital j7 jj7 07:48 07:30 Response: RASS: Moderate sedation (-3) j7 jj7
--- NOTE | 2024-06-17 04:22 | EDPHYS ---
Physician Documentation [facility] Name: Shonda Greenwood Age: 68 yrs Sex: Female : 1955 Arrival Date: 06/16/2024 Time: 22:52 Bed 16 Private MD: ED Physician Anirudh Blair HPI: 06/16 23:20 This 68 yrs old Female presents to ER via EMS with complaints of Decubitus Pressure cp Ulcer and Missed Dialysis. 23:20 Patient presents to ED for recheck of: decubitus ulcer that [facility] was treating. cp patient reportedly missed last 2 sessions of dialysis due to increasing pain from decubitus ulcer. daughter concerned decubitus ulcer is worse since wound vac was removed. Historical: - Allergies: 22:56 Sulfa; rg5 22:56 Vancomycin; rg5 - PMHx: 22:56 Anxiety; Atrial Fib; CVA; Diabetes - NIDDM; GERD; Hypertension; Hypothyroidism; kidney rg5 disease; short term memory loss; TIA; UTI; - Immunization history:: Adult Immunizations up to date. - Infectious Disease History:: Denies. - Social history:: Smoking status: Patient/guardian denies using tobacco, Stopped _ months ago 6. ROS: 23:25 Constitutional: Negative for fever, cp 23:25 Cardiovascular: Positive for edema, Negative for chest pain, cp 23:25 Respiratory: Negative for cough, shortness of breath, wheezing, 23:25 Abdomen/GI: Negative for vomiting, diarrhea, constipation, 23:25 Back: Positive for pain at rest, pain with movement, 23:25 Skin: Positive for decubitus ulcer, 23:25 Neuro: Negative for altered mental status, 23:25 All other systems are negative, Exam: 23:30 Constitutional: The patient appears in no acute distress, alert, awake, cp non-diaphoretic, non-toxic, well developed, frail, 23:30 Head/Face: Normocephalic, atraumatic. cp 23:30 Eyes: Periorbital structures: appear normal, Conjunctiva: normal, no exudate, no injection, Sclera: no appreciated abnormality, Lids and lashes: appear normal, bilaterally, 23:30 ENT: External ear(s): are unremarkable, Nose: is normal, Mouth: Lips: dry, Oral mucosa: moist, Posterior pharynx: Airway: no evidence of obstruction, patent, 23:30 Neck: ROM/movement: is normal, is supple, without pain, no range of motions limitations, 23:30 Chest/axilla: Inspection: normal, 23:30 Cardiovascular: Rate: normal, Rhythm: regular, 23:30 Respiratory: the patient does not display signs of respiratory distress, Respirations: normal, no use of accessory muscles, no retractions, labored breathing, is not present, Breath sounds: decreased breath sounds, that are mild, throughout, stridor, is not appreciated, wheezing: is not appreciated, 23:30 Abdomen/GI: Inspection: distension, that is mild, Bowel sounds: active, all quadrants, Palpation: abdomen is soft and non-tender, in all quadrants, 23:30 Skin: cellulitis, that is moderate, on the buttocks, pressure ulcer noted approximate golf ball size sacral area, 23:54 ECG was reviewed by the Attending Physician. cp Vital Signs: 22:56 BP 107 / 69; Pulse 65; Resp 18; Temp 98.5; Pulse Ox 99% ; Weight 46.72 kg; Height 4 ft. rg5 11 in. ; Pain 01/06; 06/17 00:05 BP 94 / 48; Pulse 59; Resp 10; Pulse Ox 100% on R/A; jj7 01:25 BP 99 / 68; Pulse 73; Resp 17; Pulse Ox 95% ; jj7 02:30 BP 99 / 52; Pulse 56; Resp 9; Pulse Ox 96% ; jj7 03:30 BP 86 / 63; Pulse 60; Resp 13; Pulse Ox 99% ; jj7 04:30 BP 86 / 44; Pulse 56; Resp 10; Pulse Ox 99% ; jj7 05:30 BP 85 / 44; Pulse 57; Resp 11; Pulse Ox 99% ; jj7 06:30 BP 114 / 60; Pulse 58; Resp 9; Pulse Ox 100% ; jj7 06:45 BP 101 / 54; Pulse 60; Resp 20; Pulse Ox 100% ; jj7 07:27 BP 108 / 57; Pulse 58; Resp 20; Pulse Ox 100% ; jj7 06/16 22:56 Body Mass Index 20.80 (46.72 kg, 149.86 cm) [facility] 06/16 22:56 Pain Scale: Adult rg5 MDM: 06/16 22:56 Medical Screening Exam initiated cp 23:30 Differential diagnosis: electrolyte abnormality, septic shock, osteomyelitis, cp cellulitis, volume overload. 06/17 04:17 ED course: EXAM DESCRIPTION: Chest Single View RadLex: XR CHEST 1 VIEW CLINICAL sp4 HISTORY: 68 years Female, dialysis COMPARISON: 02/12/2024 FINDINGS: Single portable AP supine view of the chest. Right dialysis catheter tip projects over the superior cavoatrial junction/upper right atrium. Borderline size of the cardiac silhouette. Diffuse bilateral interstitial and hazy opacities probably due to edema. No pleural effusion or pneumothorax. No acute osseous abnormality. IMPRESSION: 1. Right dialysis catheter tip projects over the superior cavoatrial junction/upper right atrium. No pneumothorax. 2. Mild diffuse bilateral interstitial and hazy opacities probably due to edema. . 04:22 Differential diagnosis: zack infection, cervicitis, kidney stone, malignancy, sp4 Neoplasm ovarian cyst. Data reviewed: vital signs, nurses notes, radiologic studies, CT scan, plain films. Consideration of Admission/Observation Patient was admitted/placed on observation. Escalation of care including admission/observation considered. Management of patient was discussed with the following: Hospitalist: Rodrigo COWAN . 04:24 ED course: Sepsis reevaluation completed, patient cannot get 30 mL/kg fluid bolus sp4 secondary to current volume overload and end-stage renal disease. 06/16 23:18 Order name: Basic Metabolic Panel; Complete Time: : cp 06/17 01:20 Interpretation: Normal except: NA 132; BUN 47; CRE 3.81; GFR 12; CA 7.2. cp 06/16 23:18 Order name: CBC with Diff; Complete Time: 04:23 cp 06/17 01:12 Interpretation: Normal except: WBC 13.90; RBC 3.46; HGB 10.0; HCT 31.4; MCHC 31.7; PLT cp 100; RDW 21.3; SUZIE% 87.3; LYM% 6.0; NEUT A 12.1. 06/16 23:18 Order name: LFT's; Complete Time: : cp 06/17 01:20 Interpretation: Normal except: AST 12; ALK 549; BILID 0.4; TP 4.5; ALB 1.2; A/G 0.4. cp 06/16 23:18 Order name: Magnesium; Complete Time: : cp 06/16 23:18 Order name: PT-INR; Complete Time: 01:02 cp 06/17 01:02 Interpretation: Reviewed. cp 06/16 23:18 Order name: Ptt, Activated; Complete Time: 01:02 cp 06/17 01:21 Interpretation: Reviewed. cp 06/17 01:28 Order name: Blood Culture Adult (2); Complete Time: 06:36 cp 06/17 01:28 Order name: Lactate w/ 2H reflex if indic.; Complete Time: 03:28 cp 06/17 01:28 Order name: Urinalysis w/ reflexes; Complete Time: 03:28 cp 06/17 01:28 Order name: BNP; Complete Time: 03:28 cp 06/17 01:29 Order name: CRP; Complete Time: 03:28 cp 06/17 02:47 Order name: Urine Culture EDMS 06/17 04:01 Order name: CBC Smear Scan; Complete Time: 04:23 EDMS 06/17 04:56 Order name: Glucose, Ancillary Testing; Complete Time: 05:53 EDMS 06/17 05:17 Order name: Urinalysis w/ reflexes; Complete Time: 06:36 EDMS 06/17 05:17 Order name: CBC with Automated Diff EDMS 06/17 05:17 Order name: CBC with Automated Diff EDMS 06/17 05:17 Order name: Comprehensive Metabolic Panel EDMS 06/17 05:17 Order name: Comprehensive Metabolic Panel EDMS 06/17 08:19 Order name: Glucose, Ancillary Testing; Complete Time: 15:08 EDMS 06/17 12:06 Order name: Glucose, Ancillary Testing; Complete Time: 15:08 EDMS 06/17 15:24 Order name: Hep B surface AG w/Reflex; Complete Time: 06:36 EDMS 06/17 15:24 Order name: Hepatitis B Surface Ab, QL/QN; Complete Time: 06:36 EDMS 06/17 01:28 Order name: Chest Single View XRAY; Complete Time: 15:08 cp 06/17 01:29 Order name: CT Abd/Pelvis - Without Contrast; Complete Time: 15:08 cp 06/16 23:18 Order name: EKG; Complete Time: 23:18 cp 06/17 05:17 Order name: CONS Physician Consult EDMS 06/17 05:17 Order name: Physical Therapy Consult EDMS 06/16 23:18 Order name: Cardiac monitoring; Complete Time: 23:51 cp 06/16 23:18 Order name: EKG - Nurse/Tech; Complete Time: 23:51 cp 06/16 23:18 Order name: IV Saline Lock; Complete Time: 00:45 cp 06/16 23:18 Order name: Labs collected and sent; Complete Time: 00:45 cp 06/16 23:18 Order name: O2 Per Protocol; Complete Time: 23:51 cp 06/16 23:18 Order name: O2 Sat Monitoring; Complete Time: 23:52 cp 06/17 01:28 Order name: Accucheck; Complete Time: 05:13 cp 06/17 01:28 Order name: IV Saline Lock - Large Bore; Complete Time: 09:25 cp 06/17 01:28 Order name: Vital Signs; Complete Time: 02:30 cp EC/20 23:54 Rate is 63 beats/min. Rhythm is regular. AL interval is normal. QRS interval is normal. cp QT interval is normal. T waves are Inverted in leads aVR, V2, V3, V4. Interpreted by me. Reviewed by me. Administered Medications: 06/17 01:30 Drug: NS 0.9% IV 1000 ml IV at 1 bolus Per protocol; given by ems Route: IV; Rate: 1 jj7 bolus; Site: left forearm; 13:45 Follow up: IV Status: Completed infusion me1 02:50 Drug: Cefepime IVPB 1 grams IVPB at 200 ml/hr once over 30 mins; (mix in NS 100 mL) jj7 Route: IVPB; Rate: 200 ml/hr; Infused Over: 30 mins; Site: left forearm; 03:20 Follow up: IV Status: Completed infusion jj7 05:48 Drug: Clindamycin IVPB 900 mg IVPB once over 30 mins; (mix in 50 mL) Route: IVPB; jj7 Infused Over: 30 mins; Site: left forearm; 13:45 Follow up: Response: No adverse reaction; IV Status: Completed infusion me1 06:17 Drug: Albumin IVPB 25 grams 100 ml IVPB once; (Note: Albumin 25% concentration) Volume: jj7 100 ml; Route: IVPB; Site: left jugular; 06:47 Follow up: IV Status: Completed infusion jj7 06:17 Drug: midodrine 10 mg PO once Route: PO; jj7 06:48 Follow up: Response: Blood pressure is elevated j7 06:21 Drug: Atropine IVP 1 mg IVP once Route: IVP; Site: left jugular; jj7 06:48 Follow up: Response: Blood pressure is elevated j 06:22 Drug: Digoxin IVP 0.25 mg IVP once Route: IVP; Site: left jugular; j7 06:47 Follow up: Response: No adverse reaction j 06:25 Drug: Albumin IVPB 25 grams 100 ml IVPB once; (Note: Albumin 25% concentration) Volume: jj7 100 ml; Route: IVPB; Site: left forearm; 06:30 Follow up: IV Status: Completed infusion j 06:59 Drug: Calcium Gluconate IVPB 2 grams IVPB once over 60 mins; (mix in NS 100 mL) Route: jj7 IVPB; Infused Over: 60 mins; Site: left forearm; 07:29 Follow up: IV Status: Completed infusion 07:49 CANCELLED (WRONG PT): midazolamor iv 5 mg IVP once Disposition: 04:17 Co-signature as Attending Physician, Anirudh Blair MD I agree with the assessment sp4 and plan of care. I reviewed the patient's care provided by Advanced Practice Provider \T\ agree w/ the diagnosis \T\ care plan. I personally saw the pt \T\ performed a substantive portion of the visit, incldng all aspects of the (History/Exam/Medical Decision Making). Disposition Summary: 06/17/24 04:22 Hospitalization Ordered Notes: Hospitalization Status: Inpatient Admission sp4 Provider: Jere Wallace sp4 Condition: Fair sp4 Problem: new sp4 Symptoms: have improved sp4 Bed/Room Type: Standard sp4 Location: Telemetry/MedSurg (Inpatient)(06/17/24 16:44) hb Room Assignment: 203(06/17/24 16:44) hb Diagnosis - Pyelonephritis acute sp4 - Stage IV decubitus ulcers with infection, End-stage renal disease on hemodialysis, sp4 acute volume overload Forms: - Medication Reconciliation Form sp4 - SBAR form sp4 - Leadership Thank You Letter sp4 Critical care time excluding procedures: 06:08 Critical care time: Bedside Care: 36 minutes, Consultation: 12 minutes, Family sp4 Intervention: 12 minutes. Total time: 60 minutes Signatures: Dispatcher [employer] EDMS Dhruv Valdez PA PA cp Millicent Morley RN RN hb Dane Calle RN RN jj7 Forte Nayeli rv1 Anirudh Blair MD MD sp4 Danny Al RN RN rg5 Elise Benítez RN me1 Corrections: (The following items were deleted from the chart) 06/16 23:56 23:55 This 68 yrs old Female presents to ER via EMS with complaints of Decubitus cp Pressure Ulcer and Missed Dialysis. cp 06/17 01:28 01:28 BLOOD CULTURE*+BA.LAB.BRZ ordered. EDMS EDMS 01:28 01:28 LACTATE+C.LAB.BRZ ordered. EDMS EDMS 01:28 01:28 Urinalysis+U.LAB.BRZ ordered. EDMS EDMS 01:28 01:28 PROBNP+C.LAB.BRZ ordered. EDMS EDMS 01:29 01:29 Chest Single View+RAD.RAD.BRZ ordered. EDMS EDMS 04:27 04:22 Telemetry/MedSurg (Inpatient) sp4 rv1 04:27 04:22 sp4 rv1 07:49 07:34 Midazolam IVP or IV 5 mg IVP once ordered. jj7 jj7 07:49 07:35 Midazolam IVP or IV 5 mg IVP once given. jj7 jj7 07:49 07:48 Midazolam IVP or IV 5 mg IVP once ordered. jj7 jj7 16:44 04:27 BR ER HOLD rv1 hb 16:44 04:27 ERHOLD- rv1 hb 06/18 06:34 06/17 04:23 Constitutional: Negative for fever, chills, and weight loss, sp4 cp
--- NOTE | 2024-06-17 05:01 | P.HP ---
Certification for Inpatient Patient admitted to: Inpatient With expected LOS: >2 Midnights Practitioner: I am a practitioner with admitting privileges, knowledge of patient current condition, hospital course, and medical plan of care. Services: Services provided to patient in accordance with Admission requirements found in Title 42 Section 412.3 of the Code of Federal Regulations Patient History Date of Service: 06/18/24 Reason for admission: Missed Dialysis History of Present Illness: 68 yrs old Female with past medical history of anxiety, atrial fibrillation, history of stroke, diabetes, hypertension, hyperlipidemia, hypothyroidism, ESRD on dialysis, short-term memory loss, TIA, recurrent UTI who presents to ER with complaints of Decubitus Pressure Ulcer and Missed Dialysis. Patient presents to ED for recheck of decubitus ulcer that home health was treating. She missed last 2 sessions of dialysis due to increasing pain from decubitus ulcer. Family was concerned that the wound looks worse and was brought to ER. Patient denies any chest pain or shortness of breath. No fever or chills. No nausea vomiting or diarrhea. Patient was assessed in the ER and is admitted for further management of pyelonephritis and decubitus stage IV ulcer and volume overload due to missed dialysis and will consult nephrology and wound care Allergies amikacin Adverse Reaction (Verified 06/08/19 02:29) Hives/Rash Sulfa Allergy (Intermediate, Uncoded 06/08/19 02:29) Hives/Rash Home medications list reviewed: Yes Home Medications: Allopurinol 100 mg PO DAILY 10/14/23 Omeprazole 20 mg PO BID 10/14/23 Amiodarone HCl [Cordarone Tab] 200 mg PO DAILY 06/17/24 Amlodipine [Norvasc] 5 mg PO DAILY 06/17/24 Apixaban [Eliquis] 2.5 mg PO BID 06/17/24 Metoprolol Succinate [Toprol Xl] 100 mg PO DAILY 06/17/24 - Past Medical/Surgical History Diabetic: No Past Medical History: Reviewed- Non-Contributory -: Rosalio's disease -: Recurrent UTIs -: Nephrolithiasis -: Diabetes mellitus type 2 -: Hypertension -: Atrial fibrillation -: Chronic back pain -: Tobacco abuse -: History of CVA and TIA x 2 -: GERD -: Poor dentition -: drug abuse Past Surgical History: Reviewed- Non-Contributory -: Lithotripsy -: Gastric bypass -: Bilateral rotator cuff repair -: Neck surgery to the C3 through C6 Psychosocial/ Personal History: The patient is . - Family History Mother -: Hypertension Father -: Hypertension - Social History Smoking Status: Never smoker Alcohol use: No CD- Drugs: No Caffeine use: No Review of Systems 10-point ROS is otherwise unremarkable Physical Examination - Vital Signs Temperature: 97.5 F Blood Pressure: 88/56 Pulse: 82 Respirations: 18 Pulse Ox (%): 94 - Physical Exam General: Alert, Cooperative, Cachectic HEENT: Atraumatic, Normocephalic Neck: Supple Respiratory: Clear to auscultation bilaterally, Normal air movement Cardiovascular: Regular rate/rhythm, Normal S1 S2 Capillary refill: <2 Seconds Gastrointestinal: Soft and benign, W/out hepatosplenomegaly Musculoskeletal: No clubbing Integumentary: No rashes Neurological: Normal speech, Normal strength at 5/5 x4 extr Lymphatics: No axilla or inguinal lymphadenopathy - Studies Laboratory Data (last 24 hrs) 06/17/24 06/17/24 06/17/24 00:35 00:35 00:35 WBC 13.90 H Hgb 10.0 L Hct 31.4 L Plt Count 100 L PT 23.4 H INR 2.13 APTT 45.6 H Sodium 132 L Potassium 3.7 BUN 47 H Creatinine 3.81 H Glucose 77 Magnesium 1.9 Total Bilirubin 0.6 AST 12 L ALT < 14 Alkaline Phosphatase 549 H Assessment and Plan - Plan Pyelonephritis Urine culture pending Started on IV antibiotic Awaiting cultures Change antibiotic as per sensitivity Volume overload CKD stage V on dialysis Missed dialysis IV Lasix was ordered bbut held due to hypotension Nephrology consult. Acute on chronic diastolic heart failure Start aggressive diuresis with IV Lasix Monitor intake and output. Continue home medications and titrate as needed Decubitus ulcer Wound care consulted Started on IV antibiotic Monitor closely Chronic atrial fibrillation Continue home medications and titrate as needed Hypertension Antihypertensives titrated Continue home medications and titrate as needed Hyperlipidemia Continue statin Anemia of chronic disease Monitor H&H closely No overt bleeding at this time GI/DVT prophylaxis Advanced directive full code Discharge Plan: Home Plan to discharge in: 48 Hours - Advance Directives Does patient have a Living Will: No Does patient have a Durable POA for Healthcare: No - Code Status/Comfort Care Code Status: Full Code Time Spent Managing Pts Care (In Minutes): 54
[2024-06-17] MEDS ORDERED: ONDANSETRON 4 MG/2 ML VIAL IV PRN (05:12)
[2024-06-17] MEDS ORDERED: MORPHINE 2 MG/ML SYR IV PRN (05:15)
[2024-06-17] MEDS ORDERED: CLINDAMYCIN 900MG/D5W 900 MG/50 ML IVPB IV ONE (05:43)
[2024-06-17] MEDS: ALBUMIN HUMAN 25% 100 ML IV ONE (05:54)
[2024-06-17] MEDS ORDERED: ATROPINE SULFATE 1 MG/ML INJ ONE (05:57)
[2024-06-17] MEDS ORDERED: DIGOXIN 0.25 MG/ML AMP ONE (05:57)
[2024-06-17] MEDS ORDERED: MIDODRINE HCL 5 MG TABLET ONE ×2 (05:58→10:35)
[2024-06-17] MEDS ORDERED: ALBUMIN HUMAN 25% 100 ML IV ONE (05:58)
[2024-06-17] MEDS ORDERED: SODIUM CHL 0.9% 1000 ML BAG IV SCH (06:00)
--- NOTE | 2024-06-17 06:30 | RAD REPORT ---
EXAM DESCRIPTION: Chest Single View RadLex: XR CHEST 1 VIEW CLINICAL HISTORY: 68 years Female, dialysis COMPARISON: 02/12/2024 FINDINGS: Single portable AP supine view of the chest. Right dialysis catheter tip projects over the superior c avoatrial junction/upper right atrium. Borderline size of the cardiac silhouette. Diffuse bilateral interstitial and hazy opacities probably due to edema. No pleural effusion or pneumothorax. No acute osseous abnormality. IMPRESSION: 1. Right dialysis catheter tip projects over the superior cavoatrial junction/upper right atrium. N o pneumothorax. 2. Mild diffuse bilateral interstitial and hazy opacities probably due to edema. Electronically signed by: Stephany Montanez MD 06/17/2024 04:14 AM CDT RP Due to temporary technical issues with the [email or web address] reporting system, reports are being светлана d by the in-house radiologist without review as a courtesy to ensure prompt reporting the interpreting radiologist is fully responsible for the content of the report. Transcribed Date/Time: 06/17/2024 6:30 AM
--- NOTE | 2024-06-17 06:33 | RAD REPORT ---
CT ABDOMEN PELVIS WITHOUT IV CONTRAST CLINICAL INDICATION: Sacral wound COMPARISON: CT abdomen and pelvis 02/12/2024 TECHNIQUE: CT images of the abdomen and pelvis obtained without contrast. Multiplanar reformats were provided. Dose-optimization techniques such as automated exposure control, iterative reconstruction, and mA and/or kV adjustment for patient size was utilized for this examination. FINDINGS: LOWER CHEST: Trace bilateral pleural effusions with dependent atelectasis. No pericardial effusion.. LIVER: Unremarkable. BILIARY: Gallbladder is markedly distended. Several small calcified layering gallstones. PANCREAS: Unremarkable. SPLEEN: Unremarkable. ADRENALS: Unremarkable. KIDNEYS/URETERS: Small nonobstructive stones in both kidneys measuring up to 4 mm. No hydroureteronep hrosis. Benign 1.6 cm Bosniak 1 cyst in left kidney; no follow-up imaging is recommended. STOMACH: Unremarkable. BOWEL: * Interval migration of a short bowel segment into the right inguinal hernia, possibly distal ileum . The entrapped bowel shows mild dilatation and intraluminal fecal material, suggesting low-grade obstruction. Mild circumferential wall thickening of multiple ileal loops, suspicious for mild enteri tis. Several distal ileal loops have intraluminal fecal material that may be due to incompetent ileocecal valve versus low-grade obstruction from inguinal hernia. * Moderate to marked gaseous distention of ascending to descending colon, likely due to ileus. Larg e amount of stool burden in cecum and transverse colon. * Circumferential wall thickening of rectum with mild perirectal stranding, in keeping with proctit is. APPENDIX: Appendix is not visualized. No focal inflammation in right lower quadrant to suggest acute appendicitis. MESENTERY/PERITONEUM: Mild mesenteric edema. No free fluid. No pneumoperitoneum. RETROPERITONEUM: No adenopathy. URINARY BLADDER: Unremarkable. REPRODUCTIVE: Unremarkable. VASCULAR: Unremarkable. ABDOMINAL/PELVIC WALL: iffuse body wall edema, particularly remarkable at left flank. Interval develo pment of sacral ulcer, more so on left. No focal collection. BONES: Mild cortical erosion at posterior aspect of the sacrococcygeal junction, new since previous e xam, suggesting early osteomyelitis. IMPRESSION: 1. Interval migration of a short bowel segment into the right inguinal hernia, possibly distal ileu m with suggestion of low-grade of bowel obstruction. 2. Mild circumferential wall thickening of multiple ileal loops, suspicious for mild enteritis. 3. Circumferential wall thickening of rectum with mild perirectal stranding, in keeping with procti tis. 4. Sacral ulcer. Suspected early osteomyelitis at the sacrococcygeal junction. 5. Moderate to marked gaseous distention of ascending to descending colon, likely due to ileus. Lar ge amount of stool burden in cecum and transverse colon. 6. Cholelithiasis. Marked gallbladder distention. 7. Nonobstructive bilateral nephrolithiasis. 8. Trace bilateral pleural effusions with dependent atelectasis. 9. Anasarca. Electronically signed by: Nuris Hoyos MD 06/17/2024 05:58 AM CDT Due to temporary technical issues with the PACS/[employer] reporting system, reports are being светлана d by the in-house radiologist without review as a courtesy to ensure prompt reporting the interpreting radiologist is fully responsible for the content of the report. Transcribed Date/Time: 06/17/2024 6:33 AM
[2024-06-17] MEDS ORDERED: CALCIUM GLUCONATE 1 GM IVPB 2 GM/100 ML BAG IV ONE (06:53)
[2024-06-17] MEDS: FUROSEMIDE 40 MG/4 ML VIAL IV SCH (09:00)
[2024-06-17] MEDS: MIDODRINE HCL 5 MG TABLET PO SCH (09:00)
[2024-06-17] MEDS ORDERED: FUROSEMIDE 40 MG/4 ML VIAL ONE (10:35)
[2024-06-17] MEDS ORDERED: PIPERACIL/TAZO 3.375 GM VIAL IV ONE (10:35)
[2024-06-17] MEDS: PIPER TAZO 3.375 GM in NA CHLORIDE 0.9% 100 ML IV SCH (11:00)
--- NOTE | 2024-06-17 11:24 | P.CNS ---
Date of Consult: 06/17/24 Reason for Consult: ESRD, dialysis dependence, volume management Chief Complaint: Missed Dialysis History of Present Illness: Pls note history obtained largely through chart review as pt is lethargic, pt also known to service from prior hospitalizations and OP HD. Pt is a 68 yrs old Female with multiple chronic health issues, including unspecified atrial fibrillation, history of stroke, SDH, DM with unspecified complications, CKD with progressive loss of GFR and initiation HD at [facility] with lengthy hospitalization then. Place on OP HD via Rt IJ TDC at [facility] however has had issues with painful sacral decub ulcer developed on prior hospitalization, debility, other. Pt may have also been admitted at [facility] recently. Pt came into the ER with missed dialysis treatment, reports of worsened decubitus. WBC elevated, BP soft. CT performed, multiple abnormal findings. Pt lethargic in the ER. Allergies amikacin Adverse Reaction (Verified 06/08/19 02:29) Hives/Rash Sulfa Allergy (Intermediate, Uncoded 06/08/19 02:29) Hives/Rash Home Medications: ALPRAZolam [Xanax*] 0.5 mg PO BEDTIME PRN PRN 10/14/23 Allopurinol 100 mg PO DAILY 10/14/23 Apixaban [Eliquis] 5 mg PO BID 10/14/23 Aspirin Chewable [Aspirin Chewable*] 81 mg PO DAILY 10/14/23 Calcitrol [Rocaltrol*] 0.25 mcg PO DAILY 10/14/23 Cariprazine HCl [Vraylar] 3 mg PO DAILY 10/14/23 Cyclobenzaprine [Flexeril*] 10 mg PO BIDP PRN 10/14/23 Furosemide [Lasix*] 40 mg PO BID 10/14/23 Gabapentin 600 mg PO BID 10/14/23 Hydrocodone 10/APAP 325 [Mills 10/325*] 1 tab PO TIDP PRN 10/14/23 Nifedipine Xl [Procardia Xl*] 30 mg PO BID 10/14/23 Omeprazole 20 mg pe PO BID 10/14/23 Vortioxetine Hydrobromide [Trintellix] 20 mg PO DAILY 10/14/23 carvediloL [Coreg*] 25 mg PO BID 10/14/23 - Past Medical/Surgical History Diabetic: No -: Taos's disease -: ESRD followed by Dr. Nix/Agnes -: Nephrolithiasis -: Diabetes mellitus type 2 -: Hypertension -: Atrial fibrillation -: Chronic back pain -: Tobacco abuse -: History of CVA and TIA x 2 -: GERD -: Poor dentition -: drug abuse -: Lithotripsy -: Gastric bypass -: Bilateral rotator cuff repair -: Neck surgery to the C3 through C6 Psychosocial/ Personal History: The patient is . - Family History Mother Medical History: Hypertension Father Medical History: Hypertension - Social History Smoking Status: Unknown if ever smoked Alcohol use: No CD- Drugs: No Caffeine use: No Review of Systems is unable to be obtained Physical Examination Temp Pulse Resp BP Pulse Ox 97.5 F 60 12 106/52 L 100 06/17/24 08:00 06/17/24 08:00 06/17/24 08:00 06/17/24 08:00 06/17/24 08:00 General: Other (Appears chronically ill, pale, frail) HEENT: Atraumatic, Normocephalic Neck: Other (Rt IJ CVC, Lt EJ IV) Respiratory: Normal air movement, Other (non tachypnec, reduced BS at bases) Cardiovascular: Other (Non tachy, mostly regular) Gastrointestinal: Other (Mild distention, soft, no guarding or TTP) Musculoskeletal: Other (Pitting edema of the LE extending to thighs, 2+ shins mildly tender to palpation) Integumentary: Other (Ecchymoses) Neurological: Other (Lethargic, opens eyes briefly, mumbles, falls back asleep. ) Laboratory Data (last 24 hrs) 06/17/24 06/17/24 06/17/24 00:35 00:35 00:35 WBC 13.90 H Hgb 10.0 L Hct 31.4 L Plt Count 100 L PT 23.4 H INR 2.13 APTT 45.6 H Sodium 132 L Potassium 3.7 BUN 47 H Creatinine 3.81 H Glucose 77 Magnesium 1.9 Total Bilirubin 0.6 AST 12 L ALT < 14 Alkaline Phosphatase 549 H Conclusions/Impression: A/P) 1. ESRD 2nd to progressive CKD from chronic comorbidities, GFR loss, recent initiation of [employer], missed OP dialysis. Gentle HD today for metab clearance and UF as tolerated. See orders for details 2. Hypotension, unspecified. Despite her 3rd space generalized edema due to severe hypoalbuminemia, she may not be intravascularly volume overloaded at this time and she has presented with infectious signs so will need to be cautious with UF and will employ Albumin on HD. Lowered scheduled Lasix dose ordered by IM team, she is non anuric 3. Abnormal findings in urine, pyuria. Hx of non obstructing nephrolithiasis. No bladder distention or hydro reported on imaging. Cont empiric Abx (Zosyn ordered), yeast noted on UA, will add Fluconazole 100 mg IV x 5 days, f/u cultures 4. Leukocytosis, unspecified. In the setting of above and sacral decub ulcer (unspecified stage, POA), will defer Abx and wound care management/oversight to IM 5. Possible ileus, unspecified. CT findings noted, defer to IM to monitor, manage 6. Chronic diastolic CHF. Afib unspecified. Monitor closely, hold CCB home medication. 7. AMS, unspecified, likely toxic-metab encephalopathy, caution with any opiate narcotic med use, d/c ordered morphine
[2024-06-17] MEDS: FLUCONAZOLE 100mg IVPB 100 MG/50 ML BAG IV SCH (11:58)
[2024-06-17] MEDS ORDERED: ALBUMIN HUMAN 25% 100 ML IV SCH (12:00)
[2024-06-17 15:17] LABS: Hepatitis B surface AG Interp. Nonreactive (Nonreactive)
[2024-06-17 15:23] LABS: Hepatitis B Surface Ab - Quant < 3.10 mIU/mL (<8.0)
[2024-06-17 15:24] LABS: HBsAG Nonreactive Report Report
--- NOTE | 2024-06-17 15:55 | P.PN ---
Date of Service: 06/17/24 Patient seen and examined. Patient appear drowsy and not able to give any subjective complaint. Afebrile, borderline low blood pressure. Abdomen is not distended, no tenderness. Stage IV sacral decubitus ulcer. Diagnosis: End-stage renal disease on hemodialysis Missed dialysis with anasarca Ileus Inguinal hernia Nephrolithiasis. Sacral decubitus ulcer. Plan: Nephrology input appreciated. Patient to undergo hemodialysis. Continue antibiotics Surgery consult evaluate for sacral decubitus ulcer, ileostomy. Midodrine as needed for hypotension. Hold home antihypertensives for now. Validates and reconcile medications.
[2024-06-17 17:00] LABS: Specific Gravity 1.017 (1.005-1.030); Sqamous Epithelial <5 /HPF (None Seen); Urine Bacteria None Seen /HPF (<20); Urine Bilirubin NEGATIVE (Negative); Urine Blood 3+ (OVER) (Negative); Urine Clarity Extremely Turbid (Clear); Urine Color Orange (Yellow); Urine Crystals Unidentified Few /HPF (None Seen); Urine Culture Reflex Order REFLEXED; Urine Glucose NEGATIVE (Negative); Urine Ketones NEGATIVE (Negative); Urine Microscopic Reflex YN ORDER UMIC; Urine Nitrite NEGATIVE (Negative); Urine Protein 2+ (Negative); Urine RBC >50 /HPF (None Seen); Urine Urobilinogen Normal (Normal); Urine WBC >50 /HPF (<5); Urine WBC Clump Many /HPF (None Seen); Urine Yeast (Budding) Many /HPF (None Seen); Urine pH 5.5 (5.0-7.0)
[2024-06-17] MEDS ORDERED: GLUCAGON 1 MG/VIAL IM PRN (18:26)
[2024-06-17] MEDS: D10W 125 ML IV PRN (18:30)
[2024-06-17] MEDS: DEXTROSE 10%-WATER 500 ML IV SCH (18:49)
[2024-06-17] MEDS ORDERED: FUROSEMIDE 40 MG/4 ML VIAL IV SCH (21:00)
[2024-06-17] MEDS: FUROSEMIDE 20 MG/ 2ML VIAL IV SCH (21:21)
[2024-06-17] MEDS: D5 0.9 NS 1,000 ML IV SCH (21:26)
[2024-06-18] MEDS: AMIODARONE HCL 200 MG TAB PO SCH (02:48)
[2024-06-18] MEDS: METOPROLOL XL 100 MG TAB PO SCH (02:48)
[2024-06-18 06:18] LABS: Absolute Lymphocytes (CBC) 0.6 K/uL (0.7-4.9); Absolute Monocytes 0.6 K/uL (0.1-1.3); Absolute Neutrophil 19.1 K/uL (1.8-8.0); Basophils % 0.2 % (0-1.3); Eosinophils % 0.1 % (0-4.4); Hematocrit 25.1 % (36.0-45.0); Hemoglobin 7.9 g/dL (12.0-15.0); MCH 28.8 pg (27.0-35.0); MCHC 31.6 g/dL (32.0-36.0); MCV 91.1 fL (80-100); MPV 9.2 fL (7.6-11.3); Monocytes % 2.8 % (3.3-12.3); Neutrophils % 93.9 % (41.7-73.7); Nucleated Red Blood Cells % 0.2 % (0-0); Platelets 94 thou/uL (152-406); RBC Red Blood Cell Count 2.76 M/uL (3.86-4.86); Red Cell Distribution Width 22.2 % (12.1-15.2)
[2024-06-18 07:00] LABS: Albumin 1.8 g/dL (3.4-5.0); Albumin/Globulin Ratio 0.6 (1.1-1.8); Anion Gap 11.4 mEq/L (5.0-15.0); Globulin 2.9 g/dL (2.3-3.5); Phosphorus 1.9 mg/dL (2.5-4.9); Potassium 3.4 mEq/L (3.5-5.1); Protein, Total 4.7 g/dL (6.4-8.2)
[2024-06-18 09:06] LABS: Differential Total Cells Count 100
[2024-06-18 09:07] LABS: Atypical Lymphocytes 1 %; Band Neutrophils 1 % (0-1); Dohle Bodies PRESENT; Lymphocytes 6 % (15-42); Monocytes 5 % (0-10); Platelet Estimate DECR; Reactive Lymphocytes 1 %; Segmented Neutrophils 86 % (40-80); Toxic Granulation PRESENT
[2024-06-18 09:08] LABS: Anisocytosis 2+; Blood Morphology Comment NOTED (NOT SEEN); Hypochromasia 1+; Polychromasia 1+; Stomatocytes 1+
--- NOTE | 2024-06-18 13:17 | CON ---
Date of Consultation: 06/18/2024 Reason Of Service: Sacral decubitus ulcer. History Of Present Illness: This is a case of a 68-year-old patient brought to the hospital with mul tiple medical problems. She has also been at another hospital recently. Recently, discharged, but t he chart and the details are not available at this moment. Apparently, she came lethargic to the ER. She was admitted and found to have a decubitus, but the treatment of that is unknown at this moment . Allergies: AMIKACIN, SULFA. Medications: Reviewed including aspirin, Lasix, Procardia, Trintellix. 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 Past Surgical History: Include gastric bypass, bilateral rotator cuff repair, neck surgery, lithotri psy. Family History: Hypertension. Social History: Unknown. Review of Systems: Unable to be obtained. She does not give any information. Most of that was obtained when I talked t o the doctor in charge in the hospital. Physical Examination: General: Patient is awake. She responds. She answers, although she cannot give you the information . HEENT: Pupils anicteric. Abdomen: Soft and depressible. Back: She does not wanted to turn, but just a few seconds ago, some pictures were taken of the area showing what looks like a grade 3 or grade 4, it is hard to say at this moment, a pressure ulcer. Th ere is some fibrin present and looked like it has been addressed because it is not dressin g changes is unknown, at this moment. Laboratory Data: Blood work reviewed with a white count of 13 and hemoglobin of 10. Plan: At least, stage III sacral decubitus ulcer, it is at least 7 x 7 cm in size with tunneling. I f the patient improved from a medical standpoint and I have a chance to address the wound surgically, I will like to take this patient to the first floor OR to do a formal debridement most likely pulse lavage in that area, trying to get this in a better condition. Once again, I have to see if medicall y that is possible, otherwise, may have to do just bedside dressing changes and treatment. In the az antime, we can continue with wet-to-dry dressing. HM/MODL Voice ID: [id number] Report ID: [id number]
--- NOTE | 2024-06-18 14:57 | P.PN ---
Subjective Date of Service: 06/18/24 Chief Complaint: Missed Dialysis Patient is minimally verbal. No issues overnight No recorded fever. She endorses generalized weakness. Poor oral intake. Physical Examination - Vital Signs Temperature: 98.2 F Blood Pressure: 90/43 Pulse: 98 Respirations: 15 Pulse Ox (%): 92 - Studies Microbiology Data (last 24 hrs): 06/17/24 01:52 Blood - Blood Anaerobic Blood Culture - Final 06/17/24 01:52 Blood - Blood Anaerobic Blood Culture - Final Assessment And Plan - Plan Physical examination General: Alert and oriented x1, NAD, HEENT: Anicteric sclera Neck: Supple, no elevated JVD Heart: Heart sounds 1 and 2 normal, regular rhythm, normal rate, no pedal edema Lungs: Clear to auscultation bilaterally, adequate breath sounds bilaterally, no rhonchi or crackles. Abdomen: Soft, nondistended, nontender, normal bowel sounds. Extremities: No tenderness, no deformity Skin: Stage IV sacral decubitus ulcer Neuro: Globally weak, patient moves all extremities. Psychiatry: No agitation. Diagnosis End-stage renal disease on hemodialysis Missed dialysis with anasarca Ileus Inguinal hernia Nephrolithiasis. Sacral decubitus ulcer. Plan End-stage renal disease on hemodialysis Missed dialysis Nephrology Dr. Nix input appreciated. Patient is undergoing dialysis with ultrafiltration. Patient is on D5 NS for daily fluid maintenance due to significantly decreased oral intake. Further management per nephrology. Stage IV sacral decubitus ulcer Sepsis Leukocytosis trended up Patient evaluated by surgery Dr. Long who is planning debridement on Tuesday 06/20. Daily wound care Patient is on IV antibiotics. Follow blood cultures. I doubt patient has active UTI or pyelonephritis. Urine culture showed polymicrobial growth which is not unexpected given that patient is a dialysis patient and barely makes any urine. Nephrolithiasis Supportive measures. Ileus Functional constipation Trial of Dulcolax suppository and mag citrate. Generalized weakness PT consult. Hypotension Likely hypovolemia secondary to dehydration. Patient is on IV D5 NS. Monitor BP. Midodrine as needed. Hold home antihypertensives. DVT prophylaxis:Heparin SQ Advanced directive: Full code
[2024-06-18] MEDS: BISACODYL 10 MG RECTAL SUPP PR ONE ×2 (15:09→18:37)
[2024-06-18] MEDS: MAGNESIUM CITRATE 300 ML BOT PO SCH ×2 (16:00→18:37)
[2024-06-18] MEDS: ACETAMINOPHEN 325 MG TABLET PO PRN (22:06)
[2024-06-18] MEDS: HYDROCODONE/APAP 5/325 MG TAB PO PRN (23:44)
[2024-06-19] MEDS: FUROSEMIDE 40 MG/4 ML VIAL ONE (03:15)
[2024-06-19] MEDS: FUROSEMIDE 40 MG/4 ML VIAL IV ONE (03:22)
[2024-06-19 08:46] VITALS: BMI 20.4
[2024-06-19] MEDS: allopurinoL 100 MG TAB PO SCH (09:01)
[2024-06-19 09:34] LABS: Absolute Eosinophils 2.2 K/uL (0-0.5); Absolute Lymphocytes (CBC) 1.5 K/uL (0.7-4.9); Absolute Monocytes 0.8 K/uL (0.1-1.3); Absolute Neutrophil 30.9 K/uL (1.8-8.0); Eosinophils % 6.2 % (0-4.4); Hematocrit 27.9 % (36.0-45.0); Hemoglobin 8.6 g/dL (12.0-15.0); Lymphocytes % 4.2 % (15.3-44.8); MCH 28.7 pg (27.0-35.0); MCHC 30.8 g/dL (32.0-36.0); MCV 93.1 fL (80-100); Monocytes % 2.3 % (3.3-12.3); Neutrophils % 87.3 % (41.7-73.7); Nucleated Red Blood Cells % 0.1 % (0-0); Platelets 56 thou/uL (152-406); Red Cell Distribution Width 24.7 % (12.1-15.2)
[2024-06-19 09:56] LABS: Band Neutrophils 4 % (0-1); Differential Total Cells Count 100; Lymphocytes 4 % (15-42); Monocytes 2 % (0-10); Segmented Neutrophils 90 % (40-80)
[2024-06-19 09:57] LABS: Anisocytosis 3+; Blood Morphology Comment NOTED (NOT SEEN); Howell-Jolly Bodies NOTED; Macrocytosis 1+; Microcytosis 1+; Platelet Estimate DECR; Toxic Granulation 1+
[2024-06-19 10:07] LABS: Anion Gap 16.9 mEq/L (5.0-15.0); Potassium 3.9 mEq/L (3.5-5.1)
[2024-06-19 10:23] LABS: Magnesium 2.4 mg/dL (1.6-2.4); Phosphorus 2.6 mg/dL (2.5-4.9)
[2024-06-19] MEDS: FLUCONAZOLE 200mg IVPB 100 MG/50 ML BAG IV SCH (12:46)
--- NOTE | 2024-06-19 14:32 | P.PN ---
Subjective Date of Service: 06/19/24 Chief Complaint: Missed Dialysis Patient is more interactive today. No issues overnight No recorded fever. Poor oral intake. Physical Examination - Vital Signs Temperature: 97.5 F Blood Pressure: 103/57 Pulse: 63 Respirations: 16 Pulse Ox (%): 97 - Studies Microbiology Data (last 24 hrs): 06/17/24 02:20 Clean Catch Urine [place] Count - Final >100,000 CFU/ML. 06/17/24 02:20 Clean Catch Urine - Final Assessment And Plan - Plan Physical examination General: Alert and oriented x1, NAD, Neck: Supple, no elevated JVD Heart: Heart sounds 1 and 2 normal, regular rhythm, normal rate, no pedal edema Lungs: Clear to auscultation bilaterally, adequate breath sounds bilaterally, no rhonchi or crackles. Abdomen: Soft, nondistended, nontender, normal bowel sounds. Extremities: No tenderness, no deformity Skin: Stage IV sacral decubitus ulcer Neuro: Globally weak, no focal motor deficit. Psychiatry: No agitation. Diagnosis End-stage renal disease on hemodialysis Missed dialysis with anasarca Ileus Inguinal hernia Nephrolithiasis. Sacral decubitus ulcer. Plan End-stage renal disease on hemodialysis Missed dialysis Nephrology Dr. Nix input appreciated. Patient is undergoing dialysis with ultrafiltration. Patient is on D5 NS for daily fluid maintenance due to significantly decreased oral intake. Further management per nephrology. Stage IV sacral decubitus ulcer Sepsis Leukocytosis trended up Patient evaluated by surgery Dr. Long who is planning debridement on Tuesday 06/20. Daily wound care Patient is on IV antibiotics. Follow blood cultures. I doubt patient has active UTI or pyelonephritis. Urine culture showed polymicrobial growth which is not unexpected given that patient is a dialysis patient and barely makes any urine. Nephrolithiasis Supportive measures. Ileus Functional constipation Trial of Dulcolax suppository and mag citrate. Generalized weakness PT consult. Hypotension Likely hypovolemia secondary to dehydration. Patient is on IV D5 NS. Monitor BP. Midodrine as needed. Hold home antihypertensives. 06/19 Blood pressure improved today Mental status is improved Leukocytosis much worse compared to yesterday. Patient has not responded to IV Zosyn. Blood cultures have yielded no growth. Given severe leukocytosis IV Zosyn changed to IV meropenem vancomycin. Continue slow IV hydration for daily Lorenz maintenance. Advance diet as tolerated. Surgery Dr. Long input regarding sacral decubitus ulcer noted. Dr. Long is considering debridement tomorrow if patient's condition becomes more stable. Further hemodialysis per nephrology. Continue to hold home antihypertensives. Monitor renal function and CBC. PT evaluation once patient becomes stable. DVT prophylaxis:Heparin SQ Advanced directive: Full code
[2024-06-19] MEDS: VANCOMYCIN 1.25 GM in NA CHLORIDE 0.9% 250 ML IVPB ONE (17:22)
--- NOTE | 2024-06-19 19:18 | PN ---
Date of Progress Note: 06/19/2024 Diagnosis: Sacral decubitus ulcer. History Of Present Illness: This is the case of a 68-year-old patient with sacral decubitus ulcer, a dmitted to the hospital with leukocytosis, sepsis, and I was called for a sacral decubitus ulcer debr idement. The physical exam, continue the same as yesterday with stage 3, probably 4 sacral decubitus ulcer. B lood work reviewed. The plan is for excision and debridement if medically allowed. N.p.o. after mid night. The benefits, alternatives, and risks fully explained again, which include, but not limited t o infection, bleeding, damage to adjacent structures, nonhealing wound, NH, and even . Offloadi ng is important. Nutrition is important. HM/MODL Voice ID: [id number] Report ID: [id number]
[2024-06-19] MEDS: HYDROCODONE/APAP 10/325 TAB PO PRN (20:48)
[2024-06-20 05:22] LABS: Absolute Eosinophils 0.3 K/uL (0-0.5); Absolute Lymphocytes (CBC) 1.2 K/uL (0.7-4.9); Absolute Monocytes 0.6 K/uL (0.1-1.3); Absolute Neutrophil 24.7 K/uL (1.8-8.0); Basophils % 0.2 % (0-1.3); Hematocrit 23.5 % (36.0-45.0); Hemoglobin 7.3 g/dL (12.0-15.0); Lymphocytes % 4.3 % (15.3-44.8); MCH 28.6 pg (27.0-35.0); MCHC 30.9 g/dL (32.0-36.0); MCV 92.5 fL (80-100); MPV 9.5 fL (7.6-11.3); Monocytes % 2.1 % (3.3-12.3); Neutrophils % 92.4 % (41.7-73.7); Platelets 27 thou/uL (152-406); RBC Red Blood Cell Count 2.54 M/uL (3.86-4.86); Red Cell Distribution Width 24.6 % (12.1-15.2)
[2024-06-20 05:38] LABS: Anion Gap 11.2 mEq/L (5.0-15.0); Potassium 4.2 mEq/L (3.5-5.1)
--- NOTE | 2024-06-20 10:28 | P.PN ---
Date of Service: 06/20/24 Vital Signs Temp Pulse Resp BP Pulse Ox 98.1 F 69 20 118/63 93 06/20/24 08:00 06/20/24 08:00 06/20/24 08:00 06/20/24 08:00 06/20/24 08:00 Medications Acetaminophen (Acetaminophen 325 Mg Tablet) 650 mg PO Q4HP PRN PRN Reason: Pain scale 2-4 (Mild) Last Admin: 06/18/24 22:06 Dose: 650 mg Hydrocodone Bitart/Acetaminophen (Hydrocodone/Apap 10/325 Tab) 1 tab PO Q4H PRN PRN Reason: Pain scale 5-7 (Moderate) Last Admin: 06/19/24 20:48 Dose: 1 tab Allopurinol (Allopurinol 100 Mg Tab) 100 mg PO DAILY HUSSAIN Last Admin: 06/20/24 09:00 Dose: Not Given Amiodarone HCl (Amiodarone Hcl 200 Mg Tab) 200 mg PO DAILY HUSSAIN Last Admin: 06/20/24 09:00 Dose: Not Given Furosemide (Furosemide 20 Mg/ 2ml Vial) 20 mg IV BID HUSSAIN Last Admin: 06/19/24 20:49 Dose: 20 mg Glucagon (Glucagon 1 Mg/Vial) 1 mg IM 1X PRN PRN Reason: HYPOGLYCEMIA Heparin Sodium (Porcine) (Heparin 1,000 Unit/Ml Vial) 6,000 unit IV EVERY HD PRN PRN Reason: FOR DIALYSIS CATHETER CARE Dextrose (Dextrose 10% Water Iv Soln.) 125 mls @ 0 mls/hr IV PRN PRN; Protocol PRN Reason: HYPOGLYCEMIA Last Admin: 06/20/24 07:53 Dose: 125 mls Fluconazole (Diflucan 200 Mg/100 Ml Ivpb (Premix)) 100 mg in 50 mls @ 50 mls/hr IV Q24H HUSSAIN; Protocol Last Admin: 06/19/24 12:46 Dose: 50 mls Vancomycin HCl 1 gm/ Sodium (Chloride) 250 mls @ 250 mls/hr IVPB AFTER EACH DIALYSIS HUSSAIN; Protocol Albumin Human (Albumin 25% 25 Gm) 100 mls @ 100 mls/hr IV 1X ONE Stop: 06/20/24 11:59 Midodrine (Midodrine Hcl 5 Mg Tablet) 5 mg PO TID HUSSAIN Last Admin: 06/20/24 09:00 Dose: Not Given Ondansetron HCl (Ondansetron 4 Mg/2 Ml Vial) 4 mg IV Q6HP PRN PRN Reason: NAUSEA / VOMITING Microbiology Results 06/17/24 02:20 Clean Catch Urine [place] Count - Final >100,000 CFU/ML. 06/17/24 02:20 Clean Catch Urine - Final 06/17/24 01:52 Blood - Blood Aerobic Blood Culture - Preliminary No growth in 24 hours. 06/17/24 01:52 Blood - Blood Anaerobic Blood Culture - Final 06/17/24 01:52 Blood - Blood Aerobic Blood Culture - Preliminary No growth in 24 hours. 06/17/24 01:52 Blood - Blood Anaerobic Blood Culture - Final Assessment/ Plan: Nephrology Progress Note Fatigue, malaise and weakness No Chest Pain Progressive dyspnea overnight and transferred to the ICU this morning. Stat CXR ordered Vital Signs, Medications, Blood Work, and Imaging reviewed in the chart Mild distress. NCAT. MMM. Neck Supple. Diminished/ Rales. RRR. Abd ND. No C/C. LE Edema 2-3+. No Rash. Awake. Minimal Speech/ Moans HISTORY: Cough COMPARISON: June 17, 2024 FINDINGS: Moderate patchy alveolar opacities are present within the lungs. Heart is mildly enlarged. Central venous catheter in place. No significant pleural effusion noted. The heart is normal size. IMPRESSION: Moderate bilateral patchy lung opacities could represent pneumonia or pulmonary edema Assessment & Plan ESRD on HD MWF Proteinuria -No NSAIDs -Arrange for Acute HD today Chronic Hypotension -Increase Midodrine -Albumin as ordered -Levophed prn Diastolic CHF, A/C Anasarca Acute Hypoxic Respiratory Failure -Continue Oxygen supplementation -CXR pending -Stop IVF -Lasix as ordered Hypoalbuminemia -IV Albumin ordered Sacral Decubitus Ulcer Stage IV -Follow up with surgery -Wound care as ordered Anemia in chronic illness Thrombocytopenia -Monitor CBC -PRBC prn Acute Cystitis with Hematuria -Continue abx Case reviewed with Dr. Alexander Hospitalist note reviewed Patient care 40min
[2024-06-20] MEDS: Meropenem 500 MG in NA CHLORIDE 0.9% 100 ML IV ONE (10:58)
[2024-06-20] MEDS: FUROSEMIDE 40 MG/4 ML VIAL IV ONE (10:58)
[2024-06-20] MEDS: ALBUMIN HUMAN 25% 100 ML IV ONE (10:58)
[2024-06-20] MEDS: MIDODRINE HCL 5 MG TABLET PO ONE (11:27)
--- NOTE | 2024-06-20 11:30 | RAD REPORT ---
Procedure: Chest Single View HISTORY: Cough COMPARISON: June 17, 2024 FINDINGS: Moderate patchy alveolar opacities are present within the lungs. Heart is mildly enlarged. Central venous catheter in place. No significant pleural effusion noted. The heart is normal size. IMPRESSION: Moderate bilateral patchy lung opacities could represent pneumonia or pulmonary edema
[2024-06-20] MEDS: ALBUMIN HUMAN 25% 200 ML IV ONE (11:44)
--- NOTE | 2024-06-20 12:11 | EKG ---
Test Date: 2024-06-16 Test Time: 23:45:46 Supervising Law Enforcement Analyst: J[place] MEASUREMENT RESULTS: Intervals: Rate: 63 TN: 190 QRSD: 96 QT: 464 QTc: 474 [place]: P: 41 TN: 190 QRS: 30 T: 66 INTERPRETIVE STATEMENTS: Normal sinus rhythm T wave abnormality, consider anterior ischemia Prolonged QT Abnormal ECG Compared to ECG 10/13/2023 17:11:37 T-wave abnormality now present Possible ischemia now present Prolonged QT interval now present Myocardial infarct finding no longer present Electronically Signed On 06-20-24 12:03:15 CDT by Lex Aguilar
--- NOTE | 2024-06-20 13:22 | CON ---
History Of Present Illness: This is a 68-year-old female. I was consulted for evaluation and manage ment of sepsis. This is a 68-year-old female with significant past medical history of anxiety, atria l fibrillation, history of stroke, diabetes mellitus, hypertension, hyperlipidemia, hypothyroidism, e nd-stage renal disease, on dialysis with short-term memory loss, TIA, recurrent urinary tract infecti on, coming to the emergency room with decubitus ulcer stage IV to the sacrococcyx region and missing her dialysis. The patient got transferred to ICU because of sepsis. Denies any headache, nausea, vo miting, chest pain, abdominal pain, constipation, or diarrhea. Past Medical History: As per HPI. Social History: Nonsmoker. Nondrinker. Family History: Noncontributory. Medications: Meropenem and vancomycin. See MARs for other medications. Allergies: SULFA DRUGS AND AMIKACIN. Review of Systems: A 10-point review was performed. Physical Examination: General: This is a 68-year-old female, lying in bed, not in any acute cardiopulmonary distress. Vital Signs: Temperature 98, pulse 69, respiration 20, blood pressure 100/44. HEENT: Unremarkable. Neck: Supple. Lungs: Basal crackles. Heart: S1, S2. Regular. Abdomen: Soft, nontender. Bowel sounds present. Extremities: 2+ edema. Stage I pressure ulcers noted on both heels, sacrococcyx region with stage I V ulceration. Laboratory Data: Shows WBC 26.8, hemoglobin 7.3, platelets are 27, down from 100,000. BUN of 32, cr eatinine 3. Micro data showing blood cultures are pending with no growth in 24 hours. Urine culture s growing more than 100,000, 4+ yeast. Assessment And Plan: A 68-year-old female with multiple medical problems including end-stage renal d isease, stroke, diabetes mellitus, hypertension, hyperlipidemia, atrial fibrillation, anxiety, recurr ent urinary tract infection, and sacrococcyx stage IV wound, currently being treated empirically with meropenem and vancomycin which was started recently. We will recommend to repeat blood cultures. W ound care per Surgical Team. Continue antibiotic and wound care for 6 weeks of antibiotic. Consider long-term acute care. Thrombocytopenia. End-stage renal disease. Anemia of chronic disease. Severe protein calorie malnourishment. Continue supportive care and wound care. We will follow the patient closely. Thank you, Dr. Alexander, for consult. NF/MODL Voice ID: [id number] Report ID: [id number]
[2024-06-20] MEDS: MIDODRINE HCL 5 MG TABLET PO SCH (15:00)
--- NOTE | 2024-06-20 15:23 | P.PN ---
Subjective Date of Service: 06/20/24 Chief Complaint: Missed Dialysis Patient placed on Ventimask the whole of last night and this morning. White cell count trended but patient appeared lethargic. No issues overnight No recorded fever. Oral intake remain poor Physical Examination - Vital Signs Temperature: 99.0 F Blood Pressure: 107/48 Pulse: 64 Respirations: 31 Pulse Ox (%): 100 - Studies Microbiology Data (last 24 hrs): 06/17/24 02:20 Clean Catch Urine [place] Count - Final >100,000 CFU/ML. 06/17/24 02:20 Clean Catch Urine - Final Assessment And Plan - Plan Physical examination General: Alert and oriented x 1, lethargic. Neck: Supple, no elevated JVD Heart: Heart sounds 1 and 2 normal, regular rhythm, normal rate, no pedal edema Lungs: Clear to auscultation bilaterally, adequate breath sounds bilaterally, bilateral crackles. Abdomen: Soft, nondistended, nontender, normal bowel sounds. Extremities: No tenderness, no deformity Skin: Stage IV sacral decubitus ulcer Neuro: Globally weak, no focal motor deficit. Psychiatry: No agitation. Diagnosis End-stage renal disease on hemodialysis Missed dialysis with anasarca Ileus Inguinal hernia Nephrolithiasis. Sacral decubitus ulcer. Hypoglycemia Plan End-stage renal disease on hemodialysis Missed dialysis Nephrology Dr. Nix input appreciated. Patient is undergoing dialysis with ultrafiltration. Patient is on D5 NS for daily fluid maintenance due to significantly decreased oral intake. Further management per nephrology. Stage IV sacral decubitus ulcer Sepsis Leukocytosis trended up Patient evaluated by surgery Dr. Long who is planning debridement on Tuesday 06/20. Daily wound care Patient is on IV antibiotics. Follow blood cultures. I doubt patient has active UTI or pyelonephritis. Urine culture showed polymicrobial growth which is not unexpected given that patient is a dialysis patient and barely makes any urine. Nephrolithiasis Supportive measures. Ileus Functional constipation Trial of Dulcolax suppository and mag citrate. Generalized weakness PT consult. Hypotension Likely hypovolemia secondary to dehydration. Patient is on IV D5 NS. Monitor BP. Midodrine as needed. Hold home antihypertensives. 06/19 Blood pressure improved today Mental status is improved Leukocytosis much worse compared to yesterday. Patient has not responded to IV Zosyn. Blood cultures have yielded no growth. Given severe leukocytosis IV Zosyn changed to IV meropenem vancomycin. Continue slow IV hydration for daily Lorenz maintenance. Advance diet as tolerated. Surgery Dr. Long input regarding sacral decubitus ulcer noted. Dr. Long is considering debridement tomorrow if patient's condition becomes more stable. Further hemodialysis per nephrology. Continue to hold home antihypertensives. Monitor renal function and CBC. PT evaluation once patient becomes stable. 06/20 Patient remains lethargic, requiring more oxygen. Placed on last night. Chest x-ray demonstrated patchy infiltrates with suggest pneumonia versus pulmonary edema. Nephrology has been on hemodialysis. White cell count trended up from 35,000-26,000 today Aggressive IV antibiotics with meropenem and vancomycin Infectious disease consulted Continue IV hydration for daily maintenance. Hypoglycemia likely related to sepsis and poor oral intake. D5 infusion for hypoglycemia. General surgery Dr. Long is following and considering debridement of sacral decubitus ulcer once patient is more clinically stable. Function and CBC PT evaluation once patient is more stable DVT prophylaxis:Heparin SQ Advanced directive: Full code
--- NOTE | 2024-06-20 16:09 | PN ---
Date of Progress Note: 06/20/2024 Diagnosis: Sacral decubitus ulcer. Patient was booked today for debridement and cleaning of the sacral decubitus ulcer. She has leukocy tosis and a diagnosis of sepsis and although I do not think this is the only contribution of this, st ill we will like to have a better understanding of it under anesthesia with good lighting, but that w as not possible since respiratory dobbins, she deteriorated and she has to be transferred to the ICU. T he wound is still looking acceptable and for me to be able to go into details, I may have to have bet ter lightings and better visualization. Patient does not cooperate just like that at bedside. The w ound at least is acceptable. I believe we should be looking for other source of infection. If by an y chance tomorrow she improve medically and have opportunity to have a better look in this area under controlled settings that will be ideal. ANA/ASHLEY Voice ID: [id number] Report ID: [id number]
[2024-06-20] MEDS ORDERED: NOREPINEPHRINE BITARTRATE/D5W 4 MG/250 ML BAG IV SCH (17:00)
[2024-06-20] MEDS ORDERED: VANCOMYCIN 1 GM in NA CHLORIDE 0.9% 250 ML IVPB SCH (18:00)
[2024-06-20] MEDS: Mupirocin NASAL 2 APPL/1 GM TUBE NAS SCH (20:21)
[2024-06-20] MEDS: Meropenem 500 MG in NA CHLORIDE 0.9% 100 ML IV SCH (21:20)
[2024-06-20] MEDS: NEPRO SHAKE 237 ML CAN PO SCH (21:21)
[2024-06-20] MEDS: HYDROMORPHONE HCL 1 MG/ML INJ IV ONE (22:58)
[2024-06-21] MEDS: MORPHINE 2 MG/ML SYR IV PRN (05:26)
[2024-06-21 06:09] LABS: Albumin 3.3 g/dL (3.4-5.0); Albumin/Globulin Ratio 1.3 (1.1-1.8); Anion Gap 11.9 mEq/L (5.0-15.0); Bilirubin Total 2.6 mg/dL (0.2-1.0); Globulin 2.5 g/dL (2.3-3.5); Magnesium 2.1 mg/dL (1.6-2.4); Phosphorus 1.8 mg/dL (2.5-4.9); Potassium 3.9 mEq/L (3.5-5.1); Protein, Total 5.8 g/dL (6.4-8.2)
--- NOTE | 2024-06-21 07:51 | P.PN ---
Date of Service: 06/21/24 Subjective: had 2.2L removed with HD tolerating non-rebreather overnight converted to a-fib overnight, HR 120s received morphine and dilaudid overnight - has been more somnolent since then Physical Exam: GEN: somnolent, moans in pain, opens eyes to voice, not answering questions CV: afib (110-120), anasarca Pulm: mildly labored respirations on non-rebreather, bilateral crackles ABD: soft, nondistended, difficult to ascertain tenderness Integumentary: Stage IV sacral decubitus ulcer Neuro: Global weakness, somnolent Problem List: acute hypoxemic respiratory failure secondary to pulmonary edema, ARDS sepsis secondary to unclear source Cholelithiasis with concern for choledocholithiasis ESRD on HD - MWF Stage IV sacral decubitus ulcer Acute on chronic anemia acute thrombocytopenia Ileus, with h/o Functional Constipation Hx gastric bypass Nonobstructive bilateral nephrolithiasis Paroxysmal a-fib, s/p recent cardioversion (~1 month ago) Generalized weakness acute hypoxemic respiratory failure secondary to pulmonary edema, ARDS sepsis secondary to unclear source Cholelithiasis with concern for choledocholithiasis ESRD on HD - MWF on admission presented with sacral wound associated with worsening pain, altered mentation, and swelling Patient reported missing 2 sessions of dialysis due to worsening pains. CT abdomen/pelvis (06/17): Possible Mild enteritis and Proctitis. Sacral ulcer with suspected early osteomyelitis. Trace bilateral effusions. Anasarca. distended gallbladder, possible incarcerated hernia CXR (06/20): moderate bilateral patchy lung opacities. CXR (06/21): worsening b/l lung opacities Nephrology consulted Dialysis per nephrology Urine cx (06/17): 4+ yeast. Blood cx (06/17): NGTD 06/19 - IV zosyn switched to IV merrem/Vanc given worsening leukocytosis IV diflucan added (06/19-) 06/20 - Transferred to ICU due to needing increased oxygen. Placed on non- rebreather. BiPAP as needed. wean as tolerated. continue IV lasix 20 mg BID as BP/renal function allow. s/p IV lasix 80 mg x1 and albumin x1 Continue Midodrine 10 mg TID continue merrem/vanc, leukocytosis improved, ID consulted 06/21 - 2.2L removed with HD overnight converted to afib 06/20 evening, rates 100-130s Monitor BP. Antihypertensives on hold for now. Pulm and Cardio consulted repeat CXR to re-eval opacities. continue IV fluids with D5 NS Ct chest/abd/pelvis (06/21): distended gallbladder with distended CBD, with sludge vs stone - choledocholithiasis resulted ~530pm, discussed with general surgery, Dr. Long this evening high risk for MRCP here, continued on nonrebreather, ARDS, recommends transfer to higher level of care - GI for eval of ERCP / ICU updated daughter at bedside, discussed ARDS, and risk of any procedure, and may not be able to safely perform Tbili improved (4 ->2) Stage IV sacral decubitus ulcer CT abdomen/pelvis (06/17): Sacral ulcer with suspected early osteomyelitis at the sacrococcygeal junction. has been doing wound vac at home, but supplies ran out a week or so before admission here and was doing wet to dry does not appear significantly / acutely infected Dr. Long, general surgeon is following Continue local wound care. Acute on chronic anemia; h/o iron deficiency acute thrombocytopenia Ileus, with h/o Functional Constipation Hx gastric bypass Family reports history of anemia for several years since gastric bypass. iron deficiency No obvious bleeds. no black/tarry stools. 06/17 - CT abdomen noted moderate to marked gaseous distention of ascending to descending colon, likely due to ileus 06/18 - s/p mag citrate and dulcolax 06/20 - Had soft formed BM 06/21 - hgb down to 5.8 1 uPRBC ordered platelets ordered as well no bleeding, has diffuse ecchymosis on extremities daughter reports intermittent nosebleeds since restarting anticoagulation in the last 1-2 months (s/p cardioversion for afib at OSH) check INR /fibrinogen probable sepsis related, r/o DIC Nonobstructive bilateral nephrolithiasis CT noted multiple small nonobstructive stones bilaterally up to 4mm. No Mammoth. Benign 1.6 cm Bosniak 1 cyst in left kidney No further work up. Continue supportive care. Paroxysmal a-fib, s/p recent cardioversion (~1 month ago) Has history of a-fib per family but hasn't really been an issue until recently. Underwent recent STEPHANIE guided DCCV ~1 month ago and discharged with amiodarone, eliquis, metoprolol Was told to follow up with EP for watchman evaluation Recent echo (05/23/24): preserved ejection fraction (55-60%), severe left atrial dilation, right atrial dilation, and moderately increased right ventricular wall thickness without wall motion abnormalities. 06/21 - converted into a-fib overnight, HR 120s. replace PO home amio with IV amio drip Cardiology consulted Generalized weakness PT consult once more stable. VTE: on hold given anemia Code: confirmed Full code 06/21 Continue ICU level of care I have personally spent 45 minutes of critical care time, in evaluation and management of this critically ill patients condition requiring use of high risk/critical medication - anemia/thrombocytopenia, requiring tranfusions, afib with amio drip Time Spent Managing Pts Care (In Minutes): 70
[2024-06-21 08:25] LABS: Absolute Basophils 0.1 K/uL (0-0.5); Absolute Eosinophils 0.1 K/uL (0-0.5); Absolute Monocytes 0.5 K/uL (0.1-1.3); Absolute Neutrophil 11.6 K/uL (1.8-8.0); Basophils % 0.9 % (0-1.3); Eosinophils % 0.8 % (0-4.4); Hematocrit 18.2 % (36.0-45.0); Lymphocytes % 7.7 % (15.3-44.8); MCH 29.4 pg (27.0-35.0); MCHC 31.9 g/dL (32.0-36.0); MCV 92.2 fL (80-100); MPV 10.1 fL (7.6-11.3); Monocytes % 3.4 % (3.3-12.3); Neutrophils % 87.2 % (41.7-73.7); Nucleated Red Blood Cells % 0.2 % (0-0); RBC Red Blood Cell Count 1.98 M/uL (3.86-4.86); Red Cell Distribution Width 24.1 % (12.1-15.2)
[2024-06-21 08:28] LABS: Hemoglobin 5.8 g/dL (12.0-15.0)
[2024-06-21 08:33] LABS: Platelets 27 thou/uL (152-406)
[2024-06-21] MEDS ORDERED: NA CHLORIDE 0.9% 250 ML IV SCH (09:00)
--- NOTE | 2024-06-21 09:05 | RAD REPORT ---
EXAM: Chest Single View HISTORY: 68 years Female f/u opacities, s/p dialysis- 2L removed COMPARISON: 06/20/2024. FINDINGS: LUNGS/PLEURA: Severe bilateral interstitial and airspace disease. The opacities appear more confluent in the right upper lobe compared with prior. CARDIAC/MEDIASTINUM: Mild cardiomegaly UPPER ABDOMEN: No significant abnormality. BONES: No acute abnormality. LINES/TUBES/OTHER: Dialysis catheter. IMPRESSION: Increased confluent opacities in the right upper lobe could reflect some shifting or worsening edema/ multifocal pneumonia. The remainder of the lungs are similarly aerated.
[2024-06-21 10:13] LABS: Differential Total Cells Count 100
[2024-06-21 10:15] LABS: Anisocytosis 2+; Blood Morphology Comment NOTED (NOT SEEN); Eosinophils 2 % (0-3); Lymphocytes 14 % (15-42); Macrocytosis 1+; Microcytosis 1+; Monocytes 1 % (0-10); Platelet Estimate DECR; Segmented Neutrophils 83 % (40-80)
[2024-06-21 10:16] LABS: Basophilic Stippling 1+; Toxic Granulation 1+
--- NOTE | 2024-06-21 11:30 | P.CNS ---
Date of Consult: 06/21/24 Chief Complaint: Missed Dialysis History of Present Illness: Patient with PMH of Atrial fibrillation presented with worsening mental status and decubitus ulcers with possible osteo, she is septic on abx, also ESRD on HD, cardiology were consulted for history of AF. Allergies amikacin Adverse Reaction (Verified 06/08/19 02:29) Hives/Rash Sulfa Allergy (Intermediate, Uncoded 06/08/19 02:29) Hives/Rash Home medications list reviewed: Yes Home Medications: Allopurinol 100 mg PO DAILY 10/14/23 Omeprazole 20 mg PO BID 10/14/23 Amiodarone HCl [Cordarone Tab] 200 mg PO DAILY 06/17/24 Amlodipine [Norvasc] 5 mg PO DAILY 06/17/24 Apixaban [Eliquis] 2.5 mg PO BID 06/17/24 Metoprolol Succinate [Toprol Xl] 100 mg PO DAILY 06/17/24 - Past Medical/Surgical History Diabetic: No -: Lexington's disease -: Recurrent UTIs -: Nephrolithiasis -: Diabetes mellitus type 2 -: Hypertension -: Atrial fibrillation -: Chronic back pain -: Tobacco abuse -: History of CVA and TIA x 2 -: GERD -: Poor dentition -: drug abuse -: Lithotripsy -: Gastric bypass -: Bilateral rotator cuff repair -: Neck surgery to the C3 through C6 Psychosocial/ Personal History: The patient is . - Family History Mother Medical History: Hypertension Father Medical History: Hypertension - Social History Smoking Status: Unknown if ever smoked Alcohol use: No CD- Drugs: No Caffeine use: No Review of Systems is unable to be obtained (patient is altered) Physical Examination Temp Pulse Resp BP Pulse Ox 97.5 F 135 H 27 H 129/56 L 94 06/21/24 04:00 06/21/24 10:12 06/21/24 10:19 06/21/24 10:12 06/21/24 10:19 General: Alert, In no apparent distress HEENT: Atraumatic, PERRLA, Mucous membr. moist/pink, EOMI, Sclerae nonicteric Neck: Supple, 2+ carotid pulse no bruit, No LAD, Without JVD or thyroid abnormality Respiratory: Clear to auscultation bilaterally, Normal air movement Cardiovascular: Regular rate/rhythm, Normal S1 S2 Gastrointestinal: Normal bowel sounds, No tenderness Musculoskeletal: No tenderness Integumentary: No rashes Neurological: Normal gait, Normal speech, Normal tone, Normal affect Lymphatics: No axilla or inguinal lymphadenopathy - Problems (1) Atrial fibrillation Onset Date: 04/11/16 Current Visit: No Status: Chronic Plan: patient can not take PO, start amiodaorne drip to help slow down HR which is high due to sepsis and anemia no antiocagulation at this time due to drop in HgB. Qualifiers: Atrial fibrillation type: chronic
[2024-06-21] MEDS: NA CHLORIDE 0.9% 250 ML ONE (11:38)
[2024-06-21] MEDS: AMIODARONE HCL 900 MG in Dextrose 5%-Water 482 ML IV SCH (11:55)
[2024-06-21] MEDS: AMIODARONE HCL 150 MG in D5W 100 ML IV STA (11:55)
--- NOTE | 2024-06-21 12:17 | P.CNS ---
Date of Consult: 06/21/24 Reason for Consult: Pneumonia respiratory failure Chief Complaint: Missed Dialysis History of Present Illness: Patient is 68 years of age very debilitated multiple bruising decubitus ulcers pulm medical problems metabolic syndrome including stage renal disease recently missed some dialysis sessions admitted with decubitus ulcer found to be severely anemic currently unresponsive found to have pneumonia and multiple hospital admission and significant nasal bleeds was on Eliquis Allergies amikacin Adverse Reaction (Verified 06/08/19 02:29) Hives/Rash Sulfa Allergy (Intermediate, Uncoded 06/08/19 02:29) Hives/Rash Home Medications: Allopurinol 100 mg PO DAILY 10/14/23 Omeprazole 20 mg PO BID 10/14/23 Amiodarone HCl [Cordarone Tab] 200 mg PO DAILY 06/17/24 Amlodipine [Norvasc] 5 mg PO DAILY 06/17/24 Apixaban [Eliquis] 2.5 mg PO BID 06/17/24 Metoprolol Succinate [Toprol Xl] 100 mg PO DAILY 06/17/24 - Past Medical/Surgical History Diabetic: No -: Peabody's disease -: Recurrent UTIs -: Nephrolithiasis -: Diabetes mellitus type 2 -: Hypertension -: Atrial fibrillation -: Chronic back pain -: Tobacco abuse -: History of CVA and TIA x 2 -: GERD -: Poor dentition -: drug abuse -: Lithotripsy -: Gastric bypass -: Bilateral rotator cuff repair -: Neck surgery to the C3 through C6 Psychosocial/ Personal History: The patient is . - Family History Mother Medical History: Hypertension Father Medical History: Hypertension - Social History Smoking Status: Unknown if ever smoked Alcohol use: No CD- Drugs: No Caffeine use: No Review of Systems is unable to be obtained Physical Examination Temp Pulse Resp BP Pulse Ox 97.5 F 135 H 27 H 129/56 L 94 06/21/24 04:00 06/21/24 10:12 06/21/24 10:19 06/21/24 10:12 06/21/24 10:19 General: Unresponsive Neck: Supple Respiratory: Diminished Cardiovascular: No edema, Regular rate/rhythm, Normal S1 S2 Gastrointestinal: Normal bowel sounds, Soft and benign - Problems (1) Pneumonia Current Visit: Yes Status: Acute Plan: Unable to review images chest x-ray report states pneumonia she is on multiple hospital admissions severely anemic and eaten or drank anything according to the daughter patient to receive blood transfusion end-stage renal disease also has 4+ yeast in the urine is on Diflucan chemistries reviewed white count elevated prognosis poor code as per daughter start tube feeds and is on vancomycin meropenem and Diflucan also has a large decubitus ulcer multiple bruising patient is on 100% FiO2 nonrebreather recent history of nasal bleeds no history of GI bleeding was on Eliquis Qualifiers: Laterality: right
[2024-06-21] MEDS ORDERED: HYDROMORPHONE HCL 1 MG/ML INJ IV PRN ×2 (12:23→12:30)
[2024-06-21] MEDS: HYDROMORPHONE HCL 0.5 MG/0.5 ML INJ IV PRN (12:36)
--- NOTE | 2024-06-21 13:28 | PN ---
Subjective: This is a progress note followup with a new problem. I was contacted by the primary doc tor today, the one which addressed the issue of intestines and gave some advice on the findings on e CAT scan. Ms. Greenwood is a 68-year-old patient, consulted me for sacral decubitus ulcer. She has a long history of going to multiple hospitals, but we could not get the family member like we have joanna bernard. The daughter is today and we clarified medical concerns and the story now move to she has been f or the last few months at different institutions, first started with some looks in [place]. At that moment, she was having that for change in mental status and some other changes. Then, she went to [facility] after she has some kidney issues and that is what she claimed the sacral ulcer devel op, then she ended down in [facility] for atrial fibrillation. She stated that when she was in [facility], did notice some changes on her intestines, but even though she was diagnosed with enteritis and intermittent partial obstructions and hernias, no surgery was done because the risks outweighed t he benefits, and they noticed this to be chronic, then she went home for 2 weeks. [facility], they noticed some change in mental status and then they decided to bring the patient to this insti tution, that will be #4. I noticed when they consulted us for the sacral decubitus, that sacral decu bitus at least at bedside with back lining and the patient moving looks acceptable, but the WBC count was 30, so we are trying to look for a source of infection. We were planning to take this patient t o a control setting where we can take a look at that area, but yesterday she had some respiratory iss ues and have to be transferred to the ICU, so the evaluation under anesthesia of the sacral decubitus was postponed and debridement. Today, we looked at bedside and once again we have limitations, but we did not see this as main cause of her WBC count. I discussed that with the daughter, and daughter has been seeing this before. She noticed the wound to be almost the same as before clean and then s he has specified that she had a wound VAC, but in the last 2 weeks she has been at home. The supplie s have been inconsistent and then she is not using the wound VAC anymore and she will likely have to be redressed again, so that is the story. The patient cannot give us any story. The abdomen is soft and depressible. The person does not complain of any abdominal pain at this moment. She does not c ooperate or take diet on her own, not now and not before, as per family. There is a CAT scan that wa s done on 06/17/2024 that shows interval migration of a short bowel segment into the right inguinal h ernia, probably the distal ileum. The entrapped bowel shows mild dilatation and intraluminal fecal m aterial suggesting low grade obstruction. Mild circumferential wall thickening of the multiple ileal loops suspicious for mild enteritis. Several distal ileal loops with intraluminal fecal material. Moderate to marked gas distention of the ascending to descending colon, likely ileus. A large amount of constipation. Circumferential wall thickening of the rectum. Mild perirectal stranding consiste nt with proctitis. Assessment: This is a 68-year-old patient with decubitus ulcer. For that, we are going to start the wound VAC. It looks clean enough and we took a look at that area again, not just the picture, but p hysically and we were able to discuss that with the family. Concerning the images of intestines, I d iscussed that with the family. They say that they have been seen that before the hernia. The abdome n is benign and the inguinal hernias are reducible, so an inflammation not just there, but multiple t ype of intestines and large bowel, but they say that it is a horrible constipation that she has, some times pus more than a week before she can even have a bowel movement and then she has an explosion of stools coming out, that is routine for her. Now I explained to her from the surgical standpoint it is our first time seeing her. We are going to evaluate that intestines. If we see that intestines s trap and compromise, then we may have to make the decision of surgical intervention of the hernia. I f it caused a bowel obstruction, then we also can do small bowel series to see if the food will cut t hrough properly. Constipation is a chronic disease, that is a challenge that we are going to have to ask the electrical fitter input for that. The abdomen is benign at this moment. She is going to t hilaria some diet and if I see that clinically she deteriorates, please hold that and let us do small bow el series to see the flow, although right now once again that hernia is reducible. ANA/ASHLEY Voice ID: [id number] Report ID: [id number]
[2024-06-21 14:04] LABS: PT Prothrombin Time 17.1 SECONDS (10-13.0); PTT, Activated Partial Thromb 39.9 SECONDS (27.2-37.4); Protime INR 1.53
[2024-06-21 15:47] VITALS: O2SAT 100
[2024-06-21 16:32] LABS: Hematocrit 24.3 % (36.0-45.0); Hemoglobin 7.7 g/dL (12.0-15.0)
--- NOTE | 2024-06-21 16:53 | RAD REPORT ---
EXAM: CT CHEST, ABDOMEN AND PELVIS WITHOUT CONTRAST CLINICAL INDICATION: Female, 68 years old. [facility] f/u hernia/SBO, eval lung opacity TECHNIQUE: CT chest, abdomen and pelvis was performed, without IV contrast, as per department protoco l. Axial, sagittal and coronal reconstructions were obtained. One or more of the following dose reduction techniques were used: Automated exposure control, adjustment of the mA and/or kV according to the patient size, and/or iterative reconstruction. Unless otherwise specified, incidental findings do not require dedicated imaging follow-up. COMPARISON: 06/17/2024 CT abdomen and pelvis with 06/21/2024 at [id number] chest radiograph FINDINGS: The lack of intravenous contrast limits the sensitivity of this exam for evaluation of solid visceral organs, vascular structures, and retroperitoneum. Chest: LOWER NECK/CHEST WALL: Visualized thyroid gland and soft tissues are normal. LUNGS AND AIRWAYS: Extensive apical predominant patchy bilateral airspace opacities with interlobular septal thickening. Upper airways are patent. PLEURA: Trace layering bilateral pleural effusion. No pneumothorax. Hemidiaphragms are normally posit ioned. MEDIASTINUM AND LYMPH NODES: No mediastinal mass or fluid collection. Normal size mediastinal, hilar, and axillary lymph nodes. THORACIC AORTA: Normal caliber and configuration. PULMONARY ARTERIES: Normal caliber. HEART: Unremarkable. Abdomen/Pelvis LIVER: Normal in size and contour. No focal lesion. GALLBLADDER/BILE DUCTS: Markedly distended with small layering calculi. Markedly prominent, bile duct measuring up to 1.7 cm in caliber. Ill-defined hyperdense material along the distal common bile duct, may represent sludge or small calculi. Central biliary ductal prominence. PANCREAS: No mass, ductal dilation, or sheela-pancreatic fluid. SPLEEN: Normal size. No focal lesion. ADRENALS: Normal; no mass. KIDNEYS AND URETERS: Atrophic changes more pronounced on the left. Left upper to midpole measuring 1. 7 cm. No hydronephrosis. GASTROINTESTINAL TRACT: Stomach is non-dilated. Small bowel has normal course and caliber. No colonic wall thickening or pericolonic inflammatory changes. PERITONEUM: 1 trace pelvic free fluid. LYMPH NODES: No lymphadenopathy. ABDOMINAL AORTA AND OTHER VESSELS: Normal caliber aorta and IVC. URINARY BLADDER: Normal contour. REPRODUCTIVE ORGANS: No pathologic process. MUSCULOSKELETAL: No acute or suspicious osseous abnormality. ADDITIONAL FINDINGS: Diffuse body wall edema. Small bilateral inguinal hernias containing fat. IMPRESSION: Progressive extensive apical predominant patchy bilateral airspace and interstitial opacities, could reflect multifocal pneumonia, ARDS, or severe pulmonary edema. Trace bilateral pleural effusions, mild ascites, and body wall edema. Please correlate for third spac ing/volume overload. Marked gallbladder distention and biliary ductal dilation again seen. Cholelithiasis. Radiodense mate rial within the distal common bile duct could reflect sludge or choledocholithiasis. Other findings as above.
[2024-06-21 17:12] LABS: Blood O2 Saturation 91.2 % (92-98.5)
[2024-06-21 17:13] LABS: Blood Gas THB 7.9 g/dl (12-18)
--- NOTE | 2024-06-21 18:30 | P.PN ---
Date of Service: 06/21/24 Vital Signs Temp Pulse Resp BP Pulse Ox 97.7 F 108 H 26 H 119/60 100 06/21/24 12:00 06/21/24 15:00 06/21/24 15:00 06/21/24 15:00 06/21/24 15:00 Medications Acetaminophen (Acetaminophen 325 Mg Tablet) 650 mg PO Q4HP PRN PRN Reason: Pain scale 2-4 (Mild) Last Admin: 06/18/24 22:06 Dose: 650 mg Hydrocodone Bitart/Acetaminophen (Hydrocodone/Apap 10/325 Tab) 1 tab PO Q4H PRN PRN Reason: Pain scale 5-7 (Moderate) Last Admin: 06/20/24 20:21 Dose: 1 tab Allopurinol (Allopurinol 100 Mg Tab) 100 mg PO DAILY [facility] Last Admin: 06/21/24 09:00 Dose: Not Given Amiodarone HCl (Amiodarone Hcl 200 Mg Tab) 200 mg PO DAILY [facility] Last Admin: 06/21/24 09:00 Dose: Not Given Enteral Nutritional Formula (Nepro Shake 237 Ml Can) 237 ml PO BID [facility] Last Admin: 06/21/24 09:00 Dose: Not Given Furosemide (Furosemide 20 Mg/ 2ml Vial) 20 mg IV BID [facility] Last Admin: 06/21/24 10:12 Dose: 20 mg Glucagon (Glucagon 1 Mg/Vial) 1 mg IM 1X PRN PRN Reason: HYPOGLYCEMIA Heparin Sodium (Porcine) (Heparin 1,000 Unit/Ml Vial) 6,000 unit IV EVERY HD PRN PRN Reason: FOR DIALYSIS CATHETER CARE Last Admin: 06/20/24 21:04 Dose: 6,000 unit Heparin Sodium (Porcine) (Heparin 1,000 Unit/Ml Vial) 2,000 unit IV EVERY HD PRN PRN Reason: Prevent Hd System Clotting Last Admin: 06/20/24 17:57 Dose: 2,000 unit Hydromorphone HCl (Hydromorphone Hcl 0.5 Mg/0.5 Ml Inj) 0.5 mg IV Q6H PRN PRN Reason: Pain scale 8-10 (Severe) Last Admin: 06/21/24 12:36 Dose: 0.5 mg Dextrose (Dextrose 10% Water Iv Soln.) 125 mls @ 0 mls/hr IV PRN PRN; Protocol PRN Reason: HYPOGLYCEMIA Last Admin: 06/21/24 11:37 Dose: 125 mls Fluconazole (Diflucan 200 Mg/100 Ml Ivpb (Premix)) 100 mg in 50 mls @ 50 mls/hr IV Q24H [facility]; Protocol Last Admin: 06/21/24 10:12 Dose: 50 mls Vancomycin HCl 1 gm/ Sodium (Chloride) 250 mls @ 250 mls/hr IVPB AFTER EACH DIALYSIS [facility]; Protocol Meropenem 500 mg/ Sodium (Chloride) 100 mls @ 200 mls/hr IV Q24H [facility] Last Admin: 06/21/24 17:26 Dose: 100 mls Norepinephrine/Dextrose (Levophed 4 Mg/250 Ml-D5w) 4 mg in 250 mls @ 17.18 mls/hr IV TITR [facility]; Protocol Sodium Chloride (Sodium Chloride) 250 mls @ 0 mls/hr IV .Q0M [facility] Amiodarone HCl 900 mg/ (Dextrose) 500 mls @ 0 mls/hr IV CONT [facility]; Protocol Stop: 06/22/24 11:59 Last Admin: 06/21/24 12:15 Dose: 500 mls Amiodarone HCl 900 mg/ (Dextrose) 500 mls @ 16.5 mls/hr IV Q24H [facility] Midodrine (Midodrine Hcl 5 Mg Tablet) 10 mg PO TID [facility] Last Admin: 06/21/24 13:34 Dose: Not Given Morphine Sulfate (Morphine 2 Mg/Ml Syr) 2 mg IV Q4H PRN PRN Reason: Pain scale 8-10 (Severe) Last Admin: 06/21/24 10:19 Dose: 2 mg Mupirocin (Mupirocin Nasal 2 Appl/1 Gm Tube) 1 appl FOUZIA BID [facility] Stop: 06/25/24 09:01 Last Admin: 06/21/24 11:37 Dose: 1 appl Ondansetron HCl (Ondansetron 4 Mg/2 Ml Vial) 4 mg IV Q6HP PRN PRN Reason: NAUSEA / VOMITING Microbiology Results 06/17/24 02:20 Clean Catch Urine [place] Count - Final >100,000 CFU/ML. 06/17/24 02:20 Clean Catch Urine - Final 06/17/24 01:52 Blood - Blood Aerobic Blood Culture - Preliminary No growth in 24 hours. 06/17/24 01:52 Blood - Blood Anaerobic Blood Culture - Final 06/17/24 01:52 Blood - Blood Aerobic Blood Culture - Preliminary No growth in 24 hours. 06/17/24 01:52 Blood - Blood Anaerobic Blood Culture - Final Assessment/ Plan: Nephrology Progress Note Limited IH/ ROS due to AMS with decreased responsiveness. Case reviewed with the daughter and nurse at the bedside. Daughter is concerned about the tachycardia. Received dilaudid and morphine overnight. Vital Signs, Medications, Blood Work, and Imaging reviewed in the chart NAD. NCAT. MMM. Neck Supple. Diminished. Irregular/ tachy. Abd ND. No C/C. LE Edema 2-3+. No Rash. Somnolent but arousable. Diffuse muscle atrophy. HISTORY: Cough COMPARISON: June 17, 2024 FINDINGS: Moderate patchy alveolar opacities are present within the lungs. Heart is mildly enlarged. Central venous catheter in place. No significant pleural effusion noted. The heart is normal size. IMPRESSION: Moderate bilateral patchy lung opacities could represent pneumonia or pulmonary edema Assessment & Plan ESRD on HD MWF Proteinuria -No NSAIDs -Next HD tomorrow Chronic Hypotension -Continue Midodrine -Albumin prn -Levophed prn Diastolic CHF, A/C Anasarca Acute Hypoxic Respiratory Failure -Continue Oxygen supplementation -CXR reviewed -Lasix prn Hypoalbuminemia with protein malnutrition Sarcopenia -IV Albumin prn Sacral Decubitus Ulcer Stage IV Sepsis -Follow up with surgery -Wound care as ordered -Continue Abx Anemia in chronic illness Thrombocytopenia -Monitor CBC -PRBC prn Hypophosphatemia -Replete as needed due to poor nutrition Acute Cystitis with Hematuria -Continue abx Case reviewed with Dr. Vann Hospitalist, Pulmonary and Cardiology notes reviewed Patient care 40min
--- NOTE | 2024-06-21 18:58 | PN ---
Subjective: The patient is lying in bed. No new acute event. Daughter by the bedside. Her hemoglo bin and platelets have dropped significantly. Objective: Vital Signs: Temperature 98, pulse 90, respirations 21, blood pressure 129/56. Lungs: Basal crackles. Heart: S1, S2. Regular. Abdomen: Soft, nontender. Bowel sounds present. Extremities: Trace edema. Laboratory Data: Shows WBC 13.3, hemoglobin 5.8, platelets are 27. Chemistry shows BUN of 16, creat inine 1.8. Blood cultures are negative. Urine cultures are growing more than 100,000 colonies of ye ast. Repeat blood cultures are pending. Wound cultures are pending. Sacral coccyx stage IV wound n oted. Bilateral heel DTI noted. Assessment And Plan: Sacral coccyx stage IV wound with the patient. Leukocytosis is improving. Acu te anemia with 5.8 hemoglobin. Thrombocytopenia, possibly secondary to sepsis. Continue antibiotic and supportive care empirically with meropenem and vancomycin, pending culture results. Prognosis guarded. We will follow the patie nt as needed. NF/MODL Voice ID: [id number] Report ID: [id number]
[2024-06-21] MEDS: FUROSEMIDE 40 MG/4 ML VIAL IV SCH (19:31)
[2024-06-21 23:46] LABS: Blood O2 Saturation 92.5 % (92-98.5)
[2024-06-21 23:47] LABS: Arterial Blood Carboxyhemoglob 2.3 % (0-1.5); Blood Gas THB 7.8 g/dl (12-18)
[2024-06-22 00:24] VITALS: TEMP 99.2
[2024-06-22 01:44] VITALS: BP 133/64
[2024-06-22] MEDS ORDERED: AMIODARONE HCL 900 MG in Dextrose 5%-Water 482 ML IV SCH (12:00)
--- NOTE | 2024-06-22 14:34 | P.DS ---
Admission Date: 06/17/24 Discharge Date: 06/21/24 Disposition: TRANSFER TO [facility] OTHER Discharge Condition: SERIOUS Reason for Admission: Missed Dialysis Consultations: Cardiology - Dr. Aguilar Nephrology - Dr. Agnes CAIN - Dr. Escalante Pulmonology - Dr. Gonzalez General surgery - Dr. Long Brief History of Present Illness: 68yo F, PMH: anxiety, atrial fibrillation, history of stroke, diabetes, hype rtension, hyperlipidemia, hypothyroidism, ESRD on dialysis, short-term memory loss, TIA, recurrent UTI Patient presents to ER with complaints of Decubitus Pressure Ulcer and Missed Dialysis. Patient presents to ED for recheck of decubitus ulcer that home health was treating. She missed last 2 sessions of dialysis due to increasing pain from decubitus ulcer. Family was concerned that the wound looks worse and was brought to ER. Patient denies any chest pain or shortness of breath. No fever or chills. No nausea vomiting or diarrhea. Patient was assessed in the ER and is admitted for further management of pyelonephritis and decubitus stage IV ulcer and volume overload due to missed dialysis and will consult nephrology and wound care Hospital Course: Problem List: Acute hypoxemic respiratory failure secondary to pulmonary edema, ARDS sepsis secondary to unclear source Cholelithiasis with concern for choledocholithiasis ESRD on HD - MWF Stage IV sacral decubitus ulcer Acute on chronic anemia acute thrombocytopenia Ileus, with h/o Functional Constipation Hx gastric bypass Nonobstructive bilateral nephrolithiasis Paroxysmal a-fib, s/p recent cardioversion (~1 month ago) Generalized weakness Physical Exam: GEN: somnolent, opens eyes to voice, not answering questions CV: afib (110-120), anasarca Pulm: mildly labored respirations on non-rebreather, bilateral crackles ABD: soft, nondistended, difficult to ascertain tenderness Integumentary: Stage IV sacral decubitus ulcer Neuro: Global weakness, somnolent Vital Signs/Physical Exam: Temp Pulse Resp BP Pulse Ox 99.2 F 111 H 13 133/64 100 06/22/24 00:00 06/22/24 01:00 06/22/24 01:00 06/22/24 01:00 06/22/24 01:00 Laboratory Data at Discharge: WBC Cancelled 06/22/24 05:00 Hgb Cancelled 06/22/24 05:00 Hct Cancelled 06/22/24 05:00 Plt Count Cancelled 06/22/24 05:00 PT 17.1 SECONDS (10-13.0) H 06/21/24 13:08 INR 1.53 06/21/24 13:08 APTT 39.9 SECONDS (27.2-37.4) H 06/21/24 13:08 Sodium Cancelled 06/22/24 05:00 Potassium Cancelled 06/22/24 05:00 BUN Cancelled 06/22/24 05:00 Creatinine Cancelled 06/22/24 05:00 Glucose Cancelled 06/22/24 05:00 Uric Acid Cancelled 06/22/24 05:00 Phosphorus Cancelled 06/22/24 05:00 Magnesium 2.1 mg/dL (1.6-2.4) 06/21/24 05:31 Total Bilirubin Cancelled 06/22/24 05:00 AST Cancelled 06/22/24 05:00 ALT Cancelled 06/22/24 05:00 Alkaline Phosphatase Cancelled 06/22/24 05:00 Home Medications: Allopurinol 100 mg PO DAILY 10/14/23 Omeprazole 20 mg PO BID 10/14/23 Amiodarone HCl [Cordarone Tab] 200 mg PO DAILY 06/17/24 Amlodipine [Norvasc] 5 mg PO DAILY 06/17/24 Apixaban [Eliquis] 2.5 mg PO BID 06/17/24 Metoprolol Succinate [Toprol Xl] 100 mg PO DAILY 06/17/24 Followup: Cayetano King MD [Primary Care Provider] - 1-2 Weeks Time spent managing pt's care (in minutes): 45
[2024-06-22] MEDS ORDERED: VANCOMYCIN 1 GM in NA CHLORIDE 0.9% 250 ML IVPB SCH (18:00)
--- NOTE | 2024-06-23 08:46 | EKG ---
Test Date: 2024-06-21 Test Time: 05:13:26 Learning Support Teacher: KELI MEASUREMENT RESULTS: Intervals: Rate: 106 LA: QRSD: 106 QT: 338 QTc: 448 [place]: P: LA: QRS: 4 T: 137 INTERPRETIVE STATEMENTS: Atrial fibrillation with rapid ventricular response ST & T wave abnormality, consider lateral ischemia or digitalis effect Abnormal ECG Compared to ECG 06/16/2024 23:45:46 ST (T wave) deviation now present Sinus rhythm no longer present T-wave abnormality no longer present Prolonged QT interval no longer present Possible ischemia still present Electronically Signed On 06-23-24 08:38:55 CDT by Lex Aguilar
== END 2024-06-22 01:40 | disposition short-term general hospital (02) | DRG 871 ==
LOC: ER 22:52 → ERHOLD 06-17 05:12 → 2ND 06-17 17:18 → 3RD-ICU 06-20 09:56
PROVIDERS: ADMIT Family Medicine; ATTEND Hospitalist
PROC: 0T9B70Z Drainage of Bladder with Drainage Device, Via Natural or Artificial Opening (ICD-10-PCS; principal; 2024-06-17)
PROC: 5A1D70Z Performance of Urinary Filtration, Intermittent, Less than 6 Hours Per Day (ICD-10-PCS; 2024-06-17)
PROC: 5A1D70Z Performance of Urinary Filtration, Intermittent, Less than 6 Hours Per Day (ICD-10-PCS; 2024-06-20)
PROC: 4A133R1 Monitoring of Arterial Saturation, Peripheral, Percutaneous Approach (ICD-10-PCS; 2024-06-21)
PROC: 30233N1 Transfusion of Nonautologous Red Blood Cells into Peripheral Vein, Percutaneous Approach (ICD-10-PCS; 2024-06-21)
PROC: 30233R1 Transfusion of Nonautologous Platelets into Peripheral Vein, Percutaneous Approach (ICD-10-PCS; 2024-06-22)
DX: A41.9 Sepsis, unspecified organism (principal); E43 Unspecified severe protein-calorie malnutrition; L89.154 Pressure ulcer of sacral region, stage 4; J80 Acute respiratory distress syndrome; G92.8 Other toxic encephalopathy; J81.0 Acute pulmonary edema; I50.33 Acute on chronic diastolic (congestive) heart failure; N18.6 End stage renal disease; I13.2 Hypertensive heart and chronic kidney disease with heart failure and with stage 5 chronic kidney disease, or end stage renal disease; R64 Cachexia; E27.1 Primary adrenocortical insufficiency; I48.20 Chronic atrial fibrillation, unspecified; K56.7 Ileus, unspecified; N10 Acute pyelonephritis; E11.22 Type 2 diabetes mellitus with diabetic chronic kidney disease; D63.1 Anemia in chronic kidney disease; D69.6 Thrombocytopenia, unspecified; E87.70 Fluid overload, unspecified; E78.5 Hyperlipidemia, unspecified; K21.9 Gastro-esophageal reflux disease without esophagitis; F17.210 Nicotine dependence, cigarettes, uncomplicated; K40.90 Unilateral inguinal hernia, without obstruction or gangrene, not specified as recurrent; E86.0 Dehydration; E86.1 Hypovolemia; I95.9 Hypotension, unspecified; K80.20 Calculus of gallbladder without cholecystitis without obstruction; R41.3 Other amnesia; N20.0 Calculus of kidney; R82.81 Pyuria; R53.1 Weakness; Z99.2 Dependence on renal dialysis; Z91.158 Patient's noncompliance with renal dialysis for other reason; Z98.84 Bariatric surgery status; Z86.73 Personal history of transient ischemic attack (TIA), and cerebral infarction without residual deficits; Z68.20 Body mass index [BMI] 20.0-20.9, adult
CPT/HCPCS: 36415; 36600; 71045; 71250; 74176; 80048; 80053; 80076; 80202; 81001; 82805; 82947; 83605; 83735; 83880; 84100; 84443; 85014; 85018; 85025; 85384; 85610; 85730; 86140; 86706; 86850; 86900; 86901; 86920; 87040; 87070; 87086; 87088; 87205; 87340; 90935; 93005; 94760; 97161; 99285; J0282; J0461; J0612; J0692; J1160; J1171; J1450; J1644; J1940; J2270; J2543; J3370; J7042; J7050; J7060; P9016; P9035; P9047; P9100